=== PATIENT | male | born 1990 | race Caucasian/White ===

== ENCOUNTER 2023-07-16 23:29 | Emergency (ER) | payer OTHER, SELFPAY ==
[2023-07-16 23:31] VITALS: BP 131/90; PULSE 66; RESP 18; TEMP 36.1; O2SAT 100
--- NOTE | 2023-07-16 23:34 | W.ED.GENAD ---
Discharge Plan Disposition Patient Disposition: Home Condition: Good Discharge Details Clinical Impression: Otitis media Primary Care Provider: None,None ED Provider: Jose G Monroys and New Rx's Prescriptions: New amoxicillin-pot clavulanate 875-125 mg tablet 1 tab PO BID Qty: 20 0RF Continued cetirizine 10 MG tablet,chewable 10 mg PO DAILY diphenhydramine HCl 25 MG capsule 25 mg PO PRN PRN Discharge Instructions Instructions: Ear Infection (ED) Additional Instructions: You were seen for left ear pain tonight with evidence of middle ear infection with possible tympanic membrane rupture. Will start you on an antibiotic which is a little stronger than what we usually used for ear infections given your recent use of 2 different antibiotics. You will need to follow-up with ear nose and throat and [facility]. Alternate acetaminophen with ibuprofen as we discussed. Do not let water into your ear until you have been seen and evaluated by ENT. Return to the ED for worsening ear pain or persistent headache, fever, other concerns. HPI General Mode of arrival: ambulatory. Date/Time Provider Initiated Documentation: 07/16/23 23:34. Limitations to Documentation: no limitations. Information obtained by: patient. HPI Narrative: Patient presents to ED with left ear pain that started this afternoon and has worsened throughout the evening. He reports being treated for pneumonia back in May and more recently treated for bronchitis with last dose of antibiotic 1 week ago. Still has a residual cough but otherwise feels much better. This afternoon developed left ear pain which has been worsening throughout the night. In the waiting room felt a pop and has had a little bit of drainage from that ear. Denies any fever or headache. Related Data Home Medications Medication Instructions Recorded Confirmed cetirizine 10 mg chewable tablet 10 mg PO DAILY 05/24/12 07/16/23 diphenhydramine HCl 25 mg capsule 25 mg PO PRN PRN 01/26/13 07/16/23 amoxicillin 875 mg-potassium 1 tab PO BID #20 tabs 07/16/23 clavulanate 125 mg tablet Previous Rx's Medication Instructions Recorded amoxicillin 875 mg-potassium 1 tab PO BID #20 tabs 07/16/23 clavulanate 125 mg tablet Allergies Allergy/AdvReac Type Severity Reaction Status Date / Time No Known Allergies Allergy Verified 07/16/23 23:45 General Stated Complaint: EarProblem BENJAMIN: 4 Review of Systems Narrative: Per HPI Exam Narrative Exam Narrative: Const: WDWN male in NAD. VS per triage. HEENT: NC/AT. Normal facial exam. Right ear normal. Left ear with opacified and erythematous tympanic membrane, questionable perforation superiorly. Canal appears normal. Oropharynx normal. Eyes: Normal conjunctiva and sclera. Neck: Supple. Trachea midline. Lungs: Normal respiratory effort. Neuro: A+O x 3. Normal speech, mentation, gait. Cranial nerves II - XII grossly intact. No gross motor or sensory deficit. Course Vital Signs Vital signs: Vital Signs Temperature 97 F L 07/16/23 23:31 Pulse 66 07/16/23 23:31 Respiratory Rate 18 07/16/23 23:31 Blood Pressure 131/90 07/16/23 23:31 Pulse Oximetry 100 07/16/23 23:31 Temperature 97 F L 07/16/23 23:31 Temperature Source Temporal Artery Scan 07/16/23 23:31 Pulse 66 07/16/23 23:31 Respiratory Rate 18 07/16/23 23:31 Blood Pressure 131/90 07/16/23 23:31 Pulse Oximetry 100 07/16/23 23:31 Oxygen Delivery Method Room Air 07/16/23 23:31 Oxygen Flow Rate 0 07/16/23 23:31 Pain Level 8 07/16/23 23:31 Medical Decision Making Patient presenting to ED with left ear pain. Definitely has otitis media with questionable TM perforation. Has recently been on antibiotics, 2 different kind in the last month. Will place on Augmentin and refer to ear nose and throat. [facility] and will reach out to [place] tomorrow. Instructed to alternate acetaminophen with ibuprofen every 4 hours. Do not allow water to get into the ear. Return precautions provided. PFSH All Active Problems Otitis media (Acute) Medical History No significant past medical history Surgical History S/P hernia repair Social History Smoking/Tobacco Use Status: Former Tobacco Use Smoking risk assessment performed?: Yes Drug use: Never Substance use type: does not use Do you feel safe at home: Yes
[2023-07-16] MEDS: Amoxicillin 875/Clav. 125 TAB PO (23:51)
== END 2023-07-17 | disposition home or self-care (01) ==
PROVIDERS: Emergency Provider Emergency Medicine
DX: H92.02 Otalgia, left ear (principal); H66.92 Otitis media, unspecified, left ear
CPT/HCPCS: 99283

== ENCOUNTER 2024-03-18 10:10 | Emergency (ER) | payer OTHER, SELFPAY ==
[2024-03-18 10:19] VITALS: BP 115/77; PULSE 68; RESP 17; TEMP 36.3; O2SAT 98
[2024-03-18 10:25] VITALS: BP 115/77; PULSE 68; RESP 17; TEMP 36.3; O2SAT 98
--- OUTSIDE RECORDS SUMMARY | 2024-03-18 10:27 | XMS_ITS | Continuity of Care Document ---
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 It does not include entries that were removed or entered in error. Problem Status Onset Date Problem Type Date of Resolution Comments Source pneumothorax spontaneous Inactive 08/08/19 12 Condition DoD conditions influencing health status Active Condition DoD inguinal hernia on the right Active Condition DoD inguinal hernia bilateral Inactive Condition DoD visit for: services physical separation Active Condition DoD visit for: services physical pre-deployment Active Condition DoD common cold Inactive Condition DoD otitis media left ear Active Condition DoD trapezius muscle strain left Active Condition DoD Removal Of [place] Inactive Condition Do D visit for: services physical Active Condition DoD Need For Vaccination Typhoid Active Condition DoD Need For Vaccination Hepatitis B Active Condition DoD Need For Vaccination Hepatitis A Active Condition DoD visit for: occupational health / fitness exam Active Condition DoD otitis externa Inactive Condition DoD multiple blisters Active Condition DoD skin disorders appendage hair follicle folliculitis Active Condition DoD dermatophytosis tinea cruris Active Condition DoD cerumen impaction Active Condition DoD upper respiratory infection Active Condition DoD visit for: services physical accession Active Condition DoD Abnormal liver function Active Condition [facility] Allergic rhinitis Active Condition [facility] Allergy Active Condition [facility] Anxiety (SCT [id number]) Active Condition [facility] Asthma finding Active Condition [facility] Bilateral inguinal hernia, without mention of obstruction or gangrene (ICD-9-CM Active Condition [facility] Chronic Post-Traumatic Stress Disorder Following Combat (SCT [id number]) Active Condition [facility] [place] [facility] Cyst Active Condition [facility]ys[facility]nea Active Condition [facility] Fatty liver Active Condition [facility] Hemorrhoid Active Condition [facility] History of pneumothorax Active Condition [facility] History of pneumothorax Active Condition Jan 24, 2023 Entered By: JULIO C MASTERS Comment: bilateral s/p chest tubes [facility] LBP - Low back pain Active Condition [facility] Low back pain Active Condition [facility] Pain of Both Knees ([facility] [id number]) Active Condition [facility] Urinary incontinence [facility] Vitamin D deficiency Active Condition [facility] Bilateral inguinal hernia Inactive Condition 01/24/2023 [facility] External haemorrhoids without complication Inactive Condition 01/24/2023 [facility] Health maintenance alteration Inactive Condition 08/10/2023 [facility] Diagnosis: ICD-10-CM M25.512 Pain in left shoulder Active Diagnosis [facility] Diagnosis: ICD-10-CM M79.641 Pain in right hand Active Diagnosis [facility] Diagnosis: ICD-10-CM J30.81 Allergic rhinitis due to animal (cat) (dog) hair and dander Active Diagnosis [facility] Diagnosis: ICD-10-CM J30.9 Allergic rhinitis, unspecified Active Diagnosis [facility] Diagnosis: ICD-10-CM M25.561 Pain in right knee Active Diagnosis [facility] Diagnosis: ICD-10-CM H66.002 Acute suppr otitis media w/o spon rupt ear drum, left ear Active Diagnosis [facility] Diagnosis: ICD-10-CM F41.9 Anxiety disorder, unspecified Active Diagnosis [facility] Diagnosis: ICD-10-CM H60.8X2 Other otitis externa, left ear Active Diagnosis [facility] Diagnosis: ICD-10-CM H60.399 Other infective otitis externa, unspecified ear Active Diagnosis [facility] Diagnosis: ICD-10-CM M54.50 Low back pain, unspecified Active Diagnosis [facility] (6[facility]) Medications Combined list of outpatient medications from Department of Defense and [facility] Affairs facilities.Medications provided include 1) outpatient medications from the last 15 months, and 2) patient-reported medications. Medication Details Route Status Patient Instructions Prescription Expires Prescription Number Last Dispense Date Ordering Provider Order Date Order Qty Source ACETAMINOPH EN 500MG TAB TAKE TWO TABLETS BY MOUTH THREE TIMES DAILY NEEDED FOR PAIN ORAL 01/25/2024 [id number] HOWARD MASTERS Y 2022 200 [facility] [address] ([facility]) AMOXICILLIN TRIHYDRATE 875MG/CLAVU LANATE K 125MG TAB TAKE 1 TABLET BY MOUTH TWICE A DAY FOR OTITIS MEDIA ORAL 08/25/2023 [id number] 4 SIMON OLIVAREZ 2023 14 [facility] CETIRIZINE HCL 10MG TAB TAKE ONE TABLET BY MOUTH AT BEDTIME NEEDED FOR ALLERGIE S ORAL ACTIVE 08/20/2024 [id number] 4 DEBRA MARTINEZ RA 2023 90 [facility] CETIRIZINE HCL 10MG TAB TAKE ONE TABLET BY MOUTH ONCE DAILY FOR ALLERGIE S ORAL 01/25/2024 [id number] 4 HOWARD MASTERS 2022 90 [facility] [address] (6[facility]) CIPROFLOXAC IN HCL 0.3%/DEXAME THASONE 0.1% SUSP,OTIC INSTILL FOUR DROPS IN LEFT EAR TWICE A DAY FOR OTITIS EXTERNA [facility] LAR (OTIC) ACTIVE 07/26/2024 [id number] 4 SIMON OLIVAREZ 2023 7.5 [facility] DICLOFENAC NA 1% GEL,TOP APPLY 2 GRAMS TOPICALL Y FOUR TIMES A DAY FOR JOINT PAIN FOR OSTEOART HRITIS - USE DOSING CARD PROVIDED IN BOX TOPICA L 01/25/2024 [id number] 3 HOWARD MASTERS 2022 100 [facility] [address] (6[facility]) FLUTICASONE PROPIONATE 50MCG/SPRAY SOLN,NASAL, 16GM INSTILL 2 SPRAYS INTO EACH NOSTRIL EVERY DAY NEEDED FOR ALLERGIC RHINITIS NASAL ACTIVE 02/05/2025 [id number] 4 MAIKOL ASIF 2023 3 [facility] FLUTICASONE PROPIONATE 50MCG/SPRAY SOLN,NASAL, 16GM INSTILL 1 SPRAY INTO EACH NOSTRIL ONCE DAILY NEEDED FOR NASAL IRRITATI ON/INFLA MMATION NASAL 01/25/2024 [id number] 4 HOWARD MASTERS Y 2022 1 [facility] [address] [address] (631[facility]) FLUTICASONE PROPIONATE 50MCG/SPRAY SOLN,NASAL, 16GM INSTILL 2 SPRAYS INTO EACH NOSTRIL ONCE DAILY NASAL ACTIVE MAIKOL ASIF N 2023 [facility] HC 1%/N-MYCIN 3.5MG/POLYM YX 88925MPO/ML SUSP,OPH INSTILL 3 DROPS IN LEFT EAR THREE TIMES A DAY FOR 10 DAYS [facility]UR[facility] LAR (OTIC) DISCONT INUED BY PROVIDE R 08/18/2023 [id number] 4 MARCY ROMEO M [address] [facility] IBUPROFEN 400MG TAB TAKE ONE TABLET BY MOUTH FOUR TIMES DAILY NEEDED FOR PAIN ORAL ACTIVE 10/04/2024 [id number] 4 MAIKOL ASIF N 2023 270 [facility] LIDOCAINE 5% PATCH APPLY 3 PATCHES TOPICALL Y ONCE DAILY FOR PAIN PRESS PATCH ON SKIN FOR 10-15 SECONDS TO ACTIVATE ADHESIVE , APPLY ONLY ONCE FOR UP TO 12 HOURS WITHIN A 24 HOUR PERIOD TOPICA L ACTIVE 10/04/2024 [id number] 4 MAIKOL ASIF N 2023 90 [facility] LORATADINE 10MG TAB TAKE ONE TABLET BY MOUTH ONCE DAILY FOR ALLERGIE S ORAL ACTIVE 08/07/2024 [id number] 4 DEBRA MARTINEZ RA [address] [facility] OLOPATADINE HCL 0.7% SOLN,OPH INSTILL 1 DROP IN BOTH EYES ONCE DAILY FOR ALLERGIC CONJUNCT IVITIS OPHTHA LMIC ACTIVE 08/07/2024 [id number] 4 DEBRA MARTINEZ RA [address] [facility] SINUS RINSE NEILMED PKT USE ONE PACKET INTRANAS ALLY TWICE DAILY NEEDED FOR CHRONIC RHINOSIN USITIS NASAL ACTIVE 08/20/2024 [id number] 4 DEBRA MARTINEZ RA 2023 200 [facility] SINUS RINSE NEILMED REGULAR KIT USE ONE PACKET INTRANAS ALLY TWICE DAILY NEEDED FOR CHRONIC RHINOSIN USITIS NASAL ACTIVE 08/20/2024 [id number] 4 DEBRA MARTINEZ RA 2023 1 [facility] Allergies, Adverse Reactions, Alerts Combined list of allergies from Department of Defense and Veterans Affairs facilities. It does not include entries that were removed or entered in error. Substance Category Reaction Severity Reaction type Status Date Reported Comments Source PENICILLIN Propensity to adverse reactions to drug (finding) active 7 [facility] PENICILLIN Propensity to adverse reactions to drug (finding) Eruption active 3 [facility] [facility] PENICILLIN-G RELATED PENICILLINS Drug allergy (disorder) Feeling nervous active 4 [facility] PENICILLINS Drug allergy (disorder) Unknown active 8 [facility] Immunizations Combined list of available immunizations from the Department of Defense and Veterans Affairs facilities. Immunization Series Date Given Administered By Site Reaction Lot Number CVX Code Drug Logging Assistant Status Comments Source INFLUENZA, INJECTABLE, QUADRIVALENT, PRESERVATIVE FREE 2022 YOLANDA KAUR LEFT DELTO ID [id number] A 150 complet ed [facility] [address] (6[facility]GE) TDAP 2022 115 complet ed [facility] [place] [facility] INFLUENZA, INJECTABLE, QUADRIVALENT, PRESERVATIVE FREE 2020 150 complet ed [facility] COVID-19 (PFIZER), MRNA, LNP-S, PF, 30 MCG/0.3 ML DOSE 2 2020 208 complet ed PFR; [id number]; 1 [facility] COVID-19 (PFIZER), MRNA, LNP-S, PF, 30 MCG/0.3 ML DOSE 1 2020 208 complet ed PFR; [id number]; 1 [facility] INFLUENZA, INJECTABLE, QUADRIVALENT, PRESERVATIVE FREE 2019 150 complet ed [facility] INFLUENZA, UNSPECIFIED FORMULATION 2015 88 complet ed Site: Left Deltoid [facility] HPV, QUADRIVALENT [address] [facility] HPV, QUADRIVALENT 2014 62 complet ed Site: Right Deltoid [facility] HPV, QUADRIVALENT 2014 62 complet ed Site: Right Deltoid [facility] PNEUMOCOCCAL POLYSACCHARID E PPV23 [address] [facility] DTAP, UNSPECIFIED FORMULATION 2011 107 complet ed Site: Left Deltoid [facility] TDAP 2011 115 complet ed received via [facility] TDAP [address] [facility] influenza virus vaccine, live, attenuated, for intranasal use 0 2010 [id number] [employer] (MED) complet ed influenza virus vaccine, live, attenuate d, for intranasa l use DoD anthrax vaccine 5 2010 UNK 24 (EBS) complet ed anthrax vaccine DoD typhoid Vi capsular polysaccharid e vaccine 1 2010 UNK 101 Mariya (WAL) complet ed typhoid Vi capsular polysacch aride vaccine DoD measles, mumps and rubella virus vaccine 0 2010 UNK 03 Merck (MSD) complet ed measles, mumps and rubella virus vaccine DoD anthrax vaccine 4 2009 [id number] 24 (EBS) complet ed anthrax vaccine DoD influenza virus vaccine, live, attenuated, for intranasal use 0 2009 [id number] 111 [employer] (MED) complet ed influenza virus vaccine, live, attenuate d, for intranasa l use DoD anthrax vaccine 3 2009 UNK 24 (TRN) complet ed anthrax vaccine DoD Omani Encephalitis Vaccine SC 3 2009 UNK 39 (TRN) complet ed Omani Encephali tis Vaccine SC DoD anthrax vaccine 2 2009 UNK 24 (TRN) complet ed anthrax vaccine DoD [place]i Encephalitis Vaccine SC 2 2009 UNK 39 (TRN) complet ed [place]i Encephali tis Vaccine SC DoD anthrax vaccine 1 2009 UNK 24 (TRN) complet ed anthrax vaccine DoD [place]i Encephalitis Vaccine SC 1 2009 UNK 39 (TRN) complet ed [place]i Encephali tis Vaccine SC DoD vaccinia (smallpox) vaccine 0 2009 UNK 75 ([place]) complet ed vaccinia (smallpox ) vaccine DoD Novel Influenza-H1N 1-09, live virus for nasal administratio n 0 2009 [id number] 125 [employer] (MED) complet ed Novel Influenza -X6T0-16, live virus for nasal administr ation DoD influenza virus vaccine, live, attenuated, for intranasal use 0 2008 [id number] 111 [employer] (MED) complet ed influenza virus vaccine, live, attenuate d, for intranasa l use DoD typhoid Vi capsular polysaccharid e vaccine 1 2008 UNK 101 Mariya (WAL) complet ed typhoid Vi capsular polysacch aride vaccine DoD hepatitis A and hepatitis B vaccine 3 2008 UNK 104 SmithKline (SKB) complet ed hepatitis A and hepatitis B vaccine DoD typhoid Vi capsular polysaccharid e vaccine 1 2008 HANH URBINA [id number] Other (OTH) complet ed typhoid Vi capsular polysacch aride vaccine DoD hepatitis A and hepatitis B vaccine 3 2008 HANH URBINA [id number] 2aa 104 [employer]Kline (SKB) complet ed hepatitis A and hepatitis B vaccine DoD poliovirus vaccine, inactivated 0 2007 [id number] 10 Sanofi Pasteur (PMC) complet ed polioviru s vaccine, inactivat ed DoD yellow fever vaccine 0 2007 [id number] 37 Sanofi Pasteur (PMC) complet ed yellow fever vaccine DoD hepatitis A and hepatitis B vaccine 2 2007 [id number] 3AA 104 SmithKline (SKB) complet ed hepatitis A and hepatitis B vaccine DoD hepatitis A and hepatitis B vaccine 1 2007 [id number] 6AA 104 [employer]Kline (SKB) complet ed hepatitis A and hepatitis B vaccine DoD meningococcal polysaccharid e (groups A, C, Y and W-135) diphtheria toxoid conjugate vaccine (MCV4P) 0 2007 [id number] 114 Sanofi Pasteur (PMC) complet ed meningoco ccal polysacch aride (groups A, C, Y and W-135) diphtheri a toxoid conjugate vaccine (MCV4P) DoD tetanus toxoid, reduced diphtheria toxoid, and acellular pertu is vaccine, adsorbed 0 2007 [id number] 115 Sanofi Pasteur (PMC) complet ed tetanus toxoid, reduced diphtheri a toxoid, and acellular pertussis vaccine, adsorbed DoD Results Combined list of recent chemistry, hematology and other laboratory results from Department of Defense and Veterans Affairs, ranging from 15 months to all on record, depending upon the facility. Order Name Results Value Reference Range Date Interpretation Specimen Comments Source LYME SEROLOGY PANEL( ) BORRELIA BURGDORFER I AB.IGG AND IGM WITH REFLEX TO IMMUNOASSA Y PANEL - SERUM OR PLASMA Negative 09/22 Specimen Type: SERUM Comment: The LYME SEROLOGY PANEL was performed using the FDA-approve d Miguel SUSI Borrelia burdorferi modified two-tier test system. This modified methodology uses a second EIA in place of a western immunoblot assay, which the FDA has determined is substantia lly equivalent to or better than standard two-tier testing using western blot. Supplementa l testing with a second EIA meets CDC guidelines for Lyme disease testing. Performance characteris tics of the panel were validated at the [facility]. Results are considered positive only if the initial screening EIA is positive or equivocal, and either or both supplementa l EIAs (for IgM and IgG) are positive. Diagnosis of Lyme disease should not be based solely on laboratory results. Clinical and exposure history must be considered. Positive antibody results reflect prior immunologic exposure, and do not necessarily indicate active infection. False positive results are possible in patients with other spirochetal infections, infectious mononucleos is, and connective tissue disorders. Negative results do not exclude B. burgdorferi infection. Only 10-40% of patients with erythema migrans alone have detectable antibodies. False negative results are possible, if specimens are drawn too soon after infection before an antibody response. Antibody induction may be aborted by early antibiotic therapy. Results in immunosuppr essed individuals should be interpreted with caution. If Lyme disease is strongly suspected, but antibody was not detected, a second specimen collected about 2-4 weeks after the first should be tested. This test is NOT for use in screening individuals without signs, symptoms or exposure history. Physicians should report all cases of Lyme disease to their state and local health departments , if applicable. Ordering Provider: PETER DONOHUE Report Released Date/Time: Sep 18, 2023 04:18 PM Reporting Lab: [facility] [address] [address] Performing Lab: [facility] [address] [facility] [address] [facility] LYME SEROLOGY PANEL(WH ) BORRELIA BURGDORFER I AB [INTERPRET ATION] IN SERUM BY IA.MTTT Negative 09/22 Specimen Type: SERUM Comment: The LYME SEROLOGY PANEL was performed using the FDA-approve d Miguel SUSI Borrelia burdorferi modified two-tier test system. This modified methodology uses a second EIA in place of a western immunoblot assay, which the FDA has determined is substantia lly equivalent to or better than standard two-tier testing using western blot. Supplementa l testing with a second EIA meets CDC guidelines for Lyme disease testing. Performance characteris tics of the panel were validated at the [facility]. Results are considered positive only if the initial screening EIA is positive or equivocal, and either or both supplementa l EIAs (for IgM and IgG) are positive. Diagnosis of Lyme disease should not be based solely on laboratory results. Clinical and exposure history must be considered. Positive antibody results reflect prior immunologic exposure, and do not necessarily indicate active infection. False positive results are possible in patients with other spirochetal infections, infectious mononucleos is, and connective tissue disorders. Negative results do not exclude B. burgdorferi infection. Only 10-40% of patients with erythema migrans alone have detectable antibodies. False negative results are possible, if specimens are drawn too soon after infection before an antibody response. Antibody induction may be aborted by early antibiotic therapy. Results in immunosuppr essed individuals should be interpreted with caution. If Lyme disease is strongly suspected, but antibody was not detected, a second specimen collected about 2-4 weeks after the first should be tested. This test is NOT for use in screening individuals without signs, symptoms or exposure history. Physicians should report all cases of Lyme disease to their state and local health departments , if applicable. Ordering Provider: PETER DONOHUE Report Released Date/Time: Sep 18, 2023 04:18 PM Reporting Lab: [facility] [address] [address] Performing Lab: [facility] [address] [facility] [address] [facility] LIVER PROFILE PROTEIN [MASS/VOLU ME] IN SERUM OR PLASMA 7.3 g/dL 6.0 - 8.5 08/04 Specimen Type: PLASMA Comment: , Tests performed on [employer] Astronomy Teacher Arvind SN:[id number] (405). Ordering Provider: TYRESE ASIF Report Released Date/Time: July 18, 2023 12:25 PM Reporting Lab: [facility] [address] [address] Performing Lab: [facility] [address] [address] [facility] LIVER PROFILE ALBUMIN [MASS/VOLU ME] IN SERUM OR PLASMA 4.1 g/dL 3.2 - 5.0 08/04 Specimen Type: PLASMA Comment: , Tests performed on [employer]ion[employer] Arvind SN:[id number] (405). Ordering Provider: TYRESE ASIF Report Released Date/Time: July 18, 2023 12:25 PM Reporting Lab: [facility] [address] [address] Performing Lab: [facility] [address] [address] [facility] LIVER PROFILE BILIRUBIN. TOTAL [MASS/VOLU ME] IN SERUM OR PLASMA 0.9 mg/dL 0.2 - 1.2 08/04 Specimen Type: PLASMA Comment: , Tests performed on [employer] SN:[id number] (405). Ordering Provider: TYRESE ASIF Report Released Date/Time: July 18, 2023 12:25 PM Reporting Lab: [facility] [address] [address] Performing Lab: [facility] [address] [address] [facility] LIVER PROFILE ALKALINE PHOSPHATAS E [ENZYMATIC ACTIVITY/V OLUME] IN SERUM OR PLASMA 75 U/L 40 - 150 08/04 Specimen Type: PLASMA Comment: , Tests performed on [employer] Astronomy Teacher Arvind SN:[id number] (405). Ordering Provider: TYRESE ASIF Report Released Date/Time: July 18, 2023 12:25 PM Reporting Lab: [facility] [address] [facility] [place] [address] Performing Lab: [facility] [address] [facility] [place] [address] [facility] LIVER PROFILE ALANINE AMINOTRANS FERASE [ENZYMATIC ACTIVITY/V OLUME] IN SERUM OR PLASMA 44 U/L 7 - 52 08/04 Specimen Type: PLASMA Comment: , Tests performed on [employer] Teacher Arvind SN:[id number] (405). Ordering Provider: TYRESE ASIF Report Released Date/Time: July 18, 2023 12:25 PM Reporting Lab: [facility] [address] [facility] [place] [address] Performing Lab: [facility] [address] [facility] [place] [address] [facility] LIVER PROFILE ASPARTATE AMINOTRANS FERASE [ENZYMATIC ACTIVITY/V OLUME] IN SERUM OR PLASMA 28 U/L 5 - 34 08/04 Specimen Type: PLASMA Comment: , Tests performed on [employer] SN:[id number] (405). Ordering Provider: TYRESE ASIF Report Released Date/Time: July 18, 2023 12:25 PM Reporting Lab: [facility] [address] [facility] [place] [address] Performing Lab: [facility] [address] [facility] [place] [address] [facility] LIVER PROFILE FIB-4 SCORE 0.63 <2.67 - 2.67 08/04 Specimen Type: PLASMA Comment: , Tests performed on [employer] SN:[id number] (405). Ordering Provider: TYRESE ASIF Report Released Date/Time: July 18, 2023 12:25 PM Reporting Lab: [facility] [address] [facility] [place] [address] Performing Lab: [facility] [address] [facility] [place] [address] [facility] LIPOPROT EIN CHOLESTE ROL FRACT. PANEL CHOLESTERO L [MASS/VOLU ME] IN SERUM OR PLASMA 161 mg/dL 0 - 200 08/04 Specimen Type: PLASMA Comment: , Tests performed on [employer] SN:[id number] (405). Ordering Provider: TYRESE ASIF Report Released Date/Time: July 18, 2023 12:25 PM Reporting Lab: [facility] [address] [address] Performing Lab: [facility] [address] [address] [facility] LIPOPROT EIN CHOLESTE ROL FRACT. PANEL TRIGLYCERI DE [MASS/VOLU ME] IN SERUM OR PLASMA 110 mg/dL 0 - 150 08/04 Specimen Type: PLASMA Comment: , Tests performed on [employer] Astronomy Teacher Arvind SN:[id number] (405). Ordering Provider: TYRESE ASIF Report Released Date/Time: July 18, 2023 12:25 PM Reporting Lab: [facility] [address] [address] Performing Lab: [facility] [address] [facility] [address] [facility] LIPOPROT EIN CHOLESTE ROL FRACT. PANEL CHOLESTERO L IN HDL [MASS/VOLU ME] IN SERUM OR PLASMA 47 mg/dL 40 08/04 Specimen Type: PLASMA Comment: , Tests performed on [employer] SN:[id number] (405). Ordering Provider: TYRESE ASIF Report Released Date/Time: July 18, 2023 12:25 PM Reporting Lab: [facility] [address] [address] Performing Lab: [facility] [address] [facility] [address] [facility] LIPOPROT EIN CHOLESTE ROL FRACT. PANEL CHOLESTERO L IN LDL [MASS/VOLU ME] IN SERUM OR PLASMA BY CALCULATIO N 92 mg/dL 0 - 129 08/04 Specimen Type: PLASMA Comment: , Tests performed on [employer] Arvind SN:[id number] (405). Ordering Provider: TYRESE ASIF Report Released Date/Time: July 18, 2023 12:25 PM Reporting Lab[facility] [address] [address] Performing Lab: [facility] [address] [address] [facility] URINALYS IS ONLY NO REFLEXUR INALYSIS ONLY COLOR OF URINE Light-Ye llow 08/04 Specimen Type: URINE No comment entered. Ordering Provider: TYRESE ASIF Report Released Date/Time: July 18, 2023 12:25 PM Reporting Lab: [facility] [address] [facility] [address] Performing Lab: [facility] [address] [facility] [address] [facility] URINALYS IS ONLY NO REFLEXUR INALYSIS ONLY SPECIFIC GRAVITY OF URINE BY REFRACTOME TRY 1.025 1.003 - 1.030 08/04 Specimen Type: URINE No comment entered. Ordering Provider: TYRESE ASIF Report Released Date/Time: July 18, 2023 12:25 PM Reporting Lab: [facility] [address] [facility] [address] Performing Lab: [facility] [address] [facility] [address] [facility] URINALYS IS ONLY NO REFLEXUR INALYSIS ONLY UROBILINOG EN [MASS/VOLU ME] IN URINE <2.0mg/d L <2.0 - 2.0 08/04 Specimen Type: URINE No comment entered. Ordering Provider: TYRESE ASIF Report Released Date/Time: July 18, 2023 12:25 PM Reporting Lab: [facility] [address] [facility] [address] Performing Lab: [facility] [address] [facility] [address] [facility] URINALYS IS ONLY NO REFLEXUR INALYSIS ONLY BILIRUBIN. TOTAL [PRESENCE] IN URINE BY TEST STRIP NEG 08/04 Specimen Type: URINE No comment entered. Ordering Provider: TYRESE ASIF Report Released Date/Time: July 18, 2023 12:25 PM Reporting Lab: [facility] [address] [facility] [address] Performing Lab: [facility] [address] [facility] [address] [facility] URINALYS IS ONLY NO REFLEXUR INALYSIS ONLY KETONES [PRESENCE] IN URINE NEGmg/dL 08/04 Specimen Type: URINE No comment entered. Ordering Provider: TYRESE ASIF Report Released Date/Time: July 18, 2023 12:25 PM Reporting Lab: [facility] [address] [facility] [place] [address] Performing Lab: [facility] [address] [facility] [place] [address] [facility] URINALYS IS ONLY NO REFLEXUR INALYSIS ONLY GLUCOSE [MASS/VOLU ME] IN URINE BY TEST STRIP NEGmg/dL 08/04 Specimen Type: URINE No comment entered. Ordering Provider: TYRESE ASIF Report Released Date/Time: July 18, 2023 12:25 PM Reporting Lab: [facility] [address] [facility] [address] Performing Lab: [facility] [address] [facility] [address] [facility] URINALYS IS ONLY NO REFLEXUR INALYSIS ONLY PROTEIN [MASS/VOLU ME] IN URINE BY TEST STRIP TRACEmg/ dL 08/04 Specimen Type: URINE No comment entered. Ordering Provider: TYRESE ASIF Report Released Date/Time: July 18, 2023 12:25 PM Reporting Lab: [facility] [address] [facility] [address] Performing Lab: [facility] [address] [facility] [address] [facility] URINALYS IS ONLY NO REFLEXUR INALYSIS ONLY PH OF URINE BY TEST STRIP 7.0 5 - 8 08/04 Specimen Type: URINE No comment entered. Ordering Provider: TYRESE ASIF Report Released Date/Time: July 18, 2023 12:25 PM Reporting Lab: [facility] [address] [facility] [address] Performing Lab: [facility] [address] [facility] [place] [address] [facility] URINALYS IS ONLY NO REFLEXUR INALYSIS ONLY APPEARANCE OF URINE CLEAR 08/04 Specimen Type: URINE No comment entered. Ordering Provider: TYRESE ASIF Report Released Date/Time: July 18, 2023 12:25 PM Reporting Lab: [facility] [address] [facility] [place] [address] Performing Lab: [facility] [address] [facility] [address] [facility] URINALYS IS ONLY NO REFLEXUR INALYSIS ONLY HEMOGLOBIN [PRESENCE] IN URINE NEG 08/04 Specimen Type: URINE No comment entered. Ordering Provider: TYRESE ASIF Report Released Date/Time: July 18, 2023 12:25 PM Reporting Lab: [facility] [address] [facility] [address] Performing Lab: [facility] [address] [facility] [address] [facility] URINALYS IS ONLY NO REFLEXUR INALYSIS ONLY NITRITE [PRESENCE] IN URINE BY TEST STRIP NEG 08/04 Specimen Type: URINE No comment entered. Ordering Provider: TYRESE ASIF Report Released Date/Time: July 18, 2023 12:25 PM Reporting Lab: [facility] [address] [facility] [address] Performing Lab: [facility] [address] [facility] [address] [facility] UR[facility]YS IS ONLY NO REFLEXUR INALYSIS ONLY LEUKOCYTES [PRESENCE] IN URINE NEG 08/04 Specimen Type: URINE No comment entered. Ordering Provider: TYRESE ASIF Report Released Date/Time: July 18, 2023 12:25 PM Reporting Lab: [facility] [address] [facility] [address] Performing Lab: [facility] [address] [facility] [address] [facility] VIT D 25-OH(WR J) CALCIFEROL (VIT D2) [MASS/VOLU ME] IN SERUM OR PLASMA 22.9 ng/mL 20.0 - 50.0 08/04 Specimen Type: SERUM Comment: , Tests performed on [employer] [place] SN:[id number] (185) Ordering Provider: TYRESE ASIF Report Released Date/Time: July 18, 2023 12:25 PM Reporting Lab: [facility] [address] [facility] [address] [facility]: [facility] [address] [facility] [address] [facility] VITAMIN B-12 COBALAMIN (VITAMIN B12) [MASS/VOLU ME] IN SERUM OR PLASMA 245 pg/mL 200 - 900 08/04 Specimen Type: SERUM Comment: , Tests performed on [employer] [place] SN:[id number] (405) Ordering Provider: TYRESE ASIF Report Released Date/Time: July 18, 2023 12:25 PM Reporting Lab: [facility] [address] [facility] [address] Performing Lab: [facility] [address] [facility] [address] [facility] TESTOSTE MARY(WRJ ) TESTOSTERO NE [MASS/VOLU ME] IN SERUM OR PLASMA 393.8 ng/dL 220 - 892 08/04 Specimen Type: SERUM Comment: , Tests performed on [employer] Mimi SN:[id number] (405) Ordering Provider: TYRESE ASIF Report Released Date/Time: July 18, 2023 12:25 PM Reporting Lab: [facility] [address] [facility] [address] Performing Lab: [facility] [address] [facility] [address] [facility] P4 GLU,BUN, CREAT,LY FRANCESCA,CA UREA NITROGEN [MASS/VOLU ME] IN SERUM OR PLASMA 14 mg/dL 7 - 25 08/04 Specimen Type: PLASMA Comment: , Tests performed on [employer] SN:[id number] (405). Ordering Provider: TYRESE ASIF Report Released Date/Time: July 18, 2023 12:25 PM Reporting Lab: [facility] [address] [facility] [address] Performing Lab: [facility] [address] [facility] [address] [facility] P4 GLU,BUN, CREAT,LY FRANCESCA,CA SODIUM [MOLES/VOL UME] IN SERUM OR PLASMA 138 mmol/L 135 - 145 08/04 Specimen Type: PLASMA Comment: , Tests performed on [employer] SN:[id number] (405). Ordering Provider: TYRESE ASIF Report Released Date/Time: July 18, 2023 12:25 PM Reporting Lab: [facility] [address] [facility] [address] Performing Lab: [facility] [address] [facility] [address] [facility] P4 GLU,BUN, CREAT,LY FRANCESCA,CA POTASSIUM [MOLES/VOL UME] IN SERUM OR PLASMA 4.2 mmol/L 3.5 - 5.0 08/04 Specimen Type: PLASMA Comment: , Tests performed on [employer] Arvind SN:[id number] (405). Ordering Provider: TYRESE ASIF Report Released Date/Time: July 18, 2023 12:25 PM Reporting Lab: [facility] [address] [facility] [address] Per[address] Lab: [facility] [address] [facility] [address] [facility] P4 GLU,BUN, CREAT,LY FRANCESCA,CA CHLORIDE [MOLES/VOL UME] IN SERUM OR PLASMA 104 mmol/L 100 - 110 08/04 Specimen Type: PLASMA Comment: , Tests performed on [employer] Teacher Arvind SN:[id number] (405). Ordering Provider: TYRESE ASIF Report Released Date/Time: July 18, 2023 12:25 PM Reporting Lab: [facility] [address] [facility] [address] Performing Lab: [facility] [address] [facility] [address] [facility] P4 GLU,BUN, CREAT,LY FRANCESCA,CA CARBON DIOXIDE, TOTAL [MOLES/VOL UME] IN SERUM OR PLASMA 26 mmol/L 20 - 30 08/04 Specimen Type: PLASMA Comment: , Tests performed on [employer] Teacher Arvind SN:[id number] (405). Ordering Provider: TYRESE ASIF Report Released Date/Time: July 18, 2023 12:25 PM Reporting Lab: [facility] [address] [facility] [address] Performing Lab: [facility] [address] [facility] [address] [facility] P4 GLU,BUN, CREAT,LY FRANCESCA,CA ANION GAP IN SERUM OR PLASMA 8 4 - 16 08/04 Specimen Type: PLASMA Comment: , Tests performed on [employer] SN:[id number] (405). Ordering Provider: TYRESE ASIF Report Released Date/Time: July 18, 2023 12:25 PM Reporting Lab: [facility] [address] [facility] [address] Per[facility]: [facility] [address] [facility] [address] [facility] P4 GLU,BUN, CREAT,LY FRANCESCA,CA GLUCOSE [MASS/VOLU ME] IN SERUM OR PLASMA 90 mg/dL 65 - 100 08/04 Specimen Type: PLASMA Comment: , Tests performed on [employer] Teacher Arvind SN:[id number] (405). Ordering Provider: TYRESE ASIF Report Released Date/Time: July 18, 2023 12:25 PM Reporting Lab: [facility] [address] [facility] [address] Per[facility]: [facility] [address] [facility] [address] [facility] P4 GLU,BUN, CREAT,LY FRANCESCA,CA CREATININE [MASS/VOLU ME] IN SERUM OR PLASMA 1.13 mg/dL 0.50 - 1.50 08/04 Specimen Type: PLASMA Comment: , Tests performed on [employer] SN:[id number] (405). Ordering Provider: TYRESE ASIF Report Released Date/Time: July 18, 2023 12:25 PM Reporting Lab: [facility] [address] [facility] [address] Per[facility] Lab: [facility] [address] [facility] [address] [facility] P4 GLU,BUN, CREAT,LY FRANCESCA,CA CALCIUM [MASS/VOLU ME] IN SERUM OR PLASMA 9.4 mg/dL 8.5 - 10.5 08/04 Specimen Type: PLASMA Comment: , Tests performed on [employer] SN:[id number] (405). Ordering Provider: TYRESE ASIF Report Released Date/Time: July 18, 2023 12:25 PM Reporting Lab: [facility] [address] [facility] [address] Performing Lab: [facility] [address] [facility] [address] [facility] P4 GLU,BUN, CREAT,LY FRANCESCA,CA GLOMERULAR FILTRATION RATE/1.73 SQ M.PREDICTE D [VOLUME RATE/AREA] IN SERUM, PLASMA OR BLOOD BY CREATININE -BASED FORMULA (CKD-EPI 2020) 88 mL/min 08/04 Specimen Type: PLASMA Comment: , Tests performed on [employer] SN:[id number] (713). Ordering Provider: TYRESE ASIF Report Released Date/Time: July 18, 2023 12:25 PM Reporting Lab: [facility] [address] [facility] [address] Performing Lab: [facility] [address] [facility] [address] [facility] CBC PROFILE LEUKOCYTES [#/VOLUME] IN BLOOD BY AUTOMATED COUNT 7.4 10*3/uL 4.5 - 11.0 08/04 Specimen Type: BLOOD No comment entered. Ordering Provider: TYRESE ASIF Report Released Date/Time: July 18, 2023 12:25 PM Reporting Lab: [facility] [address] [facility] [address] Performing Lab: [facility] [address] [facility] [address] [facility] CBC PROFILE ERYTHROCYT ES [#/VOLUME] IN BLOOD BY AUTOMATED COUNT 5.28 10*6/uL 4.23 - 5.66 08/04 Specimen Type: BLOOD No comment entered. Ordering Provider: TYRESE ASIF Report Released Date/Time: July 18, 2023 12:25 PM Reporting Lab: [facility] [address] [facility] [address] Performing Lab: [facility] [address] [facility] [address] [facility] CBC PROFILE HEMOGLOBIN [MASS/VOLU ME] IN BLOOD 16.3 g/dL 12.8 - 17 08/04 Specimen Type: BLOOD No comment entered. Ordering Provider: TYRESE ASIF Report Released Date/Time: July 18, 2023 12:25 PM Reporting Lab: [facility] [address] [facility] [address] Performing Lab: [facility] [address] [facility] [address] [facility] CBC PROFILE HEMATOCRIT [VOLUME FRACTION] OF BLOOD BY AUTOMATED COUNT 48.4 39.2 - 50.4 08/04 Specimen Type: BLOOD No comment entered. Ordering Provider: TYRESE ASIF Report Released Date/Time: July 18, 2023 12:25 PM Reporting Lab: [facility] [address] [facility] [address] Performing Lab: [facility] [address] [facility] [address] [facility] CBC PROFILE MCV [ENTITIC VOLUME] BY AUTOMATED COUNT 91.7 fL 82 - 99 08/04 Specimen Type: BLOOD No comment entered. Ordering Provider: TYRESE ASIF Report Released Date/Time: July 18, 2023 12:25 PM Reporting Lab: [facility] [address] [facility] [address] Performing Lab: [facility] [address] [facility] [address] [facility] CBC PROFILE MCH [ENTITIC MASS] BY AUTOMATED COUNT 30.9 pg 26.2 - 32.6 08/04 Specimen Type: BLOOD No comment entered. Ordering Provider: TYRESE ASIF Report Released Date/Time: July 18, 2023 12:25 PM Reporting Lab: [facility] [address] [facility] [address] Performing Lab: [facility] [address] [facility] [address] [facility] CBC PROFILE MCHC [MASS/VOLU ME] BY AUTOMATED COUNT 33.7 g/dL 30.8 - 35.1 08/04 Specimen Type: BLOOD No comment entered. Ordering Provider: TYRESE ASIF Report Released Date/Time: July 18, 2023 12:25 PM Reporting Lab: [facility] [address] [facility] [address] Performing Lab: [facility] [address] [facility] [address] [facility] CBC PROFILE PLATELETS [#/VOLUME] IN BLOOD BY AUTOMATED COUNT 221 10*3/uL 140 - 360 08/04 Specimen Type: BLOOD No comment entered. Ordering Provider: TYRESE ASIF Report Released Date/Time: July 18, 2023 12:25 PM Reporting Lab: [facility] [address] [facility] [address] Performing Lab: [facility] [address] [facility] [address] [facility] CBC PROFILE PLATELET MEAN VOLUME [ENTITIC VOLUME] IN BLOOD BY AUTOMATED COUNT 9.6 fL 9.2 - 12.4 08/04 Specimen Type: BLOOD No comment entered. Ordering Provider: TYRESE ASIF Report Released Date/Time: July 18, 2023 12:25 PM Reporting Lab: [facility] [address] [facility] [address] Performing Lab: [facility] [address] [facility] [address] [facility] CBC PROFILE ERYTHROCYT E DISTRIBUTI ON WIDTH [RATIO] BY AUTOMATED COUNT 13.2 12.0 - 16.0 08/04 Specimen Type: BLOOD No comment entered. Ordering Provider: TYRESE ASIF Report Released Date/Time: July 18, 2023 12:25 PM Reporting Lab: [facility] [address] [facility] [address] Performing Lab: [facility] [address] [facility] [address] [facility] CBC PROFILE LYMPHOCYTE S/100 LEUKOCYTES IN BLOOD BY AUTOMATED COUNT 29.8 14.0 - 42.3 08/04 Specimen Type: BLOOD No comment entered. Ordering Provider: TYRESE ASIF Report Released Date/Time: July 18, 2023 12:25 PM Reporting Lab: [facility] [address] [facility] [address] Performing Lab: [facility] [address] [facility] [address] [facility] CBC PROFILE MONOCYTES/ 100 LEUKOCYTES IN BLOOD BY AUTOMATED COUNT 8.0 5.1 - 13.7 08/04 Specimen Type: BLOOD No comment entered. Ordering Provider: TYRESE ASIF Report Released Date/Time: July 18, 2023 12:25 PM Reporting Lab: [facility] [address] [facility] [address] Performing Lab: [facility] [address] [facility] [address] [facility] CBC PROFILE GRANULOCYT ES/100 LEUKOCYTES IN BLOOD BY AUTOMATED COUNT 54.3 43.7 - 75.8 08/04 Specimen Type: BLOOD No comment entered. Ordering Provider: TYRESE ASIF Report Released Date/Time: July 18, 2023 12:25 PM Reporting Lab: [facility] [address] [facility] [address] Performing Lab: [facility] [address] [facility] [address] [facility] CBC PROFILE EOSINOPHIL S/100 LEUKOCYTES IN BLOOD BY AUTOMATED COUNT 7.0 0.4 - 6.8 08/04 H Specimen Type: BLOOD No comment entered. Ordering Provider: TYRESE ASIF Report Released Date/Time: July 18, 2023 12:25 PM Reporting Lab: [facility] [address] [facility] [address] Performing Lab: [facility] [address] [facility] [address] [facility] CBC PROFILE BASOPHILS/ 100 LEUKOCYTES IN BLOOD BY AUTOMATED COUNT 0.5 0.1 - 2.0 08/04 Specimen Type: BLOOD No comment entered. Ordering Provider: TYRESE ASIF Report Released Date/Time: July 18, 2023 12:25 PM Reporting Lab: [facility] [address] [facility] [address] Performing Lab: [facility] [address] [facility] [address] [facility] CBC PROFILE IMMATURE GRANULOCYT ES/100 LEUKOCYTES IN BLOOD BY AUTOMATED COUNT 0.4 0.0 - 0.7 08/04 Specimen Type: BLOOD No comment entered. Ordering Provider: TYRESE ASIF Report Released Date/Time: July 18, 2023 12:25 PM Reporting Lab: [facility] [address] [facility] [address] Performing Lab: [facility] [address] [facility] [address] [facility] CBC PROFILE NUCLEATED ERYTHROCYT ES/100 LEUKOCYTES [RATIO] IN BLOOD BY AUTOMATED COUNT 0.0 /100{WBC s} 0.0 - 0.0 08/04 Specimen Type: BLOOD No comment entered. Ordering Provider: TYRESE ASIF Report Released Date/Time: July 18, 2023 12:25 PM Reporting Lab: [facility] [address] [facility] [address] Performing Lab: [facility] [address] [facility] [address] [facility] CBC PROFILE IMMATURE GRANULOCYT ES [#/VOLUME] IN BLOOD 0.0 10*3/uL 0 - 0.06 08/04 Specimen Type: BLOOD No comment entered. Ordering Provider: TYRESE ASIF Report Released Date/Time: July 18, 2023 12:25 PM Reporting Lab: [facility] [address] [facility] [address] Performing Lab: [facility] [address] [facility] [address] [facility] CBC PROFILE BASOPHILS [#/VOLUME] IN BLOOD BY AUTOMATED COUNT 0.0 10*3/uL 0.01 - 0.13 08/04 L Specimen Type: BLOOD No comment entered. Ordering Provider: TYRESE ASIF Report Released Date/Time: July 18, 2023 12:25 PM Reporting Lab: [facility] [address] [facility] [address] Performing Lab: [facility] [address] [facility] [address] [facility] CBC PROFILE EOSINOPHIL S [#/VOLUME] IN BLOOD BY AUTOMATED COUNT 0.5 10*3/uL 0.03 - 0.44 08/04 H Specimen Type: BLOOD No comment entered. Ordering Provider: TYRESE ASIF Report Released Date/Time: July 18, 2023 12:25 PM Reporting Lab: [facility] [address] [facility] [address] Performing Lab: [facility] [address] [facility] [address] [facility] CBC PROFILE LYMPHOCYTE S [#/VOLUME] IN BLOOD BY AUTOMATED COUNT 2.2 10*3/uL 1.0 - 3.2 08/04 Specimen Type: BLOOD No comment entered. Ordering Provider: TYRESE ASIF Report Released Date/Time: July 18, 2023 12:25 PM Reporting Lab: [facility] [address] [facility] [address] Performing Lab: [facility] [address] [place] [id number] [facility] CBC PROFILE MONOCYTES [#/VOLUME] IN BLOOD BY AUTOMATED COUNT 0.6 10*3/uL 0.3 - 1.1 08/04 Specimen Type: BLOOD No comment entered. Ordering Provider: TYRESE ASIF Report Released Date/Time: July 18, 2023 12:25 PM Reporting Lab: [facility] [address] [place] [address] Performing Lab: [facility] [address] CBC PROFILE NEUTROPHIL S [#/VOLUME] IN BLOOD BY AUTOMATED COUNT 4.0 10*3/uL 2.2 - 7.6 08/04 Specimen Type: BLOOD No comment entered. Ordering Provider: TYRESE ASIF Report Released Date/Time: July 18, 2023 12:25 PM Reporting Lab: [facility] [address] [place] [address] Performing Lab: [facility] [address] CBC PROFILE NUCLEATED ERYTHROCYT ES [#/VOLUME] IN BLOOD BY AUTOMATED COUNT 0.00 10*3/uL 0 - 0 08/04 Specimen Type: BLOOD No comment entered. Ordering Provider: TYRESE ASIF Report Released Date/Time: July 18, 2023 12:25 PM Reporting Lab: [facility] [address] [place] [address] Performing Lab: [facility] [address] HERPES SIMPLEX ANTIBODI ES 1&2 (IgG) HERPES SIMPLEX VIRUS 1 IGG AB [PRESENCE] IN SERUM <0.90{in dex} 01/24 Specimen Type: SERUM Comment: REFERENCE RANGE: <0.90 Index REFERENCE RANGE: <0.90 Index Low HSV-2 IgG positive results (index values between 1.10-3.00) may represent false positive results. CDC 2020 guidelines recommend confirmator y testing of samples with low-positiv e HSV-2 IgG results. If clinically indicated, consider adding on HSV-2 IgG Inhibition, by contacting [employer] [facility]. For additional information , please refer to: [email or web address] (This link is being provided for information al/educatio nal purposes only.) Index Values for HSV-1 and HSV-2 IgG Antibodies: INDEX INTERPRETAT ION ====== ==== <0.90 Negative 0.90-1.09 Equivocal >1.09 Positive This assay utilizes recombinant type-specif ic antigens to differentia te HSV-1 from HSV-2 infections. A positive result cannot distinguish between recent and past infection. If recent HSV infection is suspected but the results are negative or equivocal, the assay should be repeated in 4-6 weeks. The performance characteris tics of the assay have not been established for pediatric populations , immunocompr omised patients, or screening. For additional information , please refer to [email or web address] [email or web address]/FA [email or web address] (This link is being provided for information al/ educational purposes only.) Test Performed by [facility], [facility], [address] [place] [address] Winston Blanco M.D., Ph.D., Director of Laboratorie s , [place] [id number] TEST PERFORMED AT: , Ordering Provider: JULIO C MASTERS Report Released Date/Time: Jan 24, 2023 12:10 PM Reporting Lab: [facility] [address] [facility] [id number] Performing Lab: [facility] [id number] [place] [address] (450RI) HERPES SIMPLEX ANTIBODI ES 1&2 (IgG) HERPES SIMPLEX VIRUS 2 IGG AB [PRESENCE] IN SERUM 1.27 {index} 01/24 H Specimen Type: SERUM Comment: REFERENCE RANGE: <0.90 Index REFERENCE RANGE: <0.90 Index Low HSV-2 IgG positive results (index values between 1.10-3.00) may represent false positive results. CDC 2020 guidelines recommend confirmator y testing of samples with low-positiv e HSV-2 IgG results. If clinically indicated, consider adding on HSV-2 IgG Inhibition, by contacting [facility]. For additional information , please refer to: [email or web address] healthcare- professiona ls/clinical -education- center/faq/ [email or web address] (This link is being provided for information al/educatio nal purposes only.) Index Values for HSV-1 and HSV-2 IgG Antibodies: INDEX INTERPRETAT ION ====== ==== <0.90 Negative 0.90-1.09 Equivocal >1.09 Positive This assay utilizes recombinant type-specif ic antigens to differentia te HSV-1 from HSV-2 infections. A positive result cannot distinguish between recent and past infection. If recent HSV infection is suspected but the results are negative or equivocal, the assay should be repeated in 4-6 weeks. The performance characteris tics of the assay have not been established for pediatric populations , immunocompr omised patients, or screening. For additional information , please refer to [email or web address] [email or web address] (This link is being provided for information al/ educational purposes only.) Test Performed by [facility], [facility], [address] [place] [address] Winston Blanco M.D., Ph.D., Director of Laboratorie s , CLIA [id number] TEST PERFORMED AT: , Ordering Provider: JULIO C MASTERS Report Released Date/Time: Jan 24, 2023 12:10 PM Reporting Lab: [facility] [address] [facility] [address] Performing Lab: [facility] [id number] [place] [address] ([id number]) Vital Signs Combined list of inpatient and outpatient Vital Signs from Department of Defense and Veterans Affairs, ranging from 12 months to all on record, depending upon the facility. Vital Sign Value Date Comments Source SYSTOLIC BLOOD PRESSURE 128 10/21/2023 10:01:11 [facility] DIASTOLIC BLOOD PRESSURE 83 10/21/2023 10:01:11 [facility] PULSE OXIMETRY 100 10/21/2023 10:01:11 [facility] PAIN 0 10/21/2023 10:01:11 [facility] TEMPERATURE 97.2 10/21/2023 10:01:11 [facility] PULSE 65 10/21/2023 10:01:11 [facility] RESPIRATION 18 10/21/2023 10:01:11 [facility] SYSTOLIC BLOOD PRESSURE 113 10/04/2023 11:45:15 [facility] DIASTOLIC BLOOD PRESSURE 79 10/04/2023 11:45:15 [facility] PULSE OXIMETRY 98 10/04/2023 11:45:15 [facility] WEIGHT 151.8 10/04/2023 11:45:15 [facility] BMI 25kg/m2 10/04/2023 11:45:15 [facility] PAIN 7 10/04/2023 11:45:15 [facility] HEIGHT 66 10/04/2023 11:45:15 [facility] TEMPERATURE 97.7 10/04/2023 11:45:15 [facility] PULSE 63 10/04/2023 11:45:15 [facility] RESPIRATION 16 10/04/2023 11:45:15 [facility] SYSTOLIC BLOOD PRESSURE 124 08/20/2023 10:04:39 [facility] DIASTOLIC BLOOD PRESSURE 83 08/20/2023 10:04:39 [facility] PULSE OXIMETRY 99 08/20/2023 10:04:39 [facility] PAIN 0 08/20/2023 10:04:39 [facility] TEMPERATURE 97.6 08/20/2023 10:04:39 [facility] PULSE 75 08/20/2023 10:04:39 [facility] RESPIRATION 16 08/20/2023 10:04:39 [facility] SYSTOLIC BLOOD PRESSURE 119 08/07/2023 10:30:03 [facility] DIASTOLIC BLOOD PRESSURE 81 08/07/2023 10:30:03 [facility] PULSE OXIMETRY 99 08/07/2023 10:30:03 [facility] WEIGHT 151.4 08/07/2023 10:30:03 [facility] BMI 24kg/m2 08/07/2023 10:30:03 [facility] PAIN 0 08/07/2023 10:30:03 [facility] HEIGHT 66 08/07/2023 10:30:03 [facility] TEMPERATURE 97.6 08/07/2023 10:30:03 [facility] PULSE 65 08/07/2023 10:30:03 [facility] RESPIRATION 18 08/07/2023 10:30:03 [facility] SYSTOLIC BLOOD PRESSURE 116 07/26/2023 15:03:28 [facility] DIASTOLIC BLOOD PRESSURE 83 07/26/2023 15:03:28 [facility] PULSE OXIMETRY 98 07/26/2023 15:03:28 [facility] PAIN 4 07/26/2023 15:03:28 [facility] TEMPERATURE 98.8 07/26/2023 15:03:28 [facility] PULSE 80 07/26/2023 15:03:28 [facility] RESPIRATION 18 07/26/2023 15:03:28 [facility] Encounters Combined list of: 1) Encounters from Department of Veterans Affairs facilities going back up to thelast 18 months. 2) Encounters from the Department of Defense facilities going back up to 280 months. Location Location Details Encounter Type Encounter Number Reason For Visit Attending Provider ADM Date DC Date Status Disposition Source [facility] Yoselin ca(ELLI Hearing Conservat ion) OUTPATIENT [id number] YOMAIRA VILA 10/01 Released w/o Limitations [facility] Suleiman metcalf(NILES D Hearing Conserv ation) [facility] Yoselin ca(ELLI First BN BAS) OUTPATIENT [id number] ear infecti on KERRIE AGUILA 10/28 Sick at Home/Quarter s [facility] Suleiman metcalf(MCR D First [employer] BAS) [facility] Charlesto n(MCRD Duty Sick Call) OUTPATIENT [id number] KACY Robbins 11/14 Released w/o Limitations [facility] Suleiman metcalf(MCR D Duty Sick Call) [facility] Charlesto n(MCRD Acute Care) OUTPATIENT [id number] celluli tis NOEL VENEGAS 12/07 Released w/o Limitations [facility] Suleiman metcalf(MCR D Acute Care) [facility] Charlesnayeli n(MCRD First [employer] BAS) OUTPATIENT [id number] celluli tis JULIETTE ADVIS 12/09 Released w/o Limitations [facility] Suleiman metcalf(MCR D First BN BAS) [facility] Charlesnayeli n[facility] OUTPATIENT [id number] infecte d blister on feet JULIETTE DAVIS 12/22 Released w/o Limitations [facility] Suleiman metcalf([facility] D First [facility] BAS) [facility] Boogie(Family Practice Combined) OUTPATIENT [id number] Ear infecti on ESTONIANJUANITA 02/08 Released w/o Limitations [facility] Lakhani(Fami ly Practic e Combine d) [employer] [facility] [place] Occup[place]) OUTPATIENT [id number] 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 SHAUNA GARCIA 06/01 Released w/o Limitations [employer] Medic[place] [employer] [facility] [facility] [place] [facility] OUTPATIENT [id number] WALTER Hammond V 06/28 Released w/o Limitations [employer] [employer] [facility] [place] [facility] Physical[place] OUTPATIENT [id number] KUNAL BLACK(IDC)ISHAN 08/03 Released w/o Limitations [employer] [facility] Phys[place] [employer] [facility] [place] [facility] OUTPATIENT [id number] Suture Removal ORDONEZ, KB Goodman 01/17 Released with Work/Duty Limitations [employer] [facility] [employer] [place] [facility] [place] [facility] OUTPATIENT [id number] shoulde r pain/ew c KB ORDONEZ 01/24 Released with Work/Duty Limitations [employer] [facility] [employer] [place] [facility] OUTPATIENT [id number] Left ear pain/aa k JOVAN BURT P 02/07 Released w/o Limitations [employer] [facility] [employer] [facility] [place] [facility] OUTPATIENT [id number] ow/ chest congest ion/ chest pain BONY IRVING 04/15 Released w/o Limitations [employer] [facility] [employer] [facility] [place] [facility] OUTPATIENT [id number] ow/ bad cough/ chest congest ion/ headach es BONY IRVING 04/19 Released w/o Limitations [employer] [facility] [employer] [place] [place] [facility] OUTPATIENT [id number] [facility] 07/19 Released w/o Limitations [employer] [employer] [place] [facility] OUTPATIENT [id number] [facility] 03/05 Released w/o Limitations [employer] [facility] [employer] [place] [facility] OUTPATIENT [id number] Inguina l Hernia Right Side NED BONILLA 07/01 Released w/o Limitations [employer] [employer] [facility] [place] [facility] OUTPATIENT [id number] re eval for inguina l hernia EILEEN AMADO 07/16 Released w/o Limitations [employer] [place] [place] [facility] [place] [employer] [place] DIRECT TO [facility] FROM OTHER THAN ER OR APU [id number] EILEEN AMADO 07/25 RETURNED TO DUTY [employer] [employer] [place] Man[place] Case [place] OUTPATIENT [id number] case THALIA Kaiser 07/25 Released w/o Limitations [employer] [employer] [place] INPATIENT [id number] case STACI KaiserRIE 07/26 Inpatient- Still a Patient [employer] [employer] [place] TELE CONSULT [id number] case STACI KaiserRIE 08/01 [employer] [employer] [facility] [place] [facility] OUTPATIENT [id number] f/u after surgery EILEEN AMADO Oanh 08/07 Released with Work/Duty Limitations [employer] [facility] [place] [employer] [facility] [place] [facility]) OUTPATIENT [id number] 05/26 [facility] 08/07 Released w/o Limitations [employer] [facility] [facility](Fli ght Med Yip) OUTPATIENT [id number] Pre employm ent vehicle GUERO Kinney 03/04 Released w/o Limitations [facility](F light Med Yip) [facility] Outpatient Encounter [id number] 09/24 [facility] Outpatient Encounter [id number] Oanh GARCES 11/22 [facility] [place] [facility] Outpatient Encounter [id number] 11/22 [place] [facility] [place] [facility] Outpatient Encounter [id number] 11/23 [facility] Outpatient Encounter [id number] Oanh GARCES 11/30 [facility] Outpatient Encounter [id number] 01/03 [facility] Outpatient Encounter [id number] 01/08 [facility] Encounter [id number] 01/09 [facility] Encounter [id number] 01/09 [facility] Out[facility] Encounter [id number] 01/16 [facility] Outpatient Encounter [id number] 01/16 [facility] [place] [facility] (631GE) OFFICE O/P NEW MOD 45-59 MIN [id number] Diagnos is: ICD-10- CM M25.561 Pain in right knee
JOSEPH CHAWLA 01/24 [facility] [address] (631[facility]) [facility] Encounter [id number] 02/05 [facility] [place] [facility] (631GE) SELF CARE MNGMENT TRAINING [id number] Diagnos is: ICD-10- CM M54.50 Low back pain, unspeci fied
LORENANNESharon NTHONY 02/26 [facility] [address] (631[facility]) [facility] Out[facility] Encounter [id number] GEORGINA KAUR 04/16 [facility] Out[facility] Encounter [id number] 04/16 [facility] Out[facility] Encounter [id number] 04/17 [facility] Outpatient Encounter [id number] GEORGINA KAUR 04/18 [facility] (631GE) Outpatient Encounter [id number] 05/08 [facility] [address] (631GE) [place] [facility] En[facility] [id number] 06/19 [place] Outpatient Encounter [id number] GEORGINA KAUR 07/10 [facility] Outpatient Encounter [id number] 07/15 [facility] [place] [facility] Encounter [id number] 07/15 [place] [facility] Encounter [id number] 07/15 [place] [facility] Encounter [id number] 07/17 [facility] [facility] Outpatient Encounter [id number] HANNA CHAVIS 07/17 [facility] [place] [facility] [place] [facility] Outpatient Encounter [id number] JULIETTEMELANIE Amparo 07/18 [facility] [place] [facility] [place] [facility] Outpatient Encounter [id number] 07/18 [facility] [place] [facility] EMERGENCY DEPT VISIT MOD MDM [id number] Diagnos is: ICD-10- CM H60.399 Other infecti ve otitis externa , unspeci fied ear<br/ > ALAN DOWNS 07/18 [facility] EMERGENCY DEPT VISIT LOW MDM [id number] Diagnos is: ICD-10- CM H60.8X2 Other otitis externa , left ear<br/ > SIMON OLIVAREZ 07/25 [facility] [place] [facility] Outpatient Encounter [id number] 07/31 [place] [facility] [place] [facility] Outpatient Encounter [id number] 08/06 [facility] OFFICE O/P NEW MOD 45 MIN [id number] Diagnos is: ICD-10- CM F41.9 Anxiety disorde r, unspeci fied
TYRESE ASIF 08/06 [facility] OFFICE O/P NEW MOD 45 MIN [id number] Diagnos is: ICD-10- CM H66.002 Acute suppr otitis media w/o spon rupt ear drum, left ear<br/ > ALTON MARTINEZ 08/06 [facility] Outpatient Encounter [id number] 08/08 [facility] Outpatient Encounter [id number] 08/12 [facility] Outpatient Encounter [id number] 08/13 [facility] Outpatient Encounter [id number] Diagnos is: ICD-10- CM M25.561 Pain in right knee
CAMRON DONOHUE 08/18 [facility] Outpatient Encounter [id number] 08/18 [facility] OFFICE O/P EST HI 40 MIN [id number] Diagnos is: ICD-10- CM J30.9 Allergi c rhiniti s, unspeci fied
ALTON MARTINEZ 08/19 [facility] [place] [place] [facility] Outpatient Encounter [id number] 08/19 [facility] [place] [facility] Outpatient Encounter [id number] 08/19 [facility] Outpatient Encounter [id number] 08/21 [facility] [place] [facility] Outpatient Encounter [id number] 08/22 [facility] Outpatient Encounter [id number] 09/01 [facility] Outpatient Encounter [id number] 09/16 [facility] Outpatient Encounter [id number] 09/16 [facility] Outpatient Encounter [id number] 09/16 [facility] OFFICE O/P EST MOD 30 MIN [id number] Diagnos is: ICD-10- CM M25.512 Pain in left shoulde r
TYRESE ASIF 10/03 [facility] Outpatient Encounter [id number] 10/03 [facility] OFFICE O/P EST MOD 30 MIN [id number] Diagnos is: ICD-10- CM J30.81 Allergi c rhiniti s due to animal (cat) (dog) hair and dander< br/> ALTON MARTINEZ 10/20 [facility] OFFICE O/P NEW LOW 30 MIN [id number] Diagnos is: ICD-10- CM M79.641 Pain in right hand
RAJINDER TUCKER 10/20 [facility] OFF/OP CNSLTJ NEW/EST LOW 30 [id number] Diagnos is: ICD-10- CM M25.512 Pain in left shoulde r
RUFINO RAMEY 12/04 [facility] Outpatient Encounter [id number] 12/10 [facility] Outpatient Encounter [id number] 02/04 [facility] Procedures Combined list of: 1) Procedures from Department of Veterans Affairs facilities going back up to thelast 18 months, not all VA non-surgical procedures are included; 2) All procedures from the Department of Defense facilities. Procedure Procedure Type Code Date Perfomer Stanley [facility] e Threshold Audiogram (Pure Tone) Threshold Audiogram (Pure Tone) 98333 08/09/2011 [facility] Audiometry Group Testing Audiometry Group Testing 34870 08/09/2011 [facility] Physician Supervised Services Provision Of Special Supplies Physician Supervised Services Provision Of Special Supplies 53943 08/09/2011 [facility] Physician Supervised Group Educational Services 08/09/2011 [facility] Case Management, each 15 minutes 08/02/2011 THALIA JONES Case Management, each 15 minutes 07/27/2011 RENAGATHALIA KING Case Management, each 15 minutes 07/26/2011 RENAGATHALIA KING Physician Supervised Services Provision Of Special Supplies Physician Supervised Services Provision Of Special Supplies 74068 03/05/2011 [facility] Physician Supervised Group Educational Services 03/05/2011 [facility] Audiometry Group Testing Audiometry Group Testing 93953 03/05/2011 [facility] Threshold Audiogram (Pure Tone) Threshold Audiogram (Pure Tone) 95182 03/05/2011 [facility] Physician Supervised Services Provision Of Special Supplies Physician Supervised Services Provision Of Special Supplies 63442 07/19/2010 [facility] Physician Supervised Group Educational Services 07/19/2010 [facility] Special Physician Services Analysis Of Computerized Data Special Physician Services Analysis Of Computerized Data 31288 07/19/2010 [facility] Threshold Audiogram (Pure Tone) Threshold Audiogram (Pure Tone) 19746 07/19/2010 [facility] Audiometry Group Testing Audiometry Group Testing 60919 07/19/2010 [facility] Physician Supervised Injection Intramuscular Physician Supervised Injection Intramuscular 48278 06/28/2008 [facility] Syringe with needle, sterile 3 cc, each 06/28/2008 [facility] Immunization Administration By Injection, Each Additional Vaccine 06/28/2008 [facility] Immunization Administration By Injection, One Vaccine Immunization Administration By Injection, One Vaccine 27966 06/28/2008 HANH URBINA [facility] Typhoid Vaccine Acetone-Killed, Dried (U.S. ) Typhoid Vaccine Acetone-Killed, Dried (U.S. ) 79129 06/28/2008 HANH URBINA [facility] Hepatitis A And Hepatitis B (Intramuscular Use) Adult Dosage Hepatitis A And Hepatitis B (Intramuscular Use) Adult Dosage 18150 06/28/2008 HANH URBINA [facility] Audiometry Group Testing Audiometry Group Testing 41402 10/23/2007 [place] SCREENING TEST OF VISUAL ACUITY, QUANTITATIVE, BILATERAL 03/07/2020 [facility] IMMUNIZATION ADMINISTRATION (INCLUDES PERCUTANEOUS, INTRADERMAL, SUBCUTANEOUS, OR INTRAMUSCULAR INJECTIONS); EACH ADDITIONAL VACCINE (SINGLE OR COMBINATION VACCINE/TOXOID) 11/07/2007 [facility] AUDIOMETRIC TESTING OF GROUPS 10/02/2007 [facility] SKIN TEST; TUBERCULOSIS, INTRADERMAL 10/02/2007 [facility] Social History Combined list of available smoking, tobacco, and other social history from Department of Defense and Veterans Affairs facilities. Social History Type Response Date Comment [facility] e Tobacco smoking status NHIS VA-TOBACCO FORMER USER 10/04/2023 [facility] History of tobacco use VA-TOBACCO QUIT 5 TO < 15 YRS 10/04/2023 [facility] History of tobacco use VA-TOBACCO FORMER USER 08/07/2023 [facility] History of tobacco use VA-TOBACCO FORMER USER 01/24/2023 [facility] History of tobacco use VA-TOBACCO QUIT 1 TO < 5 YRS 10/23/2021 RAFFI LEACH [facility] History of tobacco use VA-TOBACCO FORMER USER 04/19/2020 RAFFI LEACH [facility] History of tobacco use VA-TOBACCO FORMER USER 10/21/2018 RAFFI LEACH [facility] History of tobacco use VA-TOBACCO FORMER USER 12/31/2017 RAFFI LEACH [facility] History of tobacco use LIFETIME NON-TOBACCO USER 12/20/2016 RAFFI LEACH [facility] History of tobacco use QUIT TOBACCO USE 1-7 YEARS AGO 05/15/2016 Cher [facility] History of tobacco use QUIT TOBACCO USE > 7 YEARS AGO 04/15/2015 [facility] History of tobacco use QUIT TOBACCO USE 1-7 YEARS AGO 04/13/2013 [facility] History of tobacco use QUIT TOBACCO USE IN PAST YEAR 10/11/2011 [facility] This section is an empty social history section. [facility] Plan of Care List of future care activities from Department of Veterans Affairs facilities. Additional future care activities may be listed in the Assessment and Plan section. Date/Time Care Activity Care Activity Detail Facili ty 04/02/2024 AMBULATORY - SURGERY AMBULATORY - SURGERY [facility]
--- OUTSIDE RECORDS SUMMARY | 2024-03-18 10:28 | XMS_ITS ---
Author Name [facility] [place] [facility] [place] Address [address] [place] [address] Care Team Providers Care Glass Technologist Name Role Phone YASMIN CHAWLA Primary Care Provider TYRESE Phillips Primary Care Provider UnavailMARCELINO Conteh Primary Care Provider Unavailgus e Insurance Providers: All historical and current Section Date Range: From patient's date of to the date document was created. This section includes the names of all active insurance providers for the patient. Insurance Provider Type of Coverage Plan Name Start of Policy Coverage End of Policy Coverage Group Number Member ID Insurance Provider's Telephone Number Policy Ray's Name Patient's Relationship to Policy Ray [employer] [place] ([place]) HIGH DEDUCTIBL E HEALTH PLAN [employer] [place] [facility] Jan 16, 2019 [id number] Maxine HEDRICK HAD PATIENT EXPRESS SCRIPTS ([id number]) PRESCRIPT ION [facility] Jan 16, 2019 [id number] Maxine HEDRICK HAD PATIENT Selected Encounter This section includes the information on record at NH for the Encounter. Date/Time Encounter Type Encounter Description Reason Pro vider Source Aug 22, 2023 08:03 AM Outpatient Encounter ADMIN PAT ACTIVTIES (MASNONCT) IHE Encounter Template Text not used by NH Plan of Treatment: Future Appointments (+ 6 months) and Future Tests (+/- 45 days) The Plan of Treatment section includes future care activities for the patient from all [place] treatmentfacilities. This section includes future appointments and future orders which are active, pending or scheduled. Future Appointments This section includes appointments that were scheduled to occur 6 months from the date of the Encounter, up to a maximum of 20 appointments. The data comes from all [place] treatment facilities. Appointment Date/Time Appointment Type Appointme nt Facility Name Sep 23, 2023 09:30 AM AMBULATORY - NONE [facility] Oct 04, 2023 11:30 AM [place] [facility] Oct 21, 2023 10:00 AM [place] [facility] Oct 21, 2023 01:45 PM [place] [facility] Dec 05, 2023 09:30 AM AMBULATORY - NONE [place] [facility] Dec 05, 2023 10:00 AM [place] [facility] Lab Results: +/- 30 days of the encounter This section includes the Chemistry and Hematology Lab Results on record with NH for the patient. Radiology Reports and Pathology Reports are provided separately, in subsequent sections. Lab Results This section contains the Chemistry/Hematology Results that were resulted 30 days before or 30 daysafter the date of the Encounter. Date/Time Source Result Type Result - Unit Interpretation Reference Range Comment August 05, 2023 08:15 AM [facility] VITAMIN B-12 Specimen Type: SERUM Comment: , Tests performed on [employer] SN:[id number] (405) Ordering Provider: TYRESE ASIF Report Released Date/Time: July 18, 2023 12:25 PM Reporting Lab: [place] [facility] [address] [place] [place] [place] [place] [address] Performing Lab: [place] [facility] [address] [place] [facility] [place] [place] [address] VITAMIN B-12 245 pg/mL 200-900 August 05, 2023 08:15 AM [facility] TESTOSTERONE(WRJ) Specimen Type: SERUM Comment: , Tests performed on [employer] SN:[id number] (405) Ordering Provider: TYRESE ASIF Report Released Date/Time: July 18, 2023 12:25 PM Reporting Lab: [facility] [address] [place] [place] [place] [address] Performing Lab: [facility] [address] [facility] [address] TESTOSTERONE(WRJ) 393.8 ng/dL 220-892 August 05, 2023 08:15 AM [facility] P4 GLU,BUN,CREAT,LYTES,CA Specimen Type: PLASMA Comment: , Tests performed on [employer] SN:[id number] (405). Ordering Provider: TYRESE ASIF Report Released Date/Time: July 18, 2023 12:25 PM Reporting Lab: [facility] [address] [facility] [address] Performing Lab: [facility] [address] [place] [phone] UREA NITROGEN 14 mg/dL 7-25 SODIUM 138 mmol/L 135-145 POTASSIUM 4.2 mmol/L 3.5-5.0 CHLORIDE 104 mmol/L 100-110 CARBON DIOXIDE 26 mmol/L 20-30 ANION GAP 8 4-16 GLUCOSE 90 mg/dL 65-100 CREATININE 1.13 mg/dL 0.50-1.50 CALCIUM 9.4 mg/dL 8.5-10.5 eGFR(CKD-EPI 2020) 88 mL/min August 05, 2023 08:15 AM [facility] CBC PROFILE Specimen Type: BLOOD No comment entered. Ordering Provider: TYRESE ASIF Report Released Date/Time: July 18, 2023 12:25 PM Reporting Lab: [facility] [address] [facility] [address] Performing Lab: [facility] [address] [place] [phone] WBC 7.4 10*3/uL 4.5-11.0 RBC 5.28 10*6/uL 4.23-5.66 HGB 16.3 g/dL 12.8-17 HEMATOCRIT 48.4 39.2-50.4 MCV 91.7 fL 82-99 MCH 30.9 pg 26.2-32.6 MCHC 33.7 g/dL 30.8-35.1 PLT 221 10*3/uL 140-360 MPV 9.6 fL 9.2-12.4 RDW 13.2 12.0-16.0 LYMPH % 29.8 14.0-42.3 MONO % 8.0 5.1-13.7 NEUT % 54.3 43.7-75.8 EOS % 7.0 H 0.4-6.8 BASO % 0.5 0.1-2.0 IG % 0.4 0.0-0.7 NUCLEATED RED CELLS 0.0 /100{WBCs} 0.0-0.0 ABSOLUTE IG 0.0 10*3/uL 0-0.06 ABSOLUTE BASOPHILS 0.0 10*3/uL L 0.01-0.13 ABSOLUTE EOS. 0.5 10*3/uL H 0.03-0.44 ABSOLUTE LYMPHOCYTES 2.2 10*3/uL 1.0-3.2 ABSOLUTE MONOCYTES 0.6 10*3/uL 0.3-1.1 ABSOLUTE GRANULOCYTES 4.0 10*3/uL 2.2-7.6 ABSOLUTE NRBC 0.00 10*3/uL 0-0 August 05, 2023 08:15 AM [facility] LIVER PROFILE Specimen Type: PLASMA Comment: , Tests performed on [employer] SN:[id number] (405). Ordering Provider: TYRESE ASIF Report Released Date/Time: July 18, 2023 12:25 PM Reporting Lab: [facility] [address] [facility] [address] Performing Lab: [facility] [address] [facility] [address] PROTEIN, TOTAL 7.3 g/dL 6.0-8.5 ALBUMIN 4.1 g/dL 3.2-5.0 BILIRUBIN, TOTAL 0.9 mg/dL 0.2-1.2 ALKALINE PHOSPHATASE 75 U/L 40-150 ALT(SGPT) 44 U/L 7-52 AST(SGOT) 28 U/L 5-34 FIB-4 SCORE 0.63 <2.67 August 05, 2023 08:15 AM [facility] LIPOPROTEIN CHOLESTEROL FRACT. PANEL Specimen Type: PLASMA Comment: , Tests performed on [employer] SN:[id number] (100). Ordering Provider: TYRESE ASIF Report Released Date/Time: July 18, 2023 12:25 PM Reporting Lab: [facility] [address] [facility] [address] Performing Lab: [facility] [address] [facility] [address] CHOLESTEROL 161 mg/dL 0-200 TRIGLYCERIDE 110 mg/dL 0-150 HDL CHOLESTEROL 47 mg/dL >40 LDL CHOLESTEROL (CALC) 92 mg/dL 0-129 August 05, 2023 08:15 AM [facility] URINALYSIS ONLY NO REFLEXURINALYSIS ONLY Specimen Type: URINE No comment entered. Ordering Provider: TYRESE ASIF Report Released Date/Time: July 18, 2023 12:25 PM Reporting Lab: [facility] [address] [facility] [address] Performing Lab: [facility] [address] [facility] [address] URINE COLOR Light-Yello w NOT DEFINED SPECIFIC GRAVITY 1.025 1.003-1.030 UROBILINOGEN <2.0 mg/dL <2.0 URINE BILIRUBIN NEG NEG URINE KETONES NEG mg/dL NEG URINE GLUCOSE NEG mg/dL NEG PROTEIN, URINE TRACE mg/dL NEG URINE PH 7.0 5-8 CLARITY CLEAR NOT DEFINED URINE BLOOD NEG NEG NITRITE, URINE NEG NEG WBC SCREEN NEG NEG August 05, 2023 08:15 AM [facility] VIT D 25-OH(J) Specimen Type: SERUM Comment: , Tests performed on [employer]ess SN:[id number] (405) Ordering Provider: TYRESE ASIF Report Released Date/Time: July 18, 2023 12:25 PM Reporting Lab: [facility] [address] [facility] [address] Performing Lab: [facility] [address] [facility] [address] VIT D 25-OH(J) 22.9 ng/mL 20.0-50.0 Encounter Notes: All associated encounter notes This section contains the clinical notes associated to the Encounter. Date/Time Encounter Note(s) Provider Source Aug 22, 2023 08:03 AM NURSING NOTE: LOCAL TITLE: PCMM/TRAVELING COORDINATOR STANDARD TITLE: NURSING NOTE DATE OF NOTE: AUG 22, 2023@08:03 ENTRY DATE: AUG 22, 2023@08:03:34 AUTHOR: NICHOLE PENA COSIGNER: URGENCY: STATUS: COMPLETED Clinical record review completed by [facility]. Confirmed that has permanently relocated and has established Primary Care @[facility] on 08/07/2023. No future appts. Actionable alert for permanent relocation approved at this time in [facility] Web. /es/ NICHOLE PENA Registered Nurse Signed: 08/22/2023 08:04 NICHOLE PENA [facility]
--- OUTSIDE RECORDS SUMMARY | 2024-03-18 10:28 | XMS_ITS ---
Author Name Department [place] Organization [place] Address [address] [place] [address] Care Team Providers Care Resident Medical Officer Name Role Phone YASMIN CHAWLA Primary Care [...] E HEALTH PLAN [employer] [place] [facility] Jan 16, 2019 [id number] Maxine HEDRICK HAD PATIENT EXPRESS SCRIPTS ([id number]) PRESCRIPT ION [facility] Jan 16, 2019 [id number] Maxine HEDRICK HAD PATIENT Selected Encounter This section includes the information on record at [place] for the Encounter. Date/Time Encounter Type Encounter Description Reason Pro vider Source Apr 17, 2023 03:04 PM Outpatient Encounter ADMIN PAT ACTIVTIES (MASNONCT) IHE Encounter Template Text not used by [place] Plan of Treatment: Future Appointments (+ 6 months) and Future Tests (+/- 45 days) The Plan of Treatment section includes future care activities for the patient from all [place] [facility]. This section includes future appointments and future orders which are active, pending or scheduled. Future Appointments This section includes appointments that were scheduled to occur 6 months from the date of the Encounter, up to a maximum of 20 appointments. The data comes from all [place] treatment facilities. Appointment Date/Time Appointment Type Appointme nt Facility Name May 08, 2023 09:00 AM AMBULATORY - [place] [place] [facility] July 19, 2023 09:39 AM [place] [facility] July 26, 2023 02:39 PM [place]ORY - [place]IC[place] [facility] August 05, 2023 08:30 AM AMBULATORY - NONE [facility] August 07, 2023 10:30 AM [place]ORY - [place]ONE [place] [facility] August 07, 2023 02:00 PM [place] [facility] Aug 20, 2023 10:00 AM [place] [facility] Sep 23, 2023 09:30 AM AMBULATORY - NONE [facility] Oct 04, 2023 11:30 AM AMBULATORY - NONE [place] [facility] Encounter Notes: All associated encounter notes This section contains the clinical notes associated to the Encounter. Date/Time Encounter Note(s) Provider Source Apr 17, 2023 03:04 PM RN PROGRESS NOTE: LOCAL TITLE: CCC: CLINICAL TRIAGE STANDARD TITLE: RN PROGRESS NOTE DATE OF NOTE: APR 17, 2023@15:04 ENTRY DATE: APR 17, 2023@15:04:32 AUTHOR: ILIANA DONALD EXP COSIGNER: URGENCY: STATUS: COMPLETED CCC: CLINICAL TRIAGE Has ADDENDA Patient states that he just missed a call from primary care. Please call back. /edith/ ILIANA BAGLEY 1 JAD AMSA Signed: 04/17/2023 15:05 Receipt Acknowledged By: 04/18/2023 08:46 /edith/ SADE CHAVIS RN PRIMARY CARE NURSING 04/17/2023 15:15 /es/ KATHERIN KAUR LPN LICENSED PRACTICAL NURSE 04/17/2023 ADDENDUM STATUS: COMPLETED Called and spoke with patient. Patient informed letter was completed today and mailed. Patient requesting letter be sent to [facility] as he needs letter by 04/19/23. Letter scanned/sent today. /edith/ KATHERIN KAUR LPN LICENSED PRACTICAL NURSE Signed: 04/18/2023 08:47 ILIANA DONALD [facility]
--- OUTSIDE RECORDS SUMMARY | 2024-03-18 10:28 | XMS_ITS ---
Author Name [place] Address [address] [place] [address] Care Team Providers Care Director Staffing Name Role Phone YASMIN CHAWLA Primary Care Provider TYRESE Phillips Primary Care Provider UnavailMARCELINO Conteh Primary Care Provider Unavailabl e Insurance Providers: All historical and current [...] E HEALTH PLAN [employer] [place] [facility] Jan 16, 2019 [id number] [phone] Maxine HEDRICK HAD PATIENT EXPRESS SCRIPTS ([id number]) PRESCRIPT ION [facility] Jan 16, 2019 [id number] Maxine HEDRICK HAD PATIENT Selected Encounter This section includes the information on record at [place] for the Encounter. Date/Time Encounter Type Encounter Description Reason Provider Source Apr 18, 2023 08:47 AM Outpatient Encounter PRIMARY CARE/MEDICINE KATHERIN KAUR Encounter Template Text not used by CT Plan of Treatment: Future Appointments (+ 6 months) and Future Tests (+/- 45 days) The Plan of Treatment section includes future care activities for the patient [facility]. This section includes future appointments and future orders which are active, pending or scheduled. Future Appointments This section includes appointments that were scheduled to occur 6 months from the date of the Encounter, up to a maximum of 20 appointments. The data comes from all [place] treatment facilities. Appointment Date/Time Appointment Type Appointme nt Facility Name May 08, 2023 09:00 AM AMBULATORY [facility] July 19, 2023 09:39 AM [place] [facility] July 26, 2023 02:39 PM [place]ULATORY - [place] [facility] August 05, 2023 08:30 AM AMBULATORY - NONE [facility] August 07, 2023 10:30 AM [place]ORY [place] [facility] August 07, 2023 02:00 PM [place]UL[place]ORY [place] [facility] Aug 20, 2023 10:00 AM AMBULATORY - [place] [facility] Sep 23, 2023 09:30 AM AMBULATORY - NONE [facility] Oct 04, 2023 11:30 AM [place]BULATORY - NONE [place] [facility] Encounter Notes: All associated encounter notes This section contains the clinical notes associated to the Encounter. Date/Time Encounter Note(s) Provider Source Apr 18, 2023 08:47 AM PRIMARY CARE SECUR E MESSAGING: LOCAL TITLE: PRIMARY CARE SECURE MESSAGING STANDARD TITLE: PRIMARY CARE SECURE MESSAGING DATE OF NOTE: APR 18, 2023@08:47 ENTRY DATE: APR 18, 2023@08:47:06 AUTHOR: KATHERIN KAUR EXP COSIGNER: URGENCY: STATUS: COMPLETED ------Original Message Sent: 04/18/2023 08:46 AM ET From: KATHERIN KAUR To: HIGINIO HEDRICK Subject: General:General Inquiry Attachments: [email or web address].pdf (144.94 KB) Hi , Please find the enclosed letter from . Thank you, Olivia /edith/ KATHERIN KAUR LPN LICENSED PRACTICAL NURSE Signed: 04/18/2023 08:47 KATHERIN KAUR [facility] ([id number])
--- OUTSIDE RECORDS SUMMARY | 2024-03-18 10:28 | XMS_ITS ---
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 Date/Time Encounter Type Encounter Description Reason Pro vider Source Aug 20, 2023 11:58 AM Outpatient Encounter ADMIN PAT ACTIVTIES (MASNONCT) IHE Encounter Template Text not used by [place] Plan of Treatment: Future Appointments (+ 6 months) and Future Tests (+/- 45 days) The Plan of Treatment section includes future care activities for the patient from all [place] treatmentfacilities. This section includes future appointments and future orders which are active, pending or scheduled. Future Appointments This section includes appointments that were scheduled to occur 6 months from the date of the Encounter, up to a maximum of 20 appointments. The data comes from all [place] treatment facilities. Appointment Date/Time Appointment Type Appointme nt Facility Name Sep 23, 2023 09:30 AM AMBULATORY - NONE [facility] Oct 04, 2023 11:30 AM AM[place]ORY - NONE [place] [facility] Oct 21, 2023 10:00 AM AM[place]UL[place]ORY - [place] [facility] Oct 21, 2023 01:45 PM [place] - [place] [facility] Dec 05, 2023 09:30 AM AMBULATORY - NONE [place] [facility] Dec 05, 2023 10:00 AM AMBULATORY - SURGERY [facility] Lab Results: +/- 30 days of the encounter This section includes the Chemistry and Hematology Lab Results on record with [place] for the patient. Radiology Reports and Pathology Reports are provided separately, in subsequent sections. Lab Results This section contains the Chemistry/Hematology Results that were resulted 30 days before or 30 daysafter the date of the Encounter. Date/Time Source Result Type Result - Unit Interpretation Reference Range Comment August 05, 2023 08:15 AM [facility] URINALYSIS ONLY NO REFLEXURINALYSIS ONLY Specimen Type: URINE No comment entered. Ordering Provider: TYRESE ASIF Report Released Date/Time: July 18, 2023 12:25 PM Reporting Lab: [facility] [address] [facility] [address] Performing Lab: [facility] [address] [facility] [address] URINE COLOR Light-Yello w NOT DEFINED SPECIFIC GRAVITY 1.025 1.003-1.030 UROBILINOGEN <2.0 mg/dL <2.0 URINE BILIRUBIN NEG NEG URINE KETONES NEG mg/dL NEG URINE GLUCOSE NEG mg/dL NEG PROTEIN, URINE TRACE mg/dL NEG URINE PH 7.0 5-8 CLARITY CLEAR NOT DEFINED URINE BLOOD NEG NEG NITRITE, URINE NEG NEG WBC SCREEN NEG NEG August 05, 2023 08:15 AM [facility] VIT D 25-OH([facility]) Specimen Type: SERUM Comment: , Tests performed on [employer] SN:[id number] (405) Ordering Provider: TYRESE ASIF Report Released Date/Time: July 18, 2023 12:25 PM Reporting [facility] [address] [facility] [address] [facility]: [facility] [address] [facility] [address] VIT D 25-OH([facility]) 22.9 ng/mL 20.0-50.0 August 05, 2023 08:15 AM [facility] VITAMIN B-12 Specimen Type: SERUM Comment: , Tests performed on [employer] SN:[id number] (405) Ordering Provider: TYRESE ASIF Report Released Date/Time: July 18, 2023 12:25 PM Reporting [facility] [address] [facility] [address] Performing Lab: [facility] [address] [facility] [address] VITAMIN B-12 245 pg/mL 200-900 August 05, 2023 08:15 AM [facility] TESTOSTERONE([facility]) Specimen Type: SERUM Comment: , Tests performed on [employer] SN:[id number] (405) Ordering Provider: TYRESE ASIF Report Released Date/Time: July 18, 2023 12:25 PM Reporting [facility] [address] [facility] [address] Performing Lab: [facility] [address] [facility] [address] TESTOSTERONE([facility]) 393.8 ng/dL 220-892 August 05, 2023 08:15 AM [facility] CBC PROFILE Specimen Type: BLOOD No comment entered. Ordering Provider: TYRESE ASIF Report Released Date/Time: July 18, 2023 12:25 PM Reporting [facility] [address] [facility] [address] Performing Lab: [facility] [address] [facility] [address] WBC 7.4 10*3/uL 4.5-11.0 RBC 5.28 10*6/uL [...] 10*3/uL 0-0 August 05, 2023 08:15 AM [facility] P4 GLU,BUN,CREAT,LYTES,CA Specimen Type: PLASMA Comment: , Tests performed on [employer]or[employer] SN:[id number] (074). Ordering Provider: TYRESE ASIF Report Released Date/Time: July 18, 2023 12:25 PM Reporting Lab: [facility] [address] [facility] [address] Performing Lab: [facility] [address] [facility] [address] UREA NITROGEN 14 mg/dL 7-25 SODIUM 138 mmol/L 135-145 POTASSIUM 4.2 mmol/L 3.5-5.0 CHLORIDE 104 mmol/L 100-110 CARBON DIOXIDE 26 mmol/L 20-30 ANION GAP 8 4-16 GLUCOSE 90 mg/dL 65-100 CREATININE 1.13 mg/dL 0.50-1.50 CALCIUM 9.4 mg/dL 8.5-10.5 eGFR(CKD-EPI 2020) 88 mL/min August 05, 2023 08:15 AM [facility] LIVER PROFILE Specimen Type: PLASMA Comment: , Tests performed on Ch[employer] SN:[id number] (405). Ordering Provider: TYRESE ASIF Report Released Date/Time: July 18, 2023 12:25 PM Reporting [facility] [address] [facility] [address] [facility] [address] [facility] [address] PROTEIN, TOTAL 7.3 g/dL 6.0-8.5 ALBUMIN 4.1 g/dL 3.2-5.0 BILIRUBIN, TOTAL 0.9 mg/dL 0.2-1.2 ALKALINE PHOSPHATASE 75 U/L 40-150 ALT(SGPT) 44 U/L 7-52 AST(SGOT) 28 U/L 5-34 FIB-4 SCORE 0.63 <2.67 August 05, 2023 08:15 AM [facility] LIPOPROTEIN CHOLESTEROL FRACT. PANEL Specimen Type: PLASMA Comment: , Tests performed on [employer] SN:[id number] (405). Ordering Provider: TYRESE ASIF Report Released Date/Time: July 18, 2023 12:25 PM Reporting [facility] [address] [facility] [address] Performing [facility] [address] [facility] [address] CHOLESTEROL 161 mg/dL 0-200 TRIGLYCERIDE 110 mg/dL 0-150 HDL CHOLESTEROL 47 mg/dL >40 LDL CHOLESTEROL (CALC) 92 mg/dL 0-129 Encounter Notes: All associated encounter notes This section contains the clinical notes associated to the Encounter. Date/Time Encounter Note(s) Provider Source Aug 20, 2023 11:58 AM ADMINISTRATIVE NOT E: LOCAL TITLE: ADMINISTRATIVE RECALL NOTE STANDARD TITLE: ADMINISTRATIVE NOTE DATE OF NOTE: AUG 20, 2023@11:58 ENTRY DATE: AUG 20, 2023@11:58:28 AUTHOR: INDY CESAR COSIGNER: URGENCY: STATUS: COMPLETED RTC orders:PACT 4 6M F/U Unable to contact patient: Attempts to contact: 1st attempt: Left voicemail 2nd attempt: 3rd attempt: 4th attempt: /edith/ BECKY BOYLE Signed: 08/20/2023 12:00 BECKY CESAR [facility] ([id number])
--- OUTSIDE RECORDS SUMMARY | 2024-03-18 10:28 | XMS_ITS ---
Author Name [facility] [place] Address [address] [place] [address] Care Team Providers Care Screed Person Name Role Phone YASMIN CHAWLA Primary Care [...] E HEALTH PLAN [employer] [facility] Jan 16, 2019 [id number] [phone] Maxine HEDRICK HAD PATIENT [employer] ([id number]) PRESCRIPT ION [facility] Jan 16, 2019 [id number] Maxine HEDRICK HAD PATIENT Selected Encounter This section includes the information on record at [place] for the Encounter. Date/Time Encounter Type Encounter Description Reason Pro vider Source July 19, 2023 08:37 AM Outpatient Encounter ADMIN PAT ACTIVTIES (MASNONCT) IHE Encounter Template Text not used by [place] Plan of Treatment: Future Appointments (+ 6 months) and Future Tests (+/- 45 days) The Plan of Treatment section includes future care activities for the patient [facility] [place] [facility] This section includes future appointments and future orders which are active, pending or scheduled. Future Appointments This section includes appointments that were scheduled to occur 6 months from the date of the Encounter, up to a maximum of 20 appointments. The data comes from all [facility]. Appointment Date/Time Appointment Type Appointme nt Facility Name July 26, 2023 02:39 PM [facility] [place] [facility] August 05, 2023 08:30 AM AMBULATORY - NONE [facility] August 07, 2023 10:30 AM [facility] [facility] August 07, 2023 02:00 PM [place] [facility] Aug 20, 2023 10:00 AM [place] [facility] Sep 23, 2023 09:30 AM AMBULATORY - NONE [facility] Oct 04, 2023 11:30 AM [place] [facility] Oct 21, 2023 10:00 AM [place] [facility] Oct 21, 2023 01:45 PM [place] [facility] Dec 05, 2023 09:30 AM AM[place]ORY - NONE [place] [facility] Dec 05, 2023 10:00 AM [place] [facility] Active, Pending, and Scheduled Orders This section includes a listing of several types of active, pending, and scheduled orders, including clinic medications orders, diagnostic test orders, procedure orders and consult orders; where the start date of the order is 45 days before the date of the Encounter or 45 days after the date of theEncounter. The data comes from all [facility]. Test Date/Time Test Type Test Details Facility Name Jun 23, 2023 12:00 AM Laboratory - Chemi stry Order BASIC METABOLIC PANEL (fasting) BLOOD (SST-SERUM) [facility] ([id number]) Jun 23, 2023 12:00 AM Laboratory - Chemi stry Order LIVER FUNCTION BLOOD (SST-SERUM) [facility] ([id number]) Jun 23, 2023 12:00 AM Laboratory - Chemi stry Order LIPID PANEL FASTING BLOOD (SST-SERUM) [facility] ([id number]) Jun 23, 2023 12:00 AM Laboratory - Chemi stry Order HEMOGLOBIN A1C PANEL BLOOD (LAV-BLOOD) [facility] ([id number]) Jun 23, 2023 12:00 AM Laboratory - Chemi stry Order TSH BLOOD (SST-SERUM) [facility] ([id number]) Jun 23, 2023 12:00 AM Laboratory - Chemi stry Order VITAMIN D (25-OH) BLOOD (SST-SERUM) [facility] ([id number]) Jun 23, 2023 12:00 AM Laboratory - Chemi stry Order CBC AND DIFF (AUTO) BLOOD (LAV-BLOOD) [facility] ([id number]) Jun 23, 2023 12:00 AM Laboratory - Chemi stry Order CALCIUM BLOOD (SST-SERUM) [facility] ([id number]) Lab Results: +/- 30 days of the encounter This section includes the Chemistry and Hematology Lab Results [facility] with [facility] for the [facility]. Radiology Reports and Pathology Reports are provided separately, in subsequent sections. Lab Results This section contains the Chemistry/Hematology Results that were resulted 30 days before or 30 daysafter the date of the Encounter. Date/Time Source Result Type Result - Unit Interpretation Reference Range Comment August 05, 2023 08:15 AM [facility] VITAMIN B-12 Specimen Type: SERUM Comment: , Tests performed on [employer] Aditya SN:[id number] (405) Ordering Provider: TYRESE ASIF Report Released Date/Time: July 18, 2023 12:25 PM Reporting Lab: [facility] [address] [facility] [address] Performing Lab: [facility] [address] [facility] [address] VITAMIN B-12 245 pg/mL 200-900 August 05, 2023 08:15 AM [facility] TESTOSTERONE(WRJ) Specimen Type: SERUM Comment: , Tests performed on [employer] Aditya SN:[id number] (405) Ordering Provider: TYRESE ASIF Report Released Date/Time: July 18, 2023 12:25 PM Reporting Lab: [facility] [address] [facility] [address] Performing Lab: [facility] [address] [facility] [facility] [address] TESTOSTERONE(WRJ) 393.8 ng/dL 220-892 August 05, 2023 08:15 AM [facility] P4 GLU,BUN,CREAT,LYTES,CA Specimen Type: PLASMA Comment: , Tests performed on [employer] SN:[id number] (405). Ordering Provider: TYRESE ASIF Report Released Date/Time: July 18, 2023 12:25 PM Reporting Lab: [facility] [address] [address] Performing Lab: [facility] [address] [address] UREA NITROGEN 14 mg/dL 7-25 SODIUM 138 mmol/L 135-145 POTASSIUM 4.2 mmol/L 3.5-5.0 CHLORIDE 104 mmol/L 100-110 CARBON DIOXIDE 26 mmol/L 20-30 ANION GAP 8 4-16 GLUCOSE 90 mg/dL 65-100 CREATININE 1.13 mg/dL 0.50-1.50 CALCIUM 9.4 mg/dL 8.5-10.5 eGFR(CKD-EPI 2020) 88 mL/min August 05, 2023 08:15 AM [facility] CBC PROFILE Specimen Type: BLOOD No comment entered. Ordering Provider: TYRESE ASIF Report Released Date/Time: July 18, 2023 12:25 PM Reporting Lab: [facility] [address] [facility] [facility] [address] Performing Lab: [facility] [address] [address] WBC 7.4 10*3/uL 4.5-11.0 RBC 5.28 10*6/uL [...] 10*3/uL 0-0 August 05, 2023 08:15 AM [facility] LIVER PROFILE Specimen Type: PLASMA Comment: , Tests performed on [employer] SN:[id number] (405). Ordering Provider: TYRESE ASIF Report Released Date/Time: July 18, 2023 12:25 PM Reporting Lab: [facility] [address] [facility] [facility] [address] Performing Lab: [facility] [address] [facility] [facility] [address] PROTEIN, TOTAL 7.3 g/dL 6.0-8.5 ALBUMIN 4.1 g/dL 3.2-5.0 BILIRUBIN, TOTAL 0.9 mg/dL 0.2-1.2 ALKALINE PHOSPHATASE 75 U/L 40-150 ALT(SGPT) 44 U/L 7-52 AST(SGOT) 28 U/L 5-34 FIB-4 SCORE 0.63 <2.67 August 05, 2023 08:15 AM [facility] LIPOPROTEIN CHOLESTEROL FRACT. PANEL Specimen Type: PLASMA Comment: , Tests performed on [employer] Arvind SN:[id number] (405). Ordering Provider: TYRESE ASIF Report Released Date/Time: July 18, 2023 12:25 PM Reporting Lab: [facility] [address] [facility] [facility] [address] Performing Lab: [facility] [address] [facility] [address] CHOLESTEROL 161 mg/dL 0-200 TRIGLYCERIDE 110 mg/dL 0-150 HDL CHOLESTEROL 47 mg/dL >40 LDL CHOLESTEROL (CALC) 92 mg/dL 0-129 August 05, 2023 08:15 AM [facility] VIT D 25-OH(J) Specimen Type: SERUM Comment: , Tests performed on [employer] Burgess SN:[id number] (806) Ordering Provider: TYRESE ASIF Report Released Date/Time: July 18, 2023 12:25 PM Reporting Lab: [facility] [address] [facility] [facility] [address] Performing Lab: [facility] [address] [facility] [address] VIT D 25-OH([facility]) 22.9 ng/mL 20.0-50.0 August 05, 2023 08:15 AM [facility] URINALYSIS ONLY NO REFLEXURINALYSIS ONLY Specimen Type: URINE No comment entered. Ordering Provider: TYRESE ASIF Report Released Date/Time: July 18, 2023 12:25 PM Reporting Lab: [facility] [address] [facility] [address] Performing Lab: [facility] [address] [facility] [address] URINE COLOR Light-Yello w NOT DEFINED SPECIFIC GRAVITY 1.025 1.003-1.030 UROBILINOGEN <2.0 mg/dL <2.0 URINE BILIRUBIN NEG NEG URINE KETONES NEG mg/dL NEG URINE GLUCOSE NEG mg/dL NEG PROTEIN, URINE TRACE mg/dL NEG URINE PH 7.0 5-8 CLARITY CLEAR NOT DEFINED URINE BLOOD NEG NEG NITRITE, URINE NEG NEG WBC SCREEN NEG NEG Encounter Notes: All associated encounter notes This section contains the clinical notes associated to the Encounter. Date/Time Encounter Note(s) Provider Source July 19, 2023 08:46 AM ADDENDUM: LOCAL TITLE: Addendum STANDARD TITLE: ADDENDUM DATE OF NOTE: JULY 19, 2023@08:46 ENTRY DATE: JULY 19, 2023@08:46:01 AUTHOR: SADE CHAVIS EXP COSIGNER: URGENCY: STATUS: COMPLETED 07/16/2023 Clinical Impression: Otitis media Patient presenting to ED with left ear pain. Definitely has otitis media with questionable TM perforation. Has recently been on antibiotics, 2 different kind in the last month. Home Meds and New Rx's Prescriptions: New amoxicillin-pot clavulanate 875-125 mg tablet 1 tab PO BID Qty: 20 Continued cetirizine 10 MG tablet,chewable 10 mg PO DAILY diphenhydramine HCI 25 MG capsule 25 mg PO PRN PRN Discharge Instructions Instructions: Ear Infection (ED) Additional Instructions: 07/18/2023 14:44 You were seen for left ear pain tonight with evidence of middle ear infection with possible tympanic membrane rupture. Will start you on an antibiotic which is a little stronger than what we usually used for ear infections given your recent use of 2 different antibiotics. You will need to follow-up with ear nose and throat and [facility]. Alternate acetaminophen with ibuprofen as we discussed. Do not let water into your ear until you have been seen and evaluated by ENT. Return to the ED for worsening ear pain or persistent headache, fever, other concerns. /ernie CHAVIS RN PRIMARY CARE NURSING Signed: 07/19/2023 08:51 Receipt Acknowledged By: 07/20/2023 18:44 /ernie CHAWLA MD STAFF PHYSICIAN --- Original Document --- 07/19/23 FAX/MAIL RECEIVED: Document Received On: July Document Type: Emergency Department Note Date of Service: Jul 16, 2023 Facility and or Provider: [facility] Contact Information: [phone] PCP of Record: YASMIN CHAWLA Next visit with PCP: No future appointments Primary Care May keep copies of this document for up to 14 days and send the original for scanning. /ernie CHAVIS RN PRIMARY CARE NURSING Signed: 07/19/2023 08:45 SADE CHAVIS [facility] ([id number]) July 19, 2023 08:39 AM ADMINISTRATIVE NOT E: LOCAL TITLE: FAX/MAIL RECEIVED STANDARD TITLE: ADMINISTRATIVE NOTE DATE OF NOTE: JULY 19, 2023@08:39 ENTRY DATE: JULY 19, 2023@08:39:18 AUTHOR: SADE CHAVIS EXP COSIGNER: URGENCY: STATUS: COMPLETED FAX/MAIL RECEIVED Has ADDENDA Document Received On: July Document Type: Emergency Department Note Date of Service: Jul 16, 2023 Facility and or Provider: [facility] Contact Information: [phone] PCP of Record: YASMIN CHAWLA Next visit with PCP: No future appointments Primary Care May keep copies of this document for up to 14 days and send the original for scanning. /edith/ SADE CHAVIS RN PRIMARY CARE NURSING Signed: 07/19/2023 08:45 07/19/2023 ADDENDUM STATUS: COMPLETED 07/16/2023 Clinical Impression: Otitis media Patient presenting to ED with left ear pain. Definitely has otitis media with questionable TM perforation. Has recently been on antibiotics, 2 different kind in the last month. Home Meds and New Rx's Prescriptions: New amoxicillin-pot clavulanate 875-125 mg tablet 1 tab PO BID Qty: 20 Continued cetirizine 10 MG tablet,chewable 10 mg PO DAILY diphenhydramine HCI 25 MG capsule 25 mg PO PRN PRN Discharge Instructions Instructions: Ear Infection (ED) Additional Instructions: 07/18/2023 14:44 You were seen for left ear pain tonight with evidence of middle ear infection with possible tympanic membrane rupture. Will start you on an antibiotic which is a little stronger than what we usually used for ear infections given your recent use of 2 different antibiotics. You will need to follow-up with ear nose and throat and should call the [place] for appointment. Alternate acetaminophen with ibuprofen as we discussed. Do not let water into your ear until you have been seen and evaluated by ENT. Return to the ED for worsening ear pain or persistent headache, fever, other concerns. /edith/ SADE CHAVIS RN PRIMARY CARE NURSING Signed: 07/19/2023 08:51 Receipt Acknowledged By: * AWAITING SIGNATURE * YASMIN CHAWLA [facility] ([id number])
--- OUTSIDE RECORDS SUMMARY | 2024-03-18 10:28 | XMS_ITS | Encounter Summary ---
Author Name [facility] [place] Address [address] [place] [address] Care Team Providers Care Builder Beam Name Role Phone YASMIN CHAWLA Primary Care Provider UnavailTYRESE Carlson Primary Care Provider UnavailMARCELINO Conteh Primary Care [...] E [employer] [place] [facility] Jan 16, 2019 [id number] Maxine HEDRICK HAD PATIENT [employer] ([id number]) PRESCRIPT ION [facility] Jan 16, 2019 [id number] [id number] Mxaine HEDRICK HAD PATIENT Selected Encounter This section includes the information on record at [place] for the Encounter. Date/Time Encounter Type Encounter Description Reason Provider Source Apr 16, 2023 01:45 PM Outpatient Encounter PRIMARY CARE/MEDICINE KATHERIN KAUR Encounter Template Text not used by [place] Plan of Treatment: Future Appointments (+ 6 months) and Future Tests (+/- 45 days) The Plan of Treatment section includes future care activities for the patient [facility] [place] [facility] This section includes future appointments and future orders which are active, pending or scheduled. Future Appointments This section includes appointments that were scheduled to occur 6 months from the date of the Encounter, up to a maximum of 20 appointments. The data comes from all [facility] facilities. Appointment Date/Time Appointment Type Appointme nt Facility Name May 08, 2023 09:00 AM [facility] July 19, 2023 09:39 AM [place] [facility] July 26, 2023 02:39 PM [place]IC[place] [facility] August 05, 2023 08:30 AM AMBULATORY - NONE [facility] August 07, 2023 10:30 AM [place]ORY - NONE [place] [facility] August 07, 2023 02:00 PM [place] [facility] Aug 20, 2023 10:00 AM [place] [facility] Sep 23, 2023 09:30 AM AMBULATORY - NONE [facility] Oct 04, 2023 11:30 AM AMBULATORY - NONE [place] [facility] Encounter Notes: All associated encounter notes This section contains the clinical notes associated to the Encounter. Date/Time Encounter Note(s) Provider Source Apr 16, 2023 01:52 PM ADDENDUM: LOCAL TITLE: Addendum STANDARD TITLE: ADDENDUM DATE OF NOTE: APR 16, 2023@13:52:50 ENTRY DATE: APR 16, 2023@13:52:51 AUTHOR: KATHERIN KAUR EXP COSIGNER: URGENCY: STATUS: COMPLETED Called and spoke with patient. Patient requesting simple letter for employer stating he suffers from allergies daily. Patient states he tried to print this information off [employer]/Blue button option but it would have been several pages. Patient reports he is taking Cetirizine and using Flonase as directed. /edith/ KATHERIN KAUR LPN LICENSED PRACTICAL NURSE Signed: 04/16/2023 13:55 Receipt Acknowledged By: 04/16/2023 16:49 /edith/ YASMIN CHAWLA MD STAFF PHYSICIAN ====== --- Original Document --- 04/16/23 PRIMARY CARE SECURE MESSAGING: ------Original Message ------- Sent: 04/16/2023 10:16 AM ET From: ABELARDO HEDRICK To: Susan [facility]IMARY [facility]ARE[facility] Subject: General:Allergy Letter Good Morning, Would it be possible for my PCP to write a letter that says I suffer from allergies daily and that symptoms include red, itchy, watery eyes? Thank you! Abelardo KAUR LPN LICENSED PRACTICAL NURSE Signed: 04/16/2023 13:45 KATHERIN KAUR [facility] ([id number]) Apr 16, 2023 01:45 PM PRIMARY CARE SECUR E MESSAGING: LOCAL TITLE: PRIMARY CARE SECURE MESSAGING STANDARD TITLE: PRIMARY CARE SECURE MESSAGING DATE OF NOTE: APR 16, 2023@13:45 ENTRY DATE: APR 16, 2023@13:45:35 AUTHOR: KATHERIN KAUR COSIGNER: URGENCY: STATUS: COMPLETED PRIMARY CARE SECURE MESSAGING Has ADDENDA ------Original Message ------- Sent: 04/16/2023 10:16 AM ET From: ABELARDO HEDRICK To: Susan [facility]IMARY [facility] Subject: General:Allergy Letter Good Morning, Would it be possible for my PCP to write a letter that says I suffer from allergies daily and that symptoms include red, itchy, watery eyes? Thank you! Abelardo KAUR LPN LICENSED PRACTICAL NURSE Signed: 04/16/2023 13:45 04/16/2023 ADDENDUM STATUS: COMPLETED Called and spoke with patient. Patient requesting simple letter for employer stating he suffers from allergies daily. Patient states he tried to print this information off [facility]/[employer] button option but it would have been several pages. Patient reports he is taking Cetirizine and using Flonase as directed. /edith/ KATHERIN KAUR LPN LICENSED PRACTICAL NURSE Signed: 04/16/2023 13:55 Receipt Acknowledged By: * AWAITING SIGNATURE * YASMIN CHAWLA [facility] ([id number])
--- OUTSIDE RECORDS SUMMARY | 2024-03-18 10:28 | XMS_ITS ---
Author Name [facility] [place] Organization [place] Address [address] [place] [address] Care Team Providers Care Floor Director Name Role Phone YASMIN CHAWLA Primary Care [...] E HEALTH PLAN [facility] Jan 16, 2019 [id number] Maxine HEDRICK HAD PATIENT EXPRESS SCRIPTS ([id number]) PRESCRIPT ION [facility] Jan 16, 2019 [id number] Maxine HEDRICK HAD PATIENT Selected Encounter This section includes the information on record at [place] for the Encounter. Date/Time Encounter Type Encounter Description Reason Pro vider Source August 01, 2023 04:14 PM Outpatient Encounter ADMIN PAT ACTIVTIES (MASNONCT) IHE Encounter Template Text not used by [place] Plan of Treatment: Future Appointments (+ 6 months) and Future Tests (+/- 45 days) The Plan of Treatment section includes future care activities for the patient from all [place] [facility]. This section includes future appointments and future orders which are active, pending or scheduled. Future Appointments This section includes appointments that were scheduled to occur 6 months from the date of the Encounter, up to a maximum of 20 appointments. The data comes from all [facility]. Appointment Date/Time Appointment Type Appointme nt Facility Name August 05, 2023 08:30 AM AMBULATORY - NONE [facility] August 07, 2023 10:30 AM AM[facility]ULATORY - NONE [place] [facility] August 07, 2023 02:00 PM [place] [facility] Aug 20, 2023 10:00 AM [place] [facility] Sep 23, 2023 09:30 AM AMBULATORY - NONE [facility] Oct 04, 2023 11:30 AM AMBULATORY - NONE [place] [facility] Oct 21, 2023 10:00 AM [place] [facility] Oct 21, 2023 01:45 PM [place] [facility] Dec 05, 2023 09:30 AM AMBULATORY - NONE [place] [facility] Dec 05, 2023 10:00 AM AM[place]ORY [place] [facility] Active, Pending, and Scheduled Orders This section includes a listing of several types of active, pending, and scheduled orders, including clinic medications orders, diagnostic test orders, procedure orders and consult orders; where the start date of the order is 45 days before the date of the Encounter or 45 days after the date of theEncounter. The data comes from all [facility]. Test Date/Time Test Type Test Details Facility Name Jun 23, 2023 12:00 AM Laboratory - Chemi stry Order BASIC METABOLIC PANEL (fasting) BLOOD (SST-SERUM) [facility] ([id number]) Jun 23, 2023 12:00 AM Laboratory - Chemi stry Order LIVER FUNCTION BLOOD (SST-SERUM) [facility] ([id number]) Jun 23, 2023 12:00 AM Laboratory - Chemi stry Order LIPID PANEL FASTING BLOOD (SST-SERUM) [facility] ([id number]) Jun 23, 2023 12:00 AM Laboratory - Chemi stry Order HEMOGLOBIN A1C PANEL BLOOD (LAV-BLOOD) [facility] ([id number]) Jun 23, 2023 12:00 AM Laboratory - Chemi stry Order TSH BLOOD (SST-SERUM) [facility] ([id number]) Jun 23, 2023 12:00 AM Laboratory - Chemi stry Order VITAMIN D (25-OH) BLOOD (SST-SERUM) [facility] ([id number]) Jun 23, 2023 12:00 AM Laboratory - Chemi stry Order CBC AND DIFF (AUTO) BLOOD (LAV-BLOOD) [facility] ([id number]) Jun 23, 2023 12:00 AM Laboratory - Chemi stry Order CALCIUM BLOOD (SST-SERUM) [facility] ([id number]) Lab Results: +/- 30 days of [...] Range Comment August 05, 2023 08:15 AM [facility] VITAMIN B-12 Specimen Type: SERUM Comment: , Tests performed on [employer] W[employer] Aditya SN:[id number] (405) Ordering Provider: TYRESE ASIF Report Released Date/Time: July 18, 2023 12:25 PM Reporting Lab[facility] [address] [facility] [address] Performing Lab: [facility] [address] [facility] [facility] [address] VITAMIN B-12 245 pg/mL 200-900 August 05, 2023 08:15 AM [facility] TESTOSTERONE(J) Specimen Type: SERUM Comment: , Tests performed on [employer] Aditya SN:[id number] (405) Ordering Provider: TYRESE ASIF Report Released Date/Time: July 18, 2023 12:25 PM Reporting [facility]: [facility] [address] [facility] [address] Performing Lab: [facility] [address] [facility] [address] TESTOSTERONE(WRJ) 393.8 ng/dL 220-892 August 05, 2023 08:15 AM [facility] P4 GLU,BUN,CREAT,LYTES,CA Specimen Type: PLASMA Comment: , Tests performed on Cloudscaling SN:[id number]). Ordering Provider: TYRESE ASIF Report Released Date/Time: July 18, 2023 12:25 PM Reporting Lab: [facility] [address] [facility] [address] Performing Lab: [facility] [address] [address] UREA NITROGEN 14 mg/dL 7-25 SODIUM 138 mmol/L 135-145 POTASSIUM 4.2 mmol/L 3.5-5.0 CHLORIDE 104 mmol/L 100-110 CARBON DIOXIDE 26 mmol/L 20-30 ANION GAP 8 4-16 GLUCOSE 90 mg/dL 65-100 CREATININE 1.13 mg/dL 0.50-1.50 CALCIUM 9.4 mg/dL 8.5-10.5 eGFR(CKD-EPI 2020) 88 mL/min August 05, 2023 08:15 AM [facility] CBC PROFILE Specimen Type: BLOOD No comment entered. Ordering Provider: TYRESE ASIF Report Released Date/Time: July 18, 2023 12:25 PM Reporting Lab: [facility] [address] [facility] [address] Performing Lab: [facility] [address] [address] WBC 7.4 10*3/uL 4.5-11.0 RBC 5.28 10*6/uL [...] 10*3/uL 0-0 August 05, 2023 08:15 AM [facility] LIVER PROFILE Specimen Type: PLASMA Comment: , Tests performed on Cloudscaling SN:[id number] (405). Ordering Provider: TYRESE ASIF Report Released Date/Time: July 18, 2023 12:25 PM Reporting Lab: [facility] [address] [facility] [address] Performing Lab: [facility] [address] [phone] PROTEIN, TOTAL 7.3 g/dL 6.0-8.5 ALBUMIN 4.1 g/dL 3.2-5.0 BILIRUBIN, TOTAL 0.9 mg/dL 0.2-1.2 ALKALINE PHOSPHATASE 75 U/L 40-150 ALT(SGPT) 44 U/L 7-52 AST(SGOT) 28 U/L 5-34 FIB-4 SCORE 0.63 <2.67 August 05, 2023 08:15 AM [facility] LIPOPROTEIN CHOLESTEROL FRACT. PANEL Specimen Type: PLASMA Comment: , Tests performed on [employer] SN:[id number] ([id number]). Ordering Provider: TYRESE ASIF Report Released Date/Time: July 18, 2023 12:25 PM Reporting Lab: [facility] [address] [facility] [facility] [address] Performing Lab: [facility] [address] [address] CHOLESTEROL 161 mg/dL 0-200 TRIGLYCERIDE 110 mg/dL 0-150 HDL CHOLESTEROL 47 mg/dL >40 LDL CHOLESTEROL (CALC) 92 mg/dL 0-129 August 05, 2023 08:15 AM [facility] URINALYSIS ONLY NO REFLEXURINALYSIS ONLY Specimen Type: URINE No comment entered. Ordering Provider: TYRESE ASIF Report Released Date/Time: July 18, 2023 12:25 PM Reporting Lab: [facility] [address] [facility] [facility] [address] Performing Lab: [facility] [address] [facility] [facility] [address] URINE COLOR Light-Yello w NOT DEFINED SPECIFIC GRAVITY 1.025 1.003-1.030 UROBILINOGEN <2.0 mg/dL <2.0 URINE BILIRUBIN NEG NEG URINE KETONES NEG mg/dL NEG URINE GLUCOSE NEG mg/dL NEG PROTEIN, URINE TRACE mg/dL NEG URINE PH 7.0 5-8 CLARITY CLEAR NOT DEFINED URINE BLOOD NEG NEG NITRITE, URINE NEG NEG WBC SCREEN NEG NEG August 05, 2023 08:15 AM [facility] VIT D 25-OH([facility]) Specimen Type: SERUM Comment: , Tests performed on Project WBS Buregss SN:[id number] (405) Ordering Provider: TYRESE ASIF Report Released Date/Time: July 18, 2023 12:25 PM Reporting Lab: [facility] [address] [facility] [facility] [address] Performing Lab: [facility] [address] [facility] [address] VIT D 25-OH([facility]) 22.9 ng/mL 20.0-50.0 Encounter Notes: All associated encounter notes This section contains the clinical notes associated to the Encounter. Date/Time Encounter Note(s) Provider Source August 01, 2023 04:14 PM ADMINISTRATIVE NOT E: LOCAL TITLE: ADMINISTRATIVE RECALL NOTE STANDARD TITLE: ADMINISTRATIVE NOTE DATE OF NOTE: AUGUST 01, 2023@16:14 ENTRY DATE: AUGUST 01, 2023@16:14:11 AUTHOR: ELIDA RINALDI EXP COSIGNER: URGENCY: STATUS: COMPLETED RTC orders: Unable to contact patient: Attempts to contact: 1st attempt: Left voicemail 2nd attempt: Letter mailed 3rd attempt: 4th attempt: /edith/ ELIDA RINALDI [employer] (OA) Signed: 08/01/2023 16:14 ELIDA RINALDI [facility] ([id number])
--- OUTSIDE RECORDS SUMMARY | 2024-03-18 10:28 | XMS_ITS | Encounter Summary ---
Author Name [facility] [place] Organization [place] Address [address] [place] [address] Care Team Providers Care Highway Worker Name Role Phone YASMIN CHAWLA Primary Care [...] E HEALTH PLAN [employer] [place] [facility] Jan 16, 2019 [id number] Maxine HEDRICK HAD PATIENT EXPRESS SCRIPTS ([id number]) PRESCRIPT ION [facility] Jan 16, 2019 [id number] Maxine HEDRICK HAD PATIENT Selected Encounter This section includes the information on record at [place] for the Encounter. Date/Time Encounter Type Encounter Description Reason Provider Source Jul 11, 2023 09:45 AM Outpatient Encounter PRIMARY CARE/MEDICINE KATHERIN KAUR Encounter Template Text not used by [place] Plan of Treatment: Future Appointments (+ 6 months) and Future Tests (+/- 45 days) The Plan of Treatment section includes future care activities for the patient from all [place] [facility]. This section includes future appointments and future orders which are active, pending or scheduled. Future Appointments This section includes appointments that were scheduled to occur 6 months from the date of the Encounter, up to a maximum of 20 appointments. The data comes from all [facility]. Appointment Date/Time Appointment Type Appointme nt Facility Name July 19, 2023 09:39 AM AMBULATORY [place]IC[place] [facility] July 26, 2023 02:39 PM [place] [facility] August 05, 2023 08:30 AM AMBULATORY - NONE [facility] August 07, 2023 10:30 AM AMBULATORY - NONE [place] [facility] August 07, 2023 02:00 PM [place]ORY [place] [facility] Aug 20, 2023 10:00 AM AMB[place]ORY - [place] [facility] Sep 23, 2023 09:30 AM AMBULATORY - NONE [facility] Oct 04, 2023 11:30 AM AMBULATORY - NONE [place] [facility] Oct 21, 2023 10:00 AM [place] [facility] Oct 21, 2023 01:45 PM [place] [facility] Dec 05, 2023 09:30 AM AMBULATORY - NONE [place] [facility] Dec 05, 2023 10:00 AM AMBULATORY - [place] [facility] Active, Pending, and Scheduled Orders This section includes a listing of several types of active, pending, and scheduled orders, including clinic medications orders, diagnostic test orders, procedure orders and consult orders; where the start date of the order is 45 days before the date of the Encounter or 45 days after the date of theEncounter. The data comes from all [facility]. Test Date/Time Test Type Test Details Facility Name Jun 23, 2023 12:00 AM Laboratory - Chemi stry Order BASIC METABOLIC PANEL (fasting) BLOOD (SST-SERUM) [facility] ([id number]) Jun 23, 2023 12:00 AM Laboratory - Chemi stry Order LIVER FUNCTION BLOOD (SST-SERUM) [facility] (631[facility]) Jun 23, 2023 12:00 AM Laboratory - Chemi stry Order LIPID PANEL FASTING BLOOD (SST-SERUM) [facility] (631[facility]) Jun 23, 2023 12:00 AM Laboratory - Chemi stry Order HEMOGLOBIN A1C PANEL BLOOD (LAV-BLOOD) [facility] (631[facility]) Jun 23, 2023 12:00 AM Laboratory - Chemi stry Order TSH BLOOD (SST-SERUM) [facility] (631[facility]) Jun 23, 2023 12:00 AM Laboratory - Chemi stry Order VITAMIN D (25-OH) BLOOD (SST-SERUM) [facility] (631GE) Jun 23, 2023 12:00 AM Laboratory - Chemi stry Order CBC AND DIFF (AUTO) BLOOD (LAV-BLOOD) [facility] (631[facility]) Jun 23, 2023 12:00 AM Laboratory - Chemi stry Order CALCIUM BLOOD (SST-SERUM) [facility] (631[facility]) Lab Results: +/- 30 days of the encounter This section includes the Chemistry and Hematology Lab Results on record with [place] for the patient. Radiology Reports and Pathology Reports are provided separately, in subsequent sections. Lab Results This section contains the Chemistry/Hematology Results that were resulted 30 days before or 30 daysafter the date of the Encounter. Date/Time Source Result Type Result - Unit Interpretation Reference Range Comment August 05, 2023 08:15 AM [facility] VITAMIN B-12 Specimen Type: SERUM Comment: , Tests performed on [employer] SN:[id number] (405) Ordering Provider: TYRESE ASIF Report Released Date/Time: July 18, 2023 12:25 PM Reporting Lab: [facility] [address] [facility] [address] Performing Lab: [facility] [address] [facility] [address] VITAMIN B-12 245 pg/mL 200-900 August 05, 2023 08:15 AM [employer] [facility] [employer] TESTOSTERONE(WRJ) Specimen Type: SERUM Comment: , Tests performed on [employer] SN:[id number] (405) Ordering Provider: TYRESE ASIF Report Released Date/Time: July 18, 2023 12:25 PM Reporting Lab: [facility] [address] [facility] [address] Performing Lab: [facility] [address] [facility] [address] TESTOSTERONE(WRJ) 393.8 ng/dL 220-892 August 05, 2023 08:15 AM [facility] P4 GLU,BUN,CREAT,LYTES,CA Specimen Type: PLASMA Comment: , Tests performed on [employer] SN:[id number]). Ordering Provider: TYRESE ASIF Report Released Date/Time: July 18, 2023 12:25 PM Reporting Lab: [facility] [address] [facility] [address] Performing Lab: [facility] [address] [phone] UREA NITROGEN 14 mg/dL 7-25 SODIUM 138 mmol/L 135-145 POTASSIUM 4.2 mmol/L 3.5-5.0 CHLORIDE 104 mmol/L 100-110 CARBON DIOXIDE 26 mmol/L 20-30 ANION GAP 8 4-16 GLUCOSE 90 mg/dL 65-100 CREATININE 1.13 mg/dL 0.50-1.50 CALCIUM 9.4 mg/dL 8.5-10.5 eGFR(CKD-EPI 2020) 88 mL/min August 05, 2023 08:15 AM [facility] CBC PROFILE Specimen Type: BLOOD No comment entered. Ordering Provider: TYRESE ASIF Report Released Date/Time: July 18, 2023 12:25 PM Reporting Lab: [facility] [address] [facility] [address] Performing Lab: [facility] [address] [phone] WBC 7.4 10*3/uL 4.5-11.0 RBC 5.28 10*6/uL [...] 10*3/uL 0-0 August 05, 2023 08:15 AM [facility] LIVER PROFILE Specimen Type: PLASMA Comment: , Tests performed on [employer]access SN:[id number] (405). Ordering Provider: TYRESE ASIF Report Released Date/Time: July 18, 2023 12:25 PM Reporting Lab: [facility] [address] [facility] [address] Performing Lab: [facility] [address] [facility] [address] PROTEIN, TOTAL 7.3 g/dL 6.0-8.5 ALBUMIN 4.1 g/dL 3.2-5.0 BILIRUBIN, TOTAL 0.9 mg/dL 0.2-1.2 ALKALINE PHOSPHATASE 75 U/L 40-150 ALT(SGPT) 44 U/L 7-52 AST(SGOT) 28 U/L 5-34 FIB-4 SCORE 0.63 <2.67 August 05, 2023 08:15 AM [facility] LIPOPROTEIN CHOLESTEROL FRACT. PANEL Specimen Type: PLASMA Comment: , Tests performed on [employer]access SN:[id number]). Ordering Provider: TYRESE ASIF Report Released Date/Time: July 18, 2023 12:25 PM Reporting Lab: [facility] [address] [facility] [address] Performing Lab: [facility] [address] [facility] [address] CHOLESTEROL 161 mg/dL 0-200 TRIGLYCERIDE 110 mg/dL 0-150 HDL CHOLESTEROL 47 mg/dL >40 LDL CHOLESTEROL (CALC) 92 mg/dL 0-129 August 05, 2023 08:15 AM [facility] URINALYSIS ONLY NO REFLEXURINALYSIS ONLY Specimen Type: URINE No comment entered. Ordering Provider: TYRESE ASIF Report Released Date/Time: July 18, 2023 12:25 PM Reporting Lab: [facility] [address] [facility] [address] Performing Lab: [facility] [address] [facility] [address] URINE COLOR Light-Yello w NOT DEFINED SPECIFIC GRAVITY 1.025 1.003-1.030 UROBILINOGEN <2.0 mg/dL <2.0 URINE BILIRUBIN NEG NEG URINE KETONES NEG mg/dL NEG URINE GLUCOSE NEG mg/dL NEG PROTEIN, URINE TRACE mg/dL NEG URINE PH 7.0 5-8 CLARITY CLEAR NOT DEFINED URINE BLOOD NEG NEG NITRITE, URINE NEG NEG WBC SCREEN NEG NEG August 05, 2023 08:15 AM [facility] VIT D 25-OH(J) Specimen Type: SERUM Comment: , Tests performed on [employer] SN:[id number] (405) Ordering Provider: TYRESE ASIF Report Released Date/Time: July 18, 2023 12:25 PM Reporting Lab: [facility] [address] [facility] [address] Performing Lab: [facility] [address] [facility] [address] VIT D 25-OH(J) 22.9 ng/mL 20.0-50.0 Encounter Notes: All associated encounter notes This section contains the clinical notes associated to the Encounter. Date/Time Encounter Note(s) Provider Source July 18, 2023 12:20 PM PRIMARY CARE [employer] MESSAGING: LOCAL TITLE: PRIMARY CARE SECURE MESSAGING STANDARD TITLE: PRIMARY CARE SECURE MESSAGING DATE OF NOTE: JULY 18, 2023@12:20 ENTRY DATE: JULY 18, 2023@13:20:52 AUTHOR: LANEY CHAVIS EXP COSIGNER: URGENCY: STATUS: COMPLETED ------Original Message -------- Sent: 07/18/2023 11:01 AM ET From: HIGINIO HEDRICK To: Cassie CHAWLA_PRIMARY CARE_WO Subject: General:General Inquiry Good Morning, I cancelled this appointment via text because I moved to [place] and will be switching to a PCP here. Thanks! Higinio ------Original Message -------- Sent: 07/18/2023 01:20 PM ET From: LANEY CHAVIS To: HIGINIO HEDRICK Subject: General:General Inquiry Thank you, It has been cancelled. I can see you have been scheduled with a new provider in [place] 08/06. Laney Chavis RN /edith/ LANEY CHAVIS GAS ENGINEER NURSING Signed: 07/18/2023 13:20 LANEY CHAVIS [facility] ([id number]) Jul 11, 2023 09:45 AM PRIMARY CARE [employer] MESSAGING: LOCAL TITLE: PRIMARY CARE SECURE MESSAGING STANDARD TITLE: PRIMARY CARE SECURE MESSAGING DATE OF NOTE: JUL 11, 2023@09:45 ENTRY DATE: JUL 11, 2023@10:45:27 AUTHOR: KATHERIN KAUR EXP COSIGNER: URGENCY: STATUS: COMPLETED ------Original Message -------- Sent: 07/11/2023 10:45 AM ET From: KATHERIN KAUR To: HIGINIO HEDRICK Subject: General:General Inquiry Hi , Sending message to confirm your appointment with on 07/23/2023 at 1030AM at the [facility]. If you are able to come in a few days prior to your appointment for fasting labs that would be great if not you can complete labs same day. The lab opens daily at 8AM and closes Saturday - at 3PM, 1:30PM on Saturday. No appointment necessary for lab work. Thank you, Olivia walter/ KATHERIN KAUR LPN LICENSED PRACTICAL NURSE Signed: 07/11/2023 10:45 KATHERIN KAUR [facility] (282[facility])
--- OUTSIDE RECORDS SUMMARY | 2024-03-18 10:28 | XMS_ITS ---
Author Name [facility] [place] Organization [facility] [place] Address [address] [place] [address] Care Team Providers Care Seismic Observer Name Role Phone YASMIN CHAWLA Primary Care Provider TYRESE Phillips Primary Care Provider MARCELINO Lerner Primary Care Provider Karissa siu Insurance Providers: All historical and current Section [...] E HEALTH PLAN [employer] [place] [facility] Jan 16, 2019 [id number] Maxine HEDRICK HAD PATIENT [employer] SCRIPTS ([id number]) PRESCRIPT ION [facility] Jan 16, 2019 [id number] Maxine HEDRICK HAD PATIENT Selected Encounter This section includes the information on record at [place] for the Encounter. Date/Time Encounter Type Encounter Description Reason Provider Source July 19, 2023 07:54 AM Outpatient Encounter TELEPHONE TRIAGE JUAN CARLOS SEGOVIA Encounter Template Text not used by [facility] Plan of Treatment: Future Appointments (+ 6 months) and Future Tests (+/- 45 days) The Plan of Treatment section includes future care activities for the patient from all [place] [facility] This section includes future appointments and future orders which are active, pending or scheduled. Future Appointments This section includes appointments that were scheduled to occur 6 months from the date of the Encounter, up to a maximum of 20 appointments. The data comes from all [facility]. Appointment Date/Time Appointment Type Appointme nt Facility Name July 26, 2023 02:39 PM [facility]BULATORY [place]IC[place] [facility] August 05, 2023 08:30 AM AMBULATORY - NONE [place] [facility] August 07, 2023 10:30 AM [facility] - NONE [place] [facility] August 07, 2023 02:00 PM AMBUL[place] [facility] Aug 20, 2023 10:00 AM [place]BUL[place] [facility] Sep 23, 2023 09:30 AM AMBULATORY - NONE [facility] Oct 04, 2023 11:30 AM [place]UL[place]ORY - [place]ONE [place] [facility] Oct 21, 2023 10:00 AM [place] [facility] Oct 21, 2023 01:45 PM [place] [facility] Dec 05, 2023 09:30 AM AMBULATORY - NONE [place] [facility] Dec 05, 2023 10:00 AM [place]BULATORY - [place] [facility] Active, Pending, and Scheduled Orders This section includes a listing of several types of active, pending, and scheduled orders, including clinic medications orders, diagnostic test orders, procedure orders and consult orders; where the start date of the order is 45 days before the date of the Encounter or 45 days after the date of theEncounter. The data comes from all [facility]. Test Date/Time Test Type Test Details Facility Name Jun 23, 2023 12:00 AM Laboratory - Chemi stry Order BASIC METABOLIC PANEL (fasting) BLOOD (SST-SERUM) [facility] ([id number]) Jun 23, 2023 12:00 AM Laboratory - Chemi stry Order LIVER FUNCTION BLOOD (SST-SERUM) [facility] ([id number]) Jun 23, 2023 12:00 AM Laboratory - Chemi stry Order LIPID PANEL FASTING BLOOD (SST-SERUM) [facility] ([id number]) Jun 23, 2023 12:00 AM Laboratory - Chemi stry Order HEMOGLOBIN A1C PANEL BLOOD (LAV-BLOOD) [facility] ([id number]) Jun 23, 2023 12:00 AM Laboratory - Chemi stry Order TSH BLOOD (SST-SERUM) [facility] ([id number]) Jun 23, 2023 12:00 AM Laboratory - Chemi stry Order VITAMIN D (25-OH) BLOOD (SST-SERUM) [facility] ([id number]) Jun 23, 2023 12:00 AM Laboratory - Chemi stry Order CBC AND DIFF (AUTO) BLOOD (LAV-BLOOD) [facility] ([id number]) Jun 23, 2023 12:00 AM Laboratory - Chemi stry Order CALCIUM BLOOD (SST-SERUM) [facility] ([id number]) Lab Results: +/- 30 days [...] Range Comment August 05, 2023 08:15 AM [facility] VITAMIN B-12 Specimen Type: SERUM Comment: , Tests performed on [employer] Aditya SN:[id number] ([id number]) Ordering Provider: TYRESE ASIF Report Released Date/Time: July 18, 2023 12:25 PM Reporting Lab: [facility] [address] [facility] [address] Performing Lab: [facility] [address] [facility] [address] VITAMIN B-12 245 pg/mL 200-900 August 05, 2023 08:15 AM [facility] TESTOSTERONE(WRJ) Specimen Type: SERUM Comment: , Tests performed on [employer] Aditya SN:[id number] ([id number]) Ordering Provider: TYRESE ASIF Report Released Date/Time: July 18, 2023 12:25 PM Reporting Lab: [facility] [address] [facility] [address] Performing Lab: [facility] [address] [facility] [address] TESTOSTERONE(WRJ) 393.8 ng/dL 220-892 August 05, 2023 08:15 AM [facility] P4 GLU,BUN,CREAT,LYTES,CA Specimen Type: PLASMA Comment: , Tests performed on [employer] SN:[id number]). Ordering Provider: TYRESE ASIF Report Released Date/Time: July 18, 2023 12:25 PM Reporting Lab: [facility] [id number] Performing Lab: [facility] [address] [place] [place] [address] UREA NITROGEN 14 mg/dL 7-25 SODIUM 138 mmol/L 135-145 POTASSIUM 4.2 mmol/L 3.5-5.0 CHLORIDE 104 mmol/L 100-110 CARBON DIOXIDE 26 mmol/L 20-30 ANION GAP 8 4-16 GLUCOSE 90 mg/dL 65-100 CREATININE 1.13 mg/dL 0.50-1.50 CALCIUM 9.4 mg/dL 8.5-10.5 eGFR(CKD-EPI 2020) 88 mL/min August 05, 2023 08:15 AM [facility] CBC PROFILE Specimen Type: BLOOD No comment entered. Ordering Provider: TYRESE ASIF Report Released Date/Time: July 18, 2023 12:25 PM Reporting Lab: [facility] [address] [place] [address] Performing Lab: [facility] [address] [address] WBC 7.4 10*3/uL 4.5-11.0 RBC 5.28 10*6/uL [...] 10*3/uL 0-0 August 05, 2023 08:15 AM [facility] LIVER PROFILE Specimen Type: PLASMA Comment: , Tests performed on [employer] Arvind SN:[id number]). Ordering Provider: TYRESE ASIF Report Released Date/Time: July 18, 2023 12:25 PM Reporting Lab: [facility] [address] [id number] Performing Lab: [place] [id number] PROTEIN, TOTAL 7.3 g/dL 6.0-8.5 ALBUMIN 4.1 g/dL 3.2-5.0 BILIRUBIN, TOTAL 0.9 mg/dL 0.2-1.2 ALKALINE PHOSPHATASE 75 U/L 40-150 ALT(SGPT) 44 U/L 7-52 AST(SGOT) 28 U/L 5-34 FIB-4 SCORE 0.63 <2.67 August 05, 2023 08:15 AM [facility] LIPOPROTEIN CHOLESTEROL FRACT. PANEL Specimen Type: PLASMA Comment: , Tests performed on [employer] Arvind SN:[id number] ([id number]). Ordering Provider: TYRESE ASIF Report Released Date/Time: July 18, 2023 12:25 PM Reporting Lab: [facility] [address] [facility] [address] Performing Lab: [facility] [address] [facility] [address] CHOLESTEROL 161 mg/dL 0-200 TRIGLYCERIDE 110 mg/dL 0-150 HDL CHOLESTEROL 47 mg/dL >40 LDL CHOLESTEROL (CALC) 92 mg/dL 0-129 August 05, 2023 08:15 AM [facility] VIT D 25-OH(WRJ) Specimen Type: SERUM Comment: , Tests performed on [employer] Burgess SN:[id number] ([id number]) Ordering Provider: TYRESE ASIF Report Released Date/Time: July 18, 2023 12:25 PM Reporting Lab: [facility] [address] [facility] [address] Performing Lab: [facility] [address] [facility] [address] VIT D 25-OH([facility]) 22.9 ng/mL 20.0-50.0 August 05, 2023 08:15 AM [facility] URINALYSIS ONLY NO REFLEXURINALYSIS ONLY Specimen Type: URINE No comment entered. Ordering Provider: TYRESE ASIF Report Released Date/Time: July 18, 2023 12:25 PM Reporting Lab: [facility] [address] [facility] [address] Performing Lab: [facility] [address] [facility] [address] URINE COLOR Light-Yello w NOT DEFINED SPECIFIC [...] Encounter Note(s) Provider Source July 19, 2023 07:54 AM RN PROGRESS NOTE: LOCAL TITLE: CCC: CLINICAL TRIAGE STANDARD TITLE: RN PROGRESS NOTE DATE OF NOTE: JULY 19, 2023@07:54:05 ENTRY DATE: JULY 19, 2023@07:54:05 AUTHOR: MELANIE SEGOVIA EXP COSIGNER: URGENCY: STATUS: COMPLETED Patient Demographics Patient Name: HIGINIO HEDRICK Patient Primary Address: [address] [place] [address] Patient Primary Phone: [phone] Patient : 1990 Patient Age: 32 Call Back Number: Caller/Recipient Relation to Patient: Self Emergency Contact: LASHA HEDRICK Triage Summary Conducted triage/discussed symptoms Pain Score: 3 Utilized the Triage Tool: Yes Chief Complaint: Ear Drainage System WHEN: Within 3 Days Nurse's Recommendation / WHEN: Now System WHERE: Clinic Nurse's Recommendation / WHERE: ED [facility] WHEN/WHERE modifier reason: Other Other - Modifiers: worsening condition/ weekend Patient Disposition Patient/Caregiver agrees to plan of care: Yes Nursing Plan and Disposition Referred patient to higher level of care Instructed to go to Emergency Room (ER) Other course(s) of action Generated msg to PACT/Provider Provided guidance for worsening symptoms: *Caller/Patient* advised to call facilities [place] Clinical Contact Center or seek immediate medical attention for new or worsening symptoms Nurse Summary Nurse Summary: Vet c/o bloody drainage to left ear x 2 days and left ear pain x 3 days. Vet alert and oriented, speaking in full sentences. PMH: Allergic rhinitis , Fatty liver, pain of both knees. Vet is on: Acetaminophen, Cetirizine, Diclofenac, Fluticasone inhl. Reports he was seen at the local ED on 07/16/23 for severe ear pain, dx with left ear infection and possible ruptured eardrum. Vet was rx'd abx and advised to f/u with ENT. Vet is in the process of transferring to [facility], ENT consult already in place but has not heard from ENT clinic. Today called due to worsening condition. During call, Vet unable to check v/s. Denies chest pain, sob, fever, chills, dizziness, headache or n/v. Advised to have someone drive him to the [place] ED now but seek emergency medical care immediately for worsening or new symptoms. Potential serious sequelae in delay of care explained, Vet verbalized understanding and agrees with plan. . Advised Vet a note will be forwarded to PACT for review, further recommendations, and follow-up. Clinical Contact Center Codes Clinic/Location: V1 M PHONE CCC RN Notes Notes & Information: This note was created by a [address] internal review and audit compliance. Please do not alert this nurse by adding as a signer for future communications. Alerts are not monitored by this user, please reach out to [facility] Leadership instead if indicated. [facility] Triage Complete Triage Date: 07/19/2023, 07:37 AM Triage Note: Phone Triage 19 Jul 2023 11:32:18 +0000 [facility] Demographics 33 y/o Male Results CC: Ear Drainage Software suggested: Within 3 Days Software suggested follow-up location: Clinic, consider [facility] care Values and Measures Duration of CC: 2 Days Positive Responses HPI: ear canal discharge, exudative HPI: ear pain VS: temperature not taken Negative Responses Denies: HPI: ear canal erythema, worsening Denies: HPI: ear canal swelling Denies: HPI: ear pain, worsening, duration longer than 4 hours Denies: HPI: ear pinna erythema, worsening Denies: MEDS: chemotherapy Denies: PMH: diabetes Denies: PMH: HIV positive Denies: PSH: organ transplant /edith/ MELANIE SEGOVIA RN VISN 2 [facility] NURSE Signed: 07/19/2023 07:54 Receipt Acknowledged By: 07/19/2023 08:34 /edith/ SADE CHAVIS RN PRIMARY CARE NURSING 07/19/2023 08:41 /edith/ KATHERIN KAUR LPN LICENSED PRACTICAL NURSE MELANIE SEGOVIA CNTRL [facility]
--- OUTSIDE RECORDS SUMMARY | 2024-03-18 10:28 | XMS_ITS ---
Author Name [facility] [place] Address [address] [place] [address] Care Team Providers Care Human Resources Project Coordinator Name Role Phone YASMIN MIGUEL Primary Care Provider UnavailTYRESE Carlson Primary Care [...] E HEALTH PLAN [employer] [place] [facility] Jan 16, 2019 [id number] Maxine HEDRICK HAD PATIENT [employer] S[employer] ([id number]) PRESCRIPT ION [facility] Jan 16, 2019 [id number] Maxine HEDRICK HAD PATIENT Selected Encounter This section includes the information on record at [place] for the Encounter. Date/Time Encounter Type Encounter Description Reason Provider Source July 18, 2023 12:14 PM Outpatient Encounter PRIMARY CARE/MEDICINE SADE CHAVIS IHJulia Encounter Template Text not used by [facility] Plan of Treatment: Future Appointments (+ 6 months) and Future Tests (+/- 45 days) The Plan of Treatment section includes future care activities for the patient from all [place] [facility]. This section includes future appointments and future orders which are active, pending or scheduled. Future Appointments This section includes appointments that were scheduled to occur 6 months from the date of the Encounter, up to a maximum of 20 appointments. The data comes from all [facility]. Appointment Date/Time Appointment Type Appointme nt Facility Name July 19, 2023 09:39 AM AMBULATORY - [place]IC[place] [facility] July 26, 2023 02:39 PM [place] [facility] August 05, 2023 08:30 AM AMBULATORY - NONE [facility] August 07, 2023 10:30 AM [place] - NONE [place] [facility] August 07, 2023 02:00 PM [place] - [place] [facility] Aug 20, 2023 10:00 AM [place] - [place] [facility] Sep 23, 2023 09:30 AM AMBULATORY - NONE [facility] Oct 04, 2023 11:30 AM [place] - NONE [place] [facility] Oct 21, 2023 10:00 AM [place] [facility] Oct 21, 2023 01:45 PM [place] [facility] Dec 05, 2023 09:30 AM [place] - NONE [place] [facility] Dec 05, 2023 10:00 AM [place] [facility] Active, Pending, and Scheduled Orders This section includes a listing of several types of active, pending, and scheduled orders, including clinic medications orders, diagnostic test orders, procedure orders and consult orders; where the start date of the order is 45 days before the date of the Encounter or 45 days after the date of theEncounter. The data comes from all [facility]. Test Date/Time Test Type Test Details Facility Name Jun 23, 2023 12:00 AM Laboratory - Chemi stry Order BASIC METABOLIC PANEL (fasting) BLOOD (SST-SERUM) [facility] ([id number]) Jun 23, 2023 12:00 AM Laboratory - Chemi stry Order LIVER FUNCTION BLOOD (SST-SERUM) [facility] ([id number]) Jun 23, 2023 12:00 AM Laboratory - Chemi stry Order LIPID PANEL FASTING BLOOD (SST-SERUM) [facility] ([id number]) Jun 23, 2023 12:00 AM Laboratory - Chemi stry Order HEMOGLOBIN A1C PANEL BLOOD (LAV-BLOOD) [facility] ([id number]) Jun 23, 2023 12:00 AM Laboratory - Chemi stry Order TSH BLOOD (SST-SERUM) [facility] ([id number]) Jun 23, 2023 12:00 AM Laboratory - Chemi stry Order VITAMIN D (25-OH) BLOOD (SST-SERUM) [facility] ([id number]) Jun 23, 2023 12:00 AM Laboratory - Chemi stry Order CBC AND DIFF (AUTO) BLOOD (LAV-BLOOD) [facility] ([id number]) Jun 23, 2023 12:00 AM Laboratory - Chemi stry Order CALCIUM BLOOD (SST-SERUM) [facility] ([id number]) Lab Results: +/- 30 days of the encounter This section includes the Chemistry and Hematology Lab Results on record with [place] for the patient. Radiology Reports and Pathology Reports are provided separately, in subsequent sections. Lab Results This section contains the Chemistry/Hematology Results that were resulted 30 days before or 30 daysafter the date of the Encounter. Date/Time Source Result Type Result - Unit Interpretation Reference Range Comment August 05, 2023 08:15 AM [facility] VITAMIN B-12 Specimen Type: SERUM Comment: , Tests performed on [employer]itya SN:[id number] ([id number]) Ordering Provider: TYRESE ASIF Report Released Date/Time: July 18, 2023 12:25 PM Reporting Lab: [facility] [address] [facility] [address] Performing Lab: [facility] [address] [facility] [address] VITAMIN B-12 245 pg/mL 200-900 August 05, 2023 08:15 AM [facility] TESTOSTERONE(WRJ) Specimen Type: SERUM Comment: , Tests performed on [employer] SN:[id number] (405) Ordering Provider: TYRESE ASIF Report Released Date/Time: July 18, 2023 12:25 PM Reporting Lab: [facility] [address] [facility] [address] Performing Lab: [facility] [address] [facility] [address] TESTOSTERONE(WRJ) 393.8 ng/dL 220-892 August 05, 2023 08:15 AM [facility] P4 GLU,BUN,CREAT,LYTES,CA Specimen Type: PLASMA Comment: , Tests performed on [employer] SN:[id number] (405). Ordering Provider: TYRESE ASIF Report Released Date/Time: July 18, 2023 12:25 PM Reporting Lab: [facility] [address] [facility] [address] Performing Lab: [facility] [address] [place] [phone] UREA NITROGEN 14 mg/dL 7-25 SODIUM 138 mmol/L 135-145 POTASSIUM 4.2 mmol/L 3.5-5.0 CHLORIDE 104 mmol/L 100-110 CARBON DIOXIDE 26 mmol/L 20-30 ANION GAP 8 4-16 GLUCOSE 90 mg/dL 65-100 CREATININE 1.13 mg/dL 0.50-1.50 CALCIUM 9.4 mg/dL 8.5-10.5 eGFR(CKD-EPI 2020) 88 mL/min August 05, 2023 08:15 AM [facility] CBC PROFILE Specimen Type: BLOOD No comment entered. Ordering Provider: TYRESE ASIF Report Released Date/Time: July 18, 2023 12:25 PM Reporting Lab: [facility] [address] [facility] [address] [address] Performing Lab: [facility] [address] [phone] WBC 7.4 10*3/uL 4.5-11.0 RBC 5.28 10*6/uL [...] 10*3/uL 0-0 August 05, 2023 08:15 AM [facility] LIVER PROFILE Specimen Type: PLASMA Comment: , Tests performed on [employer] SN:[id number] ([id number]). Ordering Provider: TYRESE ASIF Report Released Date/Time: July 18, 2023 12:25 PM Reporting Lab: [facility] [address] [facility] [address] [address] Performing Lab: [facility] [address] [facility] [address] [address] PROTEIN, TOTAL 7.3 g/dL 6.0-8.5 ALBUMIN 4.1 g/dL 3.2-5.0 BILIRUBIN, TOTAL 0.9 mg/dL 0.2-1.2 ALKALINE PHOSPHATASE 75 U/L 40-150 ALT(SGPT) 44 U/L 7-52 AST(SGOT) 28 U/L 5-34 FIB-4 SCORE 0.63 <2.67 August 05, 2023 08:15 AM [facility] LIPOPROTEIN CHOLESTEROL FRACT. PANEL Specimen Type: PLASMA Comment: , Tests performed on [employer] SN:[id number] ([id number]). Ordering Provider: TYRESE ASIF Report Released Date/Time: July 18, 2023 12:25 PM Reporting Lab: [facility] [address] [facility] [address] [address] Performing Lab: [facility] [address] [facility] [address] CHOLESTEROL 161 mg/dL 0-200 TRIGLYCERIDE 110 mg/dL 0-150 HDL CHOLESTEROL 47 mg/dL >40 LDL CHOLESTEROL (CALC) 92 mg/dL 0-129 August 05, 2023 08:15 AM [facility] VIT D 25-OH([facility]) Specimen Type: SERUM Comment: , Tests performed on Cree Burgess SN:[id number] ([id number]) Ordering Provider: TYRESE ASIF Report Released Date/Time: July 18, 2023 12:25 PM Reporting Lab: [facility] [address] [facility] [address] [address] Performing Lab: [facility] [address] [facility] [address] [address] VIT D 25-OH([facility]) 22.9 ng/mL 20.0-50.0 August 05, 2023 08:15 AM [facility] URINALYSIS ONLY NO REFLEXURINALYSIS ONLY Specimen Type: URINE No comment entered. Ordering Provider: TYRESE ASIF Report Released Date/Time: July 18, 2023 12:25 PM Reporting Lab: [facility] [address] [facility] [address] [address] Performing Lab: [facility] [address] [facility] [address] [address] URINE COLOR Light-Yello w NOT DEFINED SPECIFIC [...] Encounter Note(s) Provider Source July 18, 2023 01:14 PM ADDENDUM: LOCAL TITLE: Addendum STANDARD TITLE: ADDENDUM DATE OF NOTE: JULY 18, 2023@13:14:31 ENTRY DATE: JULY 18, 2023@13:14:32 AUTHOR: SADE CHAVIS COSIGNER: URGENCY: STATUS: COMPLETED Patient has moved to [place] and is transferring care to [facility] with appointment scheduled 08/06. He was seen at [facility] in [facility] for an ear infection, left ear and they recommended patient follow up with ENt. Dr. Miguel will place consult to ENT at [facility], called for er notes for review. /ernie CHAVIS RN PRIMARY CARE NURSING Signed: 07/18/2023 13:18 Receipt Acknowledged By: 07/18/2023 17:27 /edith/ YASMIN MIGUEL MD STAFF PHYSICIAN --- Original Document --- 07/18/23 PRIMARY CARE SECURE MESSAGING: ------Original Message ----- Sent: 07/18/2023 11:32 AM ET From: HIGINIO HEDRICK To: Cassie MIGUEL_PRIMARY CARE_[facility] Subject: Appointment:ENT Referral Good Afternoon, I was seen in the ER two nights ago for an ear infection and they told me to follow up with ENT. The only issue is that I have moved to [place] and would like to be seen at the [facility]. I will be moving my PCP there but they can't see me until the so they suggested that I reach out to you and ask you to put an ENT referral in to [place] for me. Is that something you can do? Thanks! Higinio CHAVIS RN PRIMARY CARE NURSING Signed: 07/18/2023 13:14 07/18/2023 ADDENDUM STATUS: COMPLETED consult placed. /ernie MIGUEL MD STAFF PHYSICIAN Signed: 07/18/2023 17:27 SADE CHAVIS [facility] ([id number]) July 18, 2023 12:14 PM PRIMARY CARE SECUR E MESSAGING: LOCAL TITLE: PRIMARY CARE SECURE MESSAGING STANDARD TITLE: PRIMARY CARE SECURE MESSAGING DATE OF NOTE: JULY 18, 2023@12:14 ENTRY DATE: JULY 18, 2023@13:14:09 AUTHOR: SADE CHAVIS EXP COSIGNER: URGENCY: STATUS: COMPLETED PRIMARY CARE SECURE MESSAGING Has ADDENDA ------Original Message ----- Sent: 07/18/2023 11:32 AM ET From: HIGINIO HEDRICK To: Cassie MIGUEL_PRIMARY CARE_[facility] Subject: Appointment:ENT Referral Good Afternoon, I was seen in the ER two nights ago for an ear infection and they told me to follow up with ENT. The only issue is that I have moved to [place] and would like to be seen at the [facility]. I will be moving my PCP there but they can't see me until the so they suggested that I reach out to you and ask you to put an ENT referral in to [place] for me. Is that something you can do? Thanks! Higinio /edith/ SADE CHAVIS RN PRIMARY CARE NURSING Signed: 07/18/2023 13:14 07/18/2023 ADDENDUM STATUS: COMPLETED Patient has moved to [place] and is transferring care to [facility] with appointment scheduled 08/06. He was seen at [facility] in [facility] for an ear infection, left ear and they recommended patient follow up with ENt. Dr. Miguel will place consult to ENT at [facility], called for er notes for review. /ernie CHAVIS RN PRIMARY CARE NURSING Signed: 07/18/2023 13:18 Receipt Acknowledged By: 07/18/2023 17:27 /edith/ YASMIN MIGUEL MD STAFF PHYSICIAN 07/18/2023 ADDENDUM STATUS: COMPLETED consult placed. /ernie MIGUEL MD STAFF PHYSICIAN Signed: 07/18/2023 17:27 SADE CHAVIS [facility] ([id number])
--- OUTSIDE RECORDS SUMMARY | 2024-03-18 10:28 | XMS_ITS | Encounter Summary ---
Author Name Department of [place] Organization Department [place] Address [address] [place] [address] Care Team Providers Care Drafting Teacher Name Role Phone YASMIN CHAWLA Primary Care Provider TYRESE Phillips Primary Care Provider MARCELINO Lerner Primary Care Provider Unavailabl e Insurance Providers: [...] ASSOC [place] [facility] Jan 16, 2019 [id number] Maxine HEDRICK HAD PATIENT [employer] ([id number]) PRESCRIPT ION [facility] Jan 16, 2019 [id number] Maxine HEDRICK HAD PATIENT Selected Encounter This section includes the information on record at [place] for the Encounter. Date/Time Encounter Type Encounter Description Reason Pro vider Source May 08, 2023 09:00 AM Outpatient Encounter [facility] Encounter Template Text not used by [place] Plan of Treatment: Future Appointments (+ 6 months) and Future Tests (+/- 45 days) The Plan of Treatment section includes future care activities for the patient from all [facility] This section includes future appointments and future orders which are active, pending or scheduled. Future Appointments This section includes appointments that were scheduled to occur 6 months from the date of the Encounter, up to a maximum of 20 appointments. The data comes from all [place] treatment facilities. Appointment Date/Time Appointment Type Appointme nt Facility Name July 19, 2023 09:39 AM AMBULATORY [place]IC[place] [facility] July 26, 2023 02:39 PM [place] [facility] August 05, 2023 08:30 AM AMBULATORY - NONE [facility] August 07, 2023 10:30 AM [place]ORY [place] [facility] August 07, 2023 02:00 PM [place] [facility] Aug 20, 2023 10:00 AM [place] [facility] Sep 23, 2023 09:30 AM AMBULATORY - NONE [facility] Oct 04, 2023 11:30 AM AM[place]ORY - [place]ONE [place] [facility] Oct 21, 2023 10:00 AM [place] [facility] Oct 21, 2023 01:45 PM [place] [facility] Social History: Smoking Status (Most current) and Tobacco Use (All prior to encounter date) This section includes the most current, and the historical, smoking and tobacco- related health factors from the [place] facility where the Encounter took place. Current Smoking Status This section includes the most current smoking, or tobacco-related health factor, from the DE facility where the Encounter took place. Date/Time Current Smoking Status Comment Carlos ity Jan 24, 2023 10:00 AM DE-TOBACCO FORMER USER [facility] (631GE) Tobacco Use History This section includes a history of the smoking, or tobacco-related health factors, that were collected on or before the date of the Encounter. The data comes from the DE facility where the Encounter took place. Date/Time Smoking Status/Tobacco Use Comment F acginna Jan 24, 2023 10:00 AM DE-TOBACCO QUIT 5 TO < 15 YRS [facility] (631GE) Encounter Notes: All associated encounter notes This section contains the clinical notes associated to the Encounter. Date/Time Encounter Note(s) Provider Source May 08, 2023 09:12 AM CLERICAL NOTE: LOCAL TITLE: APPOINTMENT NO SHOW STANDARD TITLE: CLERICAL NOTE DATE OF NOTE: MAY 08, 2023@09:12 ENTRY DATE: MAY 08, 2023@09:12:15 AUTHOR: GABRIELLA THOMAS EXP COSIGNER: URGENCY: STATUS: COMPLETED APPOINTMENT NO SHOW Has ADDENDA Patient Name: HIGINIO HEDRICK Patient SSN: [id number] Date and time of Appointment No show: 05/08/23 09:00 PATIENT PHONE - PHONE NUMBER [CELLULAR] - Patient's medical record was reviewed. Follow-up actions were determined and initiated: Please check/complete as applies: [X]Telephoned Directly [ ]Re-scheduled for next available appt [X]Sent a N0-show letter ( must call for appointment) [ ]Other (Emergent/Overbook, etc.): Additional Comments: No show outreach for MH Intake Telephoned vet 2x no answer, __ unable to leave voice mail message (number not available / out of order) _x_left voice mail message (HIPAA compliant) noting missed appointment today Purpose of call: No show outreach for MH intake session today [facility] contact information Asked to __call senior copywriter _x_contact front end manager if unable to access [facility] Future Clinic Visits 07/23/2023 10:30 CWM/WO/PACT 4 WH /edith/ GABRIELLA THOMAS PhD CLINICAL PSYCHOLOGIST Signed: 05/08/2023 09:32 Receipt Acknowledged By: 05/08/2023 10:11 /edith/ STEVIE QUEEN 05/08/2023 ADDENDUM STATUS: COMPLETED marked in VSE and sent n/s letter /edith/ STEVIE QUEEN Signed: 05/08/2023 10:11 GABRIELLA THOMAS [facility] ([id number])
--- OUTSIDE RECORDS SUMMARY | 2024-03-18 10:28 | XMS_ITS ---
Author Name Department of Vetera Affairs (MD) Organization Department of Vetera Affairs ([place]) Address [address] [place] [address] Care Team Providers Care Print Developer Name Role Phone YASMIN CHAWLA Primary Care [...] Member ID Insurance Provider's Telephone Number Policy Rya's Name Patient's Relationship to Policy Ray BCBS OF [place] ([place]UECARD) HIGH DEDUCTIBL E HEALTH PLAN ATP [employer]I [facility]OC [place] [facility] Jan 16, 2019 [id number] Maxine BELLA HAD PATIENT [employer] S[employer]IP[employer] ([id number]) PRESCRIPT ION [facility] Jan 16, 2019 [id number] Maxine BELLA HAD PATIENT Selected Encounter This section includes the information on record at MD for the Encounter. Date/Time Encounter Type Encounter Description Reason Pro vider Source Apr 16, 2023 01:56 PM Outpatient Encounter ADMIN PAT ACTIVTIES (MASNONCT) IHE Encounter Template Text not used by MD Plan of Treatment: Future Appointments (+ 6 months) and Future Tests (+/- 45 days) The Plan of Treatment section includes future care activities for the patient from all [facility]. This section includes future appointments and future orders which are active, pending or scheduled. Future Appointments This section includes appointments that were scheduled to occur 6 months from the date of the Encounter, up to a maximum of 20 appointments. The data comes from all MD treatment facilities. Appointment Date/Time Appointment Type Appointme nt Facility Name May 08, 2023 09:00 AM AMBULATORY - PSYCHIATRY [facility] July 19, 2023 09:39 AM [place] [facility] July 26, 2023 02:39 PM [place] [facility] August 05, 2023 08:30 AM AMBULATORY - NONE [facility] August 07, 2023 10:30 AM [place]ATORY - NONE [place] [facility] August 07, 2023 02:00 PM [place] [facility] Aug 20, 2023 10:00 AM [place] [facility] Sep 23, 2023 09:30 AM AMBULATORY - NONE [facility] Oct 04, 2023 11:30 AM AMBULATORY - NONE [place] [facility] Encounter Notes: All associated encounter notes This section contains the clinical notes associated to the Encounter. Date/Time Encounter Note(s) Provider Source Apr 16, 2023 01:56 PM PRIMARY CARE INESSA RS: [facility] TITLE: PATIENT LETTER [facility] TITLE: PRIMARY CARE LETTERS DATE OF NOTE: APR 16, 2023@13:56 ENTRY DATE: APR 16, 2023@13:56:40 AUTHOR: YASMIN CHAWLAIGNER: URGENCY: STATUS: COMPLETED DEPARTMENT OF [facility] [address] [place] [address] Patient Call Center: APR 16, 2023 ABELARDO BELLA [address] [place], [place], [address] Re: Abelardo Bella : 1990 To whom it may concern, is currently under my care for the following diagnosis: Allergic Rhinitis and He continues to suffer from daily allergy symptoms despite being on medications. If you have questions please call the Patient Call Center at . Help is available at this number 24 hours a day, 7 days a week. It is often easier to get through after 5:00PM. Sincerely, MD DENTON Abreu,YASMIN [facility] ([id number])
--- OUTSIDE RECORDS SUMMARY | 2024-03-18 10:28 | XMS_ITS | Encounter Summary ---
Author Name Department of [place] Organization Department of [place] Address [address] [place] [address] Care Team Providers Care Wad Impregnator Name Role Phone YASMIN CHAWLA Primary Care [...] [place] [facility] Jan 16, 2019 [id number] Maxine HEDRICK HAD PATIENT [employer] ([id number]) PRESCRIPT ION [facility] Jan 16, 2019 [id number] Maxine HEDRICK HAD PATIENT Selected Encounter This section includes the information on record at [place] for the Encounter. Date/Time Encounter Type Encounter Description Reason Pro vider Source Jul 16, 2023 12:00 AM Outpatient Encounter EVENT (HISTORICAL) IHE Encounter Template Text not used by DE Plan of Treatment: Future Appointments (+ 6 months) and Future Tests (+/- 45 days) The Plan of Treatment section includes future care activities for the patient from all [place] [facility]. This section includes future appointments and future orders which are active, pending or scheduled. Future Appointments This section includes appointments that were scheduled to occur 6 months from the date of the Encounter, up to a maximum of 20 appointments. The data comes from all [facility]. Appointment Date/Time Appointment Type Appointme nt Facility Name July 19, 2023 09:39 AM [place] [facility] July 26, 2023 02:39 PM AMBULATORY [place] [facility] August 05, 2023 08:30 AM AMBULATORY - NONE [facility] August 07, 2023 10:30 AM AM[place]ULATORY - NONE [place] [facility] August 07, 2023 02:00 PM AM[place]ULATORY [place] [facility] Aug 20, 2023 10:00 AM [place]ULAT[place] [facility] Sep 23, 2023 09:30 AM AMBULATORY - NONE [facility] Oct 04, 2023 11:30 AM AMBULATORY - NONE [place] [facility] Oct 21, 2023 10:00 AM [facility] [place] [facility] [...] of theEncounter. The data comes from all [facility]. Test Date/Time Test Type Test Details Facility Name Jun 23, 2023 12:00 AM Laboratory - Chemi stry Order BASIC METABOLIC PANEL (fasting) BLOOD (SST-SERUM) [facility] ([id number] Jun 23, 2023 12:00 AM Laboratory - Chemi stry Order LIVER FUNCTION BLOOD (SST-SERUM) [facility] (631GE) Jun 23, 2023 12:00 AM Laboratory - Chemi stry Order LIPID PANEL FASTING BLOOD (SST-SERUM) [facility] (631GE) Jun 23, 2023 12:00 AM Laboratory - Chemi stry Order HEMOGLOBIN A1C PANEL BLOOD (LAV-BLOOD) [facility] (631GE) Jun 23, 2023 12:00 AM Laboratory - Chemi stry Order TSH BLOOD (SST-SERUM) [facility] (631GE) Jun 23, 2023 12:00 AM Laboratory - Chemi stry Order VITAMIN D (25-OH) BLOOD (SST-SERUM) [facility] (631GE) Jun 23, 2023 12:00 AM Laboratory - Chemi stry Order CBC AND DIFF (AUTO) BLOOD (LAV-BLOOD) [facility] (631[facility]) Jun 23, 2023 12:00 AM Laboratory - Chemi stry Order CALCIUM BLOOD (SST-SERUM) [facility] (6[facility]) Lab Results: +/- 30 days of [...] Range Comment August 05, 2023 08:15 AM [facility] VITAMIN B-12 Specimen Type: SERUM Comment: , Tests performed on byyd SN:[id number] (405) Ordering Provider: TYRESE ASIF Report Released Date/Time: July 18, 2023 12:25 PM Reporting Lab: [place] [facility] [address] [facility] [address] Performing Lab: [place] [facility] [address] [facility] [address] VITAMIN B-12 245 pg/mL 200-900 August 05, 2023 08:15 AM [place] [facility] TESTOSTERONE(WRJ) Specimen Type: SERUM Comment: , Tests performed on byyd SN:[id number] (405) Ordering Provider: TYRESE ASIF Report Released Date/Time: July 18, 2023 12:25 PM Reporting Lab: [place] [facility] [address] [facility] [address] Performing Lab: [place] [facility] [address] [facility] [address] TESTOSTERONE(WRJ) 393.8 ng/dL 220-892 August 05, 2023 08:15 AM [facility] P4 GLU,BUN,CREAT,LYTES,CA Specimen Type: PLASMA Comment: , Tests performed on [employer] SN:[id number] (405). Ordering Provider: TYRESE ASIF Report Released Date/Time: July 18, 2023 12:25 PM Reporting Lab: [facility] [address] [phone] Performing Lab: [facility] [address] [phone] UREA NITROGEN 14 mg/dL 7-25 SODIUM 138 mmol/L 135-145 POTASSIUM 4.2 mmol/L 3.5-5.0 CHLORIDE 104 mmol/L 100-110 CARBON DIOXIDE 26 mmol/L 20-30 ANION GAP 8 4-16 GLUCOSE 90 mg/dL 65-100 CREATININE 1.13 mg/dL 0.50-1.50 CALCIUM 9.4 mg/dL 8.5-10.5 eGFR(CKD-EPI 2020) 88 mL/min August 05, 2023 08:15 AM [facility] CBC PROFILE Specimen Type: BLOOD No comment entered. Ordering Provider: TYRESE ASIF Report Released Date/Time: July 18, 2023 12:25 PM Reporting Lab: [facility] [address] [facility] [address] Performing Lab: [facility] [address] [phone] WBC 7.4 10*3/uL 4.5-11.0 RBC 5.28 10*6/uL [...] 10*3/uL 0-0 August 05, 2023 08:15 AM [facility] LIVER PROFILE Specimen Type: PLASMA Comment: , Tests performed on [employer] Arvind SN:[id number] (405). Ordering Provider: TYRESE ASIF Report Released Date/Time: July 18, 2023 12:25 PM Reporting Lab: [facility] [address] [facility] [address] Performing Lab: [facility] [address] [facility] [address] PROTEIN, TOTAL 7.3 g/dL 6.0-8.5 ALBUMIN 4.1 g/dL 3.2-5.0 BILIRUBIN, TOTAL 0.9 mg/dL 0.2-1.2 ALKALINE PHOSPHATASE 75 U/L 40-150 ALT(SGPT) 44 U/L 7-52 AST(SGOT) 28 U/L 5-34 FIB-4 SCORE 0.63 <2.67 August 05, 2023 08:15 AM [facility] LIPOPROTEIN CHOLESTEROL FRACT. PANEL Specimen Type: PLASMA Comment: , Tests performed on [employer] Arvind SN:[id number] (405). Ordering Provider: TYRESE ASIF Report Released Date/Time: July 18, 2023 12:25 PM Reporting Lab: [facility] [address] [facility] [address] Performing Lab: [facility] [address] [facility] [address] CHOLESTEROL 161 mg/dL 0-200 TRIGLYCERIDE 110 mg/dL 0-150 HDL CHOLESTEROL 47 mg/dL >40 LDL CHOLESTEROL (CALC) 92 mg/dL 0-129 August 05, 2023 08:15 AM [facility] URINALYSIS ONLY NO REFLEXURINALYSIS ONLY Specimen Type: URINE No comment entered. Ordering Provider: TYRESE ASIF Report Released Date/Time: July 18, 2023 12:25 PM Reporting Lab: [facility] [address] [facility] [address] Performing Lab: [facility] [address] [facility] [address] URINE COLOR Light-Yello w NOT DEFINED SPECIFIC GRAVITY 1.025 1.003-1.030 UROBILINOGEN <2.0 mg/dL <2.0 URINE BILIRUBIN NEG NEG URINE KETONES NEG mg/dL NEG URINE GLUCOSE NEG mg/dL NEG PROTEIN, URINE TRACE mg/dL NEG URINE PH 7.0 5-8 CLARITY CLEAR NOT DEFINED URINE BLOOD NEG NEG NITRITE, URINE NEG NEG WBC SCREEN NEG NEG August 05, 2023 08:15 AM [facility] VIT D 25-OH([facility]) Specimen Type: SERUM Comment: , Tests performed on [employer] Burgess SN:[id number] (405) Ordering Provider: TYRESE ASIF Report Released Date/Time: July 18, 2023 12:25 PM Reporting Lab: [facility] [address] [facility] [address] Performing Lab: [facility] [address] [facility] [address] VIT D 25-OH([facility]) 22.9 ng/mL 20.0-50.0 Encounter Notes: All associated encounter notes This section contains the clinical notes associated to the Encounter. Date/Time Encounter Note(s) Provider Source Jul 16, 2023 12:00 AM NONVA NOTE: LOCAL TITLE: NON-VA HOSPITALIZATIONS/ER STANDARD TITLE: NONVA NOTE DATE OF NOTE: JUL 16, 2023 ENTRY DATE: JULY 23, 2023@15:07:26 AUTHOR: VIOLETTE CRAVEN EXP COSIGNER: URGENCY: STATUS: COMPLETED VistA Imaging - Scanned Document SCANNED DOCUMENT SIGNATURE NOT REQUIRED Electronically Filed: 07/23/2023 by: VIOLETTE CRAVEN BODY FORMER VIOLETTE CRAVEN [facility]
--- OUTSIDE RECORDS SUMMARY | 2024-03-18 10:29 | XMS_ITS | Encounter Summary ---
Author Name Department of [place] Organization [place] Address [address] [place] [address] Care Team Providers Care Egg Sorter Name Role Phone YASMIN CHAWLA Primary Care [...] E HEALTH PLAN ATP SKI [facility] [place] [facility] Jan 16, 2019 [id number] Maxine HEDRICK HAD PATIENT [employer] ([id number]) PRESCRIPT ION [facility] Jan 16, 2019 [id number] [phone] Maxine HEDRICK HAD PATIENT Selected Encounter This section includes the information on record at [place] for the Encounter. Date/Time Encounter Type Encounter Description Reason Pro vider Source Aug 20, 2023 01:06 PM Outpatient Encounter TELEPHONE IHE Encounter Template Text not used by VA Plan of Treatment: Future Appointments (+ 6 months) and Future Tests (+/- 45 days) The Plan of Treatment section includes future care activities for the patient from all VA treatmentfacilities. This section includes future appointments and future orders which are active, pending or scheduled. Future Appointments This section includes appointments that were scheduled to occur 6 months from the date of the Encounter, up to a maximum of 20 appointments. The data comes from all [place] treatment facilities. Appointment Date/Time Appointment Type Appointme nt Facility Name Sep 23, 2023 09:30 AM AMBULATORY - NONE [facility] Oct 04, 2023 11:30 AM [place]ORY [place] [facility] Oct 21, 2023 10:00 AM [place] [facility] Oct 21, 2023 01:45 PM AMB[place]ORY [place] [facility] Dec 05, 2023 09:30 AM AMBULATORY - NONE [place] [facility] Dec 05, 2023 10:00 AM [place] [facility] Lab Results: +/- 30 days of the [...] Range Comment August 05, 2023 08:[address] [facility] VITAMIN B-12 Specimen Type: SERUM Comment: , Tests performed on [employer] Aditya SN:[id number] (405) Ordering Provider: TYRESE ASIF Report Released Date/Time: July 18, 2023 12:25 PM Reporting Lab: [place] [facility] [address] [facility] [address] Performing Lab: [place] [facility] [address] [facility] [address] VITAMIN B-12 245 pg/mL 200-900 August 05, 2023 08:15 AM [facility] TESTOSTERONE(WRJ) Specimen Type: SERUM Comment: , Tests performed on [employer] Burgess SN:[id number] (405) Ordering Provider: TYRESE ASIF Report Released Date/Time: July 18, 2023 12:25 PM Reporting Lab: [place] [facility] [address] [place] [facility] [place] [facility] [place] [address] Performing Lab: [place] [facility] [address] [facility] [address] TESTOSTERONE(WRJ) 393.8 ng/dL 220-892 August 05, 2023 08:15 AM [facility] P4 GLU,BUN,CREAT,LYTES,CA Specimen Type: PLASMA Comment: , Tests performed on [employer] SN:[id number] (405). Ordering Provider: TYRESE ASIF Report Released Date/Time: July 18, 2023 12:25 PM Reporting Lab: [facility] [address] [address] Performing Lab: [facility] [address] [phone] UREA NITROGEN 14 mg/dL 7-25 SODIUM 138 [...] Reporting Lab: [facility] [address] [facility] [address] Performing Lab: [facility] [address] [phone] WBC 7.4 10*3/uL 4.5-11.0 RBC 5.28 10*6/uL [...] PLASMA Comment: , Tests performed on [employer] Arvind SN:[id number] (405). Ordering Provider: TYRESE ASIF Report Released Date/Time: July 18, 2023 12:25 PM Reporting Lab: [facility] [address] [facility] [address] Performing Lab: [facility] [address] [address] PROTEIN, TOTAL 7.3 g/dL 6.0-8.5 ALBUMIN 4.1 g/dL 3.2-5.0 BILIRUBIN, TOTAL 0.9 mg/dL 0.2-1.2 ALKALINE PHOSPHATASE 75 U/L 40-150 ALT(SGPT) 44 U/L 7-52 AST(SGOT) 28 U/L 5-34 FIB-4 SCORE 0.63 <2.67 August 05, 2023 08:15 AM [facility] LIPOPROTEIN CHOLESTEROL FRACT. PANEL Specimen Type: PLASMA Comment: , Tests performed on [employer] Arvind SN:[id number] (405). Ordering Provider: TYRESE ASIF Report Released Date/Time: July 18, 2023 12:25 PM Reporting Lab: [facility] [address] [facility] [address] Performing Lab: [facility] [address] [phone] CHOLESTEROL 161 mg/dL 0-200 TRIGLYCERIDE 110 mg/dL 0-150 HDL CHOLESTEROL 47 mg/dL >40 LDL CHOLESTEROL (CALC) 92 mg/dL 0-129 August 05, 2023 08:15 AM [facility] VIT D 25-OH(WRJ) Specimen Type: SERUM Comment: , Tests performed on [employer] Burgess SN:[id number] (405) Ordering Provider: TYRESE ASIF Report Released Date/Time: July 18, 2023 12:25 PM Reporting Lab: [facility] [address] [facility] [address] Performing Lab: [facility] [address] [facility] [address] VIT D 25-OH([facility]) 22.9 ng/mL 20.0-50.0 August 05, 2023 08:15 AM [facility] URINALYSIS ONLY NO REFLEXURINALYSIS ONLY Specimen Type: URINE No comment entered. Ordering Provider: TYRESE ASIF Report Released Date/Time: July 18, 2023 12:25 PM Reporting Lab: [facility] [address] [facility] [address] Performing Lab: [facility] [address] [facility] [address] URINE COLOR Light-Yello w NOT DEFINED SPECIFIC GRAVITY 1.025 1.003-1.030 UROBILINOGEN <2.0 mg/dL <2.0 URINE BILIRUBIN NEG NEG URINE KETONES NEG mg/dL NEG URINE GLUCOSE NEG mg/dL NEG PROTEIN, URINE TRACE mg/dL NEG URINE PH 7.0 5-8 CLARITY CLEAR NOT DEFINED URINE BLOOD NEG NEG NITRITE, URINE NEG NEG WBC SCREEN NEG NEG Vital Signs: All taken on the encounter date This section contains inpatient and outpatient Vital Signs collected on the date of the Encounter. Date/Time Temperature Pulse Blood Pressure Respiratory Rate SP02 Pain Height Weight Body Mass Index Source Aug 20, 2023 10:04 AM 97.6 75 124/83 16 99 0 [facility] Encounter Notes: All associated encounter notes This section contains the clinical notes associated to the Encounter. Date/Time Encounter Note(s) Provider Source Aug 20, 2023 01:06 PM MENTAL HEALTH TELE PHONE ENCOUNTER NOTE: LOCAL TITLE: Telephone Note/Mental Health STANDARD TITLE: MENTAL HEALTH TELEPHONE ENCOUNTER NOTE DATE OF NOTE: AUG 20, 2023@13:06 ENTRY DATE: AUG 20, 2023@13:06:09 AUTHOR: NED GUSTAFSON EXP COSIGNER: URGENCY: STATUS: COMPLETED Attempted to contact by phone to offer r/s of recent appointment cancelled by . Unable to reach at time of call. Left v/m for including clinician name, direct clinic contact information, and request for return call should he be interested in rescheduling this appointment. /edith/ Ned Gustafson PsyD Clinical Psychologist Signed: 08/20/2023 13:07 [facility]
--- OUTSIDE RECORDS SUMMARY | 2024-03-18 10:29 | XMS_ITS ---
Author Name [facility] [place] Address [address] [place] [address] Care Team Providers Care Material Hauler Name Role Phone YASMIN CHAWLA Primary Care [...] E HEALTH PLAN [facility] Jan 16, 2019 [id number] Maxine HEDRICK HAD PATIENT [facility] ([id number]) PRESCRIPT ION [facility] Jan 16, 2019 [id number] Maxine HEDRICK HAD PATIENT Selected Encounter This section includes the information on record at [place] for the Encounter. Date/Time Encounter Type Encounter Description Reason Pro vider Source August 07, 2023 10:24 AM Outpatient Encounter ADMIN PAT ACTIVTIES (MASNONCT) IHE Encounter Template Text not used by [facility] Plan of Treatment: Future Appointments (+ 6 months) and Future Tests (+/- 45 days) The Plan of Treatment section includes future care activities for the patient from all [place] [facility]. This section includes future appointments and future orders which are active, pending or scheduled. Future Appointments This section includes appointments that were scheduled to occur 6 months from the date of the Encounter, up to a maximum of 20 appointments. The data comes from all [facility]. Appointment Date/Time Appointment Type Appointme nt Facility Name Aug 20, 2023 10:00 AM AMBULATORY - [place] [facility] Sep 23, 2023 09:30 AM AMBULATORY - NONE [facility] Oct 04, 2023 11:30 AM [facility]ORY - NONE [place] [facility] Oct 21, 2023 10:00 AM [place] [facility] Oct 21, 2023 01:45 PM [place] [place] [facility] Dec 05, 2023 09:30 AM AMBULATORY - NONE [place] [facility] Dec 05, 2023 10:00 AM [place] - [place] [facility] Active, Pending, and Scheduled Orders This section includes a listing of several types of active, pending, and scheduled orders, including clinic medications orders, diagnostic test orders, procedure orders and consult orders; where the start date of the order is 45 days before the date of the Encounter or 45 days after the date of theEncounter. The data comes from all [facility]. Test Date/Time Test Type Test Details Facility Name Jun 23, 2023 12:00 AM Laboratory - Chemi stry Order BASIC METABOLIC PANEL (fasting) BLOOD (SST-SERUM) [facility] ([id number]) Jun 23, 2023 12:00 AM Laboratory - Chemi stry Order LIVER FUNCTION BLOOD (SST-SERUM) [facility] ([id number]) Jun 23, 2023 12:00 AM Laboratory - Chemi stry Order LIPID PANEL FASTING BLOOD (SST-SERUM) [facility] ([id number]) Jun 23, 2023 12:00 AM Laboratory - Chemi stry Order HEMOGLOBIN A1C PANEL BLOOD (LAV-BLOOD) [facility] ([id number]) Jun 23, 2023 12:00 AM Laboratory - Chemi stry Order TSH BLOOD (SST-SERUM) [facility] ([id number]) Jun 23, 2023 12:00 AM Laboratory - Chemi stry Order VITAMIN D (25-OH) BLOOD (SST-SERUM) ONCE [facility] ([id number]) Jun 23, 2023 12:00 AM Laboratory - Chemi stry Order CBC AND DIFF (AUTO) BLOOD (LAV-BLOOD) [facility] ([id number]) Jun 23, 2023 12:00 AM Laboratory - Chemi stry Order CALCIUM BLOOD (SST-SERUM) [facility] ([id number]) Lab Results: +/- 30 days of the encounter This section includes the Chemistry and Hematology Lab Results on record with [place] for the patient. Radiology Reports and Pathology [...] Type: SERUM Comment: , Tests performed on Massdrop SN:[id number] (405) Ordering Provider: TYRESE ASIF Report Released Date/Time: July 18, 2023 12:25 PM Reporting Lab: [facility] [address] [facility] [address] Performing Lab: [facility] [address] [facility] [address] VITAMIN B-12 245 pg/mL 200-900 August 05, 2023 08:15 AM [facility]) Specimen Type: SERUM Comment: , Tests performed on Massdrop SN:[id number] (405) Ordering Provider: TYRESE ASIF Report Released Date/Time: July 18, 2023 12:25 PM Reporting Lab: [facility] [address] [facility] [address] Performing Lab: [facility] [address] [facility] [address] TESTOSTERONE([facility]) 393.8 ng/dL 220-892 August 05, 2023 08:15 AM [facility] P4 GLU,BUN,CREAT,LYTES,CA Specimen Type: PLASMA Comment: , Tests performed on Chacko Luxanova SN:[id number] (405). Ordering Provider: TYRESE ASIF Report Released Date/Time: July 18, 2023 12:25 PM Reporting Lab: [facility] [address] [facility] [address] Performing Lab: [facility] [address] [facility] [address] UREA NITROGEN 14 mg/dL 7-25 SODIUM 138 [...] Lab: [facility] [address] [facility] [address] Performing Lab: [facility] [address] [facility] [address] WBC 7.4 10*3/uL 4.5-11.0 RBC 5.28 10*6/uL [...] PLASMA Comment: , Tests performed on Chacko Luxanova SN:[id number] (405). Ordering Provider: TYRESE ASIF Report Released Date/Time: July 18, 2023 12:25 PM Reporting Lab: [facility] [address] [facility] [address] Performing Lab: [facility] [address] [facility] [address] PROTEIN, TOTAL 7.3 g/dL 6.0-8.5 ALBUMIN 4.1 g/dL 3.2-5.0 BILIRUBIN, TOTAL 0.9 mg/dL 0.2-1.2 ALKALINE PHOSPHATASE 75 U/L 40-150 ALT(SGPT) 44 U/L 7-52 AST(SGOT) 28 U/L 5-34 FIB-4 SCORE 0.63 <2.67 August 05, 2023 08:15 AM [facility] LIPOPROTEIN CHOLESTEROL FRACT. PANEL Specimen Type: PLASMA Comment: , Tests performed on Conduit SN:[id number] (405). Ordering Provider: TYRESE ASIF Report Released Date/Time: July 18, 2023 12:25 PM Reporting Lab: [facility] [address] [facility] [address] Performing Lab: [facility] [address] [facility] [address] CHOLESTEROL 161 mg/dL 0-200 TRIGLYCERIDE 110 mg/dL 0-150 HDL CHOLESTEROL 47 mg/dL >40 LDL CHOLESTEROL (CALC) 92 mg/dL 0-129 August 05, 2023 08:15 AM [facility] VIT D 25-OH([facility]) Specimen Type: SERUM Comment: , Tests performed on Chacko Clan Fight SN:[id number] (405) Ordering Provider: TYRESE ASIF Report Released Date/Time: July 18, 2023 12:25 PM Reporting Lab: [facility] [address] [facility] [address] Performing Lab: [facility] [address] [facility] [address] VIT D 25-OH([facility]) 22.9 ng/mL 20.0-50.0 August 05, 2023 08:15 AM [facility] URINALYSIS ONLY NO REFLEXURINALYSIS ONLY Specimen Type: URINE No comment entered. Ordering Provider: TYRESE ASIF Report Released Date/Time: July 18, 2023 12:25 PM Reporting Lab: [facility] [address] [facility] [address] Performing Lab: [facility] [address] [facility] [address] URINE COLOR Light-Yello w NOT DEFINED SPECIFIC [...] Pain Height Weight Body Mass Index Source August 07, 2023 10:30 AM 97.6 65 119/81 18 99 0 66 151.4 24 [facility] Encounter Notes: All associated encounter notes This section contains the clinical notes associated to the Encounter. Date/Time Encounter Note(s) Provider Source August 07, 2023 10:24 AM ADMINISTRATIVE NOT E: LOCAL TITLE: CCC: SCHEDULING ADMINISTRATION STANDARD TITLE: ADMINISTRATIVE NOTE DATE OF NOTE: AUGUST 07, 2023@10:24 ENTRY DATE: AUGUST 07, 2023@10:24:09 AUTHOR: OREN DAMON EXP COSIGNER: URGENCY: STATUS: COMPLETED CCC: SCHEDULING ADMINISTRATION Has ADDENDA calling to inform PACT that he is running late. He will be there a few minutes after 1030am. Alerting for awareness. Thank you. /edith/ OREN DAMON Signed: 08/07/2023 10:24 Receipt Acknowledged By: 08/07/2023 10:37 /es/ GARY LANDIN AMSA 08/07/2023 10:30 /es/ ISELA MENDOZA LPN 08/07/2023 ADDENDUM STATUS: COMPLETED [facility] alerted via teams /edith/ ISELA MENDOZA LPN Signed: 08/07/2023 10:30 OREN DAMON [facility]
--- OUTSIDE RECORDS SUMMARY | 2024-03-18 10:29 | XMS_ITS | Encounter Summary ---
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 Date/Time Encounter Type Encounter Description Reason Pro vider Source August 14, 2023 12:48 PM Outpatient Encounter ADMIN PAT ACTIVTIES (MASNONCT) IHE Encounter Template Text not used by VA Plan of Treatment: Future Appointments (+ 6 months) and Future Tests (+/- 45 days) The Plan of Treatment section includes future care activities for the patient from all [place] treatmentfacilities. This section includes future appointments and future orders which are active, pending or scheduled. Future Appointments This section includes appointments that were scheduled to occur 6 months from the date of the Encounter, up to a maximum of 20 appointments. The data comes from all [place] treatment facilities. Appointment Date/Time Appointment Type Appointme nt Facility Name Aug 20, 2023 10:00 AM [place]ORY [place] [facility] Sep 23, 2023 09:30 AM AMBULATORY - NONE [facility] Oct 04, 2023 11:30 AM [place]ORY - [place] [facility] Oct 21, 2023 10:00 AM [place] [facility] Oct 21, 2023 01:45 PM [place] [facility] Dec 05, 2023 09:30 AM AM[place]ATORY - NONE [place] [facility] Dec 05, 2023 10:00 AM [place] - [place] [facility] Lab Results: +/- 30 days of the encounter This section includes the Chemistry and Hematology Lab Results on record with [place] for the patient. Radiology Reports and Pathology Reports are provided separately, in subsequent sections. Lab Results This section contains the Chemistry/Hematology Results that were resulted 30 days before or 30 daysafter the date of the Encounter. Date/Time Source Result Type Result - Unit Interpretation Reference Range Comment August 05, 2023 08:15 AM [facility] VITAMIN B-12 Specimen Type: SERUM Comment: , Tests performed on Chacko Getbazza Aditya SN:[id number] (405) Ordering Provider: TYRESE ASIF Report Released Date/Time: July 18, 2023 12:25 PM Reporting Lab: [facility] [address] [place] [facility] [place] [address] Performing Lab: [facility] [address] [facility] [address] VITAMIN B-12 245 pg/mL 200-900 August 05, 2023 08:15 AM [facility] TESTOSTERONE([facility]) Specimen Type: SERUM Comment: , Tests performed on [employer] [place] SN:[id number] (405) Ordering Provider: TYRESE ASIF Report Released Date/Time: July 18, 2023 12:25 PM Reporting Lab: [facility] [address] [facility] [address] Performing Lab: [facility] [address] [facility] [address] TESTOSTERONE([facility]) 393.8 ng/dL 220-892 August 05, 2023 08:15 AM [facility] P4 GLU,BUN,CREAT,LYTES,CA Specimen Type: PLASMA Comment: , Tests performed on [employer] SN:[id number] (405). Ordering Provider: TYRESE ASIF Report Released Date/Time: July 18, 2023 12:25 PM Reporting Lab: [facility] [address] [facility] [address] Performing Lab: [facility] [address] [place] [phone] UREA NITROGEN 14 mg/dL 7-25 SODIUM 138 mmol/L 135-145 POTASSIUM 4.2 mmol/L 3.5-5.0 CHLORIDE 104 mmol/L 100-110 CARBON DIOXIDE 26 mmol/L 20-30 ANION GAP 8 4-16 GLUCOSE 90 mg/dL 65-100 CREATININE 1.13 mg/dL 0.50-1.50 CALCIUM 9.4 mg/dL 8.5-10.5 eGFR(CKD-EPI 2020) 88 mL/min August 05, 2023 08:15 AM [facility] CBC PROFILE Specimen Type: BLOOD No comment entered. Ordering Provider: TYRESE ASIF Report Released Date/Time: July 18, 2023 12:25 PM Reporting Lab: [facility] [address] [facility] [address] Performing Lab: [facility] [address] [facility] [address] WBC 7.4 10*3/uL 4.5-11.0 RBC 5.28 10*6/uL [...] 10*3/uL 0-0 August 05, 2023 08:15 AM [facility] LIVER PROFILE Specimen Type: PLASMA Comment: , Tests performed on [employer] SN:[id number] (405). Ordering Provider: TYRESE ASIF Report Released Date/Time: July 18, 2023 12:25 PM Reporting Lab: [facility] [address] [facility] [address] Performing Lab: [facility] [address] [facility] [address] PROTEIN, TOTAL 7.3 g/dL 6.0-8.5 ALBUMIN 4.1 g/dL 3.2-5.0 BILIRUBIN, TOTAL 0.9 mg/dL 0.2-1.2 ALKALINE PHOSPHATASE 75 U/L 40-150 ALT(SGPT) 44 U/L 7-52 AST(SGOT) 28 U/L 5-34 FIB-4 SCORE 0.63 <2.67 August 05, 2023 08:15 AM [facility] LIPOPROTEIN CHOLESTEROL FRACT. PANEL Specimen Type: PLASMA Comment: , Tests performed on [employer] SN:[id number] (405). Ordering Provider: TYRESE ASIF Report Released Date/Time: July 18, 2023 12:25 PM Reporting Lab: [facility] [address] [facility] [address] Performing Lab: [facility] [address] [facility] [address] CHOLESTEROL 161 mg/dL 0-200 TRIGLYCERIDE 110 mg/dL 0-150 HDL CHOLESTEROL 47 mg/dL >40 LDL CHOLESTEROL (CALC) 92 mg/dL 0-129 August 05, 2023 08:15 AM [facility] VIT D 25-OH(J) Specimen Type: SERUM Comment: , Tests performed on Chacko Getbazza Burgess SN:[id number] (405) Ordering Provider: TYRESE ASIF Report Released Date/Time: July 18, 2023 12:25 PM Reporting Lab: [facility] [address] [facility] [address] Performing Lab: [facility] [address] [facility] [address] VIT D 25-OH([facility]) 22.9 ng/mL 20.0-50.0 August 05, 2023 08:15 AM [facility] URINALYSIS ONLY NO REFLEXURINALYSIS ONLY Specimen Type: URINE No comment entered. Ordering Provider: TYRESE ASIF Report Released Date/Time: July 18, 2023 12:25 PM Reporting Lab: [facility] [address] [facility] [address] Performing Lab: [facility] [address] [facility] [address] URINE COLOR Light-Yello w NOT DEFINED SPECIFIC [...] Encounter. Date/Time Encounter Note(s) Provider Source August 14, 2023 12:48 PM LETTERS: LOCAL TITLE: LETTER TO PATIENT ATTEMPT TO CONTACT STANDARD TITLE: LETTERS DATE OF NOTE: AUGUST 14, 2023@12:48 ENTRY DATE: AUGUST 14, 2023@12:48:56 AUTHOR: PHU WILKERSON JR COSIGNER: URGENCY: STATUS: COMPLETED [facility] [address] [place] [address] AUGUST 14, 2023 HIGINIO HEDRICK [address] [facility], [place] [address] Dear HIGINIO HEDRICK, The [facility] in [place] is trying to reach you to schedule an appointment. If you have already been in contact with the clinic and scheduled an appointment you may disregard this letter. If we do not hear from you within 14 days, we will assume you no longer desire an appointment. Please call one of the numbers provided below so that we may find a suitable date for you: Service: Physical Therapy - [facility] Direct: [phone] Ext: [phone] Toll Free: [phone] Ext: [phone] We look forward to hearing from you. Sincerely, Clinical Operations [place],PHU MEZA [facility]
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
--- OUTSIDE RECORDS SUMMARY | 2024-03-18 10:29 | XMS_ITS | Encounter Summary ---
Author Name [facility] [place] Address [address] [place] [address] Care Team Providers Care Sterile Technician Name Role Phone YASMIN CHAWLA Primary Care [...] [place] [facility] Jan 16, 2019 [id number] Maxine HEDRICK HAD PATIENT [employer] [facility] ([id number]) PRESCRIPT ION [facility] Jan 16, 2019 [id number] Maxine HEDRICK HAD PATIENT Selected Encounter This section includes the information on record at [place] for the Encounter. Date/Time Encounter Type Encounter Description Reason Pro vider Source Sep 17, 2023 10:27 AM Outpatient Encounter ADMIN PAT ACTIVTIES (MASNONCT) IHE Encounter Template Text not used by VA Plan of Treatment: Future Appointments (+ 6 months) and Future Tests (+/- 45 days) The Plan of Treatment section includes future care activities for the patient from all [place] treatmentfacilities. This section includes future appointments and future orders which are active, pending or scheduled. Future Appointments This section includes appointments that were scheduled to occur 6 months from the date of the Encounter, up to a maximum of 20 appointments. The data comes from all [place] treatment facilities. Appointment Date/Time Appointment Type Appointme nt Facility Name Sep 23, 2023 09:30 AM AMBULATORY - NONE [facility] Oct 04, 2023 11:30 AM [place] - NONE [place] [facility] Oct 21, 2023 10:00 AM [place] [facility] Oct 21, 2023 01:45 PM [place] [facility] Dec 05, 2023 09:30 AM [facility]ORY - NONE [place] [facility] Dec 05, 2023 10:00 AM [place] [facility] Lab Results: +/- 30 days of the encounter This section includes the Chemistry and Hematology Lab Results on record with [place] for the patient. Radiology Reports and Pathology Reports are provided separately, in subsequent sections. Lab Results This section contains the Chemistry/Hematology Results that were resulted 30 days before or 30 daysafter the date of the Encounter. Date/Time Source Result Type Result - Unit Interpretation Reference Range Comment Sep 23, 2023 09:35 AM [facility] LYME SEROLOGY PANEL([place]) Specimen Type: SERUM Comment: The LYME SEROLOGY PANEL was performed using the FDA-approved Miguel SUSI Borrelia burdorferi modified two-tier test system. This modified methodology uses a second EIA in place of a western immunoblot assay, which the FDA has determined is substantially equivalent to or better than standard two-tier testing using western blot. Supplemental testing with a second EIA meets CDC guidelines for Lyme disease testing. Performance characteristics of the panel were validated at the [place] [facility]. Results are considered positive only if the initial screening EIA is positive or equivocal, and either or both supplemental EIAs (for IgM and IgG) are positive. Diagnosis of Lyme disease should not be based solely on laboratory results. Clinical and exposure history must be considered. Positive antibody results reflect prior immunologic exposure, and do not necessarily indicate active infection. False positive results are possible in patients with other spirochetal infections, infectious mononucleosis, and connective tissue disorders. Negative results do not exclude B. burgdorferi infection. Only 10-40% of patients with erythema migrans alone have detectable antibodies. False negative results are possible, if specimens are drawn too soon after infection before an antibody response. Antibody induction may be aborted by early antibiotic therapy. Results in immunosuppressed individuals should be interpreted with caution. If Lyme disease is strongly suspected, but antibody was not detected, a second specimen collected about 2-4 weeks after the first should be tested. This test is NOT for use in screening individuals without signs, symptoms or exposure history. Physicians should report all cases of Lyme disease to their state and local health departments, if applicable. Ordering Provider: MARCY DONOHUE Report Released Date/Time: Sep 18, 2023 04:18 PM Reporting Lab: [facility] [address] [facility] [address] Performing Lab: [facility] [address] [facility] [address] TIER 1 LYME SCREENING EIA() Negative Negative LYME AB,FINAL INTERPRETATI ON(wh) Negative Negative Encounter Notes: All associated encounter notes This section contains the clinical notes associated to the Encounter. Date/Time Encounter Note(s) Provider Source Sep 17, 2023 10:27 AM ADMINISTRATIVE NOT E: LOCAL TITLE: [facility]: SCHEDULING ADMINISTRATION STANDARD TITLE: ADMINISTRATIVE NOTE DATE OF NOTE: SEP 17, 2023@10:27:18 ENTRY DATE: SEP 17, 2023@10:27:18 AUTHOR: BRYAN SALCEDO EXP COSIGNER: URGENCY: STATUS: COMPLETED Patient Demographics Patient Name: HIGINIO HEDRICK Patient Primary Phone: [phone] Patient Primary Address: [address] [place] [address] Patient : 1990 Patient Age: 33 Call Back Number: [phone] Caller/Recipient Relation to Patient: Self Administrative Administrative Note Reason: Other Administrative Note Comments: PER [facility] TO HAVE A F2F OR VVC APPOINTMENT WITH PCP OR [facility] TV [facility] WITHIN 24 HOURS FOR LEFT SHOULDER PAIN AND B/L KNEE PAIN. QUESTIONING LYME DISEASE. A VVC APPOINTMENT HAS BEEN SCHEDULED WITH [facility] TV HOST FOR 09/18/23. /edith/ BRYAN BAGLEY 1 [facility] AMSA Signed: 09/17/2023 10:27 Receipt Acknowledged By: 09/17/2023 11:30 /edith/ ISELA MENDOZA LPN 09/17/2023 10:31 /es/ POPPY ALEXANDRA Registered Nurse BRYAN SALCEDO [facility]
--- OUTSIDE RECORDS SUMMARY | 2024-03-18 10:29 | XMS_ITS | Encounter Summary ---
Author Name [facility] [place] [facility] [place] Address [address] [place] [address] Care Team Providers Care Extension Worker Name Role Phone YASMIN CHAWLA Primary [...] [facility] [place] [facility] Jan 16, 2019 [id number] Maxine HEDRICK HAD PATIENT [employer] [facility] ([id number]) PRESCRIPT ION [facility] Jan 16, 2019 [id number] Maxine HEDRICK HAD PATIENT Selected Encounter This section includes the information on record at [place] for the Encounter. Date/Time Encounter Type Encounter Description Reason Pro vider Source Aug 19, 2023 01:00 PM Outpatient Encounter [facility] IND IHE Encounter Template Text not used by VA Plan of Treatment: Future Appointments (+ 6 months) and Future Tests (+/- 45 days) The Plan of Treatment section includes future care activities for the patient from all [place] [facility]. This section includes future appointments and future orders which are active, pending or scheduled. Future Appointments This section includes appointments that were scheduled to occur 6 months from the date of the Encounter, up to a maximum of 20 appointments. The data comes from all [place] treatment facilities. Appointment Date/Time Appointment Type Appointme nt Facility Name Aug 20, 2023 10:00 AM [place] [facility] Sep 23, 2023 09:30 AM AMBULATORY - NONE [facility] Oct 04, 2023 11:30 AM [place]ORY - NONE [place] [facility] Oct 21, 2023 10:00 AM [place] [facility] Oct 21, 2023 01:45 PM [place] [facility] Dec 05, 2023 09:30 AM AMBULATORY - NONE [place] [facility] Dec 05, 2023 10:00 AM [place] [facility] Lab Results: +/- 30 days [...] Range Comment August 05, 2023 08:15 AM [place] [facility] VITAMIN B-12 Specimen Type: SERUM Comment: , Tests performed on [employer] SN:[id number] (405) Ordering Provider: TYRESE ASIF Report Released Date/Time: July 18, 2023 12:25 PM Reporting Lab: [place] [facility] [address] [place] [facility] [place] [address] Performing Lab: [place] [facility] [address] [facility] [address] VITAMIN B-12 245 pg/mL 200-900 August 05, 2023 08:15 AM [facility] TESTOSTERONE(WRJ) Specimen Type: SERUM Comment: , Tests performed on [employer] SN:[id number] (405) Ordering Provider: TYRESE ASIF Report Released Date/Time: July 18, 2023 12:25 PM Reporting Lab: [place] [facility] [address] [facility] [address] Performing Lab: [place] [facility] [address] [facility] [address] TESTOSTERONE(WRJ) 393.8 ng/dL 220-892 August 05, 2023 08:15 AM [facility] P4 GLU,BUN,CREAT,LYTES,CA Specimen Type: PLASMA Comment: , Tests performed on [employer] SN:[id number] (517). Ordering Provider: TYRESE ASIF Report Released Date/Time: July 18, 2023 12:25 PM Reporting Lab: [facility] [address] [facility] [address] Performing Lab: [facility] [address] [facility] [address] UREA NITROGEN 14 mg/dL 7-25 SODIUM 138 [...] [facility] [address] [facility] [address] Performing Lab: [facility] [address] [facility] [address] WBC 7.4 10*3/uL 4.5-11.0 RBC 5.28 10*6/uL [...] Type: PLASMA Comment: , Tests performed on [employer] SN:[id number] (405). Ordering Provider: TYRESE ASIF Report Released Date/Time: July 18, 2023 12:25 PM Reporting Lab: [facility] [address] [facility] [address] Performing Lab: [facility] [address] [facility] [address] PROTEIN, TOTAL 7.3 g/dL 6.0-8.5 ALBUMIN 4.1 g/dL 3.2-5.0 BILIRUBIN, TOTAL 0.9 mg/dL 0.2-1.2 ALKALINE PHOSPHATASE 75 U/L 40-150 ALT(SGPT) 44 U/L 7-52 AST(SGOT) 28 U/L 5-34 FIB-4 SCORE 0.63 <2.67 August 05, 2023 08:15 AM [facility] LIPOPROTEIN CHOLESTEROL FRACT. PANEL Specimen Type: PLASMA Comment: , Tests performed on [employer] SN:[id number] (896). Ordering Provider: TYRESE AISF Report Released Date/Time: July 18, 2023 12:25 PM Reporting [facility]: [facility] [address] [facility] [address] Performing Lab: [facility] [address] [facility] [address] CHOLESTEROL 161 mg/dL 0-200 TRIGLYCERIDE 110 mg/dL 0-150 HDL CHOLESTEROL 47 mg/dL >40 LDL CHOLESTEROL (CALC) 92 mg/dL 0-129 August 05, 2023 08:15 AM [facility] VIT D 25-OH(J) Specimen Type: SERUM Comment: , Tests performed on [employer] SN:[id number] (405) Ordering Provider: TYRESE ASIF Report Released Date/Time: July 18, 2023 12:25 PM Reporting Lab: [facility] [address] [facility] [address] Performing Lab: [facility] [address] [facility] [address] VIT D 25-OH([facility]) 22.9 ng/mL 20.0-50.0 August 05, 2023 08:15 AM [facility] URINALYSIS ONLY NO REFLEXURINALYSIS ONLY Specimen Type: URINE No comment entered. Ordering Provider: TYRESE ASIF Report Released Date/Time: July 18, 2023 12:25 PM Reporting Lab: [facility] [address] [facility] [address] Performing Lab: [facility] [address] [facility] [address] URINE COLOR Light-Yello w NOT DEFINED SPECIFIC GRAVITY 1.025 1.003-1.030 UROBILINOGEN <2.0 mg/dL <2.0 URINE BILIRUBIN NEG NEG URINE KETONES NEG mg/dL NEG URINE GLUCOSE NEG mg/dL NEG PROTEIN, URINE TRACE mg/dL NEG URINE PH 7.0 5-8 CLARITY CLEAR NOT DEFINED URINE BLOOD NEG NEG NITRITE, URINE NEG NEG WBC SCREEN NEG NEG Social History: Smoking Status (Most current) and Tobacco Use (All prior to encounter date) This section includes the most current, and the historical, smoking and tobacco- related health factors from the [place] facility where the Encounter took place. Current Smoking Status This section includes the most current smoking, or tobacco-related health factor, from the [place] facility where the Encounter took place. Date/Time Current Smoking Status Comment Facil patricia August 07, 2023 10:30 AM [place]-TOBACCO FORMER USER [facility] Tobacco Use History This section includes a history of the smoking, or tobacco-related health factors, that were collected on or before the date of the Encounter. The data comes from the [place] facility where the Encounter took place. Date/Time Smoking Status/Tobacco Use Comment F acility August 07, 2023 10:30 AM VA-TOBACCO QUIT 5 TO < 15 YRS [facility] Apr 15, 2015 09:53 AM QUIT TOBACCO USE > 7 YEARS AGO [facility] Apr 13, 2013 06:53 AM QUIT TOBACCO USE 1-7 YEARS AGO [facility] Encounter Notes: All associated encounter notes This section contains the clinical notes associated to the Encounter. Date/Time Encounter Note(s) Provider Source Aug 19, 2023 12:45 PM NO SHOW NOTE: LOCAL TITLE: Mental Health No Show/Clinic Cancel/Conversion Note STANDARD TITLE: NO SHOW NOTE DATE OF NOTE: AUG 19, 2023@12:45 ENTRY DATE: AUG 19, 2023@12:45:12 AUTHOR: NED GUSTAFSON COSIGNER: URGENCY: STATUS: COMPLETED MENTAL HEALTH NO SHOW/CLINIC CANCELLATION/CLINIC CONVERSION NOTE Appointment Date & Time: Aug@13:00 ACTION: Provider attempted to reach [place] to discuss: No Show Cancellation by clinic (X) Cancellation by Conversion of clinic appointment REASON: for no show or clinic cancel/reschedule: Received message from [facility] relaying that had cancelled scheduled appt with flex o writer operator via [employer]. Attempted to contact by phone to offer rescheduling. Unable to reach at time of call. Left v/m for confirming receipt of cancellation and requesting return call to facilitate rescheduling should appointment still be desired by . Provided clinician name and direct clinic contact information. OUTCOME: Left [place] voicemail message: see above Any Acute Safety Concerns? No acute safety concerns known to flex o writer operator at time of this note. If Yes, Action Taken or Further Follow-up: n/a /edith/ Ned Gustafson PsyD Clinical Psychologist Signed: 08/19/2023 12:57 NED GUSTAFSON [facility]
--- OUTSIDE RECORDS SUMMARY | 2024-03-18 10:29 | XMS_ITS | Encounter Summary ---
Author Name [facility] [place] [facility] [place] Address [address] [place] [address] Care Team Providers Care Edge Grinder Name Role Phone YASMIN CHAWLA Primary Care [...] [facility] [employer] [place] [facility] Jan 16, 2019 [id number] Maxine HEDRICK HAD PATIENT [employer] [facility] ([id number]) PRESCRIPT ION [facility] Jan 16, 2019 [id number] [phone] Maxine HEDRICK HAD PATIENT Selected Encounter This section includes the information on record at [place] for the Encounter. Date/Time Encounter Type Encounter Description Reason Pro vider Source Oct 04, 2023 12:04 PM Outpatient Encounter EVENT (HISTORICAL) IHE Encounter Template Text not used by VA Plan of Treatment: Future Appointments (+ 6 months) and Future Tests (+/- 45 days) The Plan of Treatment section includes future care activities for the patient from all [place] treatmentfaatrium healthities. This section includes future appointments and future orders which are active, pending or scheduled. Future Appointments This section includes appointments that were scheduled to occur 6 months from the date of the Encounter, up to a maximum of 20 appointments. The data comes from all [place] treatment facilities. Appointment Date/Time Appointment Type Appointme nt Facility Name Oct 21, 2023 10:00 AM [place] [facility] Oct 21, 2023 01:45 PM [place] [facility] Dec 05, 2023 09:30 AM [place] - NONE [place] [facility] Dec 05, 2023 10:00 AM [facility] Apr 02, 2024 10:00 AM AMBULATORY - SURGERY [facility] Lab Results: +/- 30 days of [...] Range Comment Sep 23, 2023 09:35 AM [facility] LYME SEROLOGY PANEL([place]) Specimen Type: SERUM Comment: [...] of the panel were validated at the [place] [facility]. Results are considered [...] Sep 18, 2023 04:18 PM Reporting Lab: [facility] [address] [facility] [address] Performing Lab: [facility] [address] [facility] [address] TIER 1 LYME SCREENING EIA() Negative Negative LYME AB,FINAL INTERPRETATI ON() Negative Negative Vital Signs: All taken on the encounter date This section contains inpatient and outpatient Vital Signs collected on the date of the Encounter. Date/Time Temperature Pulse Blood Pressure Respiratory Rate SP02 Pain Height Weight Body Mass Index Source Oct 04, 2023 11:45 AM 97.7 63 113/79 16 98 7 66 151.8 25 [facility] Radiology Reports: +/- 30 [...] the Encounter. The data comes from all [place] treatment facilities. Date/Time Radiology Report Provider Source Oct 21, 2023 10:49 AM HAND 3 VIEWS (ROUT INE): HIGINIO HEDRICK [id number] -1990 M Exm Date: OCT 21, 2023@10:49 Req Phys: TYRESE ASIF Loc: LIT PACT R (Req'g Loc) Img Loc: XRAY (OOS) Service: [place] [address] (Case [id number] COMPLETE) HAND 3 VIEWS (ROUTINE) (RAD Detailed) CPT:69677 Proc Modifiers : RIGHT Reason for Study: possible foreign body R palm Clinical History: ? glass in R palm since Mar 2023 Report Status: Verified Date Reported: OCT 21, 2023 Date Verified: OCT 21, 2023 Ammonia Technician E-Sig:/EDITH/NATALIA BUTLER Report: Right hand, 4 views INDICATION: possible foreign body R palm COMPARISON: None FINDINGS: Mineralization of bones is within normal limits. No erosion or periostitis. No fracture or dislocation. Joint alignment and spacing are within normal limits. No appreciable degenerative disease. There is soft tissue swelling in the palm. No radiodense foreign body or soft tissue gas. Impression: 1. Soft tissue swelling in the right palm without soft tissue gas. 2. No radiopaque foreign body. 3. Normal osseous structures. Primary Diagnostic Code: NO IMMEDIATE ATTENTION REQUIRED Primary Interpreting Staff: NATALIA BUTLER, Staff (Ammonia Technician) Primary Interpreting Resident: GUERO SIMMONS Resident Physician /NATALIA XAVIER [facility] Encounter Notes: All associated encounter notes This section contains the clinical notes associated to the Encounter. Date/Time Encounter Note(s) Provider Source Oct 04, 2023 12:04 PM ALLERGY & IMMUNOLO GY ADVERSE EVENT NOTE: LOCAL TITLE: ADVERSE REACT/ALLERGY STANDARD TITLE: ALLERGY & IMMUNOLOGY ADVERSE EVENT NOTE DATE OF NOTE: OCT 04, 2023@12:04:08 ENTRY DATE: OCT 04, 2023@12:04:10 AUTHOR: TYRESE ASIF EXP COSIGNER: URGENCY: STATUS: COMPLETED The adverse reaction to PENICILLIN was removed on 10/04/23. This reaction was either an erroneous entry or was found to no longer be a true adverse reaction. Author's comments: states it has been proven he is not allergic elian /edith/ TYRESE ASIF PA-C Signed: 10/11/2023 17:02 TYRESE ASIF Sreedhar [facility]
--- OUTSIDE RECORDS SUMMARY | 2024-03-18 10:29 | XMS_ITS | Encounter Summary ---
Author Name [facility] [place] Organization [place] Address [address] [place] [address] Care Team Providers Care Printer Slotter Operator Name Role Phone YASMIN CHAWLA Primary [...] [facility] [employer] [facility] [place] [facility] Jan 16, 2019 [id number] Maxine HEDRICK HAD PATIENT [employer] [facility] ([id number]) PRESCRIPT ION [facility] Jan 16, 2019 [id number] [phone] Maxine HEDRICK HAD PATIENT Selected Encounter This section includes the information on record at [place] for the Encounter. Date/Time Encounter Type Encounter Description Reason Pro vider Source Feb 05, 2024 07:32 AM Outpatient Encounter PRIMARY CARE/MEDICINE IHE Encounter Template Text not used by VA Plan of Treatment: Future Appointments (+ 6 months) and Future Tests (+/- 45 days) The Plan of Treatment section includes future care activities for the patient from all [place] treatment[facility]. This section includes future appointments and future [...] 02, 2024 10:00 AM AMBULATORY - SURGERY [facility] Encounter Notes: All associated encounter notes This section contains the clinical notes associated to the Encounter. Date/Time Encounter Note(s) Provider Source Feb 07, 2024 08:01 AM PRIMARY CARE SECUR E MESSAGING: LOCAL TITLE: PRIMARY CARE SECURE MESSAGING STANDARD TITLE: PRIMARY CARE SECURE MESSAGING DATE OF NOTE: FEB 07, 2024@08:01 ENTRY DATE: FEB 07, 2024@08:01:54 AUTHOR: DALIA CORRALES COSIGNER: URGENCY: STATUS: COMPLETED PRIMARY CARE SECURE MESSAGING Has ADDENDA ------Original Message ---- Sent: 02/07/2024 07:05 AM ET From: ABELARDO HEDRICK To: Julia ASIF_PRIMARYMARY ELLEN_LETICIA Subject: Medication:Flonase Is there someone else I should be contacting? I'm out and have no way to refill it. Thanks! Abelardo /edith/ DALIA CORRALES Signed: 02/07/2024 08:01 Receipt Acknowledged By: 02/10/2024 10:06 /edith/ ISELA MENDOZA LPN 02/07/2024 16:12 /edith/ POPPY ALEXANDRA Registered Nurse 02/07/2024 ADDENDUM STATUS: COMPLETED Medication sent 02/05/24. /ernie ALEXANDRA Registered Nurse Signed: 02/07/2024 16:12 02/10/2024 ADDENDUM STATUS: COMPLETED secure message is sent /ernie MENDOZA LPN Signed: 02/10/2024 10:07 [facility] Feb 05, 2024 07:32 AM PRIMARY CARE SECUR E MESSAGING: LOCAL TITLE: PRIMARY CARE SECURE MESSAGING STANDARD TITLE: PRIMARY CARE SECURE MESSAGING DATE OF NOTE: FEB 05, 2024@07:32 ENTRY DATE: FEB 05, 2024@07:32:53 AUTHOR: DALIA CORRALES COSIGNER: URGENCY: STATUS: COMPLETED PRIMARY CARE SECURE MESSAGING Has ADDENDA ------Original Message ---- Sent: 02/04/2024 09:40 PM ET From: ABELARDO HEDRICK To: Julia ASIF_PRIMARYCARE_LETICIA Subject: Medication:Flonase Hi I was trying to refill my Flonase prescription online but it's not showing up anymore. Any suggestions? Thanks!! /edith/ DALIA CORRALES Signed: 02/05/2024 07:32 Receipt Acknowledged By: 02/10/2024 08:27 /es/ ISELA MENDOZA LPN 02/05/2024 08:12 /edith/ POPPY ALEXANDRA Registered Nurse 02/05/2024 08:07 /es/ TYRESE ASIF PA-C 02/07/2024 ADDENDUM STATUS: COMPLETED Med is filled 02/05/24. No tracking information. /edith/ POPPY ALEXANDRA Registered Nurse Signed: 02/07/2024 11:10 [facility]
--- OUTSIDE RECORDS SUMMARY | 2024-03-18 10:29 | XMS_ITS ---
Author Name [facility] Organization [facility] Address [address] [place] [address] Care Team Providers Care Concrete Truck Driver Name Role Phone YASMIN CHAWLA Primary Care [...] [place] [facility] Jan 16, 2019 [id number] [phone] Maxine HEDRICK HAD PATIENT [employer] ([id number]) PRESCRIPT ION [facility] Jan 16, 2019 [phone] Maxine HEDRICK HAD PATIENT Selected Encounter This section includes the information on record at [place] for the Encounter. Date/Time Encounter Type Encounter Description Reason Pro vider Source Sep 02, 2023 11:58 AM Outpatient Encounter ADMIN PAT ACTIVTIES (MASNONCT) [facility] Encounter Template Text not used by [facility] Plan of Treatment: Future Appointments (+ 6 months) and Future Tests (+/- 45 days) The Plan of Treatment section includes future care activities for the patient from all [place] treatmentfacilities. This section includes future appointments and future orders which are active, pending or scheduled. Future Appointments This section includes appointments that were scheduled to occur 6 months from the date of the Encounter, up to a maximum of 20 appointments. The data comes from all [place] treatment facilities. Appointment Date/Time Appointment Type Appointme nt Facility Name Sep 23, 2023 09:30 AM AMBULATORY - NONE [facility] Oct 04, 2023 11:30 AM AMBULATORY - NONE [place] [facility] Oct 21, 2023 10:00 AM [place]ORY - [place] [facility] Oct 21, 2023 01:45 PM AMBUL[place]ORY [place] [facility] Dec 05, 2023 09:30 AM AMBULATORY - NONE [place] [facility] Dec 05, 2023 10:00 AM AMBUL[place]ORY - [place] [facility] Lab Results: +/- 30 days of the encounter This section includes the Chemistry and Hematology Lab Results on record with [place] for the patient. Radiology Reports and Pathology Reports are provided separately, in subsequent sections. Lab Results This section contains the Chemistry/Hematology Results that were resulted 30 days before or 30 daysafter the date of the Encounter. Date/Time Source Result Type Result - Unit Interpretation Reference Range Comment Sep 23, 2023 09:35 AM [place] [facility] LYME SEROLOGY PANEL([facility]) Specimen Type: SERUM [...] of the panel were validated at the [place] [facility]. Results are considered [...] Sep 18, 2023 04:18 PM Reporting Lab: [facility] [address] [facility] [address] Performing Lab: [facility] [address] [facility] [address] TIER 1 LYME SCREENING EIA() Negative Negative LYME AB,FINAL INTERPRETATION( ) Negative Negative August 05, 2023 08:15 AM [place] [facility] VITAMIN B-12 Specimen Type: SERUM Comment: , Tests performed on [employer] [id number] (405) Ordering Provider: TYRESE ASIF Report Released Date/Time: July 18, 2023 12:25 PM Reporting Lab: [facility] [address] [facility] [address] Performing Lab: [facility] [address] [facility] [address] VITAMIN B-12 245 pg/mL 200-900 August 05, 2023 08:15 AM [facility] Specimen Type: SERUM Comment: , Tests performed on [employer] SN:[id number] (405) Ordering Provider: TYRESE ASIF Report Released Date/Time: July 18, 2023 12:25 PM Reporting Lab: [facility] [address] [facility] [address] [facility]: [facility] [address] [facility] [address] TESTOSTERONE([facility]) 393.8 ng/dL 220-892 August 05, 2023 08:15 AM [facility] P[facility] GLU,BUN,CREAT,LYTES,CA Specimen Type: PLASMA Comment: , Tests performed on [employer] Friedberg SN:[id number]). Ordering Provider: TYRESE ASIF Report Released Date/Time: July 18, 2023 12:25 PM Reporting Lab: [facility] [address] [facility] [address] Performing Lab: [facility] [address] [place] [address] UREA NITROGEN 14 mg/dL 7-25 SODIUM 138 mmol/L 135-145 POTASSIUM 4.2 mmol/L 3.5-5.0 CHLORIDE 104 mmol/L 100-110 CARBON DIOXIDE 26 mmol/L 20-30 ANION GAP 8 4-16 GLUCOSE 90 mg/dL 65-100 CREATININE 1.13 mg/dL 0.50-1.50 CALCIUM 9.4 mg/dL 8.5-10.5 eGFR(CKD-EPI 2020) 88 mL/min August 05, 2023 08:15 AM [facility] CBC PROFILE Specimen Type: BLOOD No comment entered. Ordering Provider: TYRESE ASIF Report Released Date/Time: July 18, 2023 12:25 PM Reporting Lab: [facility] [address] [facility] [address] Performing Lab: [facility] [address] [facility] [address] WBC 7.4 10*3/uL 4.5-11.0 RBC 5.28 10*6/uL [...] 10*3/uL 0-0 August 05, 2023 08:15 AM [facility] LIVER PROFILE Specimen Type: PLASMA Comment: , Tests performed on [employer] Arvind SN:[id number] (405). Ordering Provider: TYRESE ASIF Report Released Date/Time: July 18, 2023 12:25 PM Reporting Lab: [facility] [address] [facility] [address] Performing Lab: [facility] [address] [facility] [address] PROTEIN, TOTAL 7.3 g/dL 6.0-8.5 ALBUMIN 4.1 g/dL 3.2-5.0 BILIRUBIN, TOTAL 0.9 mg/dL 0.2-1.2 ALKALINE PHOSPHATASE 75 U/L 40-150 ALT(SGPT) 44 U/L 7-52 AST(SGOT) 28 U/L 5-34 FIB-4 SCORE 0.63 <2.67 August 05, 2023 08:15 AM [facility] LIPOPROTEIN CHOLESTEROL FRACT. PANEL Specimen Type: PLASMA Comment: , Tests performed on [employer] Arvind SN:[id number] (405). Ordering Provider: TYRESE ASIF Report Released Date/Time: July 18, 2023 12:25 PM Reporting Lab: [facility] [address] [facility] [address] Performing Lab: [facility] [address] [facility] [address] CHOLESTEROL 161 mg/dL 0-200 TRIGLYCERIDE 110 mg/dL 0-150 HDL CHOLESTEROL 47 mg/dL >40 LDL CHOLESTEROL (CALC) 92 mg/dL 0-129 August 05, 2023 08:15 AM [facility] URINALYSIS ONLY NO REFLEXURINALYSIS ONLY Specimen Typ e: URINE No comment entered. Ordering Provider: TYRESE ASIF Report Released Date/Time: July 18, 2023 12:25 PM Reporting Lab: [facility] [address] [facility] [address] Performing Lab: [facility] [address] [facility] [address] URINE COLOR Light-Yellow NOT DEFINED SPECIFIC GRAVITY 1.025 1.0 03-1.03 0 UROBILINOGEN <2.0 mg/dL <2.0 URINE BILIRUBIN NEG NEG URINE KETONES NEG mg/dL NEG URINE GLUCOSE NEG mg/dL NEG PROTEIN, URINE TRACE mg/dL NEG URINE PH 7.0 5-8 CLARITY CLEAR NOT DEFINED URINE BLOOD NEG NEG NITRITE, URINE NEG NEG WBC SCREEN NEG NEG August 05, 2023 08:15 AM [facility] VIT D 25-OH([facility]) Specimen Type: SERUM Comment: , Tests performed on [employer] SN:[id number] (491) Ordering Provider: TYRESE ASIF Report Released Date/Time: July 18, 2023 12:25 PM Reporting Lab: [facility] [address] [facility] [address] Performing Lab: [facility] [address] [facility] [address] VIT D 25-OH([facility]) 22.9 ng/mL 20.0-50.0 Encounter Notes: All associated encounter notes This section contains the clinical notes associated to the Encounter. Date/Time Encounter Note(s) Provider Source Sep 02, 2023 11:58 AM LETTERS: LOCAL TITLE: LETTER TO PATIENT ATTEMPT TO CONTACT STANDARD TITLE: LETTERS DATE OF NOTE: SEP 02, 2023@11:58 ENTRY DATE: SEP 02, 2023@11:58:30 AUTHOR: ELIE SEGOVIA COSIGNER: URGENCY: STATUS: COMPLETED [facility] [address] [place] [address] SEP 02, 2023 HIGINIO HEDRICK [address], [place] [address] Dear HIGINIO HEDRICK, [facility] in [place] is trying to reach you to schedule [...] find a suitable date for you: Service: Optometry Service Direct: [phone] Ext: [phone] Toll Free: [phone] [phone] We look forward to hearing from you. Sincerely, Clinical Operations ELIE SEGOVIA Sreedhar [facility]
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
--- OUTSIDE RECORDS SUMMARY | 2024-03-18 10:29 | XMS_ITS | Encounter Summary ---
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 Date/Time Encounter Type Encounter Description Reason Pro vider Source August 13, 2023 02:39 PM Outpatient Encounter TELEPHONE IHE Encounter Template Text not used by [place] Plan of Treatment: Future Appointments (+ 6 [...] AMBULATORY - [place] [facility] Sep 23, 2023 09:30 AM AMBULATORY - NONE [facility] Oct 04, 2023 11:30 AM [place] [facility] Oct 21, 2023 10:00 AM [place]BUL[place]ORY [place] [facility] Oct 21, 2023 01:45 PM [place]BULATORY [place] [facility] Dec 05, 2023 09:30 AM [place] [facility] Dec 05, 2023 10:00 AM [place] [facility] Lab Results: +/- 30 days of [...] Range Comment August 05, 2023 08:15 [facility] VITAMIN B-12 Specimen Type: SERUM Comment: , Tests performed on Audanika [id number] (405) Ordering Provider: TYRESE ASIF Report Released Date/Time: July 18, 2023 12:25 PM Reporting Lab: [place] [facility] [address] [facility] [place] [address] Performing Lab: [place] [facility] [address] [facility] [address] VITAMIN B-12 245 pg/mL 200-900 August 05, 2023 08:15 AM [facility] TESTOSTERONE(WRJ) Specimen Type: SERUM Comment: , Tests performed on Audanika SN:[id number] (405) Ordering Provider: TYRESE ASIF Report Released Date/Time: July 18, 2023 12:25 PM Reporting Lab: [place] [facility] [address] [facility] [address] Performing Lab: [place] [facility] [address] [facility] [address] TESTOSTERONE(WRJ) 393.8 ng/dL 220-892 August 05, 2023 08:15 AM [facility] P4 GLU,BUN,CREAT,LYTES,CA Specimen Type: PLASMA Comment: , Tests performed on Delphi SN:[id number] (405). Ordering Provider: TYRESE ASIF Report Released Date/Time: July 18, 2023 12:25 PM Reporting Lab: [facility] [address] [facility] [address] Performing Lab: [facility] [address] [place] [id number] UREA NITROGEN 14 mg/dL 7-25 SODIUM 138 [...] Reporting Lab: [facility] [address] [facility] [address] Performing Lab: [facility] [address] [place] [id number] WBC 7.4 10*3/uL 4.5-11.0 RBC 5.28 10*6/uL [...] Type: PLASMA Comment: , Tests performed on Delphi SN:[id number] (405). Ordering Provider: TYRESE ASIF Report Released Date/Time: July 18, 2023 12:25 PM Reporting Lab: [facility] [address] [facility] [address] Performing Lab: [facility] [address] [facility] [address] PROTEIN, TOTAL 7.3 g/dL 6.0-8.5 ALBUMIN 4.1 g/dL 3.2-5.0 BILIRUBIN, TOTAL 0.9 mg/dL 0.2-1.2 ALKALINE PHOSPHATASE 75 U/L 40-150 ALT(SGPT) 44 U/L 7-52 AST(SGOT) 28 U/L 5-34 FIB-4 SCORE 0.63 <2.67 August 05, 2023 08:15 AM [facility] LIPOPROTEIN CHOLESTEROL FRACT. PANEL Specimen Type: PLASMA Comment: , Tests performed on Delphi SN:[id number] (958). Ordering Provider: TYRESE ASIF Report Released Date/Time: July 18, 2023 12:25 PM Reporting Lab: [facility] [address] [facility] [address] Performing Lab: [facility] [address] [facility] [address] CHOLESTEROL 161 mg/dL 0-200 TRIGLYCERIDE 110 mg/dL 0-150 HDL CHOLESTEROL 47 mg/dL >40 LDL CHOLESTEROL (CALC) 92 mg/dL 0-129 August 05, 2023 08:15 AM [facility] URINALYSIS ONLY NO REFLEXURINALYSIS ONLY Specimen Type: URINE No comment entered. Ordering Provider: TYRESE ASIF Report Released Date/Time: July 18, 2023 12:25 PM Reporting Lab: [facility] [address] [facility] [address] Performing Lab: [facility] [address] [facility] [address] URINE COLOR Light-Yello w NOT DEFINED SPECIFIC GRAVITY 1.025 1.003-1.030 UROBILINOGEN <2.0 mg/dL <2.0 URINE BILIRUBIN NEG NEG URINE KETONES NEG mg/dL NEG URINE GLUCOSE NEG mg/dL NEG PROTEIN, URINE TRACE mg/dL NEG URINE PH 7.0 5-8 CLARITY CLEAR NOT DEFINED URINE BLOOD NEG NEG NITRITE, URINE NEG NEG WBC SCREEN NEG NEG August 05, 2023 08:15 AM [facility] VIT D 25-OH(J) Specimen Type: SERUM Comment: , Tests performed on [employer] SN:[id number] (405) Ordering Provider: TYRESE ASIF Report Released Date/Time: July 18, 2023 12:25 PM Reporting Lab: [facility] [address] [facility] [address] Performing Lab: [facility] [address] [facility] [address] VIT D 25-OH(J) 22.9 ng/mL 20.0-50.0 Encounter Notes: All associated encounter notes This section contains the clinical notes associated to the Encounter. Date/Time Encounter Note(s) Provider Source August 13, 2023 02:39 PM MENTAL HEALTH TELE PHONE ENCOUNTER NOTE: LOCAL TITLE: Telephone Note/Mental Health STANDARD TITLE: MENTAL HEALTH TELEPHONE ENCOUNTER NOTE DATE OF NOTE: AUGUST 13, 2023@14:39 ENTRY DATE: AUGUST 13, 2023@14:39:57 AUTHOR: NED GUSTAFSON COSIGNER: URGENCY: STATUS: COMPLETED Contacted by phone to provide information about MH services and to offer scheduling as appropriate. confirmed interest in scheduling initial appointment for psychotherapy. stated open to f2f or VVC appointment. Appointment successfully set with for 08/19/23 @1pm within today's phone contact. Clinician name and direct clinic contact information provided to . Call ended normally. RTC: Tomi PCMHI PSYLG 13, 08/19/23 @1pm /es/ Ned Gustafson PsyD Clinical Psychologist Signed: 08/13/2023 14:44 NED GUSTAFSON [facility]
--- OUTSIDE RECORDS SUMMARY | 2024-03-18 10:29 | XMS_ITS | Encounter Summary ---
Author Name [facility] [place] [facility] [place] Address [address] [place] [address] Care Team Providers Care Auto Travel Counselor Name Role Phone YASMIN CHAWLA Primary Care [...] E [employer] [place] [facility] Jan 16, 2019 [id number] Maxine HEDRICK HAD PATIENT [employer] ([id number]) PRESCRIPT ION [facility] Jan 16, 2019 [id number] [phone] Maxine HEDRICK HAD PATIENT Selected Encounter This section includes the information on record at [place] for the Encounter. Date/Time Encounter Type Encounter Description Reason Provider Source August 07, 2023 10:30 AM OFFICE O/P NEW MOD 45 MIN PRIMARY CARE/MEDICINE ICD-10-CM F41.9 Anxiety disorder, unspecified KATHARINA ASIF IHJulia Encounter Template Text not used by [place] Assessments - Encounter Diagnoses This section includes the primary and secondary diagnoses documented for the Encounter. Date/Time Primary/Secondary Diagnosis Diagnosis Name Provider Source August 10, 2023 08:24 PM PR[facility], [facility] August 10, 2023 08:24 PM SECONDARY Low back pain, unspecified [facility] August 10, 2023 08:24 PM SECONDARY Other allergy, initial encounter [facility] August 10, 2023 08:24 PM SECONDARY Pain in left [facility] August 10, 2023 08:24 PM SECONDARY Pain in right knee KATHARINA ASIF [facility] Plan of Treatment: Future Appointments (+ 6 months) and Future Tests (+/- 45 days) The Plan of Treatment section includes future care activities for the patient from [facility] [place] [facility] This section includes future appointments and future orders which are active, pending or scheduled. Future Appointments This section includes appointments that were scheduled to occur 6 months from the date of the Encounter, up to a maximum of 20 appointments. The data comes from all [place] treatment facilities. Appointment Date/Time Appointment Type Appointme nt Facility Name Aug 20, 2023 10:00 AM AMBULATORY - SURGERY [facility] Sep 23, 2023 09:30 AM AMBULATORY - NONE [facility] Oct 04, 2023 11:30 AM AMBULATORY - NONE [facility] Oct 21, 2023 10:00 AM AMBULATORY - SURGERY [facility] Oct 21, 2023 01:45 PM AMBULATORY - SURGERY [facility] Dec 05, 2023 09:30 AM AMBULATORY - NONE [facility] Dec 05, 2023 10:00 AM AMBULATORY - SURGERY [facility] Active, Pending, and Scheduled Orders This section includes a listing of several types of active, pending, and scheduled orders, including clinic medications orders, diagnostic test orders, procedure orders and consult orders; where the start date of the order is 45 days before the date of the Encounter or 45 days after the date of theEncounter. The data comes from all [facility]. Test Date/Time Test Type Test Details Facility Name Jun 23, 2023 12:00 AM Laboratory - Chemi stry Order BASIC METABOLIC PANEL (fasting) BLOOD (SST-SERUM) [facility] ([id number]) Jun 23, 2023 12:00 AM Laboratory - Chemi stry Order LIVER FUNCTION BLOOD (SST-SERUM) [facility] ([id number]) Jun 23, 2023 12:00 AM Laboratory - Chemi stry Order LIPID PANEL FASTING BLOOD (SST-SERUM) [facility] ([id number]) Jun 23, 2023 12:00 AM Laboratory - Chemi stry Order HEMOGLOBIN A1C PANEL BLOOD (LAV-BLOOD) [facility] ([id number]) Jun 23, 2023 12:00 AM Laboratory - Chemi stry Order TSH BLOOD (SST-SERUM) [facility] ([id number]) Jun 23, 2023 12:00 AM Laboratory - Chemi stry Order VITAMIN D (25-OH) BLOOD (SST-SERUM) [facility] ([id number]) Jun 23, 2023 12:00 AM Laboratory - Chemi stry Order CBC AND DIFF (AUTO) BLOOD (LAV-BLOOD) [facility] ([id number]) Jun 23, 2023 12:00 AM Laboratory - Chemi stry Order CALCIUM BLOOD (SST-SERUM) [facility] ([id number]) Lab Results: +/- 30 days of [...] Range Comment August 05, 2023 08:[address] [facility] URINALYSIS ONLY NO REFLEXURINALYSIS ONLY Specimen Type: URINE No comment entered. Ordering Provider: KATHARINA ASIF Report Released Date/Time: July 18, 2023 12:25 PM Reporting Lab: [facility] [address] [facility] [address] Performing Lab: [facility] [address] [facility] [address] URINE COLOR Light-Yello w NOT DEFINED SPECIFIC GRAVITY 1.025 1.003-1.030 UROBILINOGEN <2.0 mg/dL <2.0 URINE BILIRUBIN NEG NEG URINE KETONES NEG mg/dL NEG URINE GLUCOSE NEG mg/dL NEG PROTEIN, URINE TRACE mg/dL NEG URINE PH 7.0 5-8 CLARITY CLEAR NOT DEFINED URINE BLOOD NEG NEG NITRITE, URINE NEG NEG WBC SCREEN NEG NEG August 05, 2023 08:[address] [facility] VIT D 25-OH([facility]) Specimen Type: SERUM Comment: , Tests performed on [employer] SN:[id number] (405) Ordering Provider: KATHARINA ASIF Report Released Date/Time: July 18, 2023 12:25 PM Reporting Lab: [facility] [address] [facility] [address] Performing Lab: [facility] [address] [facility] [address] VIT D 25-OH([facility]) 22.9 ng/mL 20.0-50.0 August 05, 2023 08:[address] [facility] VITAMIN B-12 Specimen Type: SERUM Comment: , Tests performed on [employer] SN:[id number] (405) Ordering Provider: KATHARINA ASIF Report Released Date/Time: July 18, 2023 12:25 PM Reporting Lab: [facility] [address] [facility] [address] Performing Lab: [facility] [address] [facility] [address] VITAMIN B-12 245 pg/mL 200-900 August 05, 2023 08:[address] [facility] TESTOSTERONE([facility]) Specimen Type: SERUM Comment: , Tests performed on [employer] Burgess SN:[id number] (405) Ordering Provider: KATHARINA ASIF Report Released Date/Time: July 18, 2023 12:25 PM Reporting Lab: [facility] [address] [facility] [address] Performing Lab: [facility] [address] [facility] [address] TESTOSTERONE([facility]) 393.8 ng/dL 220-892 August 05, 2023 08:[address] [facility] CBC PROFILE Specimen Type: BLOOD No comment entered. Ordering Provider: KATHARINA ASIF Report Released Date/Time: July 18, 2023 12:25 PM Reporting Lab: [facility] [address] [facility] [address] Performing Lab: [facility] [address] [facility] [address] WBC 7.4 10*3/uL 4.5-11.0 RBC 5.28 10*6/uL [...] 10*3/uL 0-0 August 05, 2023 08:[address] [facility] P4 GLU,BUN,CREAT,LYTES,CA Specimen Type: PLASMA Comment: , Tests performed on [employer] SN:[id number] (900). Ordering Provider: KATHARINA ASIF Report Released Date/Time: July 18, 2023 12:25 PM Reporting Lab: [facility] [address] [facility] [address] Performing Lab: [facility] [address] [facility] [address] UREA NITROGEN 14 mg/dL 7-25 SODIUM 138 mmol/L 135-145 POTASSIUM 4.2 mmol/L 3.5-5.0 CHLORIDE 104 mmol/L 100-110 CARBON DIOXIDE 26 mmol/L 20-30 ANION GAP 8 4-16 GLUCOSE 90 mg/dL 65-100 CREATININE 1.13 mg/dL 0.50-1.50 CALCIUM 9.4 mg/dL 8.5-10.5 eGFR(CKD-EPI 2020) 88 mL/min August 05, 2023 08:[address] [facility] LIVER PROFILE Specimen Type: PLASMA Comment: , Tests performed on [employer] Arvind SN:[id number] (405). Ordering Provider: KATHARINA SAIF Report Released Date/Time: July 18, 2023 12:25 PM Reporting Lab: [facility] [address] [facility] [address] Performing Lab: [facility] [address] [facility] [address] PROTEIN, TOTAL 7.3 g/dL 6.0-8.5 ALBUMIN 4.1 g/dL 3.2-5.0 BILIRUBIN, TOTAL 0.9 mg/dL 0.2-1.2 ALKALINE PHOSPHATASE 75 U/L 40-150 ALT(SGPT) 44 U/L 7-52 AST(SGOT) 28 U/L 5-34 FIB-4 SCORE 0.63 <2.67 August 05, 2023 08:[address] [facility] LIPOPROTEIN CHOLESTEROL FRACT. PANEL Specimen Type: PLASMA Comment: , Tests performed on [employer] SN:[id number] (405). Ordering Provider: KATHARINA ASIF Report Released Date/Time: July 18, 2023 12:25 PM Reporting Lab: [facility] [address] [facility] [address] Performing Lab: [facility] [address] [facility] [address] CHOLESTEROL 161 mg/dL 0-200 TRIGLYCERIDE 110 mg/dL 0-150 HDL CHOLESTEROL 47 mg/dL >40 LDL CHOLESTEROL (CALC) 92 mg/dL 0-129 Social History: Smoking Status (Most current) and Tobacco Use (All prior to encounter date) This section includes the most current, and the historical, smoking and tobacco- related health factors from the [place] facility where the Encounter took place. Current Smoking Status This section includes the most current smoking, or tobacco-related health factor, from the [place] facility where the Encounter took place. Date/Time Current Smoking Status Comment Facil patricia August 07, 2023 10:30 AM [place]-TOBACCO FORMER USER [facility] Tobacco Use History This section includes a history of the smoking, or tobacco-related health factors, that were collected on or before the date of the Encounter. The data comes from the [place] facility where the Encounter took place. Date/Time Smoking Status/Tobacco Use Comment F tran August 07, 2023 10:30 AM VA-TOBACCO QUIT 5 TO < 15 YRS [facility] Apr 15, 2015 09:53 AM QUIT TOBACCO USE > 7 YEARS AGO [facility] Apr 13, 2013 06:53 AM QUIT TOBACCO USE 1-7 YEARS AGO [facility] Encounter Notes: All associated encounter notes This section contains the clinical notes associated to the Encounter. Date/Time Encounter Note(s) Provider Source August 07, 2023 10:54 AM PRIMARY CARE [facility] EVALUATION NOTE: LOCAL TITLE: Preventive Health Annual Review STANDARD TITLE: PRIMARY CARE ANNUAL EVALUATION NOTE DATE OF NOTE: AUGUST 07, 2023@10:54 ENTRY DATE: AUGUST 07, 2023@10:54:41 AUTHOR: VANGIE MENDEZ EXP COSIGNER: URGENCY: STATUS: COMPLETED Td / Tdap Immunization: Td/Tdap given previously - written records available The patient has previously received the Tetanus, Diphtheria, Pertussis vaccine (Tdap). Documented: TDAP Historical Date Administered: Jun 20, 2023 Outside Location: [place], [place] Information Source: MARTIN walter/ VANGIE MENDEZ Systems Manager Signed: 08/07/2023 10:58 VANGIE MENDEZ [facility] August 07, 2023 10:47 AM PRIMARY CARE NOTE: LOCAL TITLE: Primary Care Clinic Note STANDARD TITLE: PRIMARY CARE NOTE DATE OF NOTE: AUGUST 07, 2023@10:47 ENTRY DATE: AUGUST 07, 2023@10:47:06 AUTHOR: KATHARINA ASIF EXP COSIGNER: URGENCY: STATUS: COMPLETED PROBLEM LIST Code Description K64.8 Hemorrhoid ([facility] [id number]) R32. Urinary incontinence ([facility] [id number]) K09.9 Cyst ([facility] [id number]) E55.9 Vitamin D deficiency ([facility] [id number]) T78.49XA Allergy ([facility] [id number]) Z87.09 History of pneumothorax ([facility] [id number]) 786.09 Dyspnea ([facility] 754459055) 493.90 Asthma finding ([facility] [id number]) V49.89 Health maintenance alteration ([facility] [id number]) Medication list reviewed with patient: Yes Is the patient taking all prescribed medications: Yes Patient has all prescribed medications: Yes Medications the patient is taking that are not on the medication list: None Any adverse side effects from medications: None ALLERGIES: PENICILLIN IMMUNIZATIONS: Recorded Td/Tdap Vaccinations Information: Reminder Term: [place]-TETANUS/DIPHTHERIA IMMUNIZATION Immunization: TDAP No INFLUENZA Immunizations on file within 1Y. Recorded Pneumococcal Vaccinations Information: Reminder Term: [place]-PNEUMOC PPSV23 IMMUNIZATION Immunization: PNEUMOCOCCAL POLYSACCHARIDE PPV23 04/06/2014@13:00 Immunization: PPSV23 PNEUMOVAX POLYSACCHARIDE (HISTORICAL) 04/06/2014@13:00 The most recent entry of PPSV23 was given too close to the prior dose to be counted as a valid repeat dose. 32yo, WHITE, MALE Chief complaint and HPI: Higinio is a 32 yo male here to re-establish care at [facility]. Labs done prior to today's visit. Has been seen at [facility], [facility] then [facility] (most recently) He is requesting PT consult for ongoing knee and back pain. Was set up for PT by [facility] but he moved before it could get started. . Has allergies. On ceterizine q am forever and wonders if something stronger. Has been on for 10+ years. Using flonase at night x 2 months. Allergies to pollen, to dogs (has 3 dogs). Allergy symps: sneezing, nasal congestion, itchy/watery eyes. Has been battling ear infection - was on 17 days of augmentin then 2 different drops Reports na had pneumonia twice this past winter. Mar and May. Outpatient treatment. No hx asthma. Has nanci't with [place] ENT this afternoon. Would like consult to for anxiety. Used to meet with after going through divorce. Past hx panic attacks, but these have resolved. Denies sleep disturbance. Denies S/I. Not interested in medication for anxiety/mood. Nocturia x 3 for about a year. No hestiancy or urgency. No incontinence NO dysuria. NO hx UTI. No penile d/c. No hx STD and declines STD testing Has water by the bed all the time. Tries to avoid sweets and sugar after 7 pm to avoid strange dreams. SURGICAL HISTORY: Bilateral hernia repair in 2010. [...] status = NEVER . 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 Screening - Colonoscopy vs FIT - n/a Occult Blood Fit: Depression - denies Eyes - consult to [facility] AAA - n/a LDCT - n/a ROS - 01/29 review of systems is completed and is negative except as stated above in HPI. Systems reviewed: Constitutional, Eyes, ENT, Respiratory, CV, GI, , MSK, Skin, Neuro and psych. Physical Exam WEIGHT: 151.4 lb [68.67 kg] (08/07/2023 10:30) BP: 119/81 (08/07/2023 10:30) PULSE: 65 (08/07/2023 10:30) RESP: 18 (08/07/2023 10:30) TEMP: 97.6 F [36.4 C] (08/07/2023 10:30) PULSE OX 08/07/23 @ 1030 PULSE OXIMETRY: 99 Appearance: WNWD Eyes: no conjunctival injection, no icterus ENMT: Moist MM, no erythema or exudates. Neck: No enlarged nodes or masses. CVS: RRR, No murmurs. No LE edema RESP: Normal respirations. No wheezes or crackles. GI: NTND, BS active. No masses. MSK: NL ROM upper and lower extremities. No calf swelling or tenderness. Skin: Warm, Dry. No excess bruising. 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 Discussed change to different antihistamine warranted, and will defer that to ENT. # Anxiety: - consult to #Bilateral knee pain and low back pain: - has prev tried chiro and acupuncture - consult to PT at [facility] # nocturia: - advised to limit fluid intake with none 2 hours before bed - u/a 08/05/23 trace protein, otherwise normal # HCM: - consult to eye clinic [facility] for routine eye exam Labs Ordered : Lipids, LFT's, BMP, CBC, UA, TSH, HbA1c, B-12, Vit D RTC - 12 months with labs prior Patient Education - Goal for exercise is 30 minutes/5 times a week. I spent more than 50% of this encounter counseling the pt on the medical health issues listed above. The treatment plans above have been agreed upon by myself and the pt through shared decision making. 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 [place] has no concerns about toxic exposure(s) while serving in the Armed Forces. The [place]/caregiver was informed that we will continue to ask this screening question every 5 years. They can contact their provider/healthcare team if they have concerns about exposures and would like to be screened sooner. Printed information was offered and provided if desired. TBI Screening: The [place] was not deployed in support of post-11/26 operations. Hepatitis B Serology/Immunization: see orders Medication Reconciliation: Perform Medication Reconciliation JLV Link Data on this list may not be complete. Please check JLV. Allergies/ADRs (Tool #5) FACILITY ALLERGY/ADR -------- CLNCL/HLTH GREG REPT EFF [id number] PENICILLIN RAFFI MILLAURSE LEACH [facility] PENICILLIN [facility] PENICILLIN [facility] [place] [facility] [place] [facility] PENICILLIN [facility] PENICILLIN Med Recon NoGlossary (Tool #1) INCLUDED IN THIS LIST: Alphabetical list of active outpatient prescriptions dispensed from this [facility] (local) and dispensed from another VA or DoD facility (remote) as well as [...] the patient into personal health records (i.e. [facility]) are NOT included in this list. Non-VA medications documented outside this [place], remote inpatient orders (regardless of status) and remote clinic medications are NOT included in this list. The patient and provider must always discuss medications the patient is taking, regardless of where the medication was dispensed or obtained. Remote ACETAMINOPHEN 500MG TAB TAKE TWO TABLETS BY MOUTH THREE TIMES DAILY NEEDED FOR PAIN Last Filled: 01/24/23 (Active at [facility]) Rx Expiration Date: 01/25/24 Days Supply: 30 OUTPT AMOXICILLIN 875/CLAV K 125MG TAB (Status = Active) TAKE 1 TABLET BY MOUTH TWICE A DAY FOR OTITIS MEDIA Rx# [id number] Last Released: 07/26/23 Qty/Days Supply: 28/09 Rx Expiration Date: 08/25/23 Refills Remainin Indication: FOR OTITIS MEDIA Remote CETIRIZINE HCL 10MG TAB TAKE ONE TABLET BY MOUTH ONCE DAILY FOR ALLERGIES Last Filled: 04/28/23 (Active at [facility]) Rx Expiration Date: 01/25/24 Days Supply: 90 OUTPT CIPROFLOXACIN 0.3/DEXAM 0.1% OTIC SUSP (Status = Active) INSTILL FOUR DROPS IN LEFT EAR TWICE A DAY FOR OTITIS EXTERNA Rx# [id number] Last Released: 07/26/23 Qty/Days Supply: 7.07/22 Rx Expiration Date: 07/26/24 Refills Remainin Indication: FOR OTITIS EXTERNA Remote DICLOFENAC NA 1% GEL,TOP APPLY 2 GRAMS TOPICALLY FOUR TIMES A DAY FOR JOINT PAIN FOR OSTEOARTHRITIS - USE DOSING CARD PROVIDED IN BOX Last Filled: 01/24/23 (Active at [facility]) Rx Expiration Date: 01/25/24 Days Supply: 30 Non-VA FLUTICASONE PROP 50MCG 120D NASAL INHL INSTILL 2 SPRAYS INTO EACH NOSTRIL ONCE DAILY Remote FLUTICASONE PROPIONATE 50MCG/SPRAY SOLN,NASAL,16GM INSTILL 1 SPRAY INTO EACH NOSTRIL ONCE DAILY NEEDED FOR NASAL IRRITATION/INFLAMMATION Last Filled: 01/24/23 ([facility]) Rx Expiration Date: 01/25/24 Days Supply: 30 OUTPT HC 1%/NEOMYCIN 3.5MG/POLYMYXIN OPH SUSP (Status = Discontinued) INSTILL 3 DROPS IN LEFT EAR THREE TIMES A DAY FOR 10 DAYS Rx# [id number] Last Released: 07/19/23 Qty/Days Supply: 7.5 Rx Expiration Date: 08/18/23 Refills Remainin OUTPT LORATADINE 10MG TAB (Status = Active) TAKE ONE TABLET BY MOUTH ONCE DAILY FOR ALLERGIES Rx# [id number] Last Released: 08/07/23 Qty/Days Supply: Rx Expiration Date: 08/07/24 Refills Remainin Indication: FOR ALLERGIES OUTPT OLOPATADINE HCL 0.7% OPH SOLN (Status = Active) INSTILL 1 DROP IN BOTH EYES ONCE DAILY FOR ALLERGIC CONJUNCTIVITIS Rx# [id number] Last Released: 08/07/23 Qty/Days Supply: Rx Expiration Date: 08/07/24 Refills Remainin Indication: ALLERGIC CONJUNCTIVITIS SUPPLIES Comments: The patient's Essential Medication List for Review was used for reconciliation to address additions, deletions, and changes as reported by the patient/caregiver. The patient/caregiver indicates that medications are being taken as documented as described above. Was medication education provided for new medications or changes to medications? (including medication name, dose, route, reason for use, and potential side effects). No new medications or medication changes during this encounter. /edith/ KATHARINA ASIF PA-C Signed: 08/10/2023 20:27 KATHARINA ASIF [facility] August 07, 2023 10:35 AM PRIMARY CARE [facility] EVALUATION NOTE: LOCAL TITLE: Preventive Health Annual Review STANDARD TITLE: PRIMARY CARE ANNUAL EVALUATION NOTE DATE OF NOTE: AUGUST 07, 2023@10:35 ENTRY DATE: AUGUST 07, 2023@10:35:23 AUTHOR: VANGIE MENDEZ COSIGNER: URGENCY: STATUS: COMPLETED Tobacco Use Screening: The patient is a former tobacco user. The patient quit five to less than fifteen years ago. COVID-19 Immunization: Refused Moderna Monovalent COVID-19 vaccine Immunization: COVID-19 (MODERNA), MRNA, LNP-S, PF, 50 MCG/0.5 ML (AGES 12+ YEARS) Refusal Reason: PATIENT DECISION Patient refuses all immunization(s) in the COVID-19 group Date Documented: 08/07/23 10:36 Influenza Immunization: No influenza vaccination was received [...] Not worried about housing near future The [place] reports the following: Within the past 12 months, you worried whether your food would run out before you got money to buy more. Never true Within the past 12 months, the food you bought just didn't last and you didn't have money to get more. Never true Advance Directive Screen MH AD: Patient does not have a completed advance directive on file at any facility, [place] or outside. S/he is not interested in completing one at this time. The patient received education about Advance Directives and written notification of his/her rights. Depression Screening: Perform PHQ-2 A PHQ-2 screen [...] due to responses to other questions. 5. [place] numb or detached from people, activities, or your surroundings? Response not required due to responses to other questions. 6. [place] guilty or unable to stop blaming yourself or others for the event(s) or any problems the event(s) may have caused? Response not required due to responses to other questions. Suicide Screen: C-SSRS Screening [place]-Suicide Severity Rating Scale (C-SSRS Screener) 1. Over the past month, have you wished you were or wished you could go to sleep and not wake up? Yes 2. Over the past month, have you [...] required due to responses to other questions. Alcohol Use Screen (AUDIT-C): Alcohol Screen: SCREEN [...] one occasion in the past year? Never Sexual Orientation: The patient thinks of their sexual orientation as: Straight or Heterosexual /es/ VANGIE MENDEZ Systems Manager Signed: 08/07/2023 10:40 VANGIE MENDEZ [facility]
--- OUTSIDE RECORDS SUMMARY | 2024-03-18 10:29 | XMS_ITS ---
Author Name [facility] [place] [facility] [place] Address [address] [place] [address] Care Team Providers Care Retail Loan Originator Assistant Name Role Phone YASMIN CHAWLA Primary Care [...] E HEALTH PLAN [employer] [facility] Jan 16, 2019 [id number] Maxine BELLA HAD PATIENT [employer] [facility] ([id number]) PRESCRIPT ION [facility] Jan 16, 2019 [id number] Maxine BELLA HAD PATIENT Selected Encounter This section includes the information on record at [place] for the Encounter. Date/Time Encounter Type Encounter Description Reason Provider Source Aug 20, 2023 10:00 AM OFFICE O/P EST HI 40 MIN OTOLARYNGOLOGY/EN T ICD-10-CM J30.9 Allergic rhinitis, unspecified VAHEY,SHON IHE Encounter Template Text not used by VA Assessments - Encounter Diagnoses This section includes the primary and secondary diagnoses documented for the Encounter. Date/Time Primary/Secondary Diagnosis Diagnosis Name Provider Source Aug 20, 2023 11:15 AM PRIMARY Allergic rhinitis, unspecified SHON MARTINEZ [facility] Aug 20, 2023 11:15 AM SECONDARY Acute serous otitis media, left ear SHON MARTINEZ [facility] Plan of Treatment: Future Appointments (+ 6 [...] 23, 2023 09:30 AM AMBULATORY - NONE [facility] Oct 04, 2023 11:30 AM [place] [facility] Oct 21, 2023 10:00 AM [facility]ATORY [facility] Oct 21, 2023 01:45 PM [place] [facility] Dec 05, 2023 09:30 AM [place]ORY - NONE [place] [facility] Dec 05, 2023 10:00 AM AMBULATORY - SURGERY [facility] Lab Results: +/- 30 days of [...] Range Comment August 05, 2023 08:15 AM [facility] VITAMIN B-12 Specimen Type: SERUM Comment: , Tests performed on [employer] SN:[id number] (405) Ordering Provider: TYRESE ASIF Report Released Date/Time: July 18, 2023 12:25 PM Reporting Lab: [facility] [address] [facility] [address] Performing Lab: [facility] [address] [facility] [address] VITAMIN B-12 245 pg/mL 200-900 August 05, 2023 08:15 AM [facility] TESTOSTERONE([facility]) Specimen Type: SERUM Comment: , Tests performed on [employer] SN:[id number] (405) Ordering Provider: TYRESE ASIF Report Released Date/Time: July 18, 2023 12:25 PM Reporting Lab: [facility] [address] [facility] [address] Performing Lab: [facility] [address] [id number] TESTOSTERONE([facility]) 393.8 ng/dL 220-892 August 05, 2023 08:15 AM [facility] P4 GLU,BUN,CREAT,LYTES,CA Specimen Type: PLASMA Comment: , Tests performed on [employer] Arvind SN:[id number] (405). Ordering Provider: TYRESE ASIF Report Released Date/Time: July 18, 2023 12:25 PM Reporting Lab: [facility] [address] [facility] [address] Performing Lab: [facility] [address] [phone] UREA NITROGEN 14 mg/dL 7-25 SODIUM 138 mmol/L 135-145 POTASSIUM 4.2 mmol/L 3.5-5.0 CHLORIDE 104 mmol/L 100-110 CARBON DIOXIDE 26 mmol/L 20-30 ANION GAP 8 4-16 GLUCOSE 90 mg/dL 65-100 CREATININE 1.13 mg/dL 0.50-1.50 CALCIUM 9.4 mg/dL 8.5-10.5 eGFR(CKD-EPI 2020) 88 mL/min August 05, 2023 08:15 AM [facility] CBC PROFILE Specimen Type: BLOOD No comment entered. Ordering Provider: TYRESE ASIF Report Released Date/Time: July 18, 2023 12:25 PM Reporting Lab: [facility] [address] [facility] [address] Performing Lab: [facility] [address] [phone] WBC 7.4 10*3/uL 4.5-11.0 RBC 5.28 10*6/uL [...] 0-0 August 05, 2023 08:15 AM [facility] LIVER PROFILE Specimen Type: PLASMA Comment: , Tests performed on [employer] SN:[id number] (692). Ordering Provider: TYRESE ASIF Report Released Date/Time: July 18, 2023 12:25 PM Reporting Lab: [facility] [address] [facility] [address] Performing Lab: [facility] [address] [facility] [address] PROTEIN, TOTAL 7.3 g/dL 6.0-8.5 ALBUMIN 4.1 g/dL 3.2-5.0 BILIRUBIN, TOTAL 0.9 mg/dL 0.2-1.2 ALKALINE PHOSPHATASE 75 U/L 40-150 ALT(SGPT) 44 U/L 7-52 AST(SGOT) 28 U/L 5-34 FIB-4 SCORE 0.63 <2.67 August 05, 2023 08:15 AM [facility] LIPOPROTEIN CHOLESTEROL FRACT. PANEL Specimen Type: PLASMA Comment: , Tests performed on [employer] Arvind SN:[id number] (405). Ordering Provider: TYRESE ASIF Report Released Date/Time: July 18, 2023 12:25 PM Reporting Lab: [facility] [address] [facility] [address] Performing Lab: [facility] [address] [facility] [address] CHOLESTEROL 161 mg/dL 0-200 TRIGLYCERIDE 110 mg/dL 0-150 HDL CHOLESTEROL 47 mg/dL >40 LDL CHOLESTEROL (CALC) 92 mg/dL 0-129 August 05, 2023 08:15 AM [facility] VIT D 25-OH([facility]) Specimen Type: SERUM Comment: , Tests performed on [employer] SN:[id number] (405) Ordering Provider: TYRESE ASIF Report Released Date/Time: July 18, 2023 12:25 PM Reporting Lab: [facility] [address] [facility] [address] Performing Lab: [facility] [address] [facility] [address] VIT D 25-OH([facility]) 22.9 ng/mL 20.0-50.0 August 05, 2023 08:15 AM [facility] URINALYSIS ONLY NO REFLEXURINALYSIS ONLY Specimen Type: URINE No comment entered. Ordering Provider: TYRESE ASIF Report Released Date/Time: July 18, 2023 12:25 PM Reporting Lab: [facility] [address] [facility] [address] Performing Lab: [facility] [address] [facility] [address] URINE COLOR Light-Yello w NOT DEFINED SPECIFIC [...] AM 97.6 75 124/[address] [facility] [facility] Encounter Notes: All associated encounter notes This section contains the clinical notes associated to the Encounter. Date/Time Encounter Note(s) Provider Source Aug 20, 2023 10:45 AM OTOLARYNGOLOGY OUT PATIENT NOTE: LOCAL TITLE: ENT/Outpatient Progress Note STANDARD TITLE: OTOLARYNGOLOGY OUTPATIENT NOTE DATE OF NOTE: AUG 20, 2023@10:45 ENTRY DATE: AUG 20, 2023@10:46:03 AUTHOR: SHON MARTINEZ EXP COSIGNER: URGENCY: STATUS: COMPLETED *IDENTIFYING INFORMATION* Mr. Higinio Bella returns in follow up of: decreased hearing, allergic rhinitis Treatment summary to date: 1. TM debris left ear- debrox to soften debris 2. Allergic rhinitis immunotherapy many years ago; fluticasone, cetirizine-> loratadine, patanol rx'd (not using) *CC AND INTERIM HPI:* Higinio presents for follow-up on the above issues. He states that he has been compliant with the Debrox to his left ear daily. He has had some crusting of his lateral ear canal recently. He notes some improvement in his left-sided aural fullness and hearing, though he does not feel that is back to baseline. He does hear some crackling in both ears with chewing and talking. No otalgia or otorrhea. He states that his allergies continue to bother him. He is using fluticasone daily. He did switch from cetirizine to loratadine without any noticeable benefit. He complains of itchy watery eyes, nasal congestion and sinus pain/headaches. He states that he has not been able to do the Patanol drops, as he does not like putting anything in his eyes. He did undergo immunotherapy by an client server developer many years ago. He is allergic to dogs, cats and other environmental allergens. He does have 3 dogs at home and does develop hives with contact. *UPDATES TO MEDICAL HISTORY, SOCIAL HISTORY* Records since our last visit (see CPRS) were reviewed. There have been no new medical events to alter the history listed below: Active problems - Computerized Problem List is the source for the followin. Anxiety ([facility] [id number]) 2. Pain of Both Knees ([facility] [id number]) 3. LBP - Low back pain 4. Hemorrhoid 5. Urinary incontinence 6. Cyst 7. Vitamin D deficiency 8. Allergy 9. History of pneumothorax 10. Dyspnea 11. Asthma finding The social history is confirmed to be current as previously documented *MEDICATIONS CURRENTLY IN USE ACCORDING TO THE PATIENT* ALLERGIC TO: PENICILLIN ,RART - Remote Allergy/ADR FACILITY ALLERGY/ADR -------- [id number]^[facility] GREG REPT EFF [id number]^200CHPENICILLIN 402^[facility]^402 PENICILLIN 518^RAFFI LEACH [facility]^518 PENICILLIN 523^[facility]^523PENICILLIN 631^[place] [facility] [place] [facility]^631 PENICILLIN Active Outpatient Medications (excluding Supplies): Active Outpatient Medications Status 1) AMOXICILLIN 875/CLAV K 125MG TAB TAKE 1 TABLET BY ACTIVE MOUTH TWICE A DAY FOR OTITIS MEDIA 2) CIPROFLOXACIN 0.3/DEXAM 0.1% OTIC SUSP INSTILL FOUR ACTIVE DROPS IN LEFT EAR TWICE A DAY FOR OTITIS EXTERNA 3) LORATADINE 10MG TAB TAKE ONE TABLET BY MOUTH ONCE ACTIVE DAILY FOR ALLERGIES 4) OLOPATADINE HCL 0.7% OPH SOLN INSTILL 1 DROP IN BOTH ACTIVE EYES ONCE DAILY FOR ALLERGIC CONJUNCTIVITIS Active Non-VA Medications Status 1) Non-VA FLUTICASONE PROP 50MCG 120D NASAL INHL 2 ACTIVE SPRAYS INTO EACH NOSTRIL ONCE DAILY 5 Total Medications Active Medications from Remote Data DICLOFENAC NA 1% GEL,TOP Sig: APPLY 2 GRAMS TOPICALLY FOUR TIMES A DAY FOR JOINT PAIN FOR OSTEOARTHRITIS - USE DOSING CARD PROVIDED IN BOX Quantity: 100 Days Supply: 30 Original # of Refills: 11 Rx Expiration: 01/25/24 Last filled 01/24/23 at [facility] (Active) CETIRIZINE HCL 10MG TAB Sig: TAKE ONE TABLET BY MOUTH ONCE DAILY FOR ALLERGIES Quantity: 90 Days Supply: 90 Original # of Refills: 3 Rx Expiration: 01/25/24 Last filled 04/28/23 at [facility] (Active) FLUTICASONE PROPIONATE 50MCG/SPRAY SOLN,NASAL,16GM Sig: INSTILL 1 SPRAY INTO EACH NOSTRIL ONCE DAILY NEEDED FOR NASAL IRRITATION/INFLAMMATION Quantity: 1 Days Supply: 30 Original # of Refills: 11 Rx Expiration: 01/25/24 Last filled 01/24/23 at [facility] (Active) ACETAMINOPHEN 500MG TAB Sig: TAKE TWO TABLETS BY MOUTH THREE TIMES DAILY NEEDED FOR PAIN Quantity: 200 Days Supply: 30 Original # of Refills: 5 Rx Expiration: 01/25/24 [facility] (Active) PHYSICAL EXAM: DATE/TIME TEMP PULSE RESP BP PAIN WEIGHT 08/20/23 @ 1004 97.6 75 16 124/83 0 0 (08/20/2023 10:04) Gen : Alert and oriented. NAD. Head/Face: Normocephalic. No lesions or masses. Normal salivary glands- soft/symmetric/not enlarged. Eyes: Sclera injected bilaterally, right more so than left. Teary. Ears: External ears, auditory canals no abnormality. Right TM is translucent and mobile to pneumatic otoscopy. Left TM with a scant amount of white debris and a thin layer along his TM. This was removed with suction. He does have a mild effusion on the left. Both TMs are mobile to pneumatic otoscopy. Merrill midline. AC>BC bilaterally. Nose: External nose without deformity. Septum midline, without deviation, ulceration. Turbinates normal appearance, shrink briskly with decongestants. No intranasal polyps, purulent discharge or bleeding. Oral Cavity: Oral mucosa moist without ulcerations, erythema, leukoplakia. Dentition normal. Oropharynx: Palate of normal appearance and mobility. Normal tongue and mucosa. Nasopharynx: see procedure note Neck: Neck is supple. No adenopathy or masses noted. Parotid and submandibular glands without masses. Thyroid symmetric to palpation; not enlarged. PROCEDURE NOTE-NASAL ENDOSCOPY The patient was anesthetized with 4%lidocaine and 1%neosynephrine into both nares. A rigid scope was inserted into both nares. Nasal septum without deviation, though slight spurring to the right caudally. Nasal turbinates are normal in appearance. Some edema of nasal mucosa noted lateral to middle turbinates. No purulent drainage, ulceration, or bleeding noted. No nasal polyps. The patient tolerated the procedure well, and there were no complications. Scopes used in procedure: [id number] EMMANUELLE 0?? 2.7MM 17CM *COUNSELING:* Counseling and coordination of care accounted for 35 minutes of this 45 minute visit today. *ASSESSMENT & PLANS OR RECOMMENDATIONS* Mr Higinio Bella is a very pleasant 33-year-old male with a history of allergic rhinitis who presents for follow-up on left otitis externa versus otitis media with rupture and allergic rhinitis. 1. Serous otitis media-I reassured him that the dried debris that was adherent to his left TM has improved. It is now more of a liquid consistency, and I was able to suction most of it off of his eardrum. Likely, this is debris from his previously prescribed drops and not infectious. He does have a mild serous otitis media on the left. We discussed treatment options. He will continue with fluticasone nasal spray. I encouraged him to use a eustachidevice and or modified Valsalva to help insufflate. He may need a myringotomy with tympanostomy tube placement if symptoms persist; however, he has a large anterior canal bulge and would benefit from seeing a surgeon to have this done. 2. 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 Reassurance was provided. I encouraged him to continue fluticasone nasal spray. He will continue loratadine every morning. He can add a cetirizine at nighttime, as well, as needed. I encouraged him to try the Patanol eyedrops, as he continues to have allergic conjunctivitis. I also recommended a trial with saline sinus rinses twice daily. If symptoms persist, I would recommend a maxillofacial CT to evaluate for chronic sinusitis. Can consider steroid infused sinus rinses and/or sinus surgery if needed. He will follow-up in 2 months or sooner as needed. /edith/ SHON KEE Signed: 08/20/2023 11:16 SHON MARTINEZ [facility]
--- OUTSIDE RECORDS SUMMARY | 2024-03-18 10:29 | XMS_ITS ---
Author Name [facility] [place] Address [address] [place] [address] Care Team Providers Care Logistics Coordinator Name Role Phone YASMIN CHAWLA Primary Care [...] E HEALTH PLAN [employer] [place] [facility] Jan 16, 2019 [id number] Maxine BELLA HAD PATIENT [employer] ([id number]) PRESCRIPT ION [facility] Jan 16, 2019 [id number] Maxine BELLA HAD PATIENT Selected Encounter This section includes the information on record at [place] for the Encounter. Date/Time Encounter Type Encounter Description Reason Pro vider Source August 09, 2023 01:47 PM Outpatient Encounter TELEPHONE IHE Encounter Template [...] 20 appointments. The data comes from all [place] treatment facilities. Appointment Date/Time Appointment Type Appointme nt Facility Name Aug 20, 2023 10:00 AM AM[place]UL[place]ORY [place] [facility] Sep 23, 2023 09:30 AM AMBULATORY - NONE [facility] Oct 04, 2023 11:30 AM [place] - [place]ONE [place] [facility] Oct 21, 2023 10:00 AM [place] [facility] Oct 21, 2023 01:45 PM [place] [facility] Dec 05, 2023 09:30 AM [place]ORY - NONE [place] [facility] Dec 05, 2023 10:00 AM [place] [facility] Lab Results: +/- 30 days of the [...] Range Comment August 05, 2023 08:15 AM [facility] VITAMIN B-12 Specimen Type: SERUM Comment: , Tests performed on [employer] SN:[id number] (405) Ordering Provider: TYRESE ASIF Report Released Date/Time: July 18, 2023 12:25 PM Reporting Lab: [place] [facility] [address] [place] [facility] [place] [address] Performing Lab: [place] [facility] [address] [facility] [address] VITAMIN B-12 245 pg/mL 200-900 August 05, 2023 08:15 AM [facility] [facility] TESTOSTERONE([facility]) Specimen Type: SERUM Comment: , Tests performed on [employer] SN:[id number] (405) Ordering Provider: TYRESE ASIF Report Released Date/Time: July 18, 2023 12:25 PM Reporting Lab: [place] [facility] [address] [facility] [address] Performing Lab: [place] [facility] [address] [facility] [address] TESTOSTERONE([facility]) 393.8 ng/dL 220-892 August 05, 2023 08:15 AM [facility] P4 GLU,BUN,CREAT,LYTES,CA Specimen Type: PLASMA Comment: , Tests performed on [employer] SN:[id number] (405). Ordering Provider: TYRESE ASIF Report Released Date/Time: July 18, 2023 12:25 PM Reporting Lab: [facility] [address] [facility] [address] Performing Lab: [facility] [address] [phone] UREA NITROGEN 14 mg/dL 7-25 SODIUM 138 [...] MEDICAL CENTER [address] [facility] [address] Performing Lab: [facility] [address] [phone] WBC 7.4 10*3/uL 4.5-11.0 RBC 5.28 10*6/uL [...] Type: PLASMA Comment: , Tests performed on [employer] SN:[id number] (405). Ordering Provider: TYRESE ASIF Report Released Date/Time: July 18, 2023 12:25 PM Reporting Lab: [facility] [address] [facility] [address] Performing Lab: [facility] [address] [facility] [address] PROTEIN, TOTAL 7.3 g/dL 6.0-8.5 ALBUMIN 4.1 g/dL 3.2-5.0 BILIRUBIN, TOTAL 0.9 mg/dL 0.2-1.2 ALKALINE PHOSPHATASE 75 U/L 40-150 ALT(SGPT) 44 U/L 7-52 AST(SGOT) 28 U/L 5-34 FIB-4 SCORE 0.63 <2.67 August 05, 2023 08:15 AM [facility] LIPOPROTEIN CHOLESTEROL FRACT. PANEL Specimen Type: PLASMA Comment: , Tests performed on [employer] SN:[id number] (537). Ordering Provider: TYRESE ASIF Report Released Date/Time: July 18, 2023 12:25 PM Reporting Lab: [facility] [address] [facility] [address] Performing Lab: [facility] [address] [facility] [address] CHOLESTEROL 161 mg/dL 0-200 TRIGLYCERIDE 110 mg/dL [...] MEDICAL CENTER [address] [facility] [address] Performing Lab: [facility] [address] [facility] [address] URINE COLOR Light-Yello w NOT DEFINED SPECIFIC GRAVITY 1.025 1.003-1.030 UROBILINOGEN <2.0 mg/dL <2.0 URINE BILIRUBIN NEG NEG URINE KETONES NEG mg/dL NEG URINE GLUCOSE NEG mg/dL NEG PROTEIN, URINE TRACE mg/dL NEG URINE PH 7.0 5-8 CLARITY CLEAR NOT DEFINED URINE BLOOD NEG NEG NITRITE, URINE NEG NEG WBC SCREEN NEG NEG August 05, 2023 08:15 AM [facility] VIT D 25-OH([facility]) Specimen Type: SERUM Comment: , Tests performed on [employer] SN:[id number] (405) Ordering Provider: TYRESE ASIF Report Released Date/Time: July 18, 2023 12:25 PM Reporting Lab: [facility] [address] [facility] [address] Performing Lab: [facility] [address] [facility] [address] VIT D 25-OH([facility]) 22.9 ng/mL 20.0-50.0 Encounter Notes: All associated encounter notes This section contains the clinical notes associated to the Encounter. Date/Time Encounter Note(s) Provider Source August 09, 2023 01:49 PM LETTERS: LOCAL TITLE: Letter To Patient STANDARD TITLE: LETTERS DATE OF NOTE: AUGUST 09, 2023@13:49 ENTRY DATE: AUGUST 09, 2023@13:49:31 AUTHOR: NED GUSTAFSON EXP COSIGNER: URGENCY: STATUS: COMPLETED DEPARTMENT OF [facility] [address] [place] [address] in reply: 405/Lit 170 AUGUST 09, 2023 HIGINIO BELLA [address], [place] [address] Dear Mr. Bella, I hope this letter finds you well. I am attempting to contact you because one of your [facility] providers believed you recently expressed interest in an appointment for individual psychotherapy at the [facility]. I have attempted to contact you by phone to discuss options for scheduling this appointment. As I was unable to reach you by phone, I am hoping to reach you by way of letter at this time. If you would like to discuss options for scheduling an appointment, please contact me at [phone]. If I do not hear from you by August 23, 2023 I will assume that you are not interested in this service at this time. If we have already spoken by phone by the time you receive this letter and have set a plan in place for care, please disregard this message. Should you wish to access mental health services through the [facility] in the future, please contact me directly through the phone number provided above or discuss this further with your current providers. Very respectfully, Ned Gustafson Psy.D. Clinical Psychologist [facility] Crisis Line: [phone] then press 1 NED GUSTAFSON [facility] August 09, 2023 01:47 PM MENTAL HEALTH TELE PHONE ENCOUNTER NOTE: LOCAL TITLE: Telephone Note/Mental Health STANDARD TITLE: MENTAL HEALTH TELEPHONE ENCOUNTER NOTE DATE OF NOTE: AUGUST 09, 2023@13:47 ENTRY DATE: AUGUST 09, 2023@13:47:31 AUTHOR: NED GUSTAFSON EXP COSIGNER: URGENCY: STATUS: COMPLETED Attempted to contact by phone to provide information about MH services available through [facility] and to offer scheduling as appropriate. Unable to reach at time of call. Left v/m for including clinician name, direct clinic contact information, and request for return call. /edith/ Ned Gustafson PsyD Clinical Psychologist Signed: 08/09/2023 13:48 NED GUSTAFSON [facility]
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
--- OUTSIDE RECORDS SUMMARY | 2024-03-18 10:29 | XMS_ITS | Encounter Summary ---
Author Name [facility] [place] Address [address] [place] [address] Care Team Providers Care Pole Climber Name Role Phone YASMIN CHAWLA Primary Care [...] E HEALTH PLAN [facility] [place] [facility] Jan 16, 2019 [id number] [phone] Maxine BELLA HAD PATIENT [facility] ([id number]) PRESCRIPT ION [facility] Jan 16, 2019 [id number] Maxine BELLA HAD PATIENT Selected Encounter This section includes the information on record at [place] for the Encounter. Date/Time Encounter Type Encounter Description Reason Provider Source Oct 21, 2023 10:00 AM OFFICE O/P EST MOD 30 MIN OTOLARYNGOLOGY/ENT ICD-10-CM J30.81 Allergic rhinitis due to animal (cat) (dog) hair and dander SHON MARTINEZ Julia Encounter Template Text not used by [place] Assessments - Encounter Diagnoses This section includes the primary and secondary diagnoses documented for the Encounter. Date/Time Primary/Secondary Diagnosis Diagnosis Name Provider Source Oct 21, 2023 10:38 AM PRIMARY Allergic rhinitis due to animal (cat) (dog) meche and dander SHON MARTINEZ [facility] Oct 21, 2023 10:38 AM SECONDARY Chronic serous otitis media, left ear SHON MARTINEZ [facility] Oct 21, 2023 10:38 AM SECONDARY Other seasonal allergic rhinitis SHON MARTINEZ [facility] Oct 21, 2023 10:38 AM SECONDARY Snsrnrl hear loss, uni, left ear, w unrestr hear cntra side SHON MARTINEZ [facility] Plan of Treatment: Future Appointments (+ 6 months) and Future Tests (+/- 45 days) The Plan of Treatment section includes future care activities for the patient from all [place] treatmentfacilities. This section includes future appointments and [...] NONE [facility] Dec 05, 2023 10:00 AM AMBULATORY - SURGERY [facility] Apr 02, 2024 10:00 AM AMBULATORY - SURGERY [facility] Lab Results: +/- 30 days of the encounter This section includes the Chemistry and Hematology Lab Results on record with [place] for the patient. Radiology Reports and Pathology Reports are provided separately, in subsequent sections. Lab Results This section contains the Chemistry/Hematology Results that were resulted 30 days before or 30 daysafter the date of the Encounter. Date/Time Source Result Type Result - Unit Interpretation Reference Range Comment Sep 23, 2023 09:35 AM [facility] LYME SEROLOGY PANEL(WH) Specimen Type: [...] of the panel were validated at the [facility]. Results are considered positive [...] 2023 04:18 PM Reporting Lab: [facility] [address] [facility] [address] Performing Lab: [facility] [address] [facility] [address] TIER 1 LYME SCREENING EIA() Negative Negative LYME AB,FINAL INTERPRETATI ON() Negative Negative Vital Signs: All taken on the encounter date This section contains inpatient and outpatient Vital Signs collected on the date of the Encounter. Date/Time Temperature Pulse Blood Pressure Respiratory Rate SP02 Pain Height Weight Body Mass Index Source Oct 21, 2023 10:01 AM 97.2 65 128/83 18 100 0 [facility] Radiology Reports: +/- 30 days [...] the Encounter. The data comes from all [place] treatment facilities. Date/Time Radiology Report Provider Source Oct 21, 2023 10:49 AM HAND 3 VIEWS (ROUT INE): HIGINIO BELLA [id number] -1990 M Exm Date: OCT 21, 2023@10:49 Req Phys: YEFRITYRESE Pat Loc: LIT PACT R (Req'g Loc) Img Loc: XRAY (OOS) Service: [place] [address] (Case 55 COMPLETE) HAND 3 VIEWS (ROUTINE) (RAD Detailed) CPT:64234 Proc Modifiers : RIGHT Reason for Study: possible foreign body R palm Clinical History: ? glass in R palm since Mar 2023 Report Status: Verified Date Reported: OCT 21, 2023 Date Verified: OCT 21, 2023 Keg Header E-Sig:/ES/NATALIA BUTLER Report: Right hand, 4 views [...] REQUIRED Primary Interpreting Staff: NATALIA BUTLER, Staff (Keg Header) Primary Interpreting Resident: GUERO SIMMONS Resident Physician /NATALIA XAVIER [facility] Encounter Notes: All associated encounter notes This section contains the clinical notes associated to the Encounter. Date/Time Encounter Note(s) Provider Source Oct 21, 2023 10:00 AM OTOLARYNGOLOGY OUT PATIENT NOTE: LOCAL TITLE: ENT/Outpatient Progress Note STANDARD TITLE: OTOLARYNGOLOGY OUTPATIENT NOTE DATE OF NOTE: OCT 21, 2023@10:00 ENTRY DATE: OCT 21, 2023@10:00:58 AUTHOR: SHON MARTINEZ COSIGNER: URGENCY: STATUS: COMPLETED *IDENTIFYING INFORMATION* Mr. Higinio Bella returns in follow up of: Left serous otitis media, allergic rhinitis Treatment summary to date: 1. Left serous otitis media-auto insufflation, eustachidevice 2. Allergic rhinitis immunotherapy many years ago; fluticasone, cetirizine-> loratadine, patanol rx'd (not using). Saline sinus rinses. *CC AND INTERIM HPI:* Higinio presents for follow-up on the above issues. He states that he has been using his eustachidevice twice daily and doing auto insufflation throughout the day. He states that the crackling and fluid sensation in his left ear has improved. He does continue to sense some differences in hearing in his ears, left more diminished than right. He states that his allergies continue to bother him somewhat, though are significantly improved. He states that his allergy symptoms are the best that they have been in the last 15 years. He has been compliant with loratadine daily. He has not started Patanol eyedrops. He has been less compliant with the saline sinus rinses, as they are cumbersome. He is hoping to purchase an [employer] unit. He did undergo immunotherapy by an credit representative many years ago. He is allergic to [...] is the source for the followin. Anxiety ([facility] [id number]) 2. Pain of Both Knees ([facility] [id number]) 3. LBP - Low back pain 4. Hemorrhoid 5. Urinary incontinence 6. Cyst 7. Vitamin D deficiency 8. Allergy 9. History of pneumothorax 10. Dyspnea 11. Asthma finding The social history is confirmed to be current as previously documented *MEDICATIONS CURRENTLY IN USE ACCORDING TO THE PATIENT* ALLERGIC TO: PENICILLIN ,RART - Remote Allergy/ADR FACILITY ALLERGY/ADR -------- 01404^CLNCL/HLTH GREG REPT EFF [id number]^[address]^[facility]^[address] 518^[facility]^[address] 523^[facility]^[address] 631^[facility]^[address] Active Outpatient Medications (excluding Supplies): [...] Rx Expiration: 01/25/24 Last filled 01/24/23 at [facility] (Active) CETIRIZINE HCL 10MG TAB Sig: TAKE ONE TABLET BY MOUTH ONCE DAILY FOR ALLERGIES Quantity: 90 Days Supply: 90 Original # of Refills: 3 Rx Expiration: 01/25/24 Last filled 04/28/23 at [facility] (Active) FLUTICASONE PROPIONATE 50MCG/SPRAY SOLN,NASAL,16GM Sig: INSTILL 1 SPRAY INTO EACH NOSTRIL ONCE DAILY NEEDED FOR NASAL IRRITATION/INFLAMMATION Quantity: 1 Days Supply: 30 Original # of Refills: 11 Rx Expiration: 01/25/24 Last filled 01/24/23 at [facility] (Active) ACETAMINOPHEN 500MG TAB Sig: TAKE TWO TABLETS BY MOUTH THREE TIMES DAILY NEEDED FOR PAIN Quantity: 200 Days Supply: 30 Original # of Refills: 5 Rx Expiration: 01/25/24 Last filled 01/24/23 at [facility] (Active) PHYSICAL EXAM: BP: 128/83 (10/21/2023 10:01) Pulse: 65 (10/21/2023 10:01) Temp: 97.2 F [36.2 C] (10/21/2023 10:01) Resp: 18 (10/21/2023 10:01) HT(in): 66 in [167.6 cm] (10/04/2023 11:45) WT(lbs):151.8 lb [68.86 kg] (10/04/2023 11:45) 10/21/23 @ 1001 PULSE OXIMETRY: 100 Gen : Alert and oriented. NAD. Head/Face: Normocephalic. No lesions or masses. Normal salivary glands- soft/symmetric/not enlarged. Eyes: Sclera injected bilaterally. Teary. Ears: External ears, auditory canals no abnormality. TMs are translucent and mobile to pneumatic otoscopy, bilaterally. No middle ear effusion is appreciated. Merrill to the right. AC>BC bilaterally. Nose: External nose without deformity. Septum midline, without deviation, ulceration. Turbinates normal appearance, shrink briskly with decongestants. No intranasal polyps, purulent discharge or bleeding. Oral Cavity: Oral mucosa moist without ulcerations, erythema, leukoplakia. Dentition normal. Oropharynx: Palate of normal appearance and mobility. Normal tongue and mucosa. Neck: Neck is supple. No adenopathy or masses noted. Parotid and submandibular glands without masses. Thyroid symmetric to palpation; not enlarged. *ASSESSMENT & PLANS OR RECOMMENDATIONS* Mr Higinio Bella is a very pleasant 33-year-old male with a history of allergic rhinitis who presents for follow-up on left serous otitis media and allergic rhinitis. 1. Serous otitis media- I reassured him that his middle ear effusion has resolved with the use of eustachidevice and auto insufflation. The sense of diminished hearing in his left ear is likely sensorineural in nature, given my tuning fork findings. We discussed the role of an audiogram. He prefers to hold off, as he is not particularly affected by this asymmetry. 2. Allergic rhinitis-significantly improved on loratadine daily, fluticasone 2 sprays daily and sinus rinses. Continue. We did discuss the role of restarting immunotherapy. He prefers to hold off for now but will contact me if a consultation to an credit representative is desired. Again, I reiterated the importance of taking medication holidays from his antihistamines. He can switch back to cetirizine if and when he develops a tolerance to loratadine. He expressed understanding and agreed with this plan. /edith/ SHON KEE Signed: 10/21/2023 10:38 SHON MARTINEZ [facility]
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
--- OUTSIDE RECORDS SUMMARY | 2024-03-18 10:29 | XMS_ITS | Encounter Summary ---
Author Name [facility] [place] [facility] [place] Address [address] [place] [address] Care Team Providers Care Fire Observer Name Role Phone YASMIN CHAWLA Primary [...] [facility] Jan 16, 2019 [id number] [phone] Maxine HEDRICK HAD PATIENT [facility] ([id number]) [facility] Jan 16, 2019 [id number] [phone] Maxine HEDRICK HAD PATIENT Selected Encounter This section includes the information on record at [place] for the Encounter. Date/Time Encounter Type Encounter Description Reason Pro vider Source Sep 17, 2023 10:17 AM Outpatient Encounter TELEPHONE TRIAGE IHE Encounter Template Text not used by [...] 20 appointments. The data comes from all [place] treatment facilities. Appointment Date/Time Appointment Type Appointme nt Facility Name Sep 23, 2023 09:30 AM AMBULATORY - NONE [facility] Oct 04, 2023 11:30 AM AMBULATORY - NONE [facility] Oct 21, 2023 10:00 AM AMBULATORY - SURGERY [facility] Oct 21, 2023 01:45 PM [facility] - [place] [facility] Dec 05, 2023 09:30 AM AMBULATORY - NONE [facility] Dec 05, 2023 10:00 AM AMBULATORY - SURGERY [facility] Lab Results: +/- 30 days of the encounter This section includes the Chemistry and Hematology Lab Results on record with [place] for the patient. Radiology Reports and Pathology [...] of the panel were validated at the [facility]. Results are considered [...] Sep 18, 2023 04:18 PM Reporting [facility]: [facility] [address] [facility] [id number] Performing Lab: [facility] [address] [facility] [id number] TIER 1 LYME SCREENING EIA() Negative Negative LYME AB,FINAL INTERPRETATI ON(wh) Negative Negative Encounter Notes: All associated encounter notes This section contains the clinical notes associated to the Encounter. Date/Time Encounter Note(s) Provider Source Sep 17, 2023 10:17 AM RN PROGRESS NOTE: LOCAL TITLE: CCC: CLINICAL TRIAGE STANDARD TITLE: RN PROGRESS NOTE DATE OF NOTE: SEP 17, 2023@10:17:09 ENTRY DATE: SEP 17, 2023@10:17:09 AUTHOR: ABI HENDRICKS EXP COSIGNER: URGENCY: STATUS: COMPLETED Patient Demographics Patient Name: HIGINIO HEDRICK Patient Primary Address: [address] [place] [address] Patient Primary Phone: [phone] Patient : 1990 Patient Age: 33 Caller/Recipient Relation to Patient: Self Emergency Contact: LASHA HEDRICK Triage Summary Conducted triage/discussed symptoms Pain Score: 6 (Moderate to Severe Pain) Utilized the Triage Tool: Yes Chief Complaint: Shoulder Pain System WHEN: Within 24 Hours Nurse's Recommendation / WHEN: Within 24 Hours System WHERE: Clinic Nurse's Recommendation / WHERE: Clinic/[facility] Patient Disposition Patient/Caregiver agrees to plan of care: Yes Patient WHERE: Clinic/[facility] Patient WHEN: Within 24 hours Nursing Plan and Disposition Referred for [facility] Virtual Clinic Visit Transferred patient to Sched & Admin-VCV Referred Patient for In-Person Appt Transferred patient to Sched & Admin-Apt Other course(s) of action Generated msg to PACT/Provider Provided guidance for worsening symptoms: *Caller/Patient* advised to call facilities [place] Clinical Contact Center or seek immediate medical attention for new or worsening symptoms Nurse Summary Nurse Summary: requesting pact appt to discuss several concerns 1. Left shoulder pain x 2 weeks, rates 6/10, no relief w/advil, denies injury, no redness, no swelling, no deformity, limited ROM. denies CP, no SOB, no N/V, no palpitations/dizziness or cardiac s/s 2. Ongoing chronic b/l knee pain w/intermittent swelling x several years, minimal relief w/advil, current pain /10, minimal relief w/physical therapy 3. Requesting lyme testing due to pain in knees & shoulder, no current bite, no open areas, red streaks, fevers, or rashes Plan: [facility] recommendation: medical eval w/in 24 hours, will attempt to schedule f2f or VVC w/pact or ccc correspondence school instructor. [place] in agreement with CCC RN recommendations. Message sent to 's PACT team via CPRS/CRM, View alerted 2 Pact Team members/Nurse/s PER VISN 1 Protocol for f/u. Caller/ verbalizes understanding of the information provided. Advised caller/[place] that a note will be forwarded to the provider and/or the career professional for review, further recommendations, and/or follow-up. Advised of 24 hour availability of clinical call center at [phone] to answer questions, address concerns & to provide assistance in navigating healthcare for veterans. Given strict ED precautions to immediately seek treatment should their condition worsen, new signs or symptoms develop, or with any other emergent matters Modality: Warm conference call with [facility] for scheduling Verbalizes understanding to seek care in Urgent Care or Emergency Department should symptoms worsen before their appointment time. Clinical Contact Center Codes Clinic/Location: V1 WRJ PHONE CCC RN TXCC Triage Complete Triage Date: 09/17/2023, 10:07 AM Triage Note: Phone Triage 17 Sep 2023 14:05:59 +0000 [facility] Demographics 33 y/o Male Results CC: Shoulder Pain Software suggested: Within 24 Hours Software suggested follow-up location: Clinic, consider [facility] [place] [facility] Values and Measures Duration of CC: 2 Weeks Positive Responses HPI: shoulder pain, moderate to severe HPI: shoulder pain, worsening HPI: skin tenderness, shoulder, worsening VS: temperature not taken Negative Responses Denies: HPI: axillary lymphadenopathy Denies: HPI: fever, subjective Denies: HPI: shoulder injury, within past 2 days Denies: HPI: shoulder pain, severe Denies: HPI: shoulder swelling, with shoulder pain Denies: HPI: skin erythema, shoulder Denies: HPI: skin lump, swollen, painful, over the shoulder Denies: HPI: skin swelling, shoulder, worsening Denies: HPI: vomiting Denies: PMH: rheumatoid arthritis Denies: PMH: systemic lupus erythematosus Denies: PSH: shoulder surgery, within past week /es/ Abi Hendricks RN VISN1 [facility] Signed: 09/17/2023 10:17 Receipt Acknowledged By: 09/17/2023 11:35 /es/ ISELA MENDOZA LPN 09/17/2023 10:31 /es/ POPPY ALEXANDRA Registered Nurse ABI HENDRICKS [facility]
--- OUTSIDE RECORDS SUMMARY | 2024-03-18 10:29 | XMS_ITS | Encounter Summary ---
Author Name [facility] [place] [facility] [facility] [place] Address [address] [place] [address] Care Team Providers Care Vacuum Drier Operator Name Role Phone YASMIN CHAWLA Primary [...] [employer] [facility] Jan 16, 2019 [id number] [phone] Maxine BELLA HAD PATIENT [facility] ([id number]) PRESCRIPT ION [facility] Jan 16, 2019 [id number] Maxine BELLA HAD PATIENT Selected Encounter This section includes the information on record at [place] for the Encounter. Date/Time Encounter Type Encounter Description Reason Pro vider Source Aug 23, 2023 09:08 AM Outpatient Encounter TELEPHONE IHE Encounter Template Text [...] 20 appointments. The data comes from all [place] treatment facilities. Appointment Date/Time Appointment Type Appointme nt Facility Name Sep 23, 2023 09:30 AM AMBULATORY - NONE [facility] Oct 04, 2023 11:30 AM [place]ATORY - NONE [place] [facility] Oct 21, 2023 10:00 AM [place] [facility] Oct 21, 2023 01:45 PM [place] [facility] Dec 05, 2023 09:30 AM AMBULATORY - NONE [place] [facility] Dec 05, 2023 10:00 AM [place] [facility] Lab Results: +/- 30 days of [...] Range Comment August 05, 2023 08:15 AM [facility] VITAMIN B-12 Specimen Type: SERUM Comment: , Tests performed on [employer] Aditya SN:[id number] (405) Ordering Provider: TYRESE ASIF Report Released Date/Time: July 18, 2023 12:25 PM Reporting Lab: [facility] [address] [facility] [address] Performing Lab: [facility] [address] [facility] [address] VITAMIN B-12 245 pg/mL 200-900 August 05, 2023 08:15 AM [facility] TESTOSTERONE(WRJ) Specimen Type: SERUM Comment: , Tests performed on [employer] [place] SN:[id number] (405) Ordering Provider: TYRESE ASIF Report Released Date/Time: July 18, 2023 12:25 PM Reporting Lab: [facility] [facility] [address] [place] [facility] [place] [address] Performing Lab: [facility] [address] [facility] [address] TESTOSTERONE(WRJ) 393.8 ng/dL 220-892 August 05, 2023 08:15 AM [facility] P4 GLU,BUN,CREAT,LYTES,CA Specimen Type: PLASMA Comment: , Tests performed on [employer] Wonder SN:[id number] (405). Ordering Provider: TYRESE ASIF Report Released Date/Time: July 18, 2023 12:25 PM Reporting Lab: [facility] [address] [id number] Performing Lab: [facility] [address] [id number] UREA NITROGEN 14 mg/dL 7-25 SODIUM 138 mmol/L 135-145 POTASSIUM 4.2 mmol/L 3.5-5.0 CHLORIDE 104 mmol/L 100-110 CARBON DIOXIDE 26 mmol/L 20-30 ANION GAP 8 4-16 GLUCOSE 90 mg/dL 65-100 CREATININE 1.13 mg/dL 0.50-1.50 CALCIUM 9.4 mg/dL 8.5-10.5 eGFR(CKD-EPI 2020) 88 mL/min August 05, 2023 08:15 AM [facility] CBC PROFILE Specimen Type: BLOOD No comment entered. Ordering Provider: TYRESE ASIF Report Released Date/Time: July 18, 2023 12:25 PM Reporting Lab: [facility] [address] [facility] [address] Performing Lab: [facility] [address] [phone] WBC 7.4 10*3/uL 4.5-11.0 RBC 5.28 10*6/uL [...] 10*3/uL 0-0 August 05, 2023 08:15 AM [facility] LIVER PROFILE Specimen Type: PLASMA Comment: , Tests performed on Chacko SCOUPY Arvind SN:[id number] (405). Ordering Provider: TYRESE ASIF Report Released Date/Time: July 18, 2023 12:25 PM Reporting Lab: [facility] [address] [facility] [address] Performing Lab: [facility] [address] [id number] PROTEIN, TOTAL 7.3 g/dL 6.0-8.5 ALBUMIN 4.1 g/dL 3.2-5.0 BILIRUBIN, TOTAL 0.9 mg/dL 0.2-1.2 ALKALINE PHOSPHATASE 75 U/L 40-150 ALT(SGPT) 44 U/L 7-52 AST(SGOT) 28 U/L 5-34 FIB-4 SCORE 0.63 <2.67 August 05, 2023 08:15 AM [facility] LIPOPROTEIN CHOLESTEROL FRACT. PANEL Specimen Type: PLASMA Comment: , Tests performed on Chacko SCOUPY Arvind SN:[id number] (405). Ordering Provider: TYRESE ASIF Report Released Date/Time: July 18, 2023 12:25 PM Reporting Lab: [facility] [address] [facility] [address] Performing Lab: [facility] [address] [phone] CHOLESTEROL 161 mg/dL 0-200 TRIGLYCERIDE 110 mg/dL 0-150 HDL CHOLESTEROL 47 mg/dL >40 LDL CHOLESTEROL (CALC) 92 mg/dL 0-129 August 05, 2023 08:15 AM [facility] URINALYSIS ONLY NO REFLEXURINALYSIS ONLY Specimen Type: URINE No comment entered. Ordering Provider: TYRESE ASIF Report Released Date/Time: July 18, 2023 12:25 PM Reporting Lab: [facility] [address] [facility] [address] Performing Lab: [facility] [address] [facility] [address] URINE COLOR Light-Yello w NOT DEFINED SPECIFIC GRAVITY 1.025 1.003-1.030 UROBILINOGEN <2.0 mg/dL <2.0 URINE BILIRUBIN NEG NEG URINE KETONES NEG mg/dL NEG URINE GLUCOSE NEG mg/dL NEG PROTEIN, URINE TRACE mg/dL NEG URINE PH 7.0 5-8 CLARITY CLEAR NOT DEFINED URINE BLOOD NEG NEG NITRITE, URINE NEG NEG WBC SCREEN NEG NEG August 05, 2023 08:15 AM [facility] VIT D 25-OH([facility]) Specimen Type: SERUM Comment: , Tests performed on [employer] [place] SN:[id number] (405) Ordering Provider: TYRESE ASIF Report Released Date/Time: July 18, 2023 12:25 PM Reporting Lab: [facility] [address] [facility] [address] Performing Lab: [facility] [address] [facility] [address] VIT D 25-OH([facility]) 22.9 ng/mL 20.0-50.0 Encounter Notes: All associated encounter notes This section contains the clinical notes associated to the Encounter. Date/Time Encounter Note(s) Provider Source Aug 23, 2023 09:11 AM LETTERS: LOCAL TITLE: Letter To Patient STANDARD TITLE: LETTERS DATE OF NOTE: AUG 23, 2023@09:11 ENTRY DATE: AUG 23, 2023@09:12:09 AUTHOR: NED GUSTAFSON EXP COSIGNER: URGENCY: STATUS: COMPLETED DEPARTMENT OF [facility] [address] [place] [address] in reply: 405/Lit 170 AUG 23, 2023 August 23, 2023 Mr. Higinio Bella [address] [place] [address] Dear Mr. Bella, I hope this letter finds you well. I am attempting to contact you to offer rescheduling of a cancelled appointment for psychotherapy that we had originally scheduled for 08/19/23. I have attempted to contact you by phone to discuss options for rescheduling this appointment. As I was unable to reach you by phone, I am hoping to reach you by way of letter at this time. If you would like to discuss options for scheduling an appointment, please contact me at [phone]. If I do not hear from you by September 06, 2023 I will assume that you are not interested in this service at this time. If we have already spoken by phone by the time you receive this letter and have set a plan in place for care, please disregard this message. Should you wish to access mental health services through the [facility] in the future, please contact me directly through the phone number provided above or discuss this further with your current providers. Very respectfully, Ned Gustafson Psy.D. Clinical Psychologist [facility] Crisis Line: [phone] then press 1 NED GUSTAFSON [facility] Aug 23, 2023 09:08 AM MENTAL HEALTH TELE PHONE ENCOUNTER NOTE: LOCAL TITLE: Telephone Note/Mental Health STANDARD TITLE: MENTAL HEALTH TELEPHONE ENCOUNTER NOTE DATE OF NOTE: AUG 23, 2023@09:08 ENTRY DATE: AUG 23, 2023@09:08:26 AUTHOR: NED GUSTAFSON EXP COSIGNER: URGENCY: STATUS: COMPLETED Attempted to contact by phone to offer r/s of recent appointment cancelled by . Unable to reach at time of call. Left v/m for including clinician name, direct clinic contact information, and request for return call should he be interested in rescheduling this appointment. /edith/ Ned Gustafson PsyD Clinical Psychologist Signed: 08/23/2023 09:08 NED GUSTAFSON [facility]
--- OUTSIDE RECORDS SUMMARY | 2024-03-18 10:29 | XMS_ITS | Encounter Summary ---
Author Name [facility] [place] [facility] [place] [facility] [place] Address [address] [place] [address] Care Team Providers Care Box Maker Name Role Phone YASMIN CHAWLA Primary Care [...] E [employer] [facility] [place] [facility] Jan 16, 2019 [id number] Maxine HEDRICK HAD PATIENT [facility] ([id number]) PRESCRIPT ION [facility] Jan 16, 2019 [id number] Maxine HEDRICK HAD PATIENT Selected Encounter This section includes the information on record at [place] for the Encounter. Date/Time Encounter Type Encounter Description Reason Pro vider Source Sep 17, 2023 08:45 AM Outpatient Encounter PRIMARY CARE/MEDICINE IHE Encounter [...] 23, 2023 09:30 AM AMBULATORY - NONE [facility] Oct 04, 2023 11:30 AM [facility] - NONE [place] [facility] Oct 21, 2023 10:00 AM [place] [facility] Oct 21, 2023 01:45 PM [place] [facility] Dec 05, 2023 09:30 AM [place]ORY - NONE [place] [facility] Dec 05, 2023 10:00 AM [place] [facility] Lab Results: +/- 30 days of [...] Sep 18, 2023 04:18 PM Reporting Lab: [facility] [address] [facility] [address] Performing Lab: [facility] [address] [facility] [address] TIER 1 LYME SCREENING EIA() Negative Negative LYME AB,FINAL INTERPRETATI ON(wh) Negative Negative Encounter Notes: All associated encounter notes This section contains the clinical notes associated to the Encounter. Date/Time Encounter Note(s) Provider Source Sep 17, 2023 08:45 AM PRIMARY CARE [facility] MESSAGING: LOCAL TITLE: PRIMARY CARE SECURE MESSAGING STANDARD TITLE: PRIMARY CARE SECURE MESSAGING DATE OF NOTE: SEP 17, 2023@08:45 ENTRY DATE: SEP 17, 2023@09:45:49 AUTHOR: DALIA CORRALES EXP COSIGNER: URGENCY: STATUS: COMPLETED PRIMARY CARE SECURE MESSAGING Has ADDENDA ------Original Message ---- Sent: 09/17/2023 08:17 AM ET From: HIGINIO HEDRICK To: Julia ASIF_PRIMARYMARY ELLEN_LIT Subject: Appointment:Joint Pain/Lyme Test Good Morning, Can I schedule an appointment to be seen for joint pain please? It has become increasingly worse over the last week. Thanks! Higinio /edith/ DALIA CORRALES Signed: 09/17/2023 09:45 Receipt Acknowledged By: 09/17/2023 09:57 /edith/ ISELA MENDOZA [employer]ICIAL [employer] REPORTER 09/17/2023 10:29 /es/ POPPY ALEXANDRA Registered Nurse 09/17/2023 ADDENDUM STATUS: COMPLETED RTC is in place [facility] alerted via teams /es/ ISELA MENDOZA LPN Signed: 09/17/2023 09:57 [facility]ES [facility]
--- OUTSIDE RECORDS SUMMARY | 2024-03-18 10:29 | XMS_ITS | Encounter Summary ---
Author Name [facility] [facility] [place] Address [address] [place] [address] Care Team Providers Care Nat Instructor Name Role Phone YASMIN CHAWLA Primary Care [...] E HEALTH PLAN [facility] [place] [facility] Jan 16, 2019 [id number] [phone] Maxine BELLA HAD PATIENT [facility] ([id number]) PRESCRIPT ION [facility] Jan 16, 2019 [id number] Maxine BELLA HAD PATIENT Selected Encounter This section includes the information on record at [place] for the Encounter. Date/Time Encounter Type Encounter Description Reason Provider Source Aug 19, 2023 01:00 PM Outpatient Encounter TELEPHONE TRIAGE ICD-10-CM M25.561 Pain in right knee MARCY DONOHUE Encounter Template Text not used by [facility] Assessments - Encounter Diagnoses This section includes the primary and secondary diagnoses documented for the Encounter. Date/Time Primary/Secondary Diagnosis Diagnosis Name Provider Source Aug 19, 2023 01:00 PM PRIMARY Pain in right knee MARCY DONOHUE [facility] Aug 19, 2023 01:00 PM SECONDARY Anxiety disorder, unspecified MARCY DONOHUE [facility] Aug 19, 2023 01:00 PM SECONDARY Lyme disease, unspecified MARCY DONOHUE [facility] Aug 19, 2023 01:00 PM SECONDARY Pain in left knee MARCY DONOHUE [facility] Aug 19, 2023 01:00 PM SECONDARY Pain in left shoulder MARCY DONOHUE [facility] Plan of Treatment: Future Appointments (+ 6 [...] 10:00 AM AMBULATORY - [place]GERY [place] [facility] Sep 23, 2023 09:30 AM AMBULATORY - NONE [facility] Oct 04, 2023 11:30 AM AMBULATORY - NONE [place] [facility] Oct 21, 2023 10:00 AM AMBULATORY - [place]GERY [place] [facility] Oct 21, 2023 01:45 PM AMBUL[facility]ORY [place] [facility] Dec 05, 2023 09:30 AM AMBULATORY - NONE [place] [facility] Dec 05, 2023 10:00 AM AMBULATORY - SURGERY [place] [facility] Lab Results: +/- 30 days of the [...] Reporting Lab: [facility] [address] [facility] [address] Performing Lab: [facility] [address] [facility] [address] URINE COLOR Light-Yello w NOT DEFINED SPECIFIC GRAVITY 1.025 1.003-1.030 UROBILINOGEN <2.0 mg/dL <2.0 URINE BILIRUBIN NEG NEG URINE KETONES NEG mg/dL NEG URINE GLUCOSE NEG mg/dL NEG PROTEIN, URINE TRACE mg/dL NEG URINE PH 7.0 5-8 CLARITY CLEAR NOT DEFINED URINE BLOOD NEG NEG NITRITE, URINE NEG NEG WBC SCREEN NEG NEG August 05, 2023 08:15 AM [facility] VIT D 25-OH([facility]) Specimen Type: SERUM Comment: , Tests performed on [employer] [place] Leather Burgess SN:[id number] (405) Ordering Provider: TYRESE ASIF Report Released Date/Time: July 18, 2023 12:25 PM Reporting Lab: [facility] [address] [facility] [address] Performing Lab: [facility] [address] [facility] [address] VIT D 25-OH([facility]) 22.9 ng/mL 20.0-50.0 August 05, 2023 08:15 AM [facility] VITAMIN B-12 Specimen Type: SERUM Comment: , Tests performed on Chack[employer] [place] Le[employer] Burgess SN:[id number] (405) Ordering Provider: TYRESE ASIF Report Released Date/Time: July 18, 2023 12:25 PM Reporting Lab: [facility] [address] [facility] [address] Performing Lab: [facility] [address] [facility] [address] VITAMIN B-12 245 pg/mL 200-900 August 05, 2023 08:15 AM [facility] TESTOSTERONE([facility]) Specimen Type: SERUM Comment: , Tests performed on [employer] [place] Le[employer] Burgess SN:[id number] (405) Ordering Provider: TYRESE ASIF Report Released Date/Time: July 18, 2023 12:25 PM Reporting Lab: [facility] [address] [facility] [address] Performing Lab: [facility] [address] [facility] [address] TESTOSTERONE([facility]) 393.8 ng/dL 220-892 August 05, 2023 08:15 AM [facility] CBC PROFILE Specimen Type: BLOOD No comment entered. Ordering Provider: TYRESE ASIF Report Released Date/Time: July 18, 2023 12:25 PM Reporting Lab: [facility] [address] [facility] [address] Performing Lab: [facility] [address] [facility] [address] WBC 7.4 10*3/uL 4.5-11.0 RBC 5.28 10*6/uL [...] PLASMA Comment: , Tests performed on [employer] Geneticist Arvind SN:[id number] (405). Ordering Provider: TYRESE ASIF Report Released Date/Time: July 18, 2023 12:25 PM Reporting Lab: [facility] [address] [facility] [address] Performing Lab: [facility] [address] [facility] [address] UREA NITROGEN 14 mg/dL 7-25 SODIUM 138 mmol/L 135-145 POTASSIUM 4.2 mmol/L 3.5-5.0 CHLORIDE 104 mmol/L 100-110 CARBON DIOXIDE 26 mmol/L 20-30 ANION GAP 8 4-16 GLUCOSE 90 mg/dL 65-100 CREATININE 1.13 mg/dL 0.50-1.50 CALCIUM 9.4 mg/dL 8.5-10.5 eGFR(CKD-EPI 2020) 88 mL/min August 05, 2023 08:15 AM [facility] LIVER PROFILE Specimen Type: PLASMA Comment: , Tests performed on [employer] Geneticist Arvind SN:[id number] (405). Ordering Provider: TYRESE ASIF Report Released Date/Time: July 18, 2023 12:25 PM Reporting Lab: [facility] [address] [facility] [address] Performing Lab: [facility] [address] [facility] [address] PROTEIN, TOTAL 7.3 g/dL 6.0-8.5 ALBUMIN 4.1 g/dL 3.2-5.0 BILIRUBIN, TOTAL 0.9 mg/dL 0.2-1.2 ALKALINE PHOSPHATASE 75 U/L 40-150 ALT(SGPT) 44 U/L 7-52 AST(SGOT) 28 U/L 5-34 FIB-4 SCORE 0.63 <2.67 August 05, 2023 08:15 AM [facility] LIPOPROTEIN CHOLESTEROL FRACT. PANEL Specimen Type: PLASMA Comment: , Tests performed on Chack[employer] [place] Leather Arvind SN:[id number] (405). Ordering Provider: TYRESE ASIF Report Released Date/Time: July 18, 2023 12:25 PM Reporting Lab: [facility] [address] [facility] [address] Performing Lab: [facility] [address] [facility] [address] CHOLESTEROL 161 mg/dL 0-200 TRIGLYCERIDE 110 mg/dL 0-150 HDL CHOLESTEROL 47 mg/dL >40 LDL CHOLESTEROL (CALC) 92 mg/dL 0-129 Encounter Notes: All associated encounter notes This section contains the clinical notes associated to the Encounter. Date/Time Encounter Note(s) Provider Source Sep 18, 2023 03:57 PM TELEHEALTH NOTE: LOCAL TITLE: TELE EMERGENCY CARE NOTE STANDARD TITLE: TELEHEALTH NOTE DATE OF NOTE: SEP 18, 2023@15:57 ENTRY DATE: SEP 18, 2023@15:57:47 AUTHOR: MARCY DONOHUE COSIGNER: URGENCY: STATUS: COMPLETED TELE EMERGENCY CARE NOTE Has ADDENDA This is a tele-emergency care visit to address acute/urgent issues. Definitive care on chronic medical issues will be deferred to routine Primary Care appointment/provider. Consult Origin: Referral from the Clinical Contact Center/Call Center Type of Visit: Video Visit: Telehealth Disclosure: Visit conducted by synchronous telehealth. Patient verbal consent obtained. Location/emergency number confirmed. Environment surveyed and all participants identified. Virtual conference room locked. Emergency contact information was obtained as follows: Patient's current address [address] [place] [phone] Patient's LASHA BELLA [address] [place] [phone] Subjective: Mr. Bella is a 33 year old male female who presents via [facility] visit for complaints of left shoulder pain, bilateral knee pain, and recent tick bites. reports he had a tick over a month on back of right leg and another tick bite today located above arm pit on right shoulder. Reports the head was removed from each bite. Denies any rash, fever. Left shoulder pain presented approx. 1. 5 weeks ago, bilateral knee pain chronic. Vet voicing concern for lyme disease due to shoulder pain and tick bites Location of pain:left shoulder Initial on set of pain: week and a half ago Severity of pain at present: # 3-7/10. Quality of pain: sharp, aching Radiation: up to left neck area Tenderness yes, to top of shoulder on kobi prominence Initially, pain just to proximal kobi prominence of left shoulder, now pain to entire left shoulder Warmth: denies Redness: denies Reports: Pain wakes him up at night. Left shoulder stiffer when not moving. Pain worse with moving Taken advil at night w/o help. Location of pain: Both knees, ongoing for years. Severity of pain at present: # 6/10. Pain at it's best: # 3/10. Pain at it's worst: # 7/10. Quality of pain: sharp, dull, aching, throbbing. Radiation: denies Tenderness: denies Warmth: denies Redness: denies He is supposed to follow up PT. He is supposed to call PT back. General: - fever, - chills, - generalized weakness, - body aches, + fatigue, - loss of taste, - loss of smell. HEENT: - headaches, - dizziness, - visual changes. Respiratory: - resting shortness of breath, - cough, - wheezing. Cardiovascular: - chest pain, - palpitations. - exertional dyspnea, - edema Gastrointestinal: - nausea, - vomiting, - diarrhea Hem: - excessive bruising or excessive bleeding Skin: - rash, - lesions. Musculoskeletal: + joint pain, + muscle pain. - generalized body aches. Neuro: - numbness, - tingling, - lateralized weakness Psych: + anxiety ACTIVE PROBLEMS: Code Description F41.9 Anxiety ([facility] [id number]) M25.561 Pain of Both Knees ([facility] [id number]) M54.50 LBP - Low back pain ([facility] [id number]) K64.8 Hemorrhoid ([facility] [id number]) R32. Urinary incontinence ([facility] [id number]) K09.9 Cyst ([facility] [id number]) E55.9 Vitamin D deficiency ([facility] [id number]) T78.49XA Allergy ([facility] [id number]) Z87.09 History of pneumothorax ([facility] [id number]) 786.09 Dyspnea ([facility] [id number]) 493.90 Asthma finding ([facility] [id number]) ALLERGIES/ADR: PENICILLIN RXOP - Outpatient Pharmacy Drug........................ ............ Last Rx # Stat Qty Issued Filled Rem SINUS RINSE NEILMED PKT [id number] ACTIVE 200 08/20/2023 08/20/2023 (3) SIG: USE ONE PACKET INTRANASALLY TWICE DAILY NEEDED FOR CHRONIC RHINOSINUSITIS Indication: FOR CHRONIC RHINOSINUSITIS Provider: SHON MARTINEZ Cost/Fill: $ 18.26 SINUS RINSE NEILMED REGULAR KIT [id number] ACTIVE 1 08/20/2023 08/20/2023 (1) SIG: USE ONE PACKET INTRANASALLY TWICE DAILY NEEDED FOR CHRONIC RHINOSINUSITIS Indication: FOR CHRONIC RHINOSINUSITIS Provider: SHON MARTINEZ Cost/Fill: $ 9.74 CETIRIZINE HCL 10MG TAB [id number] ACTIVE 90 08/20/2023 08/20/2023 (3) SIG: TAKE ONE TABLET BY MOUTH AT BEDTIME NEEDED FOR ALLERGIES Indication: FOR ALLERGIES Provider: SHON MARTINEZ Cost/Fill: $ 1.93 LORATADINE 10MG TAB [id number] ACTIVE 90 08/07/2023 08/07/2023 (3) SIG: TAKE ONE TABLET BY MOUTH ONCE DAILY FOR ALLERGIES Indication: FOR ALLERGIES Provider: SHON MARTINEZ Cost/Fill: $ 1.20 OLOPATADINE HCL 0.7% OPH SOLN [id number] ACTIVE 5 08/07/2023 08/07/2023 (5) SIG: INSTILL 1 DROP IN BOTH EYES ONCE DAILY FOR ALLERGIC CONJUNCTIVITIS Indication: ALLERGIC CONJUNCTIVITIS Provider: SHON MARTINEZ Cost/Fill: $ 24.30 CIPROFLOXACIN 0.3/DEXAM 0.1% OTIC SUSP [id number] ACTIVE 7.5 07/26/2023 07/26/2023 (1) SIG: INSTILL FOUR DROPS IN LEFT EAR TWICE A DAY FOR OTITIS EXTERNA Indication: FOR OTITIS EXTERNA Provider: SIMON OLIVAREZ Cost/Fill: $ 64.21 RXNV - Non VA Meds Non-VA Med: CETIRIZINE TAB Status: Discontinued (AUGUST 07, 2023) CPRS Order #: [id number] Documented By: JOANN ROBLES MD Documented Date: FEB 21, 2016@17:27:51 Clinic: [id number] OJ PACT COOL B Start Date: Dispense Drug: CETIRIZINE HCL 10MG TAB Dosage: 10MG Med Route: MOUTH Schedule: EVERY DAY Statement/Explanation/Commen t: Medication prescribed by Non-VA provider. Non-VA Med: FLUTICASONE SOLN,NASAL Status: Active CPRS Order #: [id number] Documented By: TYRESE ASIF Documented Date: AUGUST 07, 2023@11:37:37 Clinic: [id number] PACT R Start Date: AUGUST 07, 2023 Dispense Drug: FLUTICASONE PROP 50MCG 120D NASAL INHLDosage: 2 SPRAYS Med Route: INTO EACH NOSTRIL Schedule: ONCE DAILY Statement/Explanation/Commen t: Current medications reviewed with patient/caregiver and reconciliation of medications related to today's visit completed, including non-VA medications and discrepancies, if identified, were addressed. Medication changes and the importance of medication management were reviewed with the patient/caregiver today based on individual needs. Patient/caregiver acknowledged understanding of instructions as stated. Objective: General appearance of patient with no acute distress, sitting comfortably. Eyes: No eye injection, no eyelid swelling, no icterus. No eye discharge. EOMI. Ears, nose, mouth and throat: Normocephalic. Mucus membranes moist. No lip cracking. No nasal drainage noted visually. Neck: Range of motion, suppleness. Muskuloskeletal: No redness, warmth, or abnormalites noted to left shoulder or bilaterall knees. Reason for Referral: Musculoskeletal Skin Assessment/Impression: Acute left shoulder pain likely due to overuse. However, given sx, findings, and presentation, cannot rule out lyme disease. Plan: Discussed with patient the shoulder pain by itself is not typical of lyme disease but cannot be excluded for possible lyme disease. No other pertinent sx. of lyme disease. Discussed treatment options and testing for lyme disease. At this time, patient would like to have a blood test for lyme disease and proceed from there as far as treatment. The patient advised to go to urgent care or ED if symptoms worsen or if new symptoms develop. Instruct on OTC Ibuprofen per package instructions for pain, can use diclofenac gel topically for pain, icing areas of pain, gentle non-painful stretching. Discussed pros/cons/ses of meds. Education provided regarding tick bite prevention to prevent future occurrences. atient advised to use insect repellent, wear protective clothing, and perform regular tick checks after being outdoors. PACT Team notified to follow up with patient. Issue resolved with Tele Urgent Care appointment Patient verbalizes understanding of the care plan Time spent in telephone/video visit: 25 min /edith/ MARCY DONOHUE [id number] Signed: 09/18/2023 16:37 Receipt Acknowledged By: 09/20/2023 15:23 /edith/ POPPY ALEXANDRA Registered Nurse 09/20/2023 07:54 /edith/ TYRESE ASIF PA-C 10/01/2023 ADDENDUM STATUS: COMPLETED Patient called and notified Lyme disease test results were negative for lyme disease. Patient has a follow up scheduled with PCP. /edith/ MARCY DONOHUE [id number] Signed: 10/01/2023 16:32 MARCY DONOHUE [facility]
--- OUTSIDE RECORDS SUMMARY | 2024-03-18 10:30 | XMS_ITS ---
Author Name [facility] [place] Address [address] [place] [address] Care Team Providers Care Veneer Splicer Name Role Phone YASMIN CHAWLA Primary Care [...] E HEALTH PLAN [employer] [place] [facility] Jan 16, 2019 [id number] Maxine HEDRICK HAD PATIENT [employer] [facility] ([id number]) PRESCRIPT ION [facility] Jan 16, 2019 [id number] Maxine HEDRICK HAD PATIENT Selected Encounter This section includes the information on record at [place] for the Encounter. Date/Time Encounter Type Encounter Description Reason Pro vider Source Jul 16, 2023 12:00 PM Outpatient Encounter ADMIN PAT ACTIVTIES ([facility]) IHE Encounter Template Text not used by [facility] Plan of Treatment: Future Appointments (+ 6 months) and Future Tests (+/- 45 days) The Plan of Treatment section includes future care activities for the patient from [facility] [place] [facility] This section includes future appointments and future orders which are active, pending or scheduled. Future Appointments This section includes appointments that were scheduled to occur 6 months from the date of the Encounter, up to a maximum of 20 appointments. The data comes from all [facility]. Appointment Date/Time Appointment Type Appointme nt Facility Name July 19, 2023 09:39 AM AMBULATORY - [place]IC[place] [facility] [facility] July 26, 2023 02:39 PM [place] [place] [facility] [facility] August 05, 2023 08:30 AM AMBULATORY - NONE [facility] August 07, 2023 10:30 AM [place]ATORY - NONE [place] [facility] August 07, 2023 02:00 PM AMBULATORY - SURGERY [place] [facility] [facility] Aug 20, 2023 10:00 AM AMBULATORY - SURGERY [place] [facility] Sep 23, 2023 09:30 AM AMBULATORY - NONE [facility] Oct 04, 2023 11:30 AM [...] of theEncounter. The data comes from all [facility]. Test Date/Time Test Type Test Details Facility Name Jun 23, 2023 12:00 AM Laboratory - Chemi stry Order BASIC METABOLIC PANEL (fasting) BLOOD (SST-SERUM) [facility] ([facility]) Jun 23, 2023 12:00 AM Laboratory - Chemi stry Order LIVER FUNCTION BLOOD (SST-SERUM) [facility] ([facility]) Jun 23, 2023 12:00 AM Laboratory - Chemi stry Order LIPID PANEL FASTING BLOOD (SST-SERUM) [facility] ([facility]) Jun 23, 2023 12:00 AM Laboratory - Chemi stry Order HEMOGLOBIN A1C PANEL BLOOD (LAV-BLOOD) [facility] ([facility]) Jun 23, 2023 12:00 AM Laboratory - Chemi stry Order TSH BLOOD (SST-SERUM) [facility] ([facility]) Jun 23, 2023 12:00 AM Laboratory - Chemi stry Order VITAMIN D (25-OH) BLOOD (SST-SERUM) [facility] ([facility]) Jun 23, 2023 12:00 AM Laboratory - Chemi stry Order CBC AND DIFF (AUTO) BLOOD (LAV-BLOOD) [facility] ([facility]) Jun 23, 2023 12:00 AM Laboratory - Chemi stry Order CALCIUM BLOOD (SST-SERUM) [facility] ([facility]) Lab Results: +/- 30 days of [...] Range Comment August 05, 2023 08:15 AM [facility] URINALYSIS ONLY NO REFLEXURINALYSIS ONLY Specimen Type: URINE No comment entered. Ordering Provider: TYRESE ASIF Report Released Date/Time: July 18, 2023 12:25 PM Reporting Lab: [facility] [address] [facility] [address] Performing Lab: [facility] [address] [facility] [address] URINE COLOR Light-Yello w NOT DEFINED SPECIFIC GRAVITY 1.025 1.003-1.030 UROBILINOGEN <2.0 mg/dL <2.0 URINE BILIRUBIN NEG NEG URINE KETONES NEG mg/dL NEG URINE GLUCOSE NEG mg/dL NEG PROTEIN, URINE TRACE mg/dL NEG URINE PH 7.0 5-8 CLARITY CLEAR NOT DEFINED URINE BLOOD NEG NEG NITRITE, URINE NEG NEG WBC SCREEN NEG NEG August 05, 2023 08:15 AM [facility] VIT D 25-OH([facility]) Specimen Type: SERUM Comment: , Tests performed on [employer]ph[employer] Burgess SN:[id number] (405) Ordering Provider: TYRESE ASIF Report Released Date/Time: July 18, 2023 12:25 PM Reporting Lab: [facility] [address] [facility] [address] Performing Lab: [facility] [address] [facility] [address] VIT D 25-OH([facility]) 22.9 ng/mL 20.0-50.0 August 05, 2023 08:15 AM [facility] VITAMIN B-12 Specimen Type: SERUM Comment: , Tests performed on [employer] Burgess SN:[id number] (405) Ordering Provider: TYRESE ASIF Report Released Date/Time: July 18, 2023 12:25 PM Reporting Lab: [facility] [address] [facility] [address] Performing Lab: [facility] [address] [facility] [address] VITAMIN B-12 245 pg/mL 200-900 August 05, 2023 08:15 AM [facility] TESTOSTERONE([facility]) Specimen Type: SERUM Comment: , Tests performed on [employer] Burgess SN:[id number] (405) Ordering Provider: TYRESE ASIF Report Released Date/Time: July 18, 2023 12:25 PM Reporting Lab: [facility] [address] [facility] [address] Per[facility]: [facility] [address] [facility] [address] TESTOSTERONE([facility]) 393.8 ng/dL 220-892 August 05, 2023 08:15 AM [facility] CBC PROFILE Specimen Type: BLOOD No comment entered. Ordering Provider: TYRESE ASIF Report Released Date/Time: July 18, 2023 12:25 PM Reporting Lab: [facility] [address] [facility] [address] Performing Lab: [facility] [address] [facility] [address] WBC 7.4 10*3/uL 4.5-11.0 RBC 5.28 10*6/uL [...] 10*3/uL 0-0 August 05, 2023 08:15 AM [facility] P4 GLU,BUN,CREAT,LYTES,CA Specimen Type: PLASMA Comment: , Tests performed on [employer] SN:[id number] (761). Ordering Provider: TYRESE ASIF Report Released Date/Time: July 18, 2023 12:25 PM Reporting Lab: [facility] [address] [facility] [address] Performing Lab: [facility] [address] [facility] [address] UREA NITROGEN 14 mg/dL 7-25 SODIUM 138 mmol/L 135-145 POTASSIUM 4.2 mmol/L 3.5-5.0 CHLORIDE 104 mmol/L 100-110 CARBON DIOXIDE 26 mmol/L 20-30 ANION GAP 8 4-16 GLUCOSE 90 mg/dL 65-100 CREATININE 1.13 mg/dL 0.50-1.50 CALCIUM 9.4 mg/dL 8.5-10.5 eGFR(CKD-EPI 2020) 88 mL/min August 05, 2023 08:15 AM [facility] LIVER PROFILE Specimen Type: PLASMA Comment: , Tests performed on Chack[employer] Gang Worker Arvind SN:[id number] (405). Ordering Provider: TYRESE ASIF Report Released Date/Time: July 18, 2023 12:25 PM Reporting Lab[facility] [address] [facility] [address] Performing Lab: [facility] [address] [facility] [address] PROTEIN, TOTAL 7.3 g/dL 6.0-8.5 ALBUMIN 4.1 g/dL 3.2-5.0 BILIRUBIN, TOTAL 0.9 mg/dL 0.2-1.2 ALKALINE PHOSPHATASE 75 U/L 40-150 ALT(SGPT) 44 U/L 7-52 AST(SGOT) 28 U/L 5-34 FIB-4 SCORE 0.63 <2.67 August 05, 2023 08:15 AM [facility] LIPOPROTEIN CHOLESTEROL FRACT. PANEL Specimen Type: PLASMA Comment: , Tests performed on [employer] Gang Worker Arvind SN:[id number] (405). Ordering Provider: TYRESE ASIF Report Released Date/Time: July 18, 2023 12:25 PM Reporting Lab: [facility] [address] [facility] [address] Performing Lab: [facility] [address] [facility] [address] CHOLESTEROL 161 mg/dL 0-200 TRIGLYCERIDE 110 mg/dL 0-150 HDL CHOLESTEROL 47 mg/dL >40 LDL CHOLESTEROL (CALC) 92 mg/dL 0-129 Encounter Notes: All associated encounter notes This section contains the clinical notes associated to the Encounter. Date/Time Encounter Note(s) Provider Source Jul 16, 2023 12:00 PM NONVA NOTE: LOCAL TITLE: NonVA Medical Records STANDARD TITLE: NONVA NOTE DATE OF NOTE: JUL 16, 2023@12:00 ENTRY DATE: JULY 19, 2023@09:50:38 AUTHOR: JACKI FOSTER EXP COSIGNER: URGENCY: STATUS: COMPLETED VistA Imaging - Scanned Document NON VA - URGENT CARE DATES OF SERVICE: 07/16/23 [employer] LOCATION OF SERVICE: [facility] SCANNED DOCUMENT SIGNATURE NOT REQUIRED Electronically Filed: 07/19/2023 by: JACKI NASH [facility]
--- OUTSIDE RECORDS SUMMARY | 2024-03-18 10:30 | XMS_ITS | Encounter Summary ---
Author Name [facility] [place] Address [address] [place] [address] Care Team Providers Care Weatherization Operations Manager Name Role Phone YASMIN CHAWLA Primary Care [...] E HEALTH PLAN [facility] Jan 16, 2019 [id number] [phone] Maxine HEDRICK HAD PATIENT [employer] S[employer]IP[employer] ([id number]) PRESCRIPT ION [facility] Jan 16, 2019 [id number] [phone] Maxine HEDRICK HAD PATIENT Selected Encounter This section includes the information on record at [place] for the Encounter. Date/Time Encounter Type Encounter Description Reason Pro vider Source Jul 16, 2023 11:29 PM Outpatient Encounter COMMUNITY CARE CONSULT IHE Encounter Template Text not used by [facility] Plan of Treatment: Future Appointments (+ 6 months) and Future Tests (+/- 45 days) The Plan of Treatment section includes future care activities for the patient from all [place] [facility]. This section includes future appointments and future orders which are active, pending or scheduled. Future Appointments This section includes appointments that were scheduled to occur 6 months from the date of the Encounter, up to a maximum of 20 appointments. The data comes from all [facility]. Appointment Date/Time Appointment Type Appointme nt Facility Name July 19, 2023 09:39 AM AMBULATORY [place] [facility] July 26, 2023 02:39 PM [place] - [place] [facility] August 05, 2023 08:30 AM AMBULATORY - NONE [facility] August 07, 2023 10:30 AM [place]UL[place]ORY - [place] [facility] August 07, 2023 02:00 PM [place]UL[place]ORY [place] [facility] Aug 20, 2023 10:00 AM [place] [facility] Sep 23, 2023 09:30 AM AMBULATORY - NONE [facility] Oct 04, 2023 11:30 AM AM[place]ULATORY - [place] [facility] Oct 21, 2023 10:00 AM AM[place]ORY [place] [facility] Oct 21, 2023 01:45 PM [place]BUL[place]ORY [place] [facility] Dec 05, 2023 09:30 AM AMBULATORY - NONE [place] [facility] Dec 05, 2023 10:00 AM AM[place] [facility] Active, Pending, and Scheduled Orders This section includes a listing of several types of active, pending, and scheduled orders, including clinic medications orders, diagnostic test orders, procedure orders and consult orders; where the start date of the order is 45 days before the date of the Encounter or 45 days after the date of theEncounter. The data comes from all [facility]. Test Date/Time Test Type Test Details Facility Name Jun 23, 2023 12:00 AM Laboratory - Chemi stry Order BASIC METABOLIC PANEL (fasting) BLOOD (SST-SERUM) [facility] ([id number]) Jun 23, 2023 12:00 AM Laboratory - Chemi stry Order LIVER FUNCTION BLOOD (SST-SERUM) [facility] ([id number]) Jun 23, 2023 12:00 AM Laboratory - Chemi stry Order LIPID PANEL FASTING BLOOD (SST-SERUM) [facility] ([id number]) Jun 23, 2023 12:00 AM Laboratory - Chemi stry Order HEMOGLOBIN A1C PANEL BLOOD (LAV-BLOOD) [facility] ([id number]) Jun 23, 2023 12:00 AM Laboratory - Chemi stry Order TSH BLOOD (SST-SERUM) [facility] ([id number]) Jun 23, 2023 12:00 AM Laboratory - Chemi stry Order VITAMIN D (25-OH) BLOOD (SST-SERUM) [facility] ([id number]) Jun 23, 2023 12:00 AM Laboratory - Chemi stry Order CBC AND DIFF (AUTO) BLOOD (LAV-BLOOD) [facility] ([id number]) Jun 23, 2023 12:00 AM Laboratory - Chemi stry Order CALCIUM BLOOD (SST-SERUM) [facility] ([id number]) Lab Results: +/- 30 days [...] Range Comment August 05, 2023 08:15 AM [facility] LIVER PROFILE Specimen Type: PLASMA Comment: , Tests performed on [employer] SN:[id number] (405). Ordering Provider: TYRESE ASIF Report Released Date/Time: July 18, 2023 12:25 PM Reporting Lab: [facility] [address] [facility] [address] Performing Lab: [facility] [address] [facility] [address] PROTEIN, TOTAL 7.3 g/dL 6.0-8.5 ALBUMIN 4.1 g/dL 3.2-5.0 BILIRUBIN, TOTAL 0.9 mg/dL 0.2-1.2 ALKALINE PHOSPHATASE 75 U/L 40-150 ALT(SGPT) 44 U/L 7-52 AST(SGOT) 28 U/L 5-34 FIB-4 SCORE 0.63 <2.67 August 05, 2023 08:15 AM [facility] LIPOPROTEIN CHOLESTEROL FRACT. PANEL Specimen Type: PLASMA Comment: , Tests performed on [employer] SN:[id number] (405). Ordering Provider: TYRESE ASIF Report Released Date/Time: July 18, 2023 12:25 PM Reporting Lab: [facility] [address] [facility] [address] Performing Lab: [facility] [address] [facility] [address] CHOLESTEROL 161 mg/dL 0-200 TRIGLYCERIDE 110 mg/dL 0-150 HDL CHOLESTEROL 47 mg/dL >40 LDL CHOLESTEROL (CALC) 92 mg/dL 0-129 August 05, 2023 08:15 AM [facility] URINALYSIS ONLY NO REFLEXURINALYSIS ONLY Specimen Type: URINE No comment entered. Ordering Provider: TYRESE ASIF Report Released Date/Time: July 18, 2023 12:25 PM Reporting Lab: [facility] [address] [facility] [address] Performing Lab: [facility] [address] [facility] [address] URINE COLOR Light-Yello w NOT DEFINED SPECIFIC GRAVITY 1.025 1.003-1.030 UROBILINOGEN <2.0 mg/dL <2.0 URINE BILIRUBIN NEG NEG URINE KETONES NEG mg/dL NEG URINE GLUCOSE NEG mg/dL NEG PROTEIN, URINE TRACE mg/dL NEG URINE PH 7.0 5-8 CLARITY CLEAR NOT DEFINED URINE BLOOD NEG NEG NITRITE, URINE NEG NEG WBC SCREEN NEG NEG August 05, 2023 08:15 AM [facility] VIT D 25-OH([facility]) Specimen Type: SERUM Comment: , Tests performed on [employer] [place] SN:[id number] (405) Ordering Provider: TYRESE ASIF Report Released Date/Time: July 18, 2023 12:25 PM Reporting Lab: [facility] [address] [facility] [address] Performing Lab: [facility] [address] [facility] [address] VIT D 25-OH([facility] [[email or web address]]) 22.9 ng/mL 20.0-50.0 August 05, 2023 08:15 AM [facility] VITAMIN B-12 Specimen Type: SERUM Comment: , Tests performed on [employer] [place] SN:[id number] (405) Ordering Provider: TYRESE ASIF Report Released Date/Time: July 18, 2023 12:25 PM Reporting Lab: [facility] [address] [facility] [address] Performing Lab: [facility] [address] [facility] [address] VITAMIN B-12 245 pg/mL 200-900 August 05, 2023 08:15 AM [facility] TESTOSTERONE([facility] [[email or web address]]) Specimen Type: SERUM Comment: , Tests performed on [employer] [place] SN:[id number] (405) Ordering Provider: TYRESE ASIF Report Released Date/Time: July 18, 2023 12:25 PM Reporting Lab: [facility] [address] [facility] [address] Performing Lab: [facility] [address] [facility] [address] TESTOSTERONE([facility] [[email or web address] 393.8 ng/dL 220-892 August 05, 2023 08:15 AM [facility] P4 GLU,BUN,CREAT,LYTES,CA Specimen Type: PLASMA Comment: , Tests performed on [employer] Arvind SN:[id number] (283). Ordering Provider: TYRESE ASIF Report Released Date/Time: July 18, 2023 12:25 PM Reporting Lab: [facility] [address] [facility] [address] Performing Lab: [facility] [address] [facility] [address] UREA NITROGEN 14 mg/dL 7-25 SODIUM 138 mmol/L 135-145 POTASSIUM 4.2 mmol/L 3.5-5.0 CHLORIDE 104 mmol/L 100-110 CARBON DIOXIDE 26 mmol/L 20-30 ANION GAP 8 4-16 GLUCOSE 90 mg/dL 65-100 CREATININE 1.13 mg/dL 0.50-1.50 CALCIUM 9.4 mg/dL 8.5-10.5 eGFR(CKD-EPI 2020) 88 mL/min August 05, 2023 08:15 AM [facility] CBC PROFILE Specimen Type: BLOOD No comment entered. Ordering Provider: TYRESE ASIF Report Released Date/Time: July 18, 2023 12:25 PM Reporting Lab: [facility] [address] [facility] [address] Performing Lab: [facility] [address] [facility] [address] WBC 7.4 10*3/uL 4.5-11.0 RBC 5.28 10*6/uL [...] 10*3/uL 2.2-7.6 ABSOLUTE NRBC 0.00 10*3/uL 0-0 Encounter Notes: All associated encounter notes This section contains the clinical notes associated to the Encounter. Date/Time Encounter Note(s) Provider Source Jul 16, 2023 11:29 PM NONVA NOTE: LOCAL TITLE: [facility] PRESENTING CARE COORD PLAN STANDARD TITLE: NONVA NOTE DATE OF NOTE: JUL 16, 2023@23:29 ENTRY DATE: JULY 31, 2023@07:24:48 AUTHOR: RYN CHATTERJEE COSIGNER: URGENCY: STATUS: COMPLETED Emergency Notification Intake Date Presenting to the Facility: Jun @ 11:29 pm EST Method of Contact: Notified from ECR worklist Notification ID: [id number] [facility] Referral #: [id number] Community Hospital Name: Hospital: [facility] Address: [address] [place] [address] City: [place] State: [place] Zip Code: [address] Community Facility Point of Contact: Name: Giancarlo Figueroa Chief complaint: Left Ear Pain Primary Diagnosis: Ear Infection Disposition Unknown at time of intake note entry Notes Under Non [facility] Medical [facility] Hospital Notification Date: 07-17-23 @ 12:54 am EST EOC approved under [id number] by the [place] [facility] Notification Team /edith/ YRN CHATTERJEE Signed: 07/31/2023 07:29 Receipt Acknowledged By: 07/31/2023 07:40 /es/ FELIBERTO IQBAL, RN EMERGENCY DETECTIVE [place] 07/31/2023 08:46 /es/ POPPY ALEXANDRA Registered Nurse YRN CHATTERJEE [facility]
--- OUTSIDE RECORDS SUMMARY | 2024-03-18 10:30 | XMS_ITS ---
Author Name [facility] [place] [facility] [place] Address [address] [place] [address] Care Team Providers Care Sword Swallower Name Role Phone YASMIN CHAWLA Primary Care [...] E HEALTH PLAN [facility] [place] [facility] Jan 16, 2019 [id number] Maxine HEDRICK HAD PATIENT [employer] S[employer] ([id number]) PRESCRIPT ION [facility] Jan 16, 2019 [id number] Maxine HEDRICK HAD PATIENT Selected Encounter This section includes the information on record at [place] for the Encounter. Date/Time Encounter Type Encounter Description Reason Pro vider Source July 18, 2023 11:27 AM Outpatient Encounter PRIMARY CARE/MEDICINE IHE Encounter Template Text not used by [facility] Plan of Treatment: Future Appointments (+ 6 months) and Future Tests (+/- 45 days) The Plan of Treatment section includes future care activities for the patient from all [place] [facility] This section includes future appointments and future orders which are active, pending or scheduled. Future Appointments This section includes appointments that were scheduled to occur 6 months from the date of the Encounter, up to a maximum of 20 appointments. The data comes from all [place] treatment [facility]. Appointment Date/Time Appointment Type Appointme nt Facility Name July 19, 2023 09:39 AM AMBULATORY - [place] [facility] July 26, 2023 02:39 PM AM[place]UL[place] - [place] [facility] August 05, 2023 08:30 AM AMBULATORY - NONE [facility] August 07, 2023 10:30 AM AMBULATORY - NONE [place] [facility] August 07, 2023 02:00 PM AMBULATORY - [place] [facility] Aug 20, 2023 10:00 AM [place] [facility] Sep 23, 2023 09:30 AM AMBULATORY - NONE [facility] Oct 04, 2023 11:30 AM AMBULATORY - NONE [place] [facility] Oct 21, 2023 10:00 AM AM[place]UL[place] [facility] Oct 21, 2023 01:45 PM AMBUL[place]ORY - [place] [facility] Dec 05, 2023 09:30 AM AMBULATORY - NONE [place] [facility] Dec 05, 2023 10:00 AM AMBULATORY - [place] [facility] Active, Pending, and Scheduled Orders This section includes a listing of several types of active, pending, and scheduled orders, including clinic medications orders, diagnostic test orders, procedure orders and consult orders; where the start date of the order is 45 days before the date of the Encounter or 45 days after the date of theEncounter. The data comes from all [facility]. Test Date/Time Test Type Test Details Facility Name Jun 23, 2023 12:00 AM Laboratory - Chemi stry Order BASIC METABOLIC PANEL (fasting) BLOOD (SST-SERUM) [facility] ([id number]) Jun 23, 2023 12:00 AM Laboratory - Chemi stry Order LIVER FUNCTION BLOOD (SST-SERUM) [facility] ([id number]) Jun 23, 2023 12:00 AM Laboratory - Chemi stry Order LIPID PANEL FASTING BLOOD (SST-SERUM) [facility] ([id number]) Jun 23, 2023 12:00 AM Laboratory - Chemi stry Order HEMOGLOBIN A1C PANEL BLOOD (LAV-BLOOD) [facility] ([id number]) Jun 23, 2023 12:00 AM Laboratory - Chemi stry Order TSH BLOOD (SST-SERUM) [facility] ([id number]) Jun 23, 2023 12:00 AM Laboratory - Chemi stry Order VITAMIN D (25-OH) BLOOD (SST-SERUM) [facility] ([id number]) Jun 23, 2023 12:00 AM Laboratory - Chemi stry Order CBC AND DIFF (AUTO) BLOOD (LAV-BLOOD) [facility] ([id number]) Jun 23, 2023 12:00 AM Laboratory - Chemi stry Order CALCIUM BLOOD (SST-SERUM) [facility] ([id number]) Lab Results: +/- 30 [...] Range Comment August 05, 2023 08:15 AM [facility] VITAMIN B-12 Specimen Type: SERUM Comment: , Tests performed on [employer] SN:[id number] (405) Ordering Provider: TYRESE ASIF Report Released Date/Time: July 18, 2023 12:25 PM Reporting Lab: [facility] [address] [facility] [address] Performing Lab: [place] [facility] [address] [facility] [address] VITAMIN B-12 245 pg/mL 200-900 August 05, 2023 08:15 AM [facility] TESTOSTERONE([facility]) Specimen Type: SERUM Comment: , Tests performed on [employer] SN:[id number] (405) Ordering Provider: TYRESE ASIF Report Released Date/Time: July 18, 2023 12:25 PM Reporting Lab: [place] [facility] [address] [facility] [address] Performing Lab: [place] [facility] [address] [facility] [address] TESTOSTERONE([facility]) 393.8 ng/dL 220-892 August 05, 2023 08:15 AM [facility] P4 GLU,BUN,CREAT,LYTES,CA Specimen Type: PLASMA Comment: , Tests performed on [employer] SN:[id number] (405). Ordering Provider: TYRESE ASIF Report Released Date/Time: July 18, 2023 12:25 PM Reporting Lab: [facility] [address] [place] [phone] Performing Lab: [facility] [address] [phone] UREA NITROGEN 14 mg/dL 7-25 SODIUM 138 [...] Reporting Lab: [facility] [address] [phone] Performing Lab: [facility] [address] [place] [phone] WBC 7.4 10*3/uL 4.5-11.0 RBC 5.28 10*6/uL [...] Type: PLASMA Comment: , Tests performed on [employer] Arvind SN:[id number] (405). Ordering Provider: TYRESE ASIF Report Released Date/Time: July 18, 2023 12:25 PM Reporting Lab: [facility] [address] [facility] [address] Performing Lab: [facility] [address] [facility] [address] PROTEIN, TOTAL 7.3 g/dL 6.0-8.5 ALBUMIN 4.1 g/dL 3.2-5.0 BILIRUBIN, TOTAL 0.9 mg/dL 0.2-1.2 ALKALINE PHOSPHATASE 75 U/L 40-150 ALT(SGPT) 44 U/L 7-52 AST(SGOT) 28 U/L 5-34 FIB-4 SCORE 0.63 <2.67 August 05, 2023 08:15 AM [facility] LIPOPROTEIN CHOLESTEROL FRACT. PANEL Specimen Type: PLASMA Comment: , Tests performed on [employer] Arvind SN:[id number] (405). Ordering Provider: TYRESE ASIF Report Released Date/Time: July 18, 2023 12:25 PM Reporting Lab: [facility] [address] [facility] [address] Performing Lab: [facility] [address] [facility] [address] CHOLESTEROL 161 mg/dL 0-200 TRIGLYCERIDE 110 mg/dL 0-150 HDL CHOLESTEROL 47 mg/dL >40 LDL CHOLESTEROL (CALC) 92 mg/dL 0-129 August 05, 2023 08:15 AM [facility] URINALYSIS ONLY NO REFLEXURINALYSIS ONLY Specimen Type: URINE No comment entered. Ordering Provider: TYRESE ASIF Report Released Date/Time: July 18, 2023 12:25 PM Reporting Lab: [facility] [address] [facility] [address] Performing Lab: [facility] [address] [facility] [address] URINE COLOR Light-Yello w NOT DEFINED SPECIFIC GRAVITY 1.025 1.003-1.030 UROBILINOGEN <2.0 mg/dL <2.0 URINE BILIRUBIN NEG NEG URINE KETONES NEG mg/dL NEG URINE GLUCOSE NEG mg/dL NEG PROTEIN, URINE TRACE mg/dL NEG URINE PH 7.0 5-8 CLARITY CLEAR NOT DEFINED URINE BLOOD NEG NEG NITRITE, URINE NEG NEG WBC SCREEN NEG NEG August 05, 2023 08:15 AM [facility] VIT D 25-OH([facility]) Specimen Type: SERUM Comment: , Tests performed on [employer] [place] SN:[id number] (405) Ordering Provider: TYRESE ASIF Report Released Date/Time: July 18, 2023 12:25 PM Reporting Lab: [facility] [address] [facility] [address] Performing Lab: [facility] [address] [facility] [address] VIT D 25-OH([facility]) 22.9 ng/mL 20.0-50.0 Encounter Notes: All associated encounter notes This section contains the clinical notes associated to the Encounter. Date/Time Encounter Note(s) Provider Source July 18, 2023 11:27 AM PRIMARY CARE ADMIN ISTRATIVE NOTE: LOCAL TITLE: Administrative Note/Primary Care STANDARD TITLE: PRIMARY CARE ADMINISTRATIVE NOTE DATE OF NOTE: JULY 18, 2023@11:27 ENTRY DATE: JULY 18, 2023@11:27:41 AUTHOR: ANEESH MURO EXP COSIGNER: URGENCY: STATUS: COMPLETED Administrative Note/Primary Care Has ADDENDA Patient assigned to [facility], scheduled for 60 min. appt. 08/07/23 - Patient declines assignment w/ [facility] which would allow for sooner scheduling availability. Patient declines [facility] appt for sooner appt. offering. Transfer from [facility], no outside records to obtain. recently seen at local ED for ear infection. He will need f/u with ENT. He plans to reach out to his [facility] PCP and request consult to [facility] ENT. Appointment letter mailed: email, address and phone number confirmed. Patient encouraged to bring all active medications and supplements to their appt. /edith/ ANEESH MURO Signed: 07/18/2023 11:29 Receipt Acknowledged By: 07/18/2023 15:08 /edith/ GARY CARRIZALES 07/18/2023 14:39 /edith/ ISELA MENDOZA EDGE TRIMMER 07/18/2023 12:47 /edith/ POPPY ALEXANDRA Registered Nurse 07/18/2023 ADDENDUM STATUS: COMPLETED no boiler helper intake scheduled as transferring from another [place] facility. no boiler helper packet sent as already in the system. /edith/ GARY CARRIZALES Signed: 07/18/2023 15:20 [facility]
--- OUTSIDE RECORDS SUMMARY | 2024-03-18 10:30 | XMS_ITS | Encounter Summary ---
Author Name [facility] [place] [facility] [place] Address [address] [place] [address] Care Team Providers Care Cash Checker Name Role Phone YASMIN CHAWLA Primary Care [...] [facility] Jan 16, 2019 [id number] Maxine HEDRICK HAD PATIENT [employer] ([id number]) PRESCRIPT ION [facility] Jan 16, 2019 [id number] [phone] Maxine HEDRICK HAD PATIENT Selected Encounter This section includes the information on record at [place] for the Encounter. Date/Time Encounter Type Encounter Description Reason Provider Source July 26, 2023 02:39 PM EMERGENCY DEPT VISIT LOW MDM EMERGENCY DEPT ICD-10-CM H60.8X2 Other otitis externa, left ear SIMON BELLA Encounter Template Text not used by [facility] Assessments - Encounter Diagnoses This section includes the primary and secondary diagnoses documented for the Encounter. Date/Time Primary/Secondary Diagnosis Diagnosis Name Provider Source July 26, 2023 04:07 PM PRIMARY Other otitis externa, left ear SIMON BELLA [facility] Plan of Treatment: Future Appointments (+ 6 months) and Future Tests (+/- 45 days) The Plan of Treatment section includes future care activities for the patient from all [place] treatmentfacilities. This section includes future appointments and future orders which are active, pending or scheduled. Future Appointments This section includes appointments that were scheduled to occur 6 months from the date of the Encounter, up to a maximum of 20 appointments. The data comes from all [place] treatment [facility]. Appointment Date/Time Appointment Type Appointme nt Facility Name August 05, 2023 08:30 AM AMBULATORY - NONE [facility] August 07, 2023 10:30 AM AMBULATORY - NONE [facility] August 07, 2023 02:00 PM AMBULATORY - SURGERY [facility] Aug 20, 2023 10:00 AM AMBULATORY - SURGERY [facility] Sep 23, 2023 09:30 AM AMBULATORY - NONE [facility] Oct 04, 2023 11:30 AM AMBULATORY - NONE WHITE PERI KIMBLE [facility] Oct 21, 2023 10:00 AM AMBULATORY - SURGERY [facility] Oct 21, 2023 01:45 PM AMBULATORY - SURGERY [facility] Dec 05, 2023 09:30 AM AMBULATORY - NONE [facility] PERI KIM[facility] Dec 05, 2023 10:00 AM AMBULATORY - SURGERY [facility] Active, Pending, and Scheduled Orders This section includes a listing of several types of active, pending, and scheduled orders, including clinic medications orders, diagnostic test orders, procedure orders and consult orders; where the start date of the order is 45 days before the date of the Encounter or 45 days after the date of theEncounter. The data comes from all [place] treatment [facility]. Test Date/Time Test Type Test Details Facility Name Jun 23, 2023 12:00 AM Laboratory - Chemi stry Order BASIC METABOLIC PANEL (fasting) BLOOD (SST-SERUM) [facility] ([id number]) Jun 23, 2023 12:00 AM Laboratory - Chemi stry Order LIVER FUNCTION BLOOD (SST-SERUM) [facility] ([id number]) Jun 23, 2023 12:00 AM Laboratory - Chemi stry Order LIPID PANEL FASTING BLOOD (SST-SERUM) [facility] ([id number]) Jun 23, 2023 12:00 AM Laboratory - Chemi stry Order HEMOGLOBIN A1C PANEL BLOOD (LAV-BLOOD) [facility] ([id number]) Jun 23, 2023 12:00 AM Laboratory - Chemi stry Order TSH BLOOD (SST-SERUM) [facility] ([id number]) Jun 23, 2023 12:00 AM Laboratory - Chemi stry Order VITAMIN D (25-OH) BLOOD (SST-SERUM) [facility] ([id number]) Jun 23, 2023 12:00 AM Laboratory - Chemi stry Order CBC AND DIFF (AUTO) BLOOD (LAV-BLOOD) [facility] ([id number]) Jun 23, 2023 12:00 AM Laboratory - Chemi stry Order CALCIUM BLOOD (SST-SERUM) [facility] ([id number]) Lab Results: +/- 30 days of the encounter This section includes the Chemistry and Hematology Lab Results on record with [place] for the patient. Radiology Reports and Pathology [...] Type: SERUM Comment: , Tests performed on [employer] SN:[id number] (405) Ordering Provider: TYRESE ASIF Report Released Date/Time: July 18, 2023 12:25 PM Reporting Lab: [facility] [address] [facility] [place] [address] Performing Lab: [facility] [address] [facility] [address] VITAMIN B-12 245 pg/mL 200-900 August 05, 2023 08:15 AM [facility] TESTOSTERONE(WRJ) Specimen Type: SERUM Comment: , Tests performed on In[employer] SN:[id number] (405) Ordering Provider: TYRESE ASIF Report Released Date/Time: July 18, 2023 12:25 PM Reporting Lab: [facility] [address] [facility] [address] Performing Lab: [facility] [address] [facility] [address] TESTOSTERONE(WRJ) 393.8 ng/dL 220-892 August 05, 2023 08:15 AM [facility] P4 GLU,BUN,CREAT,LYTES,CA Specimen Type: PLASMA Comment: , Tests performed on [employer] SN:[id number] (405). Ordering Provider: TYRESE ASIF Report Released Date/Time: July 18, 2023 12:25 PM Reporting Lab: [facility] [address] [facility] [address] Performing Lab: [facility] [address] [place] [id number] UREA NITROGEN 14 mg/dL 7-25 SODIUM 138 [...] Reporting Lab: [facility] [address] [facility] [address] Performing Lab: [facility] [address] [facility] [address] WBC 7.4 10*3/uL 4.5-11.0 RBC 5.28 10*6/uL [...] 10*3/uL 0-0 August 05, 2023 08:15 AM [facility] LIVER PROFILE Specimen Type: PLASMA Comment: , Tests performed on [employer] SN:[id number] (405). Ordering Provider: TYRESE ASIF Report Released Date/Time: July 18, 2023 12:25 PM Reporting Lab: [facility] [address] [facility] [address] Performing Lab: [facility] [address] [facility] [address] PROTEIN, TOTAL 7.3 g/dL 6.0-8.5 ALBUMIN 4.1 g/dL 3.2-5.0 BILIRUBIN, TOTAL 0.9 mg/dL 0.2-1.2 ALKALINE PHOSPHATASE 75 U/L 40-150 ALT(SGPT) 44 U/L 7-52 AST(SGOT) 28 U/L 5-34 FIB-4 SCORE 0.63 <2.67 August 05, 2023 08:15 AM [facility] LIPOPROTEIN CHOLESTEROL FRACT. PANEL Specimen Type: PLASMA Comment: , Tests performed on [employer] SN:[id number] (405). Ordering Provider: TYRESE ASIF Report Released Date/Time: July 18, 2023 12:25 PM Reporting Lab: [facility] [address] [facility] [address] Performing Lab: [facility] [address] [facility] [address] CHOLESTEROL 161 mg/dL 0-200 TRIGLYCERIDE 110 mg/dL 0-150 HDL CHOLESTEROL 47 mg/dL >40 LDL CHOLESTEROL (CALC) 92 mg/dL 0-129 August 05, 2023 08:15 AM [facility] URINALYSIS ONLY NO REFLEXURINALYSIS ONLY Specimen Type: URINE No comment entered. Ordering Provider: TYRESE ASIF Report Released Date/Time: July 18, 2023 12:25 PM Reporting Lab: [facility] [address] [facility] [address] Performing Lab: [facility] [address] [facility] [address] URINE COLOR Light-Yello w NOT DEFINED SPECIFIC GRAVITY 1.025 1.003-1.030 UROBILINOGEN <2.0 mg/dL <2.0 URINE BILIRUBIN NEG NEG URINE KETONES NEG mg/dL NEG URINE GLUCOSE NEG mg/dL NEG PROTEIN, URINE TRACE mg/dL NEG URINE PH 7.0 5-8 CLARITY CLEAR NOT DEFINED URINE BLOOD NEG NEG NITRITE, URINE NEG NEG WBC SCREEN NEG NEG August 05, 2023 08:15 AM [facility] VIT D 25-OH([facility]) Specimen Type: SERUM Comment: , Tests performed on [employer] SN:[id number] (405) Ordering Provider: TYRESE ASIF Report Released Date/Time: July 18, 2023 12:25 PM Reporting Lab: [facility] [address] [facility] [address] Performing Lab: [facility] [address] [facility] [address] VIT D 25-OH(J) 22.9 ng/mL 20.0-50.0 Vital Signs: All taken on the encounter date This section contains inpatient and outpatient Vital Signs collected on the date of the Encounter. Date/Time Temperature Pulse Blood Pressure Respiratory Rate SP02 Pain Height Weight Body Mass Index Source July 26, 2023 03:03 PM 98.8 80 116/83 18 98 4 [facility] Encounter Notes: All associated encounter notes This section contains the clinical notes associated to the Encounter. Date/Time Encounter Note(s) Provider Source July 26, 2023 04:04 PM EMERGENCY DEPT NOT E: LOCAL TITLE: ED ICT NOTE/EMERGENCY DEPARTMENT NOTE STANDARD TITLE: EMERGENCY DEPT NOTE DATE OF NOTE: JULY 26, 2023@16:04 ENTRY DATE: JULY 26, 2023@16:04:30 AUTHOR: DEBBIE RUIZ EXP COSIGNER: URGENCY: STATUS: COMPLETED * Falls Patient greater than 70 years old? No Patient seen by the provider. Provider to given new medications and will stop the other ear drops. Patient discharged to home. /es/ DEBBIE RUIZ ICT Signed: 07/26/2023 16:05 DEBBIE RUIZ [facility] July 26, 2023 03:59 PM EMERGENCY DEPT DIS CHARGE NOTE: LOCAL TITLE: Emergency Dept Discharge Instructions STANDARD TITLE: EMERGENCY DEPT DISCHARGE NOTE DATE OF NOTE: JULY 26, 2023@15:59 ENTRY DATE: JULY 26, 2023@15:59:47 AUTHOR: SIMON BELLA EXP COSIGNER: URGENCY: STATUS: COMPLETED DISCHARGE INSTRUCTIONS FOR: MR. HIGINIO HEDRICK [address] [place], [place] [address] JULY 26, 2023 YOUR DIAGNOSIS: Otitis externa TREATMENT YOU RECEIVED IN THE EMERGENCY DEPARTMENT: Evaluation RESULTS: Your evaluation is consistent with persistent otitis externa TREATMENT INSTRUCTIONS UPON DISCHARGE FROM THE EMERGENCY DEPARTMENT, INCLUDING INSTRUCTIONS FOR MEDICATIONS: I have discussed with pharmacy and reviewed medicaitons, we will continue a short course of Augmentin for now to cover for otitis media; however, your primary issue on exam is otitis externa. I will switch your ear drops to ciprofloxacin containing drops. You can discontinue your other ear drops. Please turkey picker these medications and start today. I will add comment onto ENT consult to see about follow-up check. ACTIVE MEDICATIONS: Active Outpatient Medications (excluding Supplies): Pending Outpatient Medications Status 1) AMOXICILLIN 875/CLAV K 125MG TAB TAKE 1 TABLET BY PENDING MOUTH TWICE A DAY 2) CIPROFLOXACIN 0.3/DEXAM 0.1% OTIC SUSP INSTILL FOUR PENDING DROPS IN LEFT EAR TWICE A DAY FOR EAR INFECTION Active Non-VA Medications Status 1) Non-VA CETIRIZINE HCL 10MG TAB 10MG MOUTH EVERY DAY ACTIVE 3 Total Medications INSTRUCTIONS FOR FOLLOW UP: Please follow-up with primary care. I will also place comment to see about ENT follow-up from previously placed consult. They should contact you for apointment. Please return to emergency department if worse or as needed. A copy of these instructions was given to the patient and/or caregiver. The instructions were reviewed with the patient and/or caregiver. The patient and/or caregiver showed understanding of the instructions before discharge from the Emergency Department. TREATING PHYSICIAN: Simon Bella MD Physician, Emergency Department SCHEDULED FUTURE APPOINTMENTS: Future Appointments - July@10:30 [facility] During normal business hours Saturday-Saturday 8-4 PM: If you have any problems, your salesperson children's shoes or a doctor can be reached by calling the telephone advice line at: (p) [phone], ext. [phone] Toll-free (P) [phone] ext. [phone] If you are a [place] in crisis, free confidential support is available 08/10. To access, call the [employer] Crisis Line by dialing 988 and press 1. You may also text [phone] or start an online chat session at [email or web address] chat Crisis support for the deaf and hard of hearing can be reached by using your preferred relay service or dial 711 then 983. /es/ Simon Bella MD Physician, Emergency Department Signed: 07/26/2023 16:02 SIMON BELLA [facility] July 26, 2023 03:30 PM EMERGENCY DEPT NOT E: LOCAL TITLE: ED MD Note/Emergency Department Physician Note STANDARD TITLE: EMERGENCY DEPT NOTE DATE OF NOTE: JULY 26, 2023@15:30 ENTRY DATE: JULY 26, 2023@15:30:12 AUTHOR: SIMON BELLA EXP COSIGNER: URGENCY: STATUS: COMPLETED CHIEF COMPLAINT: Left ear pain, left ear drainage HPI: 32 year old MALE presenting for left ear pain radiating to upper left jaw, left ear drainage, and muffled hearing left side. Patient states he was on a cruise recently doing a lot of water activities. After returning started to have ear pain and was placed on Augmenin 875/125mg per picture of prescription he has with him. He was then seen at [facility] ER and placed on hydrocortisone/neomycin/inna ymyxin ear drops. States that the ear drops initially felt like they were not penetrating all the way but the feels some swelling improved and have been penetrating well for the last several days. He states however that he has continued to have ear drainage and muffled haering and popping sounds left ear and last dose of oral antibiotics is today. he states he was concerned about continued syptoms despite near completion of therapy. He denies fever, chills, nausea, vomiting. STatse no sore throat nor difficutly swallowing. States the discharge from ear has been white/yellow in color. Denies history of diabetes or immunocompromise. REVIEW OF SYSTEMS Constitutional: Patient has no complaints regarding this system. Integumentary (skin): Patient has no complaints regarding this system. Eyes: Patient has no complaints regarding this system. Ear, Nose, Throat: See HPI Respiratory: Patient has no complaints regarding this system. Cardiovascular: Patient has no complaints regarding this system. Gastrointestinal: Patient has no complaints regarding this system. Urinary: Patient has no complaints regarding this system. Musculoskeletal: Patient has no complaints regarding this system. Neuro: Patient has no complaints regarding this system. Endocrine: Patient has no complaints regarding this system. PAST MEDICAL HISTORY: Reviewed Active problems - Computerized Problem List is the source for the followin. Hemorrhoid 2. Urinary incontinence 3. Cyst 4. Vitamin D deficiency 5. Allergy 6. History of pneumothorax 7. Dyspnea 8. Asthma finding 9. Health maintenance alteration SURGICAL HISTORY: Reviewed No data available TOBACCO USE: Reviewed SOCIAL HISTORY: Reviewed ALLERGIES: Reviewed PENICILLIN IMMUNIZATIONS: Reviewed No TDAP Immunizations on file within 10Y. IM - Immunizations ADMINISTERED Immunization Series Date Facility Reaction Info HPV, QUADRIVALENT 11/11/2014 [facility]* HPV, QUADRIVALENT 06/10/2014 [facility]* <C> HPV, QUADRIVALENT 04/06/2014 [facility]* <C> INFLUENZA, UNSPECIFIED FORMULATI* 02/21/2016 [facility]* <C> PNEUMOCOCCAL POLYSACCHARIDE PPV23 04/06/2014 [facility]* PPSV23 PNEUMOVAX POLYSACCHARIDE * 04/06/2014 [facility]* TDAP No Site CONTRAINDICATED No data available REFUSED ======= No data available <C> See the Detailed Immunizations Health Summary Component[DIM] for Comments * Value is truncated; see the Detailed Immunizations Health Summary Component[DIM] for complete text MEDICAL HISTORY REVIEW I have reviewed the patient's electronic medical record in [facility] and discussed and reviewed with the patient or insurance account representative, including: Medical Problems, Medications, Allergies, Surgical, Family, and Social History. Findings that may impact evaluation or management of the current complaint or any new conditions or significant revisions to this list are noted. MEDICATIONS: Reviewed Active Outpatient Medications (excluding Supplies): Active Outpatient Medications Status 1) HC 1%/NEOMYCIN 3.5MG/POLYMYXIN OPH SUSP INSTILL 3 ACTIVE DROPS IN LEFT EAR THREE TIMES A DAY FOR 10 DAYS Active Non-VA Medications Status 1) Non-VA CETIRIZINE HCL 10MG TAB 10MG MOUTH EVERY DAY ACTIVE 2 Total Medications Medications were reconciled per Joint Commission National Patient Safety Goal guidelines. The current medication list was obtained from the patient or caregiver, [facility], [employer], the patient's pharmacy, or [facility] records. Whenever possible, the patient or caregiver was questioned about the accuracy of medications and dosages in this list to resolve discrepancies. PHYSICAL EXAM: General: See nurse's charting for vitals. Vitals reviewed. HEAD: Normocephalic. EYES: No conjunctival discharge. EENT: Moist mucosa. Oropharyngeal exam unremarkable. The right external ear and otoscopic exam is unremarkable with normal TM. Left external exam unremarkable with no pain on tragus or pinna tugging. No mastoid tenderness. The left external auditory canal has white debris and drainage with some swelling and some redness. The left TM is not fully visualized secondaring to white debris/drainage but is partially visualized and does not appear especially erythematous and no definite perforation is noted. NECK: Supple. LUNGS: Normal respiratory rate and effort SKIN: Warm, dry. EXTREMITIES: No cyanosis, no edema. NEURO: Alert, oriented x4. PSYCH: Euthymic, cooperative. Does not endorse suicidal ideation, homicidal ideation, nor acute mental health concerns to me. ASSESSMENT: ER CARE COURSE & MEDICAL DECISION MAKING Patient presented to the ER Department for evaluation, and patient was triaged to the exam room. I reviewed the nursing notes and flow sheets, and patient was evaluated by me. Prior records were reviewed in [facility] as available and clinically relevant, including available medical, surgical, social, family, and allergy histories. Given continued symptoms will switch from cortisporin to ciprodex ear drops for pseudomonas coverage. No findings on my exam concerning for malignant otitis media or bony extension of infection. Discussed with pharmacy and we do not have extended release high dose amoxicillin/clavulante so will continue course with seven more days of Augmein 875/125 as well. Again as above the left TM is not fully visualized, visualized portion not especially erythematous or bulging but may be some degree of continued middle ear infection. Primary issue appears to be external otitis at this point, however. Will place comment on ENT consult for follow-up as patient states he previous was called for ENT but was already at ER and so did not schedule an appointment. Return to ER precautiosn given. Patient states his undestanding. Diagnosis: Otitis externa, left Disposition: Emergency Department Discharge Discussed with patient, assistant professor of music, or responsible family member capable of understanding the results of their evaluation, discharge orders, and follow up care. All questions were answered. Patient was instructed to return to the ED in 24 hours if not better, or immediately if any problems, concerns, or worsening of condition. Discharge instructions given to patient, direct care staffer, or responsible family member capable of understanding. PATIENT EDUCATION Discussed with patient, assistant professor of music, or responsible family member capable of understanding regarding treatment plan, including details of laboratory and/or radiology findings, diagnosis, management, treatment plan, possible complications. TREATMENT Prior to administering medications, patient or insurance account representative was informed of potential significant adverse reactions, therapeutic benefits, and questions were answered. PATIENT MEDICATION EDUCATION: Education provided. Any new medications as well as changes to current medications the patient is taking were discussed. The indication(s)/dose/route and any potential clinically significant adverse reactions were discussed with the patient/family member(s). All questions answered. PERSONAL PROTECTIVE EQUIPMENT (PPE): Patient was in mask on arrival. /VIDHYA/FINISHER MAP AND CHART used PPE during every encounter. /edith/ Simon Bella MD Physician, Emergency Department Signed: 07/26/2023 17:31 Receipt Acknowledged By: 07/28/2023 21:43 /edith/ SIMON BOYKIN PA-C [facility] July 26, 2023 03:04 PM EMERGENCY DEPT TRI AGE NOTE: LOCAL TITLE: EMERGENCY DEPT TRIAGE NOTE STANDARD TITLE: EMERGENCY DEPT TRIAGE NOTE DATE OF NOTE: JULY 26, 2023@15:04 ENTRY DATE: JULY 26, 2023@15:04:13 AUTHOR: CRAIG CALI COSIGNER: URGENCY: STATUS: COMPLETED Emergency Department/Urgent Care Center Triage Patient age: 32 Sex: MALE On arrival patient was: AMBULATORY Location Patient came from: Home Patient phone number: Preferred Name: Pronouns: Have you traveled recently No Allergies: PENICILLIN Subjective/Chief Complaint: L ear pain Objective: Pt presents to ED with c/o ongoing L ear pain. Pt dx with ear infection 10 days on, has been on PO Abx and Abx ear drops x 10 days. Pt reports ongoing pain and fullness, pain radiating down to jaw. Notes ear drainage has stopped since Saturday. Denies fevers/chills at home. No pain in R ear. Tolerating POs, no N/V. Skin w/p/d, in NAD. The patient is not a fall risk. Vital Signs * BP: 116/83 (07/26/2023 15:03) Pulse: 80 (07/26/2023 15:03) Temp: 98.8 F [37.1 C] (07/26/2023 15:03) Resp: 18 (07/26/2023 15:03) HT(in): 66 in [167.6 cm] (05/15/2016 15:45) WT(lbs):138.1 lb [62.64 kg] (05/15/2016 15:45) 07/26/23 @ 1503 PULSE OXIMETRY: 98 Pain: 4 (07/26/2023 15:03) Emergency Severity Index (BENJAMIN) level Level 4 Current Medications: Active Outpatient Medications (excluding Supplies): Active Outpatient Medications Status 1) HC 1%/NEOMYCIN 3.5MG/POLYMYXIN OPH SUSP INSTILL 3 ACTIVE DROPS IN LEFT EAR THREE TIMES A DAY FOR 10 DAYS Active Non-VA Medications Status 1) Non-VA CETIRIZINE HCL 10MG TAB 10MG MOUTH EVERY DAY ACTIVE 2 Total Medications Current Problems: Active problems - Computerized Problem List is the source for the followin. Hemorrhoid 2. Urinary incontinence 3. Cyst 4. Vitamin D deficiency 5. Allergy 6. History of pneumothorax 7. Dyspnea 8. Asthma finding 9. Health maintenance alteration Suicide Screen: [place] Suicide Severity Rating Scale (C-SSRS) screener 1. Over the past month, have you [...] required due to responses to other questions. Covid-19, Flu, RSV Screening Within the past 10 days, does the patient have any of the following : Fever, new onset cough, sore throat, sinus congestion/rhinorrhea, loss of taste or smell, generalized myalgias, lower respiratory illness of unknown cause, or decompensated cardiac or pulmonary disease? No Within the past 10 days, does the patient report a close contact (less then 6 feet apart for at least 15 minutes) with a person with a respiratory illness or a person know to have Covid-19? No If the answer is yes to either of the about questions, please order screening for Covid-19/Flu/RSV prior to admission. Testing NOT indicated Sepsis Screening *SUSPECTED INFECTION No How often did you have a drink containing alcohol in the past year? Perform AUDIT-C An alcohol screening test (AUDIT-C) was negative [...] one occasion in the past year? Never Have you smoke or use tobacco products in the last 30 days? No Drug use: No Any recent injuries ? No Patient Disposition: FT 3 Tele ICU contacted No /es/ CRAIG CALI Registered Nurse Signed: 07/26/2023 15:06 CRAIG CALI [facility]
--- OUTSIDE RECORDS SUMMARY | 2024-03-18 10:30 | XMS_ITS | Encounter Summary ---
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 Date/Time Encounter Type Encounter Description Reason Pro vider Source Jun 20, 2023 12:00 AM Outpatient Encounter EVENT (HISTORICAL) IHE Encounter Template Text not used by [facility] Plan of Treatment: Future Appointments (+ 6 months) and Future Tests (+/- 45 days) The Plan of Treatment section includes future care activities for the patient from all [place] [facility] This section includes future appointments and future orders which are active, pending or scheduled. Future Appointments This section includes appointments that were scheduled to occur 6 months from the date of the Encounter, up to a maximum of 20 appointments. The data comes from all [facility]. Appointment Date/Time Appointment Type Appointme nt Facility Name July 19, 2023 09:39 AM AMBULATORY - MEDIC[place] [facility] July 26, 2023 02:39 PM AMBULATORY - [place]IC[place] [facility] August 05, 2023 08:30 AM AMBULATORY - NONE [facility] August 07, 2023 10:30 AM AMBULATORY - NONE [place] [facility] August 07, 2023 02:00 PM AMBULATORY [place] [facility] Aug 20, 2023 10:00 AM [place] [facility] Sep 23, 2023 09:30 AM AMBULATORY - NONE [facility] Oct 04, 2023 11:30 AM AMBULATORY - NONE [place] [facility] Oct 21, 2023 10:00 AM AMBULATORY [place] [facility] Oct 21, 2023 01:45 PM AMBULATORY [place] [facility] Dec 05, 2023 09:30 AM AMBULATORY - NONE [place] [facility] Dec 05, 2023 10:00 AM AMBUL[place]ORY [place] [facility] Active, Pending, and Scheduled Orders This section includes a listing of several types of active, pending, and scheduled orders, including clinic medications orders, diagnostic test orders, procedure orders and consult orders; where the start date of the order is 45 days before the date of the Encounter or 45 days after the date of theEncounter. The data comes from all [facility]. Test Date/Time Test Type Test Details Facility Name Jun 23, 2023 12:00 AM Laboratory - Chemi stry Order BASIC METABOLIC PANEL (fasting) BLOOD (SST-SERUM) [facility] ([id number]) Jun 23, 2023 12:00 AM Laboratory - Chemi stry Order LIVER FUNCTION BLOOD (SST-SERUM) [facility] ([id number]) Jun 23, 2023 12:00 AM Laboratory - Chemi stry Order LIPID PANEL FASTING BLOOD (SST-SERUM) [facility] ([id number]) Jun 23, 2023 12:00 AM Laboratory - Chemi stry Order HEMOGLOBIN A1C PANEL BLOOD (LAV-BLOOD) SP [facility] ([id number]) Jun 23, 2023 12:00 AM Laboratory - Chemi stry Order TSH BLOOD (SST-SERUM) SP [facility] ([id number]) Jun 23, 2023 12:00 AM Laboratory - Chemi stry Order VITAMIN D (25-OH) BLOOD (SST-SERUM) SP [facility] ([id number]) Jun 23, 2023 12:00 AM Laboratory - Chemi stry Order CBC AND DIFF (AUTO) BLOOD (LAV-BLOOD) SP [facility] ([id number]) Jun 23, 2023 12:00 AM Laboratory - Chemi stry Order CALCIUM BLOOD (SST-SERUM) [facility] ([id number])
--- OUTSIDE RECORDS SUMMARY | 2024-03-18 10:30 | XMS_ITS | Encounter Summary ---
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 Date/Time Encounter Type Encounter Description Reason Provider Source August 07, 2023 02:00 PM OFFICE O/P NEW MOD 45 MIN OTOLARYNGOLOGY/ENT ICD-10-CM H66.002 Acute suppr otitis media w/o spon rupt ear drum, left ear SHON MARTINEZ [place] Encounter Template Text not used by [place] Assessments - Encounter Diagnoses This section includes the primary and secondary diagnoses documented for the Encounter. Date/Time Primary/Secondary Diagnosis Diagnosis Name Provider Source August 07, 2023 03:26 PM PRIMARY Acute suppr otitis media w/o spon rupt ear drum, left ear SHON MARTINEZ [facility] August 07, 2023 03:26 PM SECONDARY Allergic rhinitis, unspecified SHON MARTINEZ [facility] Plan of Treatment: Future Appointments (+ 6 months) and Future Tests (+/- 45 days) The Plan of Treatment section includes future care activities for the patient from all [place] [facility] This section includes future appointments and future orders which are active, pending or scheduled. Future Appointments This section includes appointments that were scheduled to occur 6 months from the date of the Encounter, up to a maximum of 20 appointments. The data comes from all [place] treatment [facility]. Appointment Date/Time Appointment Type Appointme nt Facility Name Aug 20, 2023 10:00 AM AMBULATORY - SURGERY [facility] Sep 23, 2023 09:30 AM AMBULATORY - NONE [facility] Oct 04, 2023 11:30 AM AMBULATORY - NONE [facility] [place] [facility] Oct 21, 2023 10:00 AM AMBULATORY - SURGERY [facility] Oct 21, 2023 01:45 PM AMBULATORY - SURGERY [facility] Dec 05, 2023 09:30 AM AMBULATORY - NONE [place] [facility] Dec 05, 2023 10:00 AM AMBULATORY - SURGERY [facility] Active, Pending, and Scheduled Orders This section includes a listing of several types of active, pending, and scheduled orders, including clinic medications orders, diagnostic test orders, procedure orders and consult orders; where the start date of the order is 45 days before the date of the Encounter or 45 days after the date of theEncounter. The data comes from all [place] treatment [facility]. Test Date/Time Test Type Test Details Facility Name Jun 23, 2023 12:00 AM Laboratory - Chemi stry Order BASIC METABOLIC PANEL (fasting) BLOOD (SST-SERUM) [facility] ([id number]) Jun 23, 2023 12:00 AM Laboratory - Chemi stry Order LIVER FUNCTION BLOOD (SST-SERUM) [facility] ([id number]) Jun 23, 2023 12:00 AM Laboratory - Chemi stry Order LIPID PANEL FASTING BLOOD (SST-SERUM) [facility] ([id number]) Jun 23, 2023 12:00 AM Laboratory - Chemi stry Order HEMOGLOBIN A1C PANEL BLOOD (LAV-BLOOD) [facility] ([id number]) Jun 23, 2023 12:00 AM Laboratory - Chemi stry Order TSH BLOOD (SST-SERUM) [facility] ([id number]) Jun 23, 2023 12:00 AM Laboratory - Chemi stry Order VITAMIN D (25-OH) BLOOD (SST-SERUM) [facility] ([id number]) Jun 23, 2023 12:00 AM Laboratory - Chemi stry Order CBC AND DIFF (AUTO) BLOOD (LAV-BLOOD) [facility] ([id number]) Jun 23, 2023 12:00 AM Laboratory - Chemi stry Order CALCIUM BLOOD (SST-SERUM) [facility] ([id number]) Lab Results: +/- 30 days [...] Range Comment August 05, 2023 08:[address] [facility] VITAMIN B-12 Specimen Type: SERUM Comment: , Tests performed on [email or web address] [place] SN:[id number] (405) Ordering Provider: TYRESE ASIF Report Released Date/Time: July 18, 2023 12:25 PM Reporting [facility] [address] [place] [address] Performing Lab: [facility] [address] [facility] [address] VITAMIN B-12 245 pg/mL 200-900 August 05, 2023 08:15 AM [facility] TESTOSTERONE(WRJ) Specimen Type: SERUM Comment: , Tests performed on [employer] SN:[id number] (405) Ordering Provider: TYRESE ASIF Report Released Date/Time: July 18, 2023 12:25 PM Reporting Lab: [facility] [address] [facility] [address] Performing Lab: [facility] [address] [facility] [address] TESTOSTERONE(WRJ) 393.8 ng/dL 220-892 August 05, 2023 08:[address] [facility] P4 GLU,BUN,CREAT,LYTES,CA Specimen Type: PLASMA Comment: , Tests performed on [employer] SN:[id number] (405). Ordering Provider: TYRESE ASIF Report Released Date/Time: July 18, 2023 12:25 PM Reporting Lab: [facility] [address] [facility] [address] Performing Lab: [facility] [address] [facility] [address] UREA NITROGEN 14 mg/dL 7-25 SODIUM 138 mmol/L 135-145 POTASSIUM 4.2 mmol/L 3.5-5.0 CHLORIDE 104 mmol/L 100-110 CARBON DIOXIDE 26 mmol/L 20-30 ANION GAP 8 4-16 GLUCOSE 90 mg/dL 65-100 CREATININE 1.13 mg/dL 0.50-1.50 CALCIUM 9.4 mg/dL 8.5-10.5 eGFR(CKD-EPI 2020) 88 mL/min August 05, 2023 08:[address] [facility] CBC PROFILE Specimen Type: BLOOD No comment entered. Ordering Provider: TYRESE ASIF Report Released Date/Time: July 18, 2023 12:25 PM Reporting Lab: [facility] [address] [facility] [address] Performing Lab: [facility] [address] [facility] [address] WBC 7.4 10*3/uL 4.5-11.0 RBC 5.28 10*6/uL [...] 10*3/uL 0-0 August 05, 2023 08:[address] [facility] LIVER PROFILE Specimen Type: PLASMA Comment: , Tests performed on [employer] SN:[id number] (405). Ordering Provider: TYRESE ASIF Report Released Date/Time: July 18, 2023 12:25 PM Reporting Lab: [facility] [address] [facility] [address] Performing Lab: [facility] [address] [facility] [address] PROTEIN, TOTAL 7.3 g/dL 6.0-8.5 ALBUMIN 4.1 g/dL 3.2-5.0 BILIRUBIN, TOTAL 0.9 mg/dL 0.2-1.2 ALKALINE PHOSPHATASE 75 U/L 40-150 ALT(SGPT) 44 U/L 7-52 AST(SGOT) 28 U/L 5-34 FIB-4 SCORE 0.63 <2.67 August 05, 2023 08:[address] [facility] LIPOPROTEIN CHOLESTEROL FRACT. PANEL Specimen Type: PLASMA Comment: , Tests performed on [employer] SN:[id number] (405). Ordering Provider: TYRESE ASIF Report Released Date/Time: July 18, 2023 12:25 PM Reporting Lab: [facility] [address] [facility] [address] Performing Lab: [facility] [address] [facility] [address] CHOLESTEROL 161 mg/dL 0-200 TRIGLYCERIDE 110 mg/dL 0-150 HDL CHOLESTEROL 47 mg/dL >40 LDL CHOLESTEROL (CALC) 92 mg/dL 0-129 August 05, 2023 08:[address] [facility] URINALYSIS ONLY NO REFLEXURINALYSIS ONLY Specimen Type: URINE No comment entered. Ordering Provider: TYRESE ASIF Report Released Date/Time: July 18, 2023 12:25 PM Reporting Lab: [facility] [address] [facility] [address] Performing Lab: [facility] [address] [facility] [address] URINE COLOR Light-Yello w NOT DEFINED SPECIFIC GRAVITY 1.025 1.003-1.030 UROBILINOGEN <2.0 mg/dL <2.0 URINE BILIRUBIN NEG NEG URINE KETONES NEG mg/dL NEG URINE GLUCOSE NEG mg/dL NEG PROTEIN, URINE TRACE mg/dL NEG URINE PH 7.0 5-8 CLARITY CLEAR NOT DEFINED URINE BLOOD NEG NEG NITRITE, URINE NEG NEG WBC SCREEN NEG NEG August 05, 2023 08:[address] [facility] VIT D 25-OH([facility]) Specimen Type: SERUM Comment: , Tests performed on [email or web address] [place] SN:[id number] (405) Ordering Provider: TYRESE ASIF Report Released Date/Time: July 18, 2023 12:25 PM Reporting Lab: [facility] [address] [facility] [address] Performing Lab: [facility] [address] [facility] [address] VIT D 25-OH([facility]) 22.9 ng/mL 20.0-50.0 Vital Signs: All taken on the encounter date This section contains inpatient and outpatient Vital Signs collected on the date of the Encounter. Date/Time Temperature Pulse Blood Pressure Respiratory Rate SP02 Pain Height Weight Body Mass Index Source August 07, 2023 10:30 AM 97.6 65 119/81 [address] [facility] Encounter Notes: All associated encounter notes This section contains the clinical notes associated to the Encounter. Date/Time Encounter Note(s) Provider Source August 07, 2023 02:07 PM OTOLARYNGOLOGY CON SULT: LOCAL TITLE: CONSULT - ENT STANDARD TITLE: OTOLARYNGOLOGY CONSULT DATE OF NOTE: AUGUST 07, 2023@14:07 ENTRY DATE: AUGUST 07, 2023@14:07:13 AUTHOR: SHON MARTINEZ COSIGNER: URGENCY: STATUS: COMPLETED CC: Left ear infection HPI:Mr. Abelardo Bella presents for follow-up from a recent left ear infection. He states that at the end of June he developed significant left-sided otalgia. The otalgia started shortly after returning home from a cruise. He felt a lot of pressure in his ear and then a pop. He then persisted to have otorrhea from his left ear. He was seen in the emergency room on 3 separate visits. He was treated with 2 separate courses of Augmentin, a course of Cortisporin otic, and then a course of Ciprodex. He states that the pain has since resolved. He continues to have aural fullness, left more so than right, diminished hearing and the sensation of bubbles and crackling in his ears. The otorrhea has resolved along with the otalgia. He did have ear infections as a child but none recently. No history of tympanostomy tubes or ear surgeries. Abelardo also is concerned about chronic allergies. He states that he has had allergic rhinitis for many years. He has undergone immunotherapy. He tested positive to multiple different allergens, including dog dander. He does have 3 dogs at home. He has been taking cetirizine for more than 10 years. He was recently prescribed fluticasone nasal spray, which he has been using daily for the last few days.. He admits to itchy watery eyes, sneezing, sinus congestion, and nasal congestion. No history of asthma, though he does note some wheezing when his allergies are bad. PMH:Active problems - Computerized Problem List is the source for the followin. Hemorrhoid 2. Urinary incontinence 3. Cyst 4. Vitamin D deficiency 5. Allergy 6. History of pneumothorax 7. Dyspnea 8. Asthma finding 9. Health maintenance alteration PSH: Tonsillectomy as a child SH: He recently moved to [place], [place] from [facility]. 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 He is unsure what he is going to do for work in [place]. Meds: Active Outpatient Medications (excluding Supplies): Active Outpatient Medications Status 1) AMOXICILLIN 875/CLAV K 125MG TAB TAKE 1 TABLET BY ACTIVE MOUTH TWICE A DAY FOR OTITIS MEDIA 2) CIPROFLOXACIN 0.3/DEXAM 0.1% OTIC SUSP INSTILL FOUR ACTIVE DROPS IN LEFT EAR TWICE A DAY FOR OTITIS EXTERNA Active Non-VA Medications Status 1) Non-VA CETIRIZINE HCL 10MG TAB 10MG MOUTH EVERY DAY ACTIVE 2) Non-VA FLUTICASONE PROP 50MCG 120D NASAL INHL 2 ACTIVE SPRAYS INTO EACH NOSTRIL ONCE DAILY 4 Total Medications PE: DATE/TIME TEMP PULSE RESP BP PAIN WEIGHT 08/07/23 @ 1030 97.6 65 18 119/81 0 151.4 0 (08/07/2023 10:30) Gen : Alert and oriented. NAD. Head/Face: Normocephalic. No lesions or masses. Normal salivary glands- soft/symmetric/not enlarged. Ears: External ears are normal. Right EAC is clear. TM is translucent and mobile to pneumatic otoscopy. Left EAC with a scant amount of dried cerumen in the lateral canal. His tympanic membrane is coated in a thin layer of dried serous debris and eardrop residue. TM is mobile to pneumatic otoscopy. No effusion appreciated, though difficult to see through the residue on his TM. I did attempt to clean the residue with suction and a Silva needle, though was unsuccessful. Nose: External nose without deformity. Septum midline, without deviation, ulceration. Turbinates are edematous and erythematous. He has a possible nasal polyp versus clear mucus just medial to his right middle turbinate. No purulent discharge or bleeding. Oral Cavity: Oral mucosa moist without ulcerations, erythema, leukoplakia. Dentition normal. Oropharynx: Palate of normal appearance and mobility. Normal tongue and mucosa. Neck: Neck is supple. No adenopathy or masses noted. Parotid and submandibular glands without masses. [id number]-MO-TAYE Greater than 50% of this session was dedicated to counseling and coordination of care: Yes Time spent with patient (minutes): 45 A/P: Mr. Abelardo Bella is a very pleasant 32-year-old male with a history of allergic rhinitis who presents with a recent left-sided otitis. Likely, he had an otitis media with rupture, though he may have had an otitis externa. Regardless, the infection appears improved today. He does continue to have some dried debris along his TM on the left. I recommended earwax softening drops to help dissolve the debris. He will return in 2 to 3 weeks for reevaluation. He has a history of allergic rhinitis. He has been taking cetirizine for many years. Likely, he has built a tolerance to this medication. I recommended that we discontinue it at this time. He will switch over to loratadine 10 mg daily. Continue fluticasone nasal spray. Consider adding azelastine nasal spray if symptoms persist. Patanol eyedrops once daily as needed. We will follow-up on allergic rhinitis at next visit. Consider nasal endoscopy to assess for nasal polyposis if symptoms persist. /edith/ SHON KEE Signed: 08/07/2023 15:27 SHON MARTINEZ [facility]
--- OUTSIDE RECORDS SUMMARY | 2024-03-18 10:30 | XMS_ITS ---
Author Name [facility] Organization [facility] Address [address] [place] [address] Care Team Providers Care Shuttle Inspector Name Role Phone YASMIN CHAWLA Primary Care [...] HEALTH PL[facility] [place] [facility] Jan 16, 2019 [id number] Maxine HEDRICK HAD PATIENT [employer] ([id number]) PRESCRIPT ION [facility] Jan 16, 2019 [id number] Maxine HEDRICK HAD PATIENT Selected Encounter This section includes the information on record at ID for the Encounter. Date/Time Encounter Type Encounter Description Reason Provider Source July 19, 2023 09:39 AM EMERGENCY DEPT VISIT MOD MDM EMERGENCY DEPT ICD-10-CM H60.399 Other infective otitis externa, unspecified ear GARY DOWNS Encounter Template Text not used by [facility] Assessments - Encounter Diagnoses This section includes the primary and secondary diagnoses documented for the Encounter. Date/Time Primary/Secondary Diagnosis Diagnosis Name Provider Source July 19, 2023 10:25 AM PRIMARY Other infective otitis externa, unspecified ear LUIS DOWNS [facility] July 19, 2023 10:25 AM SECONDARY Acute serous otitis media, unspecified ear LUIS DOWNS [facility] Plan of Treatment: Future Appointments (+ 6 months) and Future Tests (+/- 45 days) The Plan of Treatment section includes future care activities for the patient from [facility] This section includes future appointments and future orders which are active, pending or scheduled. Future Appointments This section includes appointments that were scheduled to occur 6 months from the date of the Encounter, up to a maximum of 20 appointments. The data comes from all ID treatment facilities. Appointment Date/Time Appointment Type Appointme nt Facility Name July 26, 2023 02:39 PM AMBULATORY - MEDICINE JEFFREY MEZA [facility] August 05, 2023 08:30 AM AMBULATORY - NONE [facility] August 07, 2023 10:30 AM AMBULATORY - NONE [place] [facility] [facility] August 07, 2023 02:00 PM AMBULATORY - SURGERY G[facility] Aug 20, 2023 10:00 AM AMBULATORY - SURGERY WHITE [facility] Sep 23, 2023 09:30 AM AMBULATORY - NONE [facility] Oct 04, 2023 11:30 AM AMBULATORY - NONE [place] [facility] Oct 21, 2023 10:00 AM AMBULATORY - SURGERY [place] [facility] Oct 21, 2023 01:45 PM AMBULATORY - SURGERY [place] [facility] Dec 05, 2023 09:30 AM AMBULATORY - NONE [place] [facility] Dec 05, 2023 10:00 AM AMBULATORY - SURGERY [facility] Active, Pending, and Scheduled Orders This section includes a listing of several types of active, pending, and scheduled orders, including clinic medications orders, diagnostic test orders, procedure orders and consult orders; where the start date of the order is 45 days before the date of the Encounter or 45 days after the date of theEncounter. The data comes from all ID treatment facilities. Test Date/Time Test Type Test Details Facility Name Jun 23, 2023 12:00 AM Laboratory - Chemi stry Order BASIC METABOLIC PANEL (fasting) BLOOD (SST-SERUM) [facility] ([id number]) Jun 23, 2023 12:00 AM Laboratory - Chemi stry Order LIVER FUNCTION BLOOD (SST-SERUM) [facility] ([id number]) Jun 23, 2023 12:00 AM Laboratory - Chemi stry Order LIPID PANEL FASTING BLOOD (SST-SERUM) [facility] ([id number]) Jun 23, 2023 12:00 AM Laboratory - Chemi stry Order HEMOGLOBIN A1C PANEL BLOOD (LAV-BLOOD) [facility] ([id number]) Jun 23, 2023 12:00 AM Laboratory - Chemi stry Order TSH BLOOD (SST-SERUM) [facility] ([id number]) Jun 23, 2023 12:00 AM Laboratory - Chemi stry Order VITAMIN D (25-OH) BLOOD (SST-SERUM) [facility] ([id number]) Jun 23, 2023 12:00 AM Laboratory - Chemi stry Order CBC AND DIFF (AUTO) BLOOD (LAV-BLOOD) [facility] ([id number]) Jun 23, 2023 12:00 AM Laboratory - Chemi stry Order CALCIUM BLOOD (SST-SERUM) [facility] ([id number]) Lab Results: +/- 30 days of [...] Range Comment August 05, 2023 08:15 AM [facility] VITAMIN B-12 Specimen Type: SERUM Comment: , Tests performed on [employer] SN:[id number] (405) Ordering Provider: TYRESE ASIF Report Released Date/Time: July 18, 2023 12:25 PM Reporting [facility] [address] [facility] [address] Performing Lab: [facility] [address] [facility] [address] VITAMIN B-12 245 pg/mL 200-900 August 05, 2023 08:15 AM [facility] TESTOSTERONE([facility]) Specimen Type: SERUM Comment: , Tests performed on [employer] SN:[id number] (405) Ordering Provider: TYRESE ASIF Report Released Date/Time: July 18, 2023 12:25 PM Reporting Lab: [facility] [address] [facility] [address] Performing Lab: [facility] [address] [facility] [address] TESTOSTERONE([facility]) 393.8 ng/dL 220-892 August 05, 2023 08:15 AM [facility] P4 GLU,BUN,CREAT,LYTES,CA Specimen Type: PLASMA Comment: , Tests performed on [employer] Arvind SN:[id number] (405). Ordering Provider: TYRESE ASIF Report Released Date/Time: July 18, 2023 12:25 PM Reporting Lab: [facility] [address] [facility] [address] Performing Lab: [facility] [address] [facility] [address] UREA NITROGEN 14 mg/dL 7-25 SODIUM 138 mmol/L 135-145 POTASSIUM 4.2 mmol/L 3.5-5.0 CHLORIDE 104 mmol/L 100-110 CARBON DIOXIDE 26 mmol/L 20-30 ANION GAP 8 4-16 GLUCOSE 90 mg/dL 65-100 CREATININE 1.13 mg/dL 0.50-1.50 CALCIUM 9.4 mg/dL 8.5-10.5 eGFR(CKD-EPI 2020) 88 mL/min August 05, 2023 08:15 AM [facility] CBC PROFILE Specimen Type: BLOOD No comment entered. Ordering Provider: TYRESE ASIF Report Released Date/Time: July 18, 2023 12:25 PM Reporting Lab: [facility] [address] [facility] [address] Performing Lab: [facility] [address] [facility] [address] WBC 7.4 10*3/uL 4.5-11.0 RBC 5.28 10*6/uL [...] 10*3/uL 0-0 August 05, 2023 08:15 AM [facility] LIVER PROFILE Specimen Type: PLASMA Comment: , Tests performed on [employer] SN:[id number] (405). Ordering Provider: TYRESE ASIF Report Released Date/Time: July 18, 2023 12:25 PM Reporting Lab: [facility] [address] [facility] [address] Performing Lab: [facility] [address] [facility] [address] PROTEIN, TOTAL 7.3 g/dL 6.0-8.5 ALBUMIN 4.1 g/dL 3.2-5.0 BILIRUBIN, TOTAL 0.9 mg/dL 0.2-1.2 ALKALINE PHOSPHATASE 75 U/L 40-150 ALT(SGPT) 44 U/L 7-52 AST(SGOT) 28 U/L 5-34 FIB-4 SCORE 0.63 <2.67 August 05, 2023 08:15 AM [facility] LIPOPROTEIN CHOLESTEROL FRACT. PANEL Specimen Type: PLASMA Comment: , Tests performed on [employer] Arvind SN:[id number] (405). Ordering Provider: TYRESE ASIF Report Released Date/Time: July 18, 2023 12:25 PM Reporting Lab: [facility] [address] [facility] [address] [facility]forming Lab: [facility] [address] [facility] [address] CHOLESTEROL 161 mg/dL 0-200 TRIGLYCERIDE 110 mg/dL 0-150 HDL CHOLESTEROL 47 mg/dL >40 LDL CHOLESTEROL (CALC) 92 mg/dL 0-129 August 05, 2023 08:15 AM [facility] URINALYSIS ONLY NO REFLEXURINALYSIS ONLY Specimen Type: URINE No comment entered. Ordering Provider: TYRESE ASIF Report Released Date/Time: July 18, 2023 12:25 PM Reporting [facility] [address] [facility] [address] Performing Lab: [facility] [address] [facility] [address] URINE COLOR Light-Yello w NOT DEFINED SPECIFIC GRAVITY 1.025 1.003-1.030 UROBILINOGEN <2.0 mg/dL <2.0 URINE BILIRUBIN NEG NEG URINE KETONES NEG mg/dL NEG URINE GLUCOSE NEG mg/dL NEG PROTEIN, URINE TRACE mg/dL NEG URINE PH 7.0 5-8 CLARITY CLEAR NOT DEFINED URINE BLOOD NEG NEG NITRITE, URINE NEG NEG WBC SCREEN NEG NEG August 05, 2023 08:15 AM [facility] VIT D 25-OH(J) Specimen Type: SERUM Comment: , Tests performed on [employer] Burgess SN:[id number] (405) Ordering Provider: TYRESE ASIF Report Released Date/Time: July 18, 2023 12:25 PM Reporting [facility] [address] [facility] [address] [facility]forming Lab: [facility] [address] [facility] [address] VIT D 25-OH(WRJ) 22.9 ng/mL 20.0-50.0 Vital Signs: All taken on the encounter date This section contains inpatient and outpatient Vital Signs collected on the date of the Encounter. Date/Time Temperature Pulse Blood Pressure Respiratory Rate SP02 Pain Height Weight Body Mass Index Source July 19, 2023 09:47 AM 97.8 72 126/80 18 99 4 GARRET MEZA [facility] Encounter Notes: All associated encounter notes This section contains the clinical notes associated to the Encounter. Date/Time Encounter Note(s) Provider Source July 19, 2023 10:25 AM EMERGENCY DEPT NOT E: LOCAL TITLE: ED ICT NOTE/EMERGENCY DEPARTMENT NOTE STANDARD TITLE: EMERGENCY DEPT NOTE DATE OF NOTE: JULY 19, 2023@10:25 ENTRY DATE: JULY 19, 2023@10:25:20 AUTHOR: COLETTE SHELLEY EXP AMADOIGNER: URGENCY: STATUS: COMPLETED * Falls Patient greater than 70 years old? No presented to ED with c/o ear pain/drainage-se TRiage note for full assessment evaluated by MD [place]s Discharge meds and instructions reviewed with - demonstrated understanding [place] discharged to home // COLETTE SHELLEY Intermediate youth care professional Signed: 07/19/2023 10:26 COLETTE SHELLEY [facility] July 19, 2023 10:23 AM EMERGENCY DEPT NOT E: LOCAL TITLE: ED MD Note/Emergency Department Physician Note STANDARD TITLE: EMERGENCY DEPT NOTE DATE OF NOTE: JULY 19, 2023@10:23 ENTRY DATE: JULY 19, 2023@10:23:05 AUTHOR: ALAN DOWNS EXP AMADOIGNER: URGENCY: STATUS: COMPLETED JULY 19, 2023 HIGINIO HEDRICK is a 32 year old who presents for left ear pain, drainage and muffled hearing. Patient has a history of seasonal allergies. Patient just went on a cruise did a lot of time in the water. When he came back he began to develop pain discharge and muffled hearing in his left ear. There is no trauma. He was symptoms began 3 days ago. At the time he was seen at an emergency department in [place] was started on twice a day amoxicillin. He was told to follow-up with ENT. Patient's symptoms persist. He still has ear tenderness muffled hearing and ear drainage. He has no right ear symptoms Patient has some chronic tinnitus which is unchanged. Denies any vertigo. PAST MEDICAL HISTORY Active problems - Computerized Problem List is the source for the followin. Hemorrhoid 2. Urinary incontinence 3. Cyst 4. Vitamin D deficiency 5. Allergy 6. History of pneumothorax 7. Dyspnea 8. Asthma finding 9. Health maintenance alteration PAST SURGICAL HISTORY MEDICATIONS Active Outpatient Medications (excluding Supplies): Pending Outpatient Medications Status 1) HYDROCORTISONE/NEOMYCIN/P OLYMYXIN B SUSP,OPH INSTILL PENDING 3 DROPS IN LEFT EAR THREE TIMES A DAY Active Non-VA Medications Status 1) Non-VA CETIRIZINE HCL 10MG TAB 10MG MOUTH EVERY DAY ACTIVE 2 Total Medications ALLERGIES PENICILLIN APR 13, 2013 (historical) Symptoms: NERVOUSNESS VITALS BP: 126/80 (07/19/2023 09:47) Pulse: 72 (07/19/2023 09:47) Temp: 97.8 F [36.6 C] (07/19/2023 09:47) Resp: 18 (07/19/2023 09:47) HT(in): 66 in [167.6 cm] (05/15/2016 15:45) WT(lbs):138.1 lb [62.64 kg] (05/15/2016 15:45) 07/19/23 @ 0947 PULSE OXIMETRY: 99 Vital Signs:I have reviewed the vital signs General -alert oriented no distress. Head: atraumatic, normocephalic. Eyes: Pupils equally round and reactive. Extra ocular muscles intact. Sclera white. No nystagmus. ENT: The patient's left ear shows evidence of superficial inflammation of the external auditory canal. There is also erythema over the tympanic membranes. No perforation seen in the tympanic membrane. When I had the patient do Valsalva maneuver I did see the tympanic membranes move and did not see any bubbles. Neck: neck supple, nontender, no lymphadenpathy. No thyromegaly. Skin - no rash Psych - appropriate mood and affect MEDICAL DECISION MAKING: Immunocompetent 32-year-old gentleman developed left ear symptoms after doing a lot of time in the water on a cruise. No reported barotrauma. Patient started on amoxicillin twice a day 3 days ago without improvement of symptoms. On examination I think there is at least some element of otitis externa that he would benefit from being put on Cortisporin otic. There is some inflammation tympanic membrane I will have him continue his oral antibiotic. Patient will follow-up with ENT as already referred if symptoms do not resolve. DIAGNOSIS: Left ear pain and discharge secondary to otitis externa with possible superimposed otitis media The following note has been dictated using [employer] book [employer]. It has been proofread, but there may be errors due to the dictations software. PERSONAL PROTECTIVE EQUIPMENT (PPE): This provider used appropriate PPE during every encounter with the patient. /edith/ ALAN DOWNS MD EMERGENCY DEPARTMENT CAP BLOCKER Signed: 07/19/2023 10:27 ALAN DOWNS [facility] July 19, 2023 10:20 AM EMERGENCY DEPT DIS CHARGE NOTE: LOCAL TITLE: Emergency Dept Discharge Instructions STANDARD TITLE: EMERGENCY DEPT DISCHARGE NOTE DATE OF NOTE: JULY 19, 2023@10:20 ENTRY DATE: JULY 19, 2023@10:20:55 AUTHOR: ALAN DOWNS EXP COSIGNER: URGENCY: STATUS: COMPLETED DISCHARGE INSTRUCTIONS FOR: MR. HIGINIO HEDRICK [address] [place], [place] [address] JULY 19, 2023 YOUR DIAGNOSIS: swimmers ear and middle ear infection TREATMENT YOU RECEIVED IN THE EMERGENCY DEPARTMENT: none RESULTS: TREATMENT INSTRUCTIONS UPON DISCHARGE FROM THE EMERGENCY DEPARTMENT, INCLUDING INSTRUCTIONS FOR MEDICATIONS: cortisporin drops to left ear as prescribed. complete your course of amoxicillin ACTIVE MEDICATIONS: Active Outpatient Medications (excluding Supplies): Pending Outpatient Medications Status 1) HYDROCORTISONE/NEOMYCIN/P OLYMYXIN B SUSP,OPH INSTILL PENDING 3 DROPS IN LEFT EAR THREE TIMES A DAY Active Non-VA Medications Status 1) Non-VA CETIRIZINE HCL 10MG TAB 10MG MOUTH EVERY DAY ACTIVE 2 Total Medications INSTRUCTIONS FOR FOLLOW UP: follow up with ENT as referred if not better in 7-10 days. A copy of these instructions was given to the patient and/or caregiver. The instructions were reviewed with the patient and/or caregiver. The patient and/or caregiver showed understanding of the instructions before discharge from the Emergency Department. TREATING PHYSICIAN: ALAN DOWNS MD EMERGENCY DEPARTMENT CAP BLOCKER SCHEDULED FUTURE APPOINTMENTS: Future Appointments - July@10:30 LIT PACT R During normal business hours Saturday-Saturday 8-4 PM: If you have any problems, your personal development mentor or a doctor can be reached by calling the telephone advice line at: P) [phone], ext. [phone] Toll-free (P) [phone] ext. [phone] If you are a [place] in crisis, free confidential support is available 08/10. To access, call the [employer] Crisis Line by dialing 988 and press 1. You may also text [phone] or start an online chat session at [email or web address] t/chat Crisis support for the deaf and hard of hearing can be reached by using your preferred relay service or dial 711 then 988. /es/ ALAN DOWNS MD EMERGENCY DEPARTMENT CAP BLOCKER Signed: 07/19/2023 10:22 ALAN DOWNS [facility] July 19, 2023 09:48 AM EMERGENCY DEPT TRI AGE NOTE: LOCAL TITLE: EMERGENCY DEPT TRIAGE NOTE STANDARD TITLE: EMERGENCY DEPT TRIAGE NOTE DATE OF NOTE: JULY 19, 2023@09:48 ENTRY DATE: JULY 19, 2023@09:48:06 AUTHOR: KESHAV YOUNG COSIGNER: URGENCY: STATUS: COMPLETED Emergency Department/Urgent Care Center Triage Patient age: 32 Sex: MALE On arrival patient was: AMBULATORY Location Patient came from: Patient phone number: Preferred Name: Pronouns: Have you traveled recently No Allergies: PENICILLIN Subjective/Chief Complaint: Pt presents with chief complaint of L ear infection, reports he went to an outside hospital on Saturday and was put on antibiotics for an ear infection. Reports he continues to have a lot of bloody and mucous drainage from his ear, and his ear feels blocked. Denies fever/chills. Objective: Pt awake, alert, ambulated into ED independently with steady gait, respirations even and nonlabored, skin warm/dry/pink. The patient is not a fall risk. Vital Signs * BP: 126/80 (07/19/2023 09:47) Pulse: 72 (07/19/2023 09:47) Temp: 97.8 F [36.6 C] (07/19/2023 09:47) Resp: 18 (07/19/2023 09:47) HT(in): 66 in [167.6 cm] (05/15/2016 15:45) WT(lbs):138.1 lb [62.64 kg] (05/15/2016 15:45) 07/19/23 @ 0947 PULSE OXIMETRY: 99 Pain: 4 (07/19/2023 09:47) Emergency Severity Index (BENJAMIN) level Level 4 Current Medications: Active Outpatient Medications (excluding Supplies): Active Non-VA Medications Status 1) Non-VA CETIRIZINE HCL 10MG TAB 10MG MOUTH EVERY DAY ACTIVE Current Problems: Active problems - Computerized Problem List is the source for the followin. Hemorrhoid 2. Urinary incontinence 3. Cyst 4. Vitamin D deficiency 5. Allergy 6. History of pneumothorax 7. Dyspnea 8. Asthma finding 9. Health maintenance alteration Suicide Screen: [place] Suicide Severity Rating Scale (C-SSRS) screener 1. [...] products in the last 30 days? No Any recent injuries ? No Patient Disposition: Pt brought to FT1, handoff to Regina Shelley, [facility] Tele ICU contacted No /edith/ KESHAV YOUNG REGISTERED NURSE Signed: 07/19/2023 09:50 KESHAV YOUNG [facility]
--- NOTE | 2024-03-18 10:50 | ED.GENADUL_ITS ---
Discharge Plan Disposition Patient Disposition: Home Condition: Good Discharge Details Clinical Impression: Bilateral acute otitis media, URI (upper respiratory infection) Primary Care Provider: [facility] ED Provider: Josh Kwon Home Meds and New Rx's Prescriptions: New amoxicillin-pot clavulanate 875-125 mg tablet 1 tab PO BID 7 Days Qty: 14 0RF Discontinued amoxicillin-pot clavulanate 875-125 mg tablet 1 tab PO BID Qty: 20 0RF No Action cetirizine 10 MG tablet,chewable 10 mg PO DAILY diphenhydramine HCl 25 MG capsule 25 mg PO PRN PRN Allergy Relief (loratadine) 10 mg capsule 10 mg PO DAILY fluticasone propionate [24 Hour Allergy Relief] 50 mcg/actuation spray,suspension 1 spray intranasal DAILY PRN Rx Instructions: administer into each nostril Discharge Instructions Instructions: Ear Infections in Adults (DC) Additional Instructions: At this time you have evidence of a bilateral ear infection. Please take the antibiotic Augmentin as prescribed. Please take the Symbicort inhaler 2 puffs every 12 hours while on the antibiotic. Because of the ear infection there is an increased risk for rupture if you continue taking the cetirizine, Benadryl, or loratadine. Please do not take these for the time being while receiving treatment for the ear infection. You can take Tylenol and Motrin as needed for pain. Please continue to use the Flonase. Please use a Mariana pot or humidifier to help loosen and expectorate the nasal discharge. If you notice any worsening of your symptoms, or any new symptoms such as vomiting, diarrhea, fever, chills, shortness of breath, chest pain, numbness, weakness, or fainting , please return immediately to the emergency department for reevaluation. Please follow up with your primary care provider as soon as possible for reassessment and reevaluation. As always, it was a pleasure participating in your medical care today. Referrals: [facility] [Primary Care Provider] - [facility] General Date/Time Provider Initiated Documentation: 03/18/24 10:38 . HPI Narrative: 33-year-old male who is [facility] presents today for runny nose congestion bilateral ear pain and cough. Symptoms have been present for the las t week. Last year he had a similar episode which required antibiotics and decongestants. Patient admits to productivity for his cough with green sputum. He denies any ear drainage or discharge. He denies any fever or chills. He does admit to a persistent runny nose and congested feeling. He is using diphenhydramine, cetirizine, loratadine and Flonase. He denies any other complaints at this time. No other modifying factors. He denies hemoptysis. No fever. Related Data Home Medications ?Medication ?Instructions ?Recorded ?Confirmed cetirizine 10 mg chewable tablet 10 mg PO DAILY 05/24/12 03/18/24 diphenhydramine HCl 25 mg capsule 25 mg PO PRN PRN 01/26/13 03/18/24 amoxicillin 875 mg-potassium 1 tab PO BID 7 days #14 tabs 03/18/24 clavulanate 125 mg tablet fluticasone propionate 50 1 spray intranasal DAILY PRN 03/18/24 03/18/24 mcg/actuation nasal spray,suspension (24 Hour Allergy Relief) loratadine 10 mg capsule (Allergy 10 mg PO DAILY 03/18/24 03/18/24 Relief (loratadine)) Previous Rx's ?Medication ?Instructions ?Recorded amoxicillin 875 mg-potassium 1 tab PO BID 7 days #14 tabs 03/18/24 clavulanate 125 mg tablet Allergies Allergy/AdvReac Type Severity Reaction Status Date / Time No Known Allergies Allergy Verified 03/18/24 10:23 General Stated Complaint: RespSymp BENJAMIN: 4 Exam Narrative Exam Narrative: 1.Const: Well-nourished, Well-developed, appearing stated age 2.Eyes: PERRL, no conjunctival injection, and symmetrical lids. 3.ENT: Atraumatic external nose and ears. Moist MM. Neck: Symmetric, trachea midline, No thyromegaly. Bilateral otitis media with effusion worse on the right than the left. 4.CVS: +S1/S2, Peripheral pulses 2+ and equal in all extremities. Brisk capillary refill in all extremities. 5.RESP: Unlabored respiratory effort. Clear to auscultation bilaterally. No wheezes rales or rhonchi 6.GI: Soft, Nontender/Nondistended, No hepatosplenomegaly. No guarding or rebound. 7.MSK: Normocephalic/Atraumatic, Extremities w/o deformity or ttp No cyanosis or clubbing, Normal movement of all extremities 8.Skin: Warm, Dry. No rashes or lesions. 9.Neuro: galley cook II-XII grossly intact. Sensation grossly intact, no focal neurologic deficits. 10.Psych: (AAO) x3. Appropriate mood and affect Course Vital Signs Vital signs: Vital Signs Temperature 36.3 C L 03/18/24 10:19 Pulse 68 03/18/24 10:19 Respiratory Rate 17 03/18/24 10:19 Blood Pressure 115/77 03/18/24 10:19 Pulse Oximetry 98 03/18/24 10:19 Temperature 36.3 C L 03/18/24 10:25 Temperature Source Oral 03/18/24 10:25 Pulse 68 03/18/24 10:25 Respiratory Rate 17 03/18/24 10:25 Respiratory Effort Normal 03/18/24 10:27 Respiratory Depth Normal 03/18/24 10:27 Blood Pressure 115/77 03/18/24 10:25 Blood Pressure Position Sitting 03/18/24 10:25 Pulse Oximetry 98 03/18/24 10:25 Oxygen Delivery Method Room Air 03/18/24 10:25 Oxygen Flow Rate 0 03/18/24 10:25 Pain Level 5 03/18/24 10:25 Medical Decision Making 33-year-old male who is a [facility] presents today for runny nose congestion bilateral ear pain and cough. Symptoms have been present for the last week. Last year he had a similar episode which required antibiotics and decongestants. Patient admits to productivity for his cough with green sputum. He denies any ear drainage or discharge. He denies any fever or chills. He does admit to a persistent runny nose and congested feeling. He is using diphenhydramine, cetirizine, loratadine and Flonase. He denies any other complaints at this time. No other modifying factors. He denies hemoptysis. No fever. Exam demonstrates no evidence of tympanic membrane rupture. He has bilateral otitis media with effusion worse on the right than the left. Lungs are clear. Symptoms appear consistent with otitis media with effusion, and upper respiratory infection likely started viral but now shows evidence of bacterial component. Will give Augmentin for coverage of the otitis media. Recommend stopping the diphenhydramine and loratadine and cetirizine out of concern for increased likelihood for tympanic membrane rupture secondary to viscosity change of the effluent. Will recommend continued Mariana pot, Flonase, and humidifier. Will give Symbicort inhaler for his persistent cough and reactive pulmonary response. Patient will be discharged home with [facility] Discussed red flags for which to return. Augmentin dose will be given here to start. I have extensively reviewed the treatment plan and discharge instructions with the patient. I have addressed all patient concerns at this time. The patient was made aware of what symptoms to monitor for that would warrant a return to the emergency department. Discussed the plan with the patient, they demonstrate verbal understanding and agreement with our assessment and plan at this time. The documentation in this chart was dictated using [employer] dictation software. Please excuse any dictation errors. Quality:SDOH Health Related Social Needs: No Data to Display PFSH All Active Problems (Updated 03/18/24 @ 10:51 by Josh Kwon DO) URI (upper respiratory infection) (Acute) Bilateral acute otitis media (Acute) Medical History No significant past medical history Surgical History S/P hernia repair Social History Smoking/Tobacco Use Status: Former Tobacco Use Smoking risk assessment performed?: Yes Alcohol Intake: current Alcohol Intake frequency: other Drug use: Never Substance use type: does not use Details: Pt states he drinks once per week 03/18/24 Do you feel safe at home: Yes Do you feel safe in your relationship?: Yes
[2024-03-18] MEDS: Amox. 875/Clav. 125, 2 TABS/BTL 1 TAB PO (10:59)
[2024-03-18] MEDS: Budesonide/Formoterol 160/4.5 6 GM 60 PUFF INH IH (10:59)
[2024-03-18] MEDS: Inhaler, Assist Device 1 EACH MC (10:59)
[2024-03-18 11:00] VITALS: BP 111/77; PULSE 84; RESP 16; TEMP 36.6; O2SAT 96
== END 2024-03-18 11:05 | disposition home or self-care (01) ==
PROVIDERS: Emergency Provider Student in an Organized Health Care Education/Training Program
DX: H66.93 Otitis media, unspecified, bilateral (principal); J06.9 Acute upper respiratory infection, unspecified; Z87.891 Personal history of nicotine dependence
CPT/HCPCS: 99283